=== PATIENT | female | born 1930 | race African-American/Black ===

== ENCOUNTER 2016-06-23 18:43 | Inpatient (IN) | payer MEDICARE, MEDICAID ==
[~2016-06-23] VITALS: Ht 170.2 cm; Wt 52.3 kg
--- NOTE | 2016-06-23 18:57 | ED.ADGEN ---
Past History Past Medical History: Dementia, Depression Adult General Chief Complaint Chief Complaint ".. I don't know why they sent me... I did tell them I was depressed...".. " I am tired of people stealing my stuff and just generally tired of living...'" I am just tired of being sick all the time..." HPI HPI Patient is a 67 year old female who presents with above hx and complaints of depression, suicidal ideation, delusions or stealing from her and chronically il. Pt. a resident of [facility] since 2016. Pt. Primary is Dr. Castillo, and Dr. Thurman Psychiatrist. Pt. reportedly has been having depression thoughts for the past 4-6 weeks with some thoughts of suicide. Patient denies currently a plan or method. However nursing states patient attempted suicide by wrapping O2 tubing around her neck and putting electrical cord in her mouth. Patient has multiple health problems including chronic diastolic heart failure, gait disorder, dysphagia, generalized deconditioning, dementia, TIAs and CVAs, anemia, adrenal neoplasm, personality disorder, hyper insomnia, probably neuropathy, hypertension, pulmonary hypertension, cardiomyopathy, cardiac dysrhythmia, hypercapnia and hypoxia, osteoarthritis, polymyalgia rheumatica, osteoporosis, adenoid delusions , COPD, and depression. Pt. sent to ED for further eval. before admit to [facility] unit. Review of Systems Review of Systems Pt. has no complaints other than depression thoughts Constitutional: Denies fever or chills [] Eyes: Denies change in visual acuity, redness, or eye pain [] HENT: Denies nasal congestion or sore throat [] Respiratory: Denies cough or shortness of breath [] Cardiovascular: No additional information not addressed in HPI [] GI: Denies abdominal pain, nausea, vomiting, bloody stools or diarrhea [] : Denies dysuria or hematuria [] Musculoskeletal: Denies back pain or joint pain [] Integument: Denies rash or skin lesions [] Neurologic: Denies headache, focal weakness or sensory changes [] Endocrine: Denies polyuria or polydipsia [] Family History Family History Non-contributory Current Medications Current Medications Current Medications Medications (Trade) Dose Ordered Sig/Ion Start Time Stop Time Status Last Admin Dose Admin Ondansetron HCl (Zofran) 4 mg PRN Q4HRS PRN 06/23/16 20:30 06/24/16 20:29 See Nursing for home meds Allergies Allergies See Nursing Physical Exam Physical Exam Constitutional: , no acute distress, chronically ill in appearance. [] HENT: Normocephalic, atraumatic, bilateral external ears normal, oropharynx moist, no oral exudates, nose normal. [] Eyes: , EOMI, conjunctiva injected Lt, no discharge. Arcus Neck: Normal range of motion, no tenderness, supple, no stridor. [] Cardiovascular:Heart rate irregular rhythm, no murmur , PMI to lt. PVC per monitor Lungs & Thorax: Bilateral breath sounds clear to auscultation [] Abdomen: Bowel sounds normal, soft, no tenderness, no masses, no pulsatile masses. [] Skin: Warm, dry, no erythema, no rash. [] Back: No tenderness, no CVA tenderness. [] Extremities: No tenderness, no cyanosis, no clubbing, ROM intact, no edema. [] Neurologic: Alert and oriented X 3, normal motor function, normal sensory function, no focal deficits noted. [] Psychologic: Affect normal, judgement normal, mood normal. [] Current Patient Data Vital Signs Vital Signs Date Time Temp Pulse Resp B/P Pulse Ox O2 Delivery O2 Flow Rate FiO2 06/23/16 19:00 98.8 85 18 100 Nasal Cannula 3 Lab Results Laboratory Tests Test 06/23/16 19:00 06/23/16 19:05 06/23/16 19:13 Urine Collection Type Unknown Urine Color Straw Urine Clarity Clear Urine pH 7.0 Urine Specific [place] 1.010 Urine Protein 100 mg/dl (NEG-TRACE) Urine Glucose (UA) Negmg/dL (NEG) Urine Ketones (Stick) Negmg/dL (NEG) Urine Blood Neg (NEG) Urine Nitrite Neg (NEG) Urine Bilirubin Neg (NEG) Urine Urobilinogen Dipstick 0.2mg/dL (0.2 mg/dL) Urine Leukocyte Esterase Neg (NEG) Urine RBC Occ/HPF (0-2) Urine WBC 1-4/HPF (0-4) Urine Squamous Epithelial Cells Few/LPF Urine Bacteria 0/HPF (0-FEW) Urine Opiates Screen Neg (NEG) Urine Methadone Screen Neg (NEG) Urine Barbiturates Neg (NEG) Urine Phencyclidine Screen Neg (NEG) Urine Amphetamine/Methamphetamine Neg (NEG) Urine Benzodiazepines Screen Neg (NEG) Urine Cocaine Screen Neg (NEG) Urine Cannabinoids Screen Neg (NEG) Urine Ethyl Alcohol Neg (NEG) White Blood Count 5.7x10^3/uL (4.0-11.0) Red Blood Count 3.19x10^6/uL (3.50-5.40) L Hemoglobin 10.0g/dL (12.0-15.5) L Hematocrit 30.0% (36.0-47.0) L Mean Corpuscular Volume 94fL (79-100) Mean Corpuscular Hemoglobin 32pg (25-35) Mean Corpuscular Hemoglobin Concent 33g/dL (31-37) Red Cell Distribution Width 14.8% (11.5-14.5) H Platelet Count 201x10^3/uL (140-400) Neutrophils (%) (Auto) 81% (31-73) H Lymphocytes (%) (Auto) 12% (24-48) L Monocytes (%) (Auto) 7% (0-9) Eosinophils (%) (Auto) 0% (0-3) Basophils (%) (Auto) 0% (0-3) Neutrophils # (Auto) 4.6x10^3uL (1.8-7.7) Lymphocytes # (Auto) 0.7x10^3/uL (1.0-4.8) L Monocytes # (Auto) 0.4x10^3/uL (0.0-1.1) Eosinophils # (Auto) 0.0x10^3/uL (0.0-0.7) Basophils # (Auto) 0.0x10^3/uL (0.0-0.2) Erythrocyte Sedimentation Rate 8 (0-25) Prothrombin Time 11.1SEC (9.4-11.4) Prothrombin Time INR 1.1 (0.9-1.1) PTT 25SEC (23-33) Sodium Level 144mmol/L (136-145) Potassium Level 3.7mmol/L (3.5-5.1) Chloride Level 104mmol/L (98-107) Carbon Dioxide Level 33mmol/L (21-32) H Anion Gap 7 (6-14) Blood Urea Nitrogen 7mg/dL (7-20) Creatinine 0.8mg/dL (0.6-1.0) Estimated GFR (Cockcroft-Gault) 68.3 Glucose Level 126mg/dL (70-99) H Calcium Level 9.1mg/dL (8.5-10.1) Magnesium Level 2.0mg/dL (1.8-2.4) Total Bilirubin 0.5mg/dL (0.2-1.0) Direct Bilirubin 0.1mg/dL (0.0-0.2) Aspartate Amino Transferase (AST) 14U/L (15-37) L Alanine Aminotransferase (ALT) 18U/L (14-59) Alkaline Phosphatase 50U/L (46-116) Creatine Kinase 72U/L (26-192) Creatine Kinase MB (Mass) 1.0ng/mL (0.0-3.6) Creatine Kinase MB Relative Index 1.4% (0-4) Troponin I Quantitative 0.187ng/mL (0-0.055) H C-Reactive Protein < 0.5mg/L (0-3.3) IG-Ejr-T-Type Natriuretic Peptide 1996pg/mL (0-449) H Total Protein 7.1g/dL (6.4-8.2) Albumin 3.7g/dL (3.4-5.0) Lipase 74U/L (73-393) O2 Saturation Pending Arterial Blood pH 7.43 (7.35-7.45) Arterial Blood pCO2 at Patient Temp 43mmHg (35-46) Arterial Blood pO2 at Patient Temp 141mmHg (65-108) H Arterial Blood HCO3 28mmol/L (21-28) Arterial Blood Base Excess 3mmol/L (-3-3) FiO2 98 EKG EKG [] Radiology/Procedures Radiology/Procedures Interpretation chest x-ray shows chronic COPD changes. Cardiomegaly. Belt buckle and zipper. My interpretation of CT head shows no shift, mass, edema , bleed, or fracture. Does have significant atrophy and white matter disease changes. Course & Med Decision Making Course & Med Decision Making Pertinent Labs and Imaging studies reviewed. (See chart for details). Discussed presentation, testing and tx. plan with Dr. Watts med. consult. . Will admit to Tele. until medical clearance for [facility] - under Dr. Stevens. [] Final Impression Final Impression 1. Hx. Depression[] 2. Mental status change 3. Suicidal ideation 4. Paranoid delusions 5. Anemia 6. COPD oxygen dependent 7. Elevated troponin and BNP 8. History of chronic CHF diastolic dysfunction 9. Diabetes 10. Multiple chronic medical disorders Problems: Dragon Disclaimer Dragon Disclaimer This electronic medical record was generated, in whole or in part, using a voice recognition dictation system. KANCHAN MAO MD Jun 23, 2016 18:57
[2016-06-23 19:36] LABS: BASO % 0 % (0-3); EOS % 0 % (0-3); LYMPH # 0.7 x10^3/uL (1.0-4.8); LYMPH % 12 % (24-48); MEAN CORPUSCULAR HEMOGLOBIN 32 pg (25-35); MEAN CORPUSCULAR HGB CONC 33 g/dL (31-37); MEAN CORPUSCULAR VOLUME 94 fL (79-100); MONO # 0.4 x10^3/uL (0.0-1.1); MONO % 7 % (0-9); NEUT # 4.6 x10^3uL (1.8-7.7); NEUT % 81 % (31-73); PLATELET COUNT 201 x10^3/uL (140-400); RED BLOOD COUNT 3.19 x10^6/uL (3.50-5.40); RED CELL DISTRIBUTION WIDTH 14.8 % (11.5-14.5); WHITE BLOOD COUNT 5.7 x10^3/uL (4.0-11.0)
[2016-06-23 19:45] LABS: AMPHETAMINE/METHAMPHETAMINE NEG (NEG); BARBITURATES NEG (NEG); BENZODIAZEPINES NEG (NEG); CANNABINOIDS NEG (NEG); COCAINE NEG (NEG); METHADONE NEG (NEG); OPIATES NEG (NEG); PHENCYCLIDINE NEG (NEG)
--- NOTE | 2016-06-23 19:50 | RAD ---
INDICATION: Altered mental status. COMPARISON: None TECHNIQUE: Axial, noncontrast CT images obtained through the head. One or more of the following individualized dose reduction techniques were utilized for this examination: 1. Automated exposure control; 2. Adjustment of the mA and/or kV according to patient size; 3. Use of iterative reconstruction technique. FINDINGS: No acute intracranial process is identified, specifically no acute blood products, midline shift, mass effect or extra-axial fluid collections. Ventricles and sulci appear appropriate for patient's age. Basilar cisterns are maintained. Diffuse periventricular and subcortical white matter low attenuation is present, nonspecific although likely sequelae of chronic microvascular ischemia. Intracranial vascular calcifications are present. The visualized paranasal sinuses are clear. Mastoid air cells are clear. No calvarial fracture is present. Overlying scalp is intact. IMPRESSION: No acute intracranial process. Electronically signed by: Kemi Falk (Jun 23, 2016 19:47:56)
[2016-06-23 19:53] LABS: PH ABG 7.43 (7.35-7.45)
[2016-06-23 19:54] LABS: BASE EXCESS ABG 3 mmol/L (-3-3); HCO3 ABG 28 mmol/L (21-28); PCO2 ABG 43 mmHg (35-46); PO2 ABG 141 mmHg (65-108)
[2016-06-23 19:55] LABS: ALBUMIN 3.7 g/dL (3.4-5.0); ALK PHOS 50 U/L (46-116); ALT (SGPT) 18 U/L (14-59); ANION GAP 7 (6-14); AST (SGOT) 14 U/L (15-37); BLOOD UREA NITROGEN 7 mg/dL (7-20); C REACTIVE PROTEIN < 0.5 mg/L (0-3.3); CALCIUM 9.1 mg/dL (8.5-10.1); CARBON DIOXIDE 33 mmol/L (21-32); CHLORIDE 104 mmol/L (98-107); CREATINE KINASE 72 U/L (26-192); CREATININE 0.8 mg/dL (0.6-1.0); DIRECT BILIRUBIN 0.1 mg/dL (0.0-0.2); GFR 68.3; GLUCOSE 126 mg/dL (70-99); LIPASE 74 U/L (73-393); POTASSIUM 3.7 mmol/L (3.5-5.1); SODIUM 144 mmol/L (136-145); TOTAL BILIRUBIN 0.5 mg/dL (0.2-1.0); TOTAL PROTEIN 7.1 g/dL (6.4-8.2)
[2016-06-23 20:18] LABS: BILIRUBIN,URINE NEG (NEG); CLARITY,URINE CLEAR; COLOR,URINE STRAW; GLUCOSE,URINE NEG (NEG); NITRITE,URINE NEG (NEG); RBC,URINE OCC /HPF (0-2); UROBILINOGEN,URINE 0.2 mg/dL (0.2 mg/dL)
[2016-06-23 20:19] LABS: BACTERIA,URINE 0 /HPF (0-FEW); SQUAMOUS EPITHELIAL CELL,UR FEW /LPF
[2016-06-23] MEDS ORDERED: ONDANSETRON PF 4 MG/2 ML VIAL. IV PRN (20:30)
[2016-06-23 20:59] LABS: SEDIMENTATION RATE 8 (0-25)
[2016-06-23] MEDS ORDERED: FUROSEMIDE 40 MG TABLET PO ONE (21:00)
[2016-06-23] MEDS: IPRATRPIUM/ALBUTEROL 0.5/2.5MG 3 ML NEBU. NEB SCH (21:24)
[2016-06-23 22:25] VITALS: BP 169/79
--- NOTE | 2016-06-23 22:31 | ACF ---
Admission Criteria Forms MENTAL STATUS CHANGE Clinical Indications for Inpatient Care (Place 'X' for any and all applicable criteria): Ongoing inpatient care may be needed for ANY ONE of the following(1)(2)(3)(5)(6) : [ ]I. Suspected serious etiology (eg, medical disorder, [employer] event) of mental status change [X]II. Danger to self or others not manageable at lower level of care [ ]III. Grave disability (eg, inability to perform self care necessary at lower level of care) [ ]IV. Agitation or inappropriate behavior interfering with care for primary condition (eg, attempting to discontinue lines or drains prematurely, unable to cooperate with respiratory care) [ ]V. Delirium [A] [D][E] as described by ANY ONE of the following(26): [ ]a) Delirium due to alcohol or sedative [F] withdrawal [ ]b) Delirium of uncertain etiology that has not responded to appropriate empiric treatment [ ]c) Delirium that prevents performance of a life-sustaining function (eg, feeding or hydrating oneself) [ ]. General contraindications and/or Inappropriate clinical situations for Observational Care in patients with Mental Status Change, when ANY ONE of the following is required: [ ]a) Prediction of prolongation of LOS based on ANY ONE of the following may be considered as a contraindication for observational care 2, 3, 4, 5, 6, 7, 8, 9, 10, 11 [ ]i) Age > 65 yrs. [ ]ii) Patient arriving by ambulance [ ]iii) Patient with high acuity [ ]iv) Patient requiring vital sign monitoring [ ]v) Patient on IV medication [ ]b) Systolic blood pressures 180mmHg 3,12 [ ]c) Patient with altered mental status including delirium and other alteration of consciousness, (3) [ ]d) Patient whose discharge disposition will be to a nursing home home or rehabilitation home should not be managed in Emergency Department Observation Unit. CMS rule requires 3 days hospital stay before such placement.3,13 [ ]e) Patient with failure to thrive due to broad array of etiologies 3,16,17 [ ]f) Inability to ambulate 3,14 Extended stay beyond goal length of stay for the primary condition may be needed until ALL of the following are present(3)(5): [ ]a) Underlying medical etiology of mental status change is absent, or has been established and adequately treated [ ]b) Danger to self or others is absent or manageable at lower level of care. [ ]c) Behavior crisis management, including physical or chemical restraints, is not required or available at lower level of car [ ]d) Substance or alcohol withdrawal is absent or manageable at lower level of care. [ ]e) Behavioral symptoms (eg, agitation, somnolence, inappropriate behavior) are absent, or are manageable at lower level of care. The original [facility] content created by [facility] has been revised. The portions of the content which have been revised are identified through the use of italic text or in bold, and [facility] has neither reviewed nor approved the modified material. All other unmodified content is copyright [facility]. Please see references footnoted in the original [facility] edition 2016 Admission Criteria Met?: Yes MALAIKA SANTACRUZ Jun 23, 2016 22:31
[2016-06-23 23:26] VITALS: BP 152/75
[2016-06-24] MEDS ORDERED: ACET325T9 PO (01:31)
[2016-06-24] MEDS ORDERED: HYDR25SU18 RC (01:31)
[2016-06-24] MEDS ORDERED: ASPI325T11 PO (01:35)
[2016-06-24] MEDS ORDERED: [UNRECOGNIZED DRUG - CODE] MM (01:35)
[2016-06-24] MEDS ORDERED: TROL35.4 TP (01:45)
[2016-06-24] MEDS ORDERED: CHOL10003 PO (01:45)
[2016-06-24] MEDS ORDERED: LEVO250T25 PO (01:50)
[2016-06-24] MEDS ORDERED: IPRA3AMP NEB (01:50)
[2016-06-24] MEDS ORDERED: GLUC1TAB33 PO (01:50)
[2016-06-24] MEDS ORDERED: MAG360OR24 PO (01:50)
[2016-06-24] MEDS ORDERED: LORA10TA3 PO (01:57)
[2016-06-24] MEDS ORDERED: HYDR25CA PO (01:57)
[2016-06-24] MEDS ORDERED: PHEN1SUP75 RC (01:57)
[2016-06-24] MEDS ORDERED: ROFL500T PO (01:57)
[2016-06-24] MEDS ORDERED: PRED20TA PO (01:57)
[2016-06-24] MEDS ORDERED: CALC300T5 PO (01:57)
[2016-06-24 03:17] VITALS: BP_SYST 168; BP_SYST 92; BP_DIAS 54; BP_DIAS 78
--- NOTE | 2016-06-24 04:42 | EKG ---
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
[2016-06-24 06:17] VITALS: BP 161/92
--- NOTE | 2016-06-24 08:05 | RAD ---
Portable chest, 06/23/2016: History: Dyspnea, altered mental status No previous radiographs are available at this time for comparison purposes. The heart is mildly enlarged. There is calcific plaquing and tortuosity of the thoracic aorta. Right basilar pleural/parenchymal opacities are probably due to scarring. There are a few other scattered parenchymal scars. No definite pulmonary consolidation or pleural fluid is evident. Degenerative changes are present in the spine. IMPRESSION: 1. Mild cardiomegaly and aortic atherosclerosis. 2. Mild right basilar pleural/parenchymal opacity, most likely representing scarring.
[2016-06-24 08:23] LABS: BASO % 0 % (0-3); EOS # 0.1 x10^3/uL (0.0-0.7); EOS % 1 % (0-3); HEMATOCRIT 31.2 % (36.0-47.0); HEMOGLOBIN 10.3 g/dL (12.0-15.5); LYMPH # 2.1 x10^3/uL (1.0-4.8); LYMPH % 32 % (24-48); MEAN CORPUSCULAR HEMOGLOBIN 31 pg (25-35); MEAN CORPUSCULAR HGB CONC 33 g/dL (31-37); MEAN CORPUSCULAR VOLUME 93 fL (79-100); MONO # 0.8 x10^3/uL (0.0-1.1); MONO % 12 % (0-9); NEUT # 3.6 x10^3uL (1.8-7.7); NEUT % 55 % (31-73); PLATELET COUNT 205 x10^3/uL (140-400); RED BLOOD COUNT 3.35 x10^6/uL (3.50-5.40); WHITE BLOOD COUNT 6.5 x10^3/uL (4.0-11.0)
[2016-06-24 08:42] LABS: ALBUMIN 3.5 g/dL (3.4-5.0); CREATININE 0.8 mg/dL (0.6-1.0); GFR 82.7; TOTAL BILIRUBIN 0.6 mg/dL (0.2-1.0); TOTAL PROTEIN 6.9 g/dL (6.4-8.2)
[2016-06-24 08:47] LABS: POTASSIUM 2.9 mmol/L (3.5-5.1)
[2016-06-24 09:00] VITALS: BP 144/99
[2016-06-24] MEDS ORDERED: ASPIRIN 325 MG TABLET PO SCH (09:00)
[2016-06-24] MEDS ORDERED: 0.9 % SODIUM CHLORIDE 150ML 150 ML ONE ×2 (09:08→11:55)
[2016-06-24] MEDS: POTASSIUM CHLORIDE 20MEQ 100 ML IV SCH ×2 (09:15→11:52)
[2016-06-24] MEDS: IPRATRPIUM/ALBUTEROL 0.5/2.5MG 3 ML NEBU. NEB SCH ×4 (09:31→21:22)
--- NOTE | 2016-06-24 09:46 | PDOC2 ---
CONSULT Date of Admission DATE: 06/24/16 TIME: 09:45 Reason for Consult: elevated troponin Problem List Problems Medical Problems: (1) Suicidal thoughts Status: Acute History of Present Illness Ms Ji is an 85 year old female resident of a [place] who was brought to the hospital for suicidal ideation. She was reportedly found with her oxygen tubing wrapped around her neck. She denies this. She was noted in the ED to have an elevation in her troponin so consult was called. She reports occasional chest tightness with dyspnea that occurs when she is cleaning her room at the [place]. She reports it is better sometimes with rest, other times resolves with breathing treatments. She denies any congestive symptoms, palpitations, lightheadedness or syncope. Past Medical History hypertension, hyperlipidemia, thyroid disease, PUD, acid reflux, chronic diastolic heart failure, gait disorder, dysphagia, generalized deconditioning, dementia, TIAs and CVAs, anemia, adrenal neoplasm, personality disorder, hyper insomnia, probably neuropathy, pulmonary hypertension, cardiomyopathy, cardiac dysrhythmia, hypercapnia and hypoxia, osteoarthritis, polymyalgia rheumatica, osteoporosis, paranoid delusions, COPD, and depression. She denies any prior AK or coronary disease. Family History non contributory due to age Social History resident of a long term, non smoker, no significant ETOH, no illicit drugs Current Medications Current Medications Furosemide (Lasix) 40 mg 1X ONCE PO Last administered on 06/23/16 21:24; Start 06/23/16 at 21:00; Stop 06/23/16 at 21:01; Status DC Ondansetron HCl (Zofran) 4 mg PRN Q4HRS PRN IV NAUSEA/VOMITING; Start 06/23/16 at 20:30; Stop 06/24/16 at 20:29 Aspirin (Genaro Aspirin) 325 mg DAILY PO Last administered on 06/24/16 09:15; Start 06/24/16 at 09:00 Albuterol/ Ipratropium 3 ml 3 ml [id number] NEB Last administered on 06/24/16 09: 31; Start 06/23/16 at 21:00 Potassium Chloride 100 ml @ 50 mls/hr Q2H IV Last administered on 06/24/16 09 :15; Start 06/24/16 at 09:00; Stop 06/24/16 at 12:59 Sodium Chloride (Iv Normal Saline 150ml) 150 ml @ As Directed STK-MED ONCE .ROUTE Last administered on 06/24/16t 09:15; Start 06/24/16 at 09:08; Stop 01/31 at 09:09; Status DC Aspirin (Aspirin Enteric Coated) 325 mg DAILY PO ; Start 06/25/16 at 09:00; Status UNV Active Scripts Active Reported Vistaril (Hydroxyzine Pamoate) 25 Mg Capsule 25 Mg PO Q6HRS PRN Tums (Calcium Carbonate) 300 Mg Tab.chew 500 Mg PO Q2HR Daliresp (Roflumilast) 500 Mcg Tablet 500 Mcg PO DAILY Preparation H Suppository (Phenylephrine Hcl/[place] Butter) 1 Each Supp.rect 1 Each RC Q6HRS Prednisone 20 Mg Tablet 20 Mg PO DAILY Loratadine 10 Mg Tablet 10 Mg PO DAILY Levaquin (Levofloxacin) 250 Mg Tablet 250 Mg PO DAILY Glucosamine Chondroitin Tab (Gluc Bennett/Chondro Bennett A/Vit C/Mn) 1 Each Tablet 1 Each PO BID PRN Alum-Mag Hydroxide-Simeth Liq (Mag Hydrox/Al Hydrox/Simeth) 360 Ml Oral.susp 30 Ml PO Q6HRS PRN Duoneb 0.5-3(2.5) Mg/3 Ml (Albuterol/Ipratropium) 3 Ml Ampul.neb 3 Ml NEB Q4HRS PRN Vitamin D3 (Cholecalciferol (Vitamin D3)) 1,000 Unit Tablet 2,000 Unit PO DAILY Aspercreme 10% Cream (Trolamine Salicylate/Aloe Vera) 35.4 Gm Cream..g. 35.4 Gm TP Q12HR PRN Vencedor-15 (Benzocaine) 15 Mg Lozenge 15 Mg MM Q2HR PRN Aspirin Ec (Aspirin) 325 Mg Tablet.dr 325 Mg PO DAILY Anusol-Hc (Hydrocortisone Acetate) 25 Mg Supp.rect 25 Mg RC Q8HRS PRN Tylenol (Acetaminophen) 325 Mg Tablet 650 Mg PO Q4HRS PRN Allergies: Coded Allergies: diazepam (Verified Allergy, Intermediate, 06/24/16) lidocaine (Verified Allergy, Intermediate, 06/24/16) propoxyphene (Verified Allergy, Intermediate, 06/24/16) Review of System as per HPI, she denies additional symptoms General: Alert, Cooperative, No acute distress HEENT: Atraumatic, EOMI, Mucous membr. moist/pink Lungs: Other (bibasilar crackles) Heart: Normal S1, Normal S2, Other (+ systolic murmur) Extremities: No cyanosis, Normal pulses Neuro: Normal speech, Strength at 5/5 X4 ext Psych/Mental Status: Mood NL VITALS Vital Signs Date Time Temp Pulse Resp B/P Pulse Ox O2 Delivery O2 Flow Rate FiO2 06/24/16 09:32 100 Nasal Cannula 3.0 06/24/16 09:00 87 22 144/99 06/24/16 06:17 98.7 Labs Laboratory Tests Test 06/23/16 19:00 06/23/16 19:05 06/23/16 19:13 06/24/16 01:30 Urine Collection Type Unknown Urine Color Straw Urine Clarity Clear Urine pH 7.0 Urine Specific [place] 1.010 Urine Protein 100 mg/dl (NEG-TRACE) Urine Glucose (UA) Negmg/dL (NEG) Urine Ketones (Stick) Negmg/dL (NEG) Urine Blood Neg (NEG) Urine Nitrite Neg (NEG) Urine Bilirubin Neg (NEG) Urine Urobilinogen Dipstick 0.2mg/dL (0.2 mg/dL) Urine Leukocyte Esterase Neg (NEG) Urine RBC Occ/HPF (0-2) Urine WBC 1-4/HPF (0-4) Urine Squamous Epithelial Cells Few/LPF Urine Bacteria 0/HPF (0-FEW) Urine Opiates Screen Neg (NEG) Urine Methadone Screen Neg (NEG) Urine Barbiturates Neg (NEG) Urine Phencyclidine Screen Neg (NEG) Urine Amphetamine/Methamphetamine Neg (NEG) Urine Benzodiazepines Screen Neg (NEG) Urine Cocaine Screen Neg (NEG) Urine Cannabinoids Screen Neg (NEG) Urine Ethyl Alcohol Neg (NEG) White Blood Count 5.7x10^3/uL (4.0-11.0) Red Blood Count 3.19x10^6/uL (3.50-5.40) Hemoglobin 10.0g/dL (12.0-15.5) Hematocrit 30.0% (36.0-47.0) Mean Corpuscular Volume 94fL (79-100) Mean Corpuscular Hemoglobin 32pg (25-35) Mean Corpuscular Hemoglobin Concent 33g/dL (31-37) Red Cell Distribution Width 14.8% (11.5-14.5) Platelet Count 201x10^3/uL (140-400) Neutrophils (%) (Auto) 81% (31-73) Lymphocytes (%) (Auto) 12% (24-48) Monocytes (%) (Auto) 7% (0-9) Eosinophils (%) (Auto) 0% (0-3) Basophils (%) (Auto) 0% (0-3) Neutrophils # (Auto) 4.6x10^3uL (1.8-7.7) Lymphocytes # (Auto) 0.7x10^3/uL (1.0-4.8) Monocytes # (Auto) 0.4x10^3/uL (0.0-1.1) Eosinophils # (Auto) 0.0x10^3/uL (0.0-0.7) Basophils # (Auto) 0.0x10^3/uL (0.0-0.2) Erythrocyte Sedimentation Rate 8 (0-25) Prothrombin Time 11.1SEC (9.4-11.4) Prothromb Time International Ratio 1.1 (0.9-1.1) Activated Partial Thromboplast Time 25SEC (23-33) Sodium Level 144mmol/L (136-145) Potassium Level 3.7mmol/L (3.5-5.1) Chloride Level 104mmol/L (98-107) Carbon Dioxide Level 33mmol/L (21-32) Anion Gap 7 (6-14) Blood Urea Nitrogen 7mg/dL (7-20) Creatinine 0.8mg/dL (0.6-1.0) Estimated GFR (Cockcroft-Gault) 68.3 Glucose Level 126mg/dL (70-99) Calcium Level 9.1mg/dL (8.5-10.1) Magnesium Level 2.0mg/dL (1.8-2.4) Total Bilirubin 0.5mg/dL (0.2-1.0) Direct Bilirubin 0.1mg/dL (0.0-0.2) Aspartate Amino Transf (AST/SGOT) 14U/L (15-37) Alanine Aminotransferase (ALT/SGPT) 18U/L (14-59) Alkaline Phosphatase 50U/L (46-116) Creatine Kinase 72U/L (26-192) Creatine Kinase MB (Mass) 1.0ng/mL (0.0-3.6) Creatine Kinase MB Relative Index 1.4% (0-4) Troponin I Quantitative 0.187ng/mL (0-0.055) 0.198ng/mL (0-0.055) C-Reactive Protein < 0.5mg/L (0-3.3) KV-Zef-D-Type Natriuretic Peptide 1996pg/mL (0-449) Total Protein 7.1g/dL (6.4-8.2) Albumin 3.7g/dL (3.4-5.0) Lipase 74U/L (73-393) Arterial Blood pH 7.43 (7.35-7.45) Arterial Blood pCO2 at Patient Temp 43mmHg (35-46) Arterial Blood pO2 at Patient Temp 141mmHg (65-108) Arterial Blood HCO3 28mmol/L (21-28) Arterial Blood Base Excess 3mmol/L (-3-3) FiO2 98 Test 06/24/16 07:24 06/24/16 07:28 Sodium Level 146mmol/L (136-145) Potassium Level 2.9mmol/L (3.5-5.1) Chloride Level 103mmol/L (98-107) Carbon Dioxide Level 38mmol/L (21-32) Anion Gap 5 (6-14) Blood Urea Nitrogen 7mg/dL (7-20) Creatinine 0.8mg/dL (0.6-1.0) Estimated GFR (Cockcroft-Gault) 82.7 BUN/Creatinine Ratio 9 (6-20) Glucose Level 88mg/dL (70-99) Calcium Level 9.0mg/dL (8.5-10.1) Total Bilirubin 0.6mg/dL (0.2-1.0) Aspartate Amino Transf (AST/SGOT) 12U/L (15-37) Alanine Aminotransferase (ALT/SGPT) 18U/L (14-59) Alkaline Phosphatase 45U/L (46-116) Troponin I Quantitative 0.211ng/mL (0-0.055) Total Protein 6.9g/dL (6.4-8.2) Albumin 3.5g/dL (3.4-5.0) Albumin/Globulin Ratio 1.0 (1.0-1.7) White Blood Count 6.5x10^3/uL (4.0-11.0) Red Blood Count 3.35x10^6/uL (3.50-5.40) Hemoglobin 10.3g/dL (12.0-15.5) Hematocrit 31.2% (36.0-47.0) Mean Corpuscular Volume 93fL (79-100) Mean Corpuscular Hemoglobin 31pg (25-35) Mean Corpuscular Hemoglobin Concent 33g/dL (31-37) Red Cell Distribution Width 15.0% (11.5-14.5) Platelet Count 205x10^3/uL (140-400) Neutrophils (%) (Auto) 55% (31-73) Lymphocytes (%) (Auto) 32% (24-48) Monocytes (%) (Auto) 12% (0-9) Eosinophils (%) (Auto) 1% (0-3) Basophils (%) (Auto) 0% (0-3) Neutrophils # (Auto) 3.6x10^3uL (1.8-7.7) Lymphocytes # (Auto) 2.1x10^3/uL (1.0-4.8) Monocytes # (Auto) 0.8x10^3/uL (0.0-1.1) Eosinophils # (Auto) 0.1x10^3/uL (0.0-0.7) Basophils # (Auto) 0.0x10^3/uL (0.0-0.2) Images CXR - IMPRESSION: 1. Mild cardiomegaly and aortic atherosclerosis. 2. Mild right basilar pleural/parenchymal opacity, most likely representing scarring. EKG - sinus rhythm without acute ischemic changes Assessment/Plan 1. elevated troponin consistent with NSTEMI - Will check echocardiogram and start beta carleen therapy. Recommend medical mgmt until stable from psychiatric standpoint. 2. hypertension - home meds and start beta carleen 3. chronic diastolic heart failure - no overt HF at this time 4. hypokalemia - replace. 5. SI, dementia - per PCP/Psych. Problems: LEN MACHUCA APRN Jun 24, 2016 09:46
[2016-06-24 10:00] VITALS: BP 169/94
[2016-06-24 12:25] LABS: SAT O2 ABG 98 % (92-99)
[2016-06-24] MEDS ORDERED: HYDROXYZINE PAMOATE 25 MG CAPSULE PO PRN (13:00)
[2016-06-24] MEDS ORDERED: MAG HYDROX/AL HYDROX/SIMETH 30 ML ORAL.SUSP PO PRN (13:15)
[2016-06-24] MEDS ORDERED: CALCIUM CARBONATE 500 MG TAB.CHEW PO PRN (13:15)
[2016-06-24] MEDS ORDERED: PREDNISONE 10 MG TABLET ONE (13:15)
[2016-06-24] MEDS: METOPROLOL TART IMMED RELEASE 25 MG TABLET PO SCH ×2 (13:19→20:09)
[2016-06-24] MEDS: ACETAMINOPHEN 325 MG TABLET PO PRN (13:20)
--- NOTE | 2016-06-24 14:52 | HP ---
ADMIT DATE: 06/24/2016 REASON FOR ADMISSION: This is an 85-year-old female who came from [facility] in [place], [place]. Evidently at this nursing facility where she had been since 05/20/2016, the intake states she made a second suicide attempt, wrapped oxygen tubing around her neck at one point and then she had put an electrical cord in her mouth. Also paranoid about people stealing her clothes. Onset of symptoms 2 weeks. However, the patient was being treated for pneumonia and was found to have an elevated troponin and so was admitted to the ICU for further medical care. PAST MEDICAL HISTORY: Chronic diastolic heart failure; dysphagia; weakness; dementia with behavior disturbance; history of TIAs; anemia; personality disorder, unspecified; hypersomnia; polyneuropathy; hypertensive heart disease; secondary pulmonary hypertension; cardiomyopathy; cardiac arrhythmias; polymyalgia rheumatica; arthritis; osteoporosis; and chronic respiratory failure, oxygen dependent. ALLERGIES: DIAZEPAM, LIDOCAINE, AND PROPOXYPHENE. MEDICATIONS: Reviewed. The patient recently started on a prednisone on 06/20/2016 where she was receiving 40 mg a day for 3 days and is now on 20 mg a day. She was also started on Levaquin on 06/21/2016 for pneumonia, however there is no chest wall x-ray to go back by. SOCIAL HISTORY: The patient states she worked for years. She no longer smokes. She stated she lived with her granddaughter for 6 months, then was placed in the nursing facility on 05/20/2016 because her granddaughter "wanted to travel." Prior to that, she states she lived in her home, but her home is in disrepair and needs extensive repairs and probably "isn't worth anything." REVIEW OF SYSTEMS: The patient is quite emotionally distraught at the present time. She insists that she did not try to harm herself and actually states why I put a plug in my mouth, what good would that do to put the plug in my mouth. She does not recall wrapping the oxygen tubing around her neck. She does insist that some of her clothes have been stolen. That has seen other people with her clothes on and that she has called attention to these to the staff and they moved her to a different room. She states she has labels on her clothes. She complains little bit of shortness of breath, but no chest pains in particular and does not have any other complaints except for being very upset. OBJECTIVE: VITAL SIGNS: Blood pressure is 169/94, pulse 90, respirations 22, pulse ox is 100% on 3 liters. Height is 67 inches, weight 115.31 pounds, her BMI is only 18. GENERAL: Frail appearing elderly female, in no acute distress. HEENT: Hearing is normal. Her eyes are clear. Her nose was patent. Her tongue was moist. Throat was clear. NECK: Supple, without adenopathy. LUNGS: Clear to auscultation. CARDIOVASCULAR: Regular rhythm and rate. There are occasional PVCs on the monitor. ABDOMEN: Soft, nontender. EXTREMITIES: Without edema. NEUROLOGIC: Mental status is definitely anxious. Continues to ruminate about her clothes. The patient insists she does not want to go back to the long-term and she wants to go live with her son. I had initially seen her earlier in the day, but had to leave due to a more urgent case and the patient repeatedly asked the nurses when I was coming back. LABORATORY DATA: Hemoglobin 10.3, hematocrit 31.2. Sed rate is 8. Blood gas was normal. She had a pO2 of 141. Chemistry: Potassium was 2.9. Troponin has gone from 0.187 to 0.211. Cholesterol is 217, her HDL s 79. Her TSH is 20.417. BNP 1996. IMAGING: EKG without ischemic changes. ASSESSMENT: 1. Elevated troponin consistent with non-STEMI. Cardiology ordered echocardiogram and started on beta carleen. 2. Hypertension. 3. Chronic diastolic heart failure, no evidence at the present time. 4. Severe anxiety related to her situation. 5. Suicide attempt according to the long-term. 6. Hypothyroidism. We will start replacement. 7. Hypokalemia, being replaced. 8. Hyperlipidemia. We will start a low dose of statin. XIANG PONCE DO DR: VLAD/alisa JOB#: [id number] / [id number]
[2016-06-24 15:00] VITALS: BP 175/97
[2016-06-24] MEDS: PREDNISONE 10 MG TABLET PO SCH (15:00)
--- NOTE | 2016-06-24 15:10 | EKG ---
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
--- NOTE | 2016-06-24 15:28 | CARD ---
APPROVED REPORT EXAM: Two-dimensional and M-mode echocardiogram with Doppler and color Doppler. INDICATION Elevated Troponin 2D DIMENSIONS RVDd2.7 (2.9-3.5cm)Left Atrium(2D)4.7 (1.6-4.0cm) IVSd0.9 (0.7-1.1cm)Aortic Root(2D)2.9 (2.0-3.7cm) LVDd4.6 (3.9-5.9cm)PWd1.2 (0.7-1.1cm) LVDs2.9 (2.5-4.0cm)FS (%) 36.6 % SV64.7 mlLVEF(%)65.0 (>50%) Aortic Valve AoV Peak Thiago.183.1cm/sAoV VTI26.9cm AO Peak GR.13.4mmHgAO Mean GR.7mmHg DANA (VTI)2.24hy0PO P 1/2 [id number] Mitral Valve MV E Hmevjxyp514.1cm/sMV DECEL [id number] MV A Mxnnkutj451.6cm/sE/A Ratio1.4 Tricuspid Valve TR P. Gilmgryr492nj/sRAP [id number] TR Peak Gr.76cqNpBUVI41hmHi LEFT VENTRICLE The left ventricle is normal size. There is mild concentric left ventricular hypertrophy. The left ve ntricular systolic function is normal and the ejection fraction is within normal range. The Ejection Fraction is 55-60%. There is normal LV segmental wall motion. Transmitral Doppler flow pattern is Gra de II-pseudonormal filling dynamics. RIGHT VENTRICLE The right ventricle is normal size. The right ventricular systolic function is normal. ATRIA The left atrium is moderately dilated. The right atrium is mildly dilated. The interatrial septum is intact with no evidence for an atrial septal defect or patent foramen ovale as noted on 2-D or Dopple r imaging. AORTIC VALVE The aortic valve is moderately thickened but opens well. Doppler and Color Flow revealed moderate aor tic regurgitation. There is no significant aortic valvular stenosis. MITRAL VALVE The mitral valve is calcified but opens well. There is no evidence of mitral valve prolapse. There is no mitral valve stenosis. Doppler and Color-flow revealed severe mitral regurgitation. TRICUSPID VALVE The tricuspid valve is normal in structure and function. Doppler and Color Flow revealed mild to mode rate tricuspid regurgitation. The PA pressure was estimated at 66 mmHg. There is no tricuspid valve s tenosis. PULMONIC VALVE The pulmonary valve is normal in structure and function. Doppler and Color Flow revealed mild pulmoni c valvular regurgitation. There is no pulmonic valvular stenosis. GREAT VESSELS The aortic root is normal in size. The ascending aorta is mild to moderately dilated at 3.9 cm. The I VC is dilated. PERICARDIAL EFFUSION There is a trace circumferential pericardial effusion with no hemodynamic significance. Critical Notification Critical Value: No <Conclusion> The left ventricle is normal size. The left ventricular systolic function is normal and the ejection fraction is within normal range. The Ejection Fraction is 55-60%. There is mild concentric left ventricular hypertrophy. The left atrium is moderately dilated. There is no significant aortic valvular stenosis. Doppler and Color Flow revealed moderate aortic regurgitation. Doppler and Color-flow revealed severe mitral regurgitation. Doppler and Color Flow revealed mild to moderate tricuspid regurgitation. The PA pressure was estimated at 66 mmHg. The ascending aorta is mild to moderately dilated at 3.9 cm. There is a trace circumferential pericardial effusion with no hemodynamic significance.
[2016-06-24 19:58] VITALS: BP 162/89
--- NOTE | 2016-06-24 20:41 | PDOC ---
Exam Luis Alfredo Demential Exam: Luis Alfredo Note: Please also refer to the separate dictated note~for this date of service dictated separately.~Patient seen individually. Discussed the patient with Nursing staff reviewed the chart.~Reviewed interim history and current functioning. Reviewed vital signs,~Labs/ Radiology~and current medications noted below. Continue current treatment with the changes noted in the dictated addendum note Assessment: Vital Signs: Vital Signs Date Time Temp Pulse Resp B/P Pulse Ox O2 Delivery O2 Flow Rate FiO2 06/24/16 20:09 77 162/89 06/24/16 19:58 98.4 22 100 Nasal Cannula 3.0 I&O Intake and Output 06/24/16 07:00 Intake Total 750 ml Output Total 990 ml Balance -240 ml Intake Oral 750 ml Output Urine Total 990 ml # Voids 7 Labs: Laboratory Tests Test 06/24/16 01:30 06/24/16 07:24 06/24/16 07:28 Troponin I Quantitative 0.198ng/mL (0-0.055) H 0.211ng/mL (0-0.055) H Sodium Level 146mmol/L (136-145) H Potassium Level 2.9mmol/L (3.5-5.1) *L Chloride Level 103mmol/L (98-107) Carbon Dioxide Level 38mmol/L (21-32) H Anion Gap 5 (6-14) L Blood Urea Nitrogen 7mg/dL (7-20) Creatinine 0.8mg/dL (0.6-1.0) Estimated GFR (Cockcroft-Gault) 82.7 BUN/Creatinine Ratio 9 (6-20) Glucose Level 88mg/dL (70-99) Calcium Level 9.0mg/dL (8.5-10.1) Total Bilirubin 0.6mg/dL (0.2-1.0) Aspartate Amino Transferase (AST) 12U/L (15-37) L Alanine Aminotransferase (ALT) 18U/L (14-59) Alkaline Phosphatase 45U/L (46-116) L Total Protein 6.9g/dL (6.4-8.2) Albumin 3.5g/dL (3.4-5.0) Albumin/Globulin Ratio 1.0 (1.0-1.7) White Blood Count 6.5x10^3/uL (4.0-11.0) Red Blood Count 3.35x10^6/uL (3.50-5.40) L Hemoglobin 10.3g/dL (12.0-15.5) L Hematocrit 31.2% (36.0-47.0) L Mean Corpuscular Volume 93fL (79-100) Mean Corpuscular Hemoglobin 31pg (25-35) Mean Corpuscular Hemoglobin Concent 33g/dL (31-37) Red Cell Distribution Width 15.0% (11.5-14.5) H Platelet Count 205x10^3/uL (140-400) Neutrophils (%) (Auto) 55% (31-73) Lymphocytes (%) (Auto) 32% (24-48) Monocytes (%) (Auto) 12% (0-9) H Eosinophils (%) (Auto) 1% (0-3) Basophils (%) (Auto) 0% (0-3) Neutrophils # (Auto) 3.6x10^3uL (1.8-7.7) Lymphocytes # (Auto) 2.1x10^3/uL (1.0-4.8) Monocytes # (Auto) 0.8x10^3/uL (0.0-1.1) Eosinophils # (Auto) 0.1x10^3/uL (0.0-0.7) Basophils # (Auto) 0.0x10^3/uL (0.0-0.2) Triglycerides Level 60mg/dL (0-150) Cholesterol Level 217mg/dL (0-200) H LDL Cholesterol, Calculated 126mg/dL (0-100) H VLDL Cholesterol, Calculated 12mg/dL (0-40) HDL Cholesterol 79mg/dL (40-60) H Cholesterol/HDL Ratio 2.0 Current Medications: Meds: Current Medications Furosemide (Lasix) 40 mg 1X ONCE PO Last administered on 06/23/16t 21:24; Start 06/23/16 at 21:00; Stop 06/23/16 at 21:01; Status DC Ondansetron HCl (Zofran) 4 mg PRN Q4HRS PRN IV NAUSEA/VOMITING; Start 06/23/16 at 20:30; Stop 06/24/16 at 20:29; Status DC Aspirin (Genaro Aspirin) 325 mg DAILY PO Last administered on 06/24/16 09:15; Start 06/24/16 at 09:00; Stop 06/24/16 at 09:47; Status DC Albuterol/ Ipratropium 3 ml 3 ml [id number] Last administered on 06/24/16 13: 20; Start 06/23/16 at 21:00; Stop 06/24/16 at 15:30; Status DC Potassium Chloride 100 ml @ 50 mls/hr Q2H IV Last administered on 06/24/16 11 :52; Start 06/24/16 at 09:00; Stop 06/24/16 at 12:59; Status DC Sodium Chloride (Iv Normal Saline 150ml) 150 ml @ As Directed STK-MED ONCE .ROUTE Last administered on 06/24/16 09:15; Start 06/24/16 at 09:08; Stop 01/31 at 09:09; Status DC Aspirin (Aspirin Enteric Coated) 325 mg DAILY PO ; Start 06/25/16 at 09:00 Metoprolol Tartrate 25 mg 25 mg BID PO ; Start 06/24/16 at 21:00; Stop 06/24/16 at 21:00; Status DC Sodium Chloride (Iv Normal Saline 150ml) 150 ml @ As Directed STK-MED ONCE .ROUTE Last administered on 06/24/16 11:56; Start 06/24/16 at 11:55; Stop 01/31 at 11:56; Status DC Metoprolol Tartrate (Lopressor) 25 mg BID PO Last administered on 06/24/16 20: 09; Start 06/24/16 at 12:45 Acetaminophen (Tylenol) 650 mg PRN Q6HRS PRN PO PAIN / TEMP Last administered on 06/24/16 13:20; Start 06/24/16 at 12:45 Vitamin D (Vitamin D3) 2,000 unit DAILY PO ; Start 06/25/16 at 09:00 Hydroxyzine Pamoate (Vistaril) 25 mg PRN Q6HRS PRN PO ANXIETY; Start 06/24/16 at 13:00 Prednisone (Prednisone) 10 mg DAILY PO ; Start 06/24/16 at 15:00; Stop 06/26/16 at 15:00 Calcium Carbonate/ Glycine (Tums) 500 mg PRN Q2HR PRN PO INDIGESTION; Start 01/31 at 13:15 Cetirizine HCl (Zyrtec) 10 mg DAILY PO ; Start 06/25/16 at 09:00 Al Hydroxide/Mg Hydroxide (Mylanta Plus Xs) 30 ml PRN Q6HRS PRN PO DYSPEPSIA; Start 06/24/16 at 13:15 Prednisone (Prednisone) 10 mg STK-MED ONCE .ROUTE Last administered on 13:20; Start 06/24/16 at 13:15; Stop 06/24/16 at 13:16; Status DC Albuterol/ Ipratropium (Duoneb) 3 ml RTQID NEB Last administered on 06/24/16 15:34; Start 06/24/16 at 16:00 Active Scripts Active Reported Vistaril (Hydroxyzine Pamoate) 25 Mg Capsule 25 Mg PO Q6HRS PRN Tums (Calcium Carbonate) 300 Mg Tab.chew 500 Mg PO Q2HR Daliresp (Roflumilast) 500 Mcg Tablet 500 Mcg PO DAILY Preparation H Suppository (Phenylephrine Hcl/[place] Butter) 1 Each Supp.rect 1 Each RC Q6HRS Prednisone 20 Mg Tablet 20 Mg PO DAILY Loratadine 10 Mg Tablet 10 Mg PO DAILY Levaquin (Levofloxacin) 250 Mg Tablet 250 Mg PO DAILY Glucosamine Chondroitin Tab (Gluc Bennett/Chondro Bennett A/Vit C/Mn) 1 Each Tablet 1 Each PO BID PRN Alum-Mag Hydroxide-Simeth Liq (Mag Hydrox/Al Hydrox/Simeth) 360 Ml Oral.susp 30 Ml PO Q6HRS PRN Duoneb 0.5-3(2.5) Mg/3 Ml (Albuterol/Ipratropium) 3 Ml Ampul.neb 3 Ml NEB Q4HRS PRN Vitamin D3 (Cholecalciferol (Vitamin D3)) 1,000 Unit Tablet 2,000 Unit PO DAILY Aspercreme 10% Cream (Trolamine Salicylate/Aloe Vera) 35.4 Gm Cream..g. 35.4 Gm TP Q12HR PRN Vencedor-15 (Benzocaine) 15 Mg Lozenge 15 Mg MM Q2HR PRN Aspirin Ec (Aspirin) 325 Mg Tablet.dr 325 Mg PO DAILY Anusol-Hc (Hydrocortisone Acetate) 25 Mg Supp.rect 25 Mg RC Q8HRS PRN Tylenol (Acetaminophen) 325 Mg Tablet 650 Mg PO Q4HRS PRN Diagnosis: Problems: (1) Anxiety disorder (2) Dementia in Alzheimer's disease with delusions (3) Dementia in Alzheimer's disease with depression (4) Dementia, vascular, with delusions (5) Dementia, vascular, with depression (6) Impulse control disorder (7) Major depressive disorder, recurrent episode EDWARDO DOWD MD Jun 24, 2016 20:41
[2016-06-24] MEDS ORDERED: METOPROLOL TART IMMED RELEASE 25 MG TABLET PO SCH (21:00)
[2016-06-25] MEDS: IPRATRPIUM/ALBUTEROL 0.5/2.5MG 3 ML NEBU. NEB SCH ×2 (05:21→10:00)
[2016-06-25 06:15] VITALS: BP 159/73
[2016-06-25 06:35] LABS: BASO % 0 % (0-3); EOS # 0.1 x10^3/uL (0.0-0.7); EOS % 2 % (0-3); HEMATOCRIT 31.3 % (36.0-47.0); HEMOGLOBIN 10.1 g/dL (12.0-15.5); LYMPH # 2.2 x10^3/uL (1.0-4.8); LYMPH % 35 % (24-48); MEAN CORPUSCULAR HEMOGLOBIN 31 pg (25-35); MEAN CORPUSCULAR HGB CONC 32 g/dL (31-37); MEAN CORPUSCULAR VOLUME 95 fL (79-100); MONO # 0.7 x10^3/uL (0.0-1.1); MONO % 11 % (0-9); NEUT # 3.3 x10^3uL (1.8-7.7); NEUT % 53 % (31-73); PLATELET COUNT 208 x10^3/uL (140-400); RED BLOOD COUNT 3.29 x10^6/uL (3.50-5.40); RED CELL DISTRIBUTION WIDTH 14.8 % (11.5-14.5); WHITE BLOOD COUNT 6.3 x10^3/uL (4.0-11.0)
[2016-06-25 06:52] LABS: ALBUMIN 3.2 g/dL (3.4-5.0); CALCIUM 8.8 mg/dL (8.5-10.1); CREATININE 0.8 mg/dL (0.6-1.0); GFR 82.7; POTASSIUM 3.8 mmol/L (3.5-5.1); TOTAL BILIRUBIN 0.5 mg/dL (0.2-1.0); TOTAL PROTEIN 6.3 g/dL (6.4-8.2)
[2016-06-25] MEDS ORDERED: CETIRIZINE HCL 10 MG TABLET PO SCH (09:00)
[2016-06-25] MEDS ORDERED: CHOLECALCIFEROL (VITAMIN D3) 1,000 UNIT TABLET PO SCH (09:00)
[2016-06-25] MEDS ORDERED: ROFLUMILAST 500 MCG TABLET PO SCH (09:00)
[2016-06-25] MEDS ORDERED: ASPIRIN ENTERIC COATED 325 MG TABLET.DR. PO SCH (09:00)
[2016-06-25] MEDS: ACETAMINOPHEN 325 MG TABLET PO PRN (09:20)
[2016-06-25] MEDS: PREDNISONE 10 MG TABLET PO SCH (09:21)
[2016-06-25] MEDS: METOPROLOL TART IMMED RELEASE 25 MG TABLET PO SCH (09:21)
[2016-06-25 10:33] VITALS: BP 153/70
[2016-06-25] MEDS ORDERED: METO25TA4 PO (15:10)
--- NOTE | 2016-06-25 23:18 | CONS ---
DATE OF CONSULTATION: 06/24/2016 PSYCHIATRIC CONSULTATION This is a late entry for 06/24/2016. IDENTIFYING DATA: The patient was seen individually evening of 06/24/2016. Discussed with nursing staff several times during the day and the day before since the patient was initially referred to the [facility] Unit from the [facility] in [place], [place]. She arrived in the ER was found to be medically unstable to be on the psychiatry unit then referred to the medical surgical unit was in the ICU and then transferred to room [facility] where I saw her for the consult requested by Dr. Lopez. The patient reportedly was found at the [facility] raping her oxygen, tubing around her throat, and trying to put an electrical cord in her mouth. Reportedly, the patient "stated to the nurse that I did it in order to demise." CHIEF COMPLAINT: "Yes I did that. No I do not feel like that now." HISTORY OF PRESENT ILLNESS: The patient has a history of dementia, Alzheimer's vascular type. She has been residing at the above ch[facility] for sometime and this is the second suicide attempt. As noted, she wrapped an oxygen tubing around her neck, put an electrical cord in her mouth "I am sick." Per nursing report, she has been alert, oriented x 3, paranoid, thinks others are taking her things. Symptoms have been worsening for about 2 weeks. She had been seen by Dr. Catrachita Thurman, psychiatry had failed this and referred to us for inpatient psychiatric stabilization by Dr. Kemi Castillo initially from the [facility]. She does have a history of mood swings, but no clear past history of bipolar disorder. PAST PSYCHIATRIC HISTORY: Positive for depression, progressive memory deficits. She was hospitalized 3 years ago with homicidal ideation towards her spouse. PAST MEDICAL HISTORY: Congestive heart failure, raised troponins, COPD, weakness, anemia, hypertension, polyneuropathy, cardiomyopathy, osteoarthritis, osteoporosis, pneumonia. She is a full code. CURRENT PSYCHOTROPICS: MRAD was reviewed. FAMILY HISTORY: Noncontributory. SOCIAL HISTORY: The patient states she grew up in [place] working at the [employer] on the [facility] till she was 28. 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 No alcohol or drug abuse history noted. MENTAL STATUS EXAMINATION: The patient is oriented to herself and situation. She felt the year was 1972 felt she was in [place] was unable to do serial 7s. Attention span short. Language function intact. Mood and affect depressed, but she denies active suicidal or homicidal ideation. She is somewhat paranoid. Intellect average, insight limited, judgment marginal from the history, but appropriate to standard questioning when I interviewed her. LABORATORY DATA: Reviewed. VITAL SIGNS: Noted in my initial note. IMPRESSION: Major depressive disorder, recurrent with psychotic features, possible bipolar 1 disorder, depressed with psychotic features, major neurocognitive disorder, early vascular with delusion, depression. Rest diagnoses as above. PLAN: From a psychiatric standpoint, continue current psychotropics for now. Once she is medically stable, she may need to be transferred to the [facility] Unit. I feel the patient would benefit from addition of Abilify or Risperdal at some stage for her psychotic symptoms, adjustments of her antidepressant, but I would like to differ this still she is medically stable and we may have to well do this on the [facility] Unit. Dr. Lopez, thank you for the opportunity to participate in your patient's care. We will follow with you. EDWARDO DOWD MD DR: TENISHA/alisa JOB#: [id number] / [id number]
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
--- NOTE | 2016-06-26 15:10 | DS ---
DATE OF DISCHARGE: 06/25/2016 DISCHARGE DIAGNOSES: 1. Elevated troponin consistent with non-ST segment elevation myocardial infraction. 2. Hypertension. 3. Chronic diastolic heart failure. 4. Hypokalemia. 5. Suicidal ideation with two attempts per intermediate. 6. Hyperlipidemia. 7. Chronic hypoxic respiratory failure. 8. Chronic obstructive pulmonary disease. 9. Dementia with behavior disturbance. 10. Normochromic normocytic anemia. 11. Hypokalemia, resolved. 12. Hyperlipidemia. HOSPITAL COURSE: This is an 85-year-old female who was supposed to be admitted to the Senior Behavioral Unit, however failed medical clearance to the Emergency Room and was found to have a non-STEMI. It was elected to treat medically and not do a cardiac catheterization. She was seen by Cardiology, started on a beta carleen and did very nicely without any problems. While she was hospitalized, she did have considerable anxiety regarding having to possibly return to the intermediate that she came with. She is insistent that they have taken her clothes; however, this is a pattern has been going on for years evidently accusing people of stealing her clothes. PHYSICAL EXAMINATION: VITAL SIGNS: On day of discharge, her blood pressure was 153/70, pulse 90, respirations 22, pulse ox is 99% on 3 liters, temperature is 98.8. She was already seen and a progress note dictated today. Please see physical exam from there. DISPOSITION: To the Senior Behavioral Unit. Medications were reconciled and we will follow her there as well. XIANG PONCE DO DR: VLAD/alisa JOB#: [id number] / [id number]
== END 2016-06-25 14:14 | DRG 281 ==
LOC: ER 18:43 → EDBD 18:43 → ICU 20:34 → 1 SOUTH 06-24 16:48
PROVIDERS: ADMIT Family Medicine; ATTEND Family Medicine
DX: I21.4 Non-ST elevation (NSTEMI) myocardial infarction (principal); E44.1 Mild protein-calorie malnutrition; F01.51 Vascular dementia, unspecified severity, with behavioral disturbance; F02.81 Dementia in other diseases classified elsewhere, unspecified severity, with behavioral disturbance; F33.3 Major depressive disorder, recurrent, severe with psychotic symptoms; I43 Cardiomyopathy in diseases classified elsewhere; I50.32 Chronic diastolic (congestive) heart failure; J44.0 Chronic obstructive pulmonary disease with (acute) lower respiratory infection; J96.11 Chronic respiratory failure with hypoxia; R45.851 Suicidal ideations; D49.7 Neoplasm of unspecified behavior of endocrine glands and other parts of nervous system; D64.9 Anemia, unspecified; E03.9 Hypothyroidism, unspecified; E78.5 Hyperlipidemia, unspecified; E87.6 Hypokalemia; F41.9 Anxiety disorder, unspecified; F60.9 Personality disorder, unspecified; F63.9 Impulse disorder, unspecified; G30.9 Alzheimer's disease, unspecified; G47.00 Insomnia, unspecified; R45.850 Homicidal ideations; G62.9 Polyneuropathy, unspecified; I11.0 Hypertensive heart disease with heart failure; I27.2 Other secondary pulmonary hypertension; I70.0 Atherosclerosis of aorta; K21.9 Gastro-esophageal reflux disease without esophagitis; M19.90 Unspecified osteoarthritis, unspecified site; M35.3 Polymyalgia rheumatica; M81.0 Age-related osteoporosis without current pathological fracture; R13.10 Dysphagia, unspecified; Z86.73 Personal history of transient ischemic attack (TIA), and cerebral infarction without residual deficits; Z87.11 Personal history of peptic ulcer disease; Z87.891 Personal history of nicotine dependence; Z99.81 Dependence on supplemental oxygen; Z88.6 Allergy status to analgesic agent; Z88.8 Allergy status to other drugs, medicaments and biological substances; Z79.899 Other long term (current) drug therapy; Z79.82 Long term (current) use of aspirin
CPT/HCPCS: 36415; 70450; 71010; 80048; 80053; 80061; 80076; 81001; 82553; 82805; 83690; 83735; 83880; 84443; 84484; 85027; 85045; 85610; 85651; 85730; 86140; 87641; 93005; 93306; 94250; 94640; 94760; G0481; J3480; J7512; J7620; 99285-25

== ENCOUNTER 2016-06-25 14:38 | Inpatient (IN) | payer MEDICARE, MEDICAID ==
[~2016-06-25] VITALS: Ht 170.2 cm; Wt 51.3 kg
--- NOTE | 2016-06-25 14:30 | NUR ---
Patient arrived at 1430 to unit via w/c accompanied by an aide, transferred from [address] [place] [address]. She is A&O X3, continuous O2 at 3L, denies pain at this time. Patient oriented to the unit, is admitted to [facility] for MDD with psychotic features per Dr. Stevens, will continue to monitor.
[~2016-06-25 14:38] MED LIST: ACET325T9 PO; ASPI325T11 PO; CALC300T5 PO; CHOL10003 PO; GLUC1TAB33 PO; HYDR25CA PO; HYDR25SU18 RC; IPRA3AMP NEB; LEVO250T25 PO; LORA10TA3 PO; MAG360OR24 PO; PHEN1SUP75 RC; PRED20TA PO; ROFL500T PO; TROL35.4 TP; [UNRECOGNIZED DRUG - CODE] MM
[2016-06-25] MEDS ORDERED: METHYL SALICYLATE/MENTHOL TOPICAL OINTMENT 29GM TUBE. TP PRN (14:45)
[2016-06-25] MEDS ORDERED: MAGNESIUM HYDROXIDE 2,400 MG/30 ML ORAL.SUSP. PO PRN (14:45)
[2016-06-25] MEDS ORDERED: ACETAMINOPHEN 325 MG TABLET PO PRN (15:00)
[2016-06-25] MEDS ORDERED: HYDROXYZINE PAMOATE 25 MG CAPSULE PO PRN (15:00)
[2016-06-25] MEDS ORDERED: METO25TA4 PO (15:10)
[2016-06-25 15:14] VITALS: BP 122/70
[2016-06-25] MEDS ORDERED: CALCIUM CARBONATE 500 MG TAB.CHEW PO PRN (15:30)
--- NOTE | 2016-06-25 18:16 | PDOC ---
Exam Luis Alfredo Demential Exam: Luis Alfredo Note: Please also refer to the separate dictated note~for this date of service dictated separately.~Patient seen individually. Discussed the patient with Nursing staff reviewed the chart.~Reviewed interim history and current functioning. Reviewed vital signs,~Labs/ Radiology~and current medications noted below. Continue current treatment with the changes noted in the dictated addendum note Assessment: Vital Signs: Vital Signs Date Time Temp Pulse Resp B/P Pulse Ox O2 Delivery O2 Flow Rate FiO2 06/25/16 15:14 97.3 82 20 122/70 100 Nasal Cannula 3.0 Labs: Laboratory Tests Test 06/25/16 14:45 Magnesium Level 2.1mg/dL (1.8-2.4) Current Medications: Meds: Current Medications Acetaminophen (Tylenol) 650 mg PRN Q6HRS PRN PO PAIN / TEMP; Start 06/25/16 at 14:45 Multi-Ingredient Ointment (Analgesic [place]) 1 real PRN QID PRN TP MUSCLE PAIN; Start 06/25/16 at 14:45 Al Hydroxide/Mg Hydroxide (Mylanta Plus Xs) 15 ml PRN AFTMEALHC PRN PO DYSPEPSIA; Start 06/25/16 at 14:45 Magnesium Hydroxide (Milk Of Magnesia) 2,400 mg PRN QHS PRN PO CONSTIPATION; Start 06/25/16 at 14:45 Acetaminophen (Tylenol) 650 mg PRN Q4HRS PRN PO pain, temperature; Start at 15:00; Stop 06/25/16 at 15:17; Status DC Hydroxyzine Pamoate (Vistaril) 25 mg PRN Q6HRS PRN PO ANXIETY; Start 06/25/16 at 15:00 Albuterol/ Ipratropium (Duoneb) 3 ml PRN Q4HRS PRN NEB respiratory distress; Start 06/25/16 at 15:00 Cetirizine HCl (Zyrtec) 10 mg DAILY PO ; Start 06/26/16 at 09:00 Aspirin (Aspirin Enteric Coated) 325 mg DAILY PO ; Start 06/26/16 at 09:00 Vitamin D (Vitamin D3) 2,000 unit DAILY PO ; Start 06/26/16 at 09:00 Metoprolol Tartrate (Lopressor) 25 mg BID PO ; Start 3/11/17 at 21:00 Prednisone (Prednisone) 10 mg DAILY PO ; Start 06/26/16 at 09:00 Calcium Carbonate/ Glycine (Tums) 500 mg PRN Q2HR PRN PO INDIGESTION; Start 03/03 at 15:30 Active Scripts Active Reported Metoprolol Tartrate 25 Mg Tablet 25 Mg PO BID Vistaril (Hydroxyzine Pamoate) 25 Mg Capsule 25 Mg PO Q6HRS PRN Tums (Calcium Carbonate) 300 Mg Tab.chew 500 Mg PO Q2HR Daliresp (Roflumilast) 500 Mcg Tablet 500 Mcg PO DAILY Prednisone 20 Mg Tablet 10 Mg PO DAILY Loratadine 10 Mg Tablet 10 Mg PO DAILY Duoneb 0.5-3(2.5) Mg/3 Ml (Albuterol/Ipratropium) 3 Ml Ampul.neb 3 Ml NEB Q4HRS PRN Vitamin D3 (Cholecalciferol (Vitamin D3)) 1,000 Unit Tablet 2,000 Unit PO DAILY Aspirin Ec (Aspirin) 325 Mg Tablet.dr 325 Mg PO DAILY Tylenol (Acetaminophen) 325 Mg Tablet 650 Mg PO Q4HRS PRN Diagnosis: Problems: (1) Major depressive disorder, recurrent episode (2) Impulse control disorder (3) Dementia, vascular, with depression (4) Dementia, vascular, with delusions (5) Dementia in Alzheimer's disease with depression (6) Dementia in Alzheimer's disease with delusions (7) Anxiety disorder (8) Suicidal thoughts EDWARDO DOWD MD Jun 25, 2016 18:16
--- NOTE | 2016-06-25 18:36 | NUR ---
Behavior Intervention Response and Plan: BIRP Note: Behavior: Assumed Care of patient, patient located in Day Room at shift change. Patient exhibited the following behavior Calm, Compliant, Interactive. Brief assessment on rounds of vital signs, medication needs, lab studies, and pain. Treatment plan problems . Intervention: Patient assessed and the following interventions initiated safety checks 15 Minute Checks Cognitive Assessment , Head to toe Assessment , Medications. Response: After interactions and interventions patient responded in the following manner, Calm , Attention Seeking ,Cooperative. Continue to assess behaviors and condition will continue to monitor throughout the shift as needed. 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 Continue to assess patient for changes in above assessment. Monitor for medication needs, pain, and safety concerns. Hourly rounding performed to ensure safe environment.
--- NOTE | 2016-06-25 19:21 | HP ---
ADMIT DATE: 06/25/2016 IDENTIFYING DATA: The patient is an 85-year-old black female referred to us from Room 125, [facility], [facility], by Dr. Lopez on account of his ongoing suicidal ideation, agitation, aggression. The patient was initially referred to us on the [facility] from [facility] following a second suicide attempt after the patient wrapped oxygen tubing around her neck. She had previously put an electrical cord in her mouth "I'm sick." She is oriented x 3, paranoid thinks others are stealing her things and has failed outpatient psychiatric interventions with Dr. Thurman, referred for inpatient psychiatric stabilization. Three years ago, she was hospitalized in [place], [place] with homicidal ideation towards her spouse. I have seen the patient on [facility] for psychiatric consult after she was admitted there from the ER for medical stabilization. Behaviors persisted, thus resulting in this referral. CHIEF COMPLAINT: "They're lying." The patient stated after I told her the circumstances prompting her referral, which I had previously discussed with her. HISTORY OF PRESENT ILLNESS: The patient has a history of memory deficits, mood swings, questionable bipolar disorder with episodic depression. More recently over the past 2 weeks she has been paranoid, psychotic, agitated with sleep and appetite changes and quite suicidal with marked mood swings. No active homicidal ideation. She does have some short term memory deficits. When seen in the ER, the patient had elevated troponin consistent with non-ST elevation NE. She was started on blockers, echocardiogram added and admitted for medical stabilization before being transferred to us. PAST PSYCHIATRIC HISTORY: As above. MEDICAL HISTORY: Chronic diastolic heart failure, dysphagia, weakness, history of TIAs, anemia, hypersomnia, polyneuropathy, hypertensive heart disease, pulmonary hypertension, cardiomyopathy, cardiac arrhythmia, polymyalgia rheumatica, arthritis, osteoporosis, chronic respiratory failure, oxygen dependent. ALLERGIES: DIAZEPAM, LIDOCAINE, PROPOXYPHENE. CURRENT PSYCHOTROPICS: Negative. CODE STATUS: She is a full code. FAMILY HISTORY: Noncontributory. SOCIAL HISTORY: No alcohol, drug abuse, physical, sexual or elder abuse history is noted. She is not known to be a perpetrator. REVIEW OF SYSTEMS: Ambulation impaired, in a wheelchair. No CV, , pulmonary, eye system symptoms on review. MENTAL STATUS EXAMINATION: The patient is oriented to herself and situation. Speech has some latency, coherent. Abstraction fair, computation impaired, language function intact, attention span short. Mood and affect remains somewhat labile. She is quite paranoid, suspicious. PHYSICAL EXAMINATION: VITAL SIGNS: Temperature 97.3, pulse 82, BP 122/70. IMPRESSION: Bipolar 1 disorder, mixed with psychotic features versus depressed, cognitive disorder, unspecified versus major neurocognitive disorder, Alzheimer, vascular with depression, delusion, anxiety disorder, unspecified; impulse control disorder, unspecified, non-ST elevation NE. Rest of the diagnoses as above. PLAN: Admit to the geropsychiatry unit at [facility]. I will see the patient daily individually from a psychiatric standpoint. She will follow with Dr. Lopez/Dr. Pruitt from a medical standpoint, continue current psychotropics, but given her symptoms suggestive of bipolar disorder, we will go ahead and add Depakote if initiated treatment on Seroquel 25 mg p.o. bedtime is ineffective. Make further adjustments as clinically indicated. MAN Torres DOWD MD DR: TENISHA/alisa JOB#: [id number] / [id number]
[2016-06-25] MEDS: METOPROLOL TART IMMED RELEASE 25 MG TABLET PO SCH (20:29)
[2016-06-25] MEDS: ACETAMINOPHEN 325 MG TABLET PO PRN (20:37)
[2016-06-25] MEDS ORDERED: QUEtiapine 25 MG TABLET. PO SCH (21:00)
--- NOTE | 2016-06-25 22:43 | NUR ---
Behavior Intervention Response and Plan: BIRP Note: Behavior: Assumed Care of patient, patient located in Bed at shift change. Patient exhibited the following behavior Calm, Able to Focus on Task, Withdrawn. Brief assessment on rounds of vital signs, medication needs, lab studies, and pain. Treatment plan problems :1-2 Intervention: Patient assessed and the following interventions initiated safety checks 15 Minute Checks Cognitive Assessment , Head to toe Assessment , Medications. Response: After interactions and interventions patient responded in the following manner, Calm , Able to Focus on Task ,Compliant. Continue to assess behaviors and condition will continue to monitor throughout the shift as needed. 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 Continue to assess patient for changes in above assessment. Monitor for medication needs, pain, and safety concerns. Hourly rounding performed to ensure safe environment.
[2016-06-26 05:42] VITALS: BP 168/84
[2016-06-26] MEDS: ROFLUMILAST 500 MCG TABLET PO SCH (09:00)
[2016-06-26] MEDS: ASPIRIN ENTERIC COATED 325 MG TABLET.DR. PO SCH (09:08)
[2016-06-26] MEDS: CETIRIZINE HCL 5 MG TABLET PO SCH (09:08)
[2016-06-26] MEDS: ACETAMINOPHEN 325 MG TABLET PO PRN ×2 (09:08→20:28)
[2016-06-26] MEDS: PREDNISONE 10 MG TABLET PO SCH (09:09)
[2016-06-26] MEDS: CHOLECALCIFEROL (VITAMIN D3) 1,000 UNIT TABLET PO SCH (09:09)
[2016-06-26] MEDS: METOPROLOL TART IMMED RELEASE 25 MG TABLET PO SCH ×2 (09:09→20:16)
--- NOTE | 2016-06-26 09:33 | PDOC ---
Exam Luis Alfredo Demential Exam: Luis Alfredo Note: Please also refer to the separate dictated note~for this date of service dictated separately.~Patient seen individually. Discussed the patient with Nursing staff reviewed the chart.~Reviewed interim history and current functioning. Reviewed vital signs,~Labs/ Radiology~and current medications noted below. Continue current treatment with the changes noted in the dictated addendum note Assessment: Vital Signs: Vital Signs Date Time Temp Pulse Resp B/P Pulse Ox O2 Delivery O2 Flow Rate FiO2 06/26/16 09:09 68 168/84 06/26/16 05:42 97.3 18 100 06/25/16 15:14 Nasal Cannula 3.0 I&O Intake and Output 06/26/16 07:00 Intake Total 360 ml Balance 360 ml Intake Oral 360 ml # Bowel Movements 1 Labs: Laboratory Tests Test 06/25/16 14:45 Magnesium Level 2.1mg/dL (1.8-2.4) Current Medications: Meds: Current Medications Acetaminophen (Tylenol) 650 mg PRN Q6HRS PRN PO PAIN / TEMP Last administered on 06/26/16 09:08; Start 06/25/16 at 14:45 Multi-Ingredient Ointment (Analgesic Pinon) 1 real PRN QID PRN TP MUSCLE PAIN; Start 06/25/16 at 14:45 Al Hydroxide/Mg Hydroxide (Mylanta Plus Xs) 15 ml PRN AFTMEALHC PRN PO DYSPEPSIA; Start 06/25/16 at 14:45 Magnesium Hydroxide (Milk Of Magnesia) 2,400 mg PRN QHS PRN PO CONSTIPATION; Start 06/25/16 at 14:45 Acetaminophen (Tylenol) 650 mg PRN Q4HRS PRN PO pain, temperature; Start at 15:00; Stop 06/25/16 at 15:17; Status DC Hydroxyzine Pamoate (Vistaril) 25 mg PRN Q6HRS PRN PO ANXIETY; Start 06/25/16 at 15:00 Albuterol/ Ipratropium (Duoneb) 3 ml PRN Q4HRS PRN NEB respiratory distress; Start 06/25/16 at 15:00 Cetirizine HCl (Zyrtec) 10 mg DAILY PO Last administered on 06/26/16 09:08; Start 06/26/16 at 09:00 Aspirin (Aspirin Enteric Coated) 325 mg DAILY PO Last administered on 09:08; Start 06/26/16 at 09:00 Vitamin D (Vitamin D3) 2,000 unit DAILY PO Last administered on 06/26/16 09:09 ; Start 06/26/16 at 09:00 Metoprolol Tartrate (Lopressor) 25 mg BID PO Last administered on 06/26/16 09: 09; Start 06/25/16 at 21:00 Prednisone (Prednisone) 10 mg DAILY PO Last administered on 06/26/16 09:09; Start 06/26/16 at 09:00 Calcium Carbonate/ Glycine (Tums) 500 mg PRN Q2HR PRN PO INDIGESTION; Start 03/03 at 15:30 Quetiapine Fumarate (SEROquel) 25 mg QHS PO Last administered on 06/25/16 20: 30; Start 06/25/16 at 21:00 Active Scripts Active Reported Metoprolol Tartrate 25 Mg Tablet 25 Mg PO BID Vistaril (Hydroxyzine Pamoate) 25 Mg Capsule 25 Mg PO Q6HRS PRN Tums (Calcium Carbonate) 300 Mg Tab.chew 500 Mg PO Q2HR Daliresp (Roflumilast) 500 Mcg Tablet 500 Mcg PO DAILY Prednisone 20 Mg Tablet 10 Mg PO DAILY Loratadine 10 Mg Tablet 10 Mg PO DAILY Duoneb 0.5-3(2.5) Mg/3 Ml (Albuterol/Ipratropium) 3 Ml Ampul.neb 3 Ml NEB Q4HRS PRN Vitamin D3 (Cholecalciferol (Vitamin D3)) 1,000 Unit Tablet 2,000 Unit PO DAILY Aspirin Ec (Aspirin) 325 Mg Tablet.dr 325 Mg PO DAILY Tylenol (Acetaminophen) 325 Mg Tablet 650 Mg PO Q4HRS PRN Diagnosis: Problems: (1) Suicidal thoughts (2) Anxiety disorder (3) Dementia in Alzheimer's disease with delusions (4) Dementia in Alzheimer's disease with depression (5) Dementia, vascular, with delusions (6) Dementia, vascular, with depression (7) Impulse control disorder (8) Major depressive disorder, recurrent episode EDWARDO DOWD MD Jun 26, 2016 09:33
[2016-06-26 12:25] LABS: IRON,SERUM 19 ug/dL (50-170); THYROID STIM HORMONE (TSH) 29.295 uIU/mL (0.358-3.740)
--- NOTE | 2016-06-26 13:09 | NUR ---
Behavior Intervention Response and Plan: BIRP Note: Behavior: Assumed Care of patient, patient located in Patient Room at shift change. Patient exhibited the following behavior Able to Focus on Task, Withdrawn, Cooperative. Brief assessment on rounds of vital signs, medication needs, lab studies, and pain. Treatment plan problems . Intervention: Patient assessed and the following interventions initiated safety checks 15 Minute Checks Cognitive Assessment , Head to toe Assessment , Medications. Response: After interactions and interventions patient responded in the following manner, Calm , ,Cooperative. Continue to assess behaviors and condition will continue to monitor throughout the shift as needed. 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 Continue to assess patient for changes in above assessment. Monitor for medication needs, pain, and safety concerns. Hourly rounding performed to ensure safe environment.
[2016-06-26 13:12] LABS: T3 TOTAL 44 ng/dL (71-180); THYROXINE 3.3 ug/dL (4.5-12.0)
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
[2016-06-26 16:15] VITALS: BP 157/84
[2016-06-26] MEDS: PRENATAL MULTIVITAMIN TABLET. PO SCH (16:27)
[2016-06-26 19:07] LABS: RPR REFLEX Negative (Non Reactive)
[2016-06-26] MEDS: QUEtiapine 25 MG TABLET. PO SCH (20:18)
--- NOTE | 2016-06-26 23:17 | NUR ---
Behavior Intervention Response and Plan: BIRP Note: Behavior: Assumed Care of patient, patient located in Bed at shift change. Patient exhibited the following behavior Calm, Able to Focus on Task, Drowsy. Brief assessment on rounds of vital signs, medication needs, lab studies, and pain. Treatment plan problems:1-2 Intervention: Patient assessed and the following interventions initiated safety checks 15 Minute Checks Cognitive Assessment , Head to toe Assessment , Medications. Response: After interactions and interventions patient responded in the following manner, Interactive , Able to Focus on Task ,Withdrawn. Continue to assess behaviors and condition will continue to monitor throughout the shift as needed. Pt denies any active SI. Plan: Continue to monitor Master Treatment Plan for patient's progress toward short term goals of Improved Mood, No harm To self/ others, long term care social worker goals to return to previous living setting vs placement. Continue to assess patient for changes in above assessment. Monitor for medication needs, pain, and safety concerns. Hourly rounding performed to ensure safe environment.
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
[2016-06-27] MEDS: LEVOTHYROXINE 25 MCG TABLET. PO SCH (06:04)
[2016-06-27 06:57] VITALS: BP 168/81
--- NOTE | 2016-06-27 09:00 | NUR ---
Behavior Intervention Response and Plan: BIRP Note: Behavior: Assumed Care of patient, patient located in Patient Room at shift change. Patient exhibited the following behavior Calm, Appropriate, Compliant. Brief assessment on rounds of vital signs, medication needs, lab studies, and pain. Treatment plan problems . Intervention: Patient assessed and the following interventions initiated safety checks 15 Minute Checks Head to toe Assessment , Medications , Oral Hydration. Response: After interactions and interventions patient responded in the following manner, Interactive , Calm ,Cooperative. Continue to assess behaviors and condition will continue to monitor throughout the shift as needed. Plan: Continue to monitor Master Treatment Plan for patient's progress toward short term goals of No harm To self/ others, Improved Mood, senior living goals to return to previous living setting vs placement. Continue to assess patient for changes in above assessment. Monitor for medication needs, pain, and safety concerns. Hourly rounding performed to ensure safe environment.
[2016-06-27 10:08] LABS: VITAMIN D25(OH)TOTAL 27.1 ng/mL (30.0-100.0)
[2016-06-27] MEDS: PREDNISONE 10 MG TABLET PO SCH (10:45)
[2016-06-27] MEDS: ASPIRIN ENTERIC COATED 325 MG TABLET.DR. PO SCH (10:45)
[2016-06-27] MEDS: CHOLECALCIFEROL (VITAMIN D3) 1,000 UNIT TABLET PO SCH (10:46)
[2016-06-27] MEDS: PRENATAL MULTIVITAMIN TABLET. PO SCH ×2 (10:46→16:51)
[2016-06-27] MEDS: METOPROLOL TART IMMED RELEASE 25 MG TABLET PO SCH ×2 (10:46→20:18)
[2016-06-27] MEDS: CETIRIZINE HCL 5 MG TABLET PO SCH (10:47)
[2016-06-27] MEDS: ROFLUMILAST 500 MCG TABLET PO SCH (10:47)
[2016-06-27] MEDS: MAG HYDROX/AL HYDROX/SIMETH 30 ML ORAL.SUSP PO PRN (14:26)
[2016-06-27 16:35] VITALS: BP 156/83
[2016-06-27] MEDS: QUEtiapine 25 MG TABLET. PO SCH (20:17)
[2016-06-27] MEDS: ACETAMINOPHEN 325 MG TABLET PO PRN (20:25)
--- NOTE | 2016-06-27 21:19 | PDOC ---
Exam Luis Alfredo Demential Exam: Luis Alfredo Note: Please also refer to the separate dictated note~for this date of service dictated separately.~Patient seen individually. Discussed the patient with Nursing staff reviewed the chart.~Reviewed interim history and current functioning. Reviewed vital signs,~Labs/ Radiology~and current medications noted below. Continue current treatment with the changes noted in the dictated addendum note Assessment: Vital Signs: Vital Signs Date Time Temp Pulse Resp B/P Pulse Ox O2 Delivery O2 Flow Rate FiO2 06/27/16 20:18 85 156/83 06/27/16 16:35 98.0 18 98 Nasal Cannula 3.0 I&O Intake and Output 06/27/16 07:00 Intake Total 360 ml Balance 360 ml Intake Oral 360 ml Current Medications: Meds: Current Medications Acetaminophen (Tylenol) 650 mg PRN Q6HRS PRN PO PAIN / TEMP Last administered on 06/27/16 20:25; Start 06/25/16 at 14:45 Multi-Ingredient Ointment (Analgesic [place]) 1 real PRN QID PRN TP MUSCLE PAIN; Start 06/25/16 at 14:45 Al Hydroxide/Mg Hydroxide (Mylanta Plus Xs) 15 ml PRN AFTMEALHC PRN PO DYSPEPSIA Last administered on 06/27/16 14:26; Start 06/25/16 at 14:45 Magnesium Hydroxide (Milk Of Magnesia) 2,400 mg PRN QHS PRN PO CONSTIPATION; Start 06/25/16 at 14:45 Acetaminophen (Tylenol) 650 mg PRN Q4HRS PRN PO pain, temperature; Start at 15:00; Stop 06/25/16 at 15:17; Status DC Hydroxyzine Pamoate (Vistaril) 25 mg PRN Q6HRS PRN PO ANXIETY; Start 06/25/16 at 15:00 Albuterol/ Ipratropium (Duoneb) 3 ml PRN Q4HRS PRN NEB respiratory distress; Start 06/25/16 at 15:00 Cetirizine HCl (Zyrtec) 10 mg DAILY PO Last administered on 06/27/16 10:47; Start 06/26/16 at 09:00 Aspirin (Aspirin Enteric Coated) 325 mg DAILY PO Last administered on 10:45; Start 06/26/16 at 09:00 Vitamin D (Vitamin D3) 2,000 unit DAILY PO Last administered on 06/27/16 10:46 ; Start 06/26/16 at 09:00 Metoprolol Tartrate (Lopressor) 25 mg BID PO Last administered on 06/27/16 20: 18; Start 06/25/16 at 21:00 Prednisone (Prednisone) 10 mg DAILY PO Last administered on 06/27/16 10:45; Start 06/26/16 at 09:00 Calcium Carbonate/ Glycine (Tums) 500 mg PRN Q2HR PRN PO INDIGESTION; Start 03/03 at 15:30 Quetiapine Fumarate (SEROquel) 25 mg QHS PO Last administered on 06/25/16 20: 30; Start 06/25/16 at 21:00; Stop 06/26/16 at 18:45; Status DC Prenat Multivit/ [place]/Iron/Folic Ac (Multivitamin ) 1 tab BIDACLD PO Last administered on 06/27/16 16:51; Start 06/26/16 at 16:30 Levothyroxine Sodium (Synthroid) 25 mcg DAILY07 PO Last administered on 06:04; Start 06/27/16 at 07:00 Quetiapine Fumarate (SEROquel) 37.5 mg QHS PO Last administered on 06/27/16 20 :17; Start 06/26/16 at 21:00 Active Scripts Active Reported Metoprolol Tartrate 25 Mg Tablet 25 Mg PO BID Vistaril (Hydroxyzine Pamoate) 25 Mg Capsule 25 Mg PO Q6HRS PRN Tums (Calcium Carbonate) 300 Mg Tab.chew 500 Mg PO Q2HR Daliresp (Roflumilast) 500 Mcg Tablet 500 Mcg PO DAILY Prednisone 20 Mg Tablet 10 Mg PO DAILY Loratadine 10 Mg Tablet 10 Mg PO DAILY Duoneb 0.5-3(2.5) Mg/3 Ml (Albuterol/Ipratropium) 3 Ml Ampul.neb 3 Ml NEB Q4HRS PRN Vitamin D3 (Cholecalciferol (Vitamin D3)) 1,000 Unit Tablet 2,000 Unit PO DAILY Aspirin Ec (Aspirin) 325 Mg Tablet.dr 325 Mg PO DAILY Tylenol (Acetaminophen) 325 Mg Tablet 650 Mg PO Q4HRS PRN Diagnosis: Problems: (1) Suicidal thoughts (2) Anxiety disorder (3) Dementia in Alzheimer's disease with delusions (4) Dementia in Alzheimer's disease with depression (5) Dementia, vascular, with delusions (6) Dementia, vascular, with depression (7) Impulse control disorder (8) Major depressive disorder, recurrent episode EDWARDO DOWD MD Jun 27, 2016 21:19
[2016-06-27 23:08] LABS: HEMOGLOBIN A1C 5.2 % (4.8-5.6)
--- NOTE | 2016-06-28 02:37 | NUR ---
Behavior Intervention Response and Plan: BIRP Note: Behavior: Assumed Care of patient, patient located in Patient Room at shift change. Patient exhibited the following behavior Calm, Withdrawn, Cooperative. Brief assessment on rounds of vital signs, medication needs, lab studies, and pain. Treatment plan problems 1 and 2. Intervention: Patient assessed and the following interventions initiated safety checks 15 Minute Checks Cognitive Assessment , Head to toe Assessment , Medications. Response: After interactions and interventions patient responded in the following manner, Calm , Compliant ,Cooperative. Continue to assess behaviors and condition will continue to monitor throughout the shift as needed. Plan: Continue to monitor Master Treatment Plan for patient's progress toward short term goals of Improved Mood, Medication Compliance, intermodal customer service goals to return to previous living setting vs placement. Continue to assess patient for changes in above assessment. Monitor for medication needs, pain, and safety concerns. Hourly rounding performed to ensure safe environment.
[2016-06-28 05:44] VITALS: BP 165/76
[2016-06-28] MEDS: LEVOTHYROXINE 25 MCG TABLET. PO SCH (05:55)
[2016-06-28] MEDS: METOPROLOL TART IMMED RELEASE 25 MG TABLET PO SCH ×2 (07:27→20:09)
[2016-06-28] MEDS: ASPIRIN ENTERIC COATED 325 MG TABLET.DR. PO SCH (07:36)
[2016-06-28] MEDS: ROFLUMILAST 500 MCG TABLET PO SCH (07:38)
[2016-06-28] MEDS: PRENATAL MULTIVITAMIN TABLET. PO SCH ×2 (07:38→16:34)
[2016-06-28] MEDS: CHOLECALCIFEROL (VITAMIN D3) 1,000 UNIT TABLET PO SCH (07:38)
[2016-06-28] MEDS: MAG HYDROX/AL HYDROX/SIMETH 30 ML ORAL.SUSP PO PRN (07:39)
[2016-06-28] MEDS: CETIRIZINE HCL 5 MG TABLET PO SCH (07:39)
[2016-06-28] MEDS: PREDNISONE 10 MG TABLET PO SCH (07:41)
--- NOTE | 2016-06-28 09:00 | NUR ---
Behavior Intervention Response and Plan: BIRP Note: Behavior: Assumed Care of patient, patient located in Patient Room at shift change. Patient exhibited the following behavior Appropriate, Compliant, Cooperative. Brief assessment on rounds of vital signs, medication needs, lab studies, and pain. Treatment plan problems . Intervention: Patient assessed and the following interventions initiated safety checks 15 Minute Checks Head to toe Assessment , Medications , Nutrition. Response: After interactions and interventions patient responded in the following manner, Calm , Attention Seeking ,Compliant. Continue to assess behaviors and condition will continue to monitor throughout the shift as needed. Plan: Continue to monitor Master Treatment Plan for patient's progress toward short term goals of Improved Mood, No harm To self/ others, group home goals to return to previous living setting vs placement. Continue to assess patient for changes in above assessment. Monitor for medication needs, pain, and safety concerns. Hourly rounding performed to ensure safe environment.
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
[2016-06-28 15:46] VITALS: BP 153/68
[2016-06-28] MEDS: traZODone 50 MG TABLET. PO PRN (20:08)
[2016-06-28] MEDS: ACETAMINOPHEN 325 MG TABLET PO PRN (20:08)
[2016-06-28] MEDS: QUEtiapine 25 MG TABLET. PO SCH (20:08)
--- NOTE | 2016-06-28 20:32 | PN ---
DATE: 06/26/2016 SUBJECTIVE: This note covers elements not covered in my initial note of 06/26/2016. Per nursing report, the patient is oriented x4. Denies suicidal ideation. She had a visitor nursing staff for unclear who the visitor was. REVIEW OF SYSTEMS: Ambulation impaired. No CV, , pulmonary, eye, or ENT system symptoms on review. I met with her at some length the evening of 06/27/2016. MENTAL STATUS EXAM: Reasonably oriented. Speech coherent, abstraction fair, computation impaired, and language function intact. Mood and affect showing improvement. No active suicidal or homicidal ideation. LABORATORY DATA: Reviewed. 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 PLAN: Continue Seroquel 37.5 mg at bedtime and hydroxyzine p.r.n. Consider Depakote for mood stabilizer. EDWARDO DOWD MD DR: TENISHA/alisa JOB#: [id number] / [id number]
--- NOTE | 2016-06-28 21:05 | PDOC ---
Exam Luis Alfredo Demential Exam: Luis Alfredo Note: Please also refer to the separate dictated note~for this date of service dictated separately.~Patient seen individually. Discussed the patient with Nursing staff reviewed the chart.~Reviewed interim history and current functioning. Reviewed vital signs,~Labs/ Radiology~and current medications noted below. Continue current treatment with the changes noted in the dictated addendum note Assessment: Vital Signs: Vital Signs Date Time Temp Pulse Resp B/P Pulse Ox O2 Delivery O2 Flow Rate FiO2 06/28/16 20:09 80 153/68 06/28/16 15:46 97.7 18 100 3.0 06/27/16 16:35 Nasal Cannula I&O Intake and Output 06/28/16 07:00 Intake Total 960 ml Balance 960 ml Intake Oral 960 ml Current Medications: Meds: Current Medications Acetaminophen (Tylenol) 650 mg PRN Q6HRS PRN PO PAIN / TEMP Last administered on 06/28/16 20:08; Start 06/25/16 at 14:45 Multi-Ingredient Ointment (Analgesic [place]) 1 real PRN QID PRN TP MUSCLE PAIN; Start 06/25/16 at 14:45 Al Hydroxide/Mg Hydroxide (Mylanta Plus Xs) 15 ml PRN AFTMEALHC PRN PO DYSPEPSIA Last administered on 06/28/16 07:39; Start 06/25/16 at 14:45 Magnesium Hydroxide (Milk Of Magnesia) 2,400 mg PRN QHS PRN PO CONSTIPATION; Start 06/25/16 at 14:45 Acetaminophen (Tylenol) 650 mg PRN Q4HRS PRN PO pain, temperature; Start at 15:00; Stop 06/25/16 at 15:17; Status DC Hydroxyzine Pamoate (Vistaril) 25 mg PRN Q6HRS PRN PO ANXIETY; Start 06/25/16 at 15:00 Albuterol/ Ipratropium (Duoneb) 3 ml PRN Q4HRS PRN NEB respiratory distress; Start 06/25/16 at 15:00 Cetirizine HCl (Zyrtec) 10 mg DAILY PO Last administered on 06/28/16 07:39; Start 06/26/16 at 09:00; Stop 06/28/16 at 15:45; Status DC Aspirin (Aspirin Enteric Coated) 325 mg DAILY PO Last administered on 07:36; Start 06/26/16 at 09:00 Vitamin D (Vitamin D3) 2,000 unit DAILY PO Last administered on 06/28/16 07:38 ; Start 06/26/16 at 09:00 Metoprolol Tartrate (Lopressor) 25 mg BID PO Last administered on 06/28/16 20: 09; Start 06/25/16 at 21:00 Prednisone (Prednisone) 10 mg DAILY PO Last administered on 06/28/16 07:41; Start 06/26/16 at 09:00 Calcium Carbonate/ Glycine (Tums) 500 mg PRN Q2HR PRN PO INDIGESTION; Start 03/03 at 15:30 Quetiapine Fumarate (SEROquel) 25 mg QHS PO Last administered on 06/25/16 20: 30; Start 06/25/16 at 21:00; Stop 06/26/16 at 18:45; Status DC Prenat Multivit/ [place]/Iron/Folic Ac (Multivitamin ) 1 tab BIDACLD PO Last administered on 06/28/16 16:34; Start 06/26/16 at 16:30 Levothyroxine Sodium (Synthroid) 25 mcg DAILY07 PO Last administered on 05:55; Start 06/27/16 at 07:00 Quetiapine Fumarate (SEROquel) 37.5 mg QHS PO Last administered on 06/28/16 20 :08; Start 06/26/16 at 21:00 Cetirizine HCl (Zyrtec) 10 mg DAILY PO ; Start 06/29/16 at 09:00 Trazodone HCl (Desyrel) 50 mg PRN QHS PRN PO INSOMNIA, MAY REPEAT X1 Last administered on 06/28/16 20:08; Start 06/28/16 at 18:30 Active Scripts Active Reported Metoprolol Tartrate 25 Mg Tablet 25 Mg PO BID Vistaril (Hydroxyzine Pamoate) 25 Mg Capsule 25 Mg PO Q6HRS PRN Tums (Calcium Carbonate) 300 Mg Tab.chew 500 Mg PO Q2HR Daliresp (Roflumilast) 500 Mcg Tablet 500 Mcg PO DAILY Prednisone 20 Mg Tablet 10 Mg PO DAILY Loratadine 10 Mg Tablet 10 Mg PO DAILY Duoneb 0.5-3(2.5) Mg/3 Ml (Albuterol/Ipratropium) 3 Ml Ampul.neb 3 Ml NEB Q4HRS PRN Vitamin D3 (Cholecalciferol (Vitamin D3)) 1,000 Unit Tablet 2,000 Unit PO DAILY Aspirin Ec (Aspirin) 325 Mg Tablet.dr 325 Mg PO DAILY Tylenol (Acetaminophen) 325 Mg Tablet 650 Mg PO Q4HRS PRN Diagnosis: Problems: (1) Suicidal thoughts (2) Anxiety disorder (3) Dementia in Alzheimer's disease with delusions (4) Dementia in Alzheimer's disease with depression (5) Dementia, vascular, with delusions (6) Dementia, vascular, with depression (7) Impulse control disorder (8) Major depressive disorder, recurrent episode EDWARDO DOWD MD Jun 28, 2016 21:05
--- NOTE | 2016-06-28 21:35 | NUR ---
Behavior Intervention Response and Plan: BIRP Note: Behavior: Assumed Care of patient, patient located in Patient Room at shift change. Patient exhibited the following behavior Calm, Withdrawn, Cooperative. Brief assessment on rounds of vital signs, medication needs, lab studies, and pain. Treatment plan problems 1 and 2. Intervention: Patient assessed and the following interventions initiated safety checks 15 Minute Checks Cognitive Assessment , Head to toe Assessment , Medications. Response: After interactions and interventions patient responded in the following manner, Calm , Cooperative ,Compliant. Continue to assess behaviors and condition will continue to monitor throughout the shift as needed. 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 Continue to assess patient for changes in above assessment. Monitor for medication needs, pain, and safety concerns. Hourly rounding performed to ensure safe environment.
[2016-06-29 05:50] VITALS: BP 175/75
[2016-06-29] MEDS: LEVOTHYROXINE 25 MCG TABLET. PO SCH (06:00)
[2016-06-29] MEDS: ASPIRIN ENTERIC COATED 325 MG TABLET.DR. PO SCH (08:36)
[2016-06-29] MEDS: PREDNISONE 10 MG TABLET PO SCH (08:36)
[2016-06-29] MEDS: ROFLUMILAST 500 MCG TABLET PO SCH (08:36)
[2016-06-29] MEDS: METOPROLOL TART IMMED RELEASE 25 MG TABLET PO SCH ×2 (08:36→20:00)
[2016-06-29] MEDS: CHOLECALCIFEROL (VITAMIN D3) 1,000 UNIT TABLET PO SCH (08:37)
[2016-06-29] MEDS ORDERED: CETIRIZINE HCL 10 MG TABLET PO SCH (09:00)
--- NOTE | 2016-06-29 09:00 | NUR ---
Behavior Intervention Response and Plan: BIRP Note: Behavior: Assumed Care of patient, patient located in Hallway at shift change. Patient exhibited the following behavior Interactive, Disorganized, Compliant. Brief assessment on rounds of vital signs, medication needs, lab studies, and pain. Treatment plan problems . Intervention: Patient assessed and the following interventions initiated safety checks 15 Minute Checks Head to toe Assessment , Medications , Nutrition. Response: After interactions and interventions patient responded in the following manner, Compliant , Cooperative ,Anxious. Continue to assess behaviors and condition will continue to monitor throughout the shift as needed. Plan: Continue to monitor Master Treatment Plan for patient's progress toward short term goals of Decreased Anxiety, Improved Mood, long term care pharmacist goals to return to previous living setting vs placement. Continue to assess patient for changes in above assessment. Monitor for medication needs, pain, and safety concerns. Hourly rounding performed to ensure safe environment.
--- NOTE | 2016-06-29 11:17 | NUR ---
Pt complains of anxiety rated 8/10. States, "I can't seem to settle down. I feel antsy. I need some help." Pt respirations 18 labored/accessory muscles, SaO2 94, which are within normal limits for this pt. Pt asked for something to calm her down. PRN Hydroxiyzine Pamoate 25 mg administered.
[2016-06-29] MEDS: PRENATAL MULTIVITAMIN TABLET. PO SCH ×2 (12:29→16:28)
--- NOTE | 2016-06-29 13:12 | NUR ---
SW spoke w/Pt's grand dtr regarding treatment team and questions. Grand dtr requested to be called for tx team. SW will contact [facility] and determine if they will be accepting Pt. back at [facility]. Also will need to inquire about a [place]. Level II completed.
--- NOTE | 2016-06-29 13:17 | NUR ---
SW left message for JOAQUIN Monson at [facility] ([place]) regarding accepting pt. back at [facility] and if a Level II has been completed.
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
[2016-06-29 15:39] VITALS: BP 161/67
[2016-06-29] MEDS: QUEtiapine 25 MG TABLET. PO SCH (20:00)
[2016-06-29] MEDS: traZODone 50 MG TABLET. PO PRN (20:02)
[2016-06-29] MEDS: ACETAMINOPHEN 325 MG TABLET PO PRN (20:02)
--- NOTE | 2016-06-29 21:59 | PDOC ---
Exam Luis Alfredo Demential Exam: Luis Alfredo Note: Please also refer to the separate dictated note~for this date of service dictated separately.~Patient seen individually. Discussed the patient with Nursing staff reviewed the chart.~Reviewed interim history and current functioning. Reviewed vital signs,~Labs/ Radiology~and current medications noted below. Continue current treatment with the changes noted in the dictated addendum note Assessment: Vital Signs: Vital Signs Date Time Temp Pulse Resp B/P Pulse Ox O2 Delivery O2 Flow Rate FiO2 06/29/16 20:00 83 161/67 06/29/16 15:39 97.3 22 100 Nasal Cannula 3.0 I&O Intake and Output 06/29/16 07:00 Intake Total 960 ml Balance 960 ml Intake Oral 960 ml # Bowel Movements 1 Current Medications: Meds: Current Medications Acetaminophen (Tylenol) 650 mg PRN Q6HRS PRN PO PAIN / TEMP Last administered on 06/29/16 20:02; Start 06/25/16 at 14:45 Multi-Ingredient Ointment (Analgesic [place]) 1 real PRN QID PRN TP MUSCLE PAIN; Start 06/25/16 at 14:45 Al Hydroxide/Mg Hydroxide (Mylanta Plus Xs) 15 ml PRN AFTMEALHC PRN PO DYSPEPSIA Last administered on 06/28/16 07:39; Start 06/25/16 at 14:45 Magnesium Hydroxide (Milk Of Magnesia) 2,400 mg PRN QHS PRN PO CONSTIPATION; Start 06/25/16 at 14:45 Acetaminophen (Tylenol) 650 mg PRN Q4HRS PRN PO pain, temperature; Start at 15:00; Stop 06/25/16 at 15:17; Status DC Hydroxyzine Pamoate (Vistaril) 25 mg PRN Q6HRS PRN PO ANXIETY Last administered on 06/29/16 11:17; Start 06/25/16 at 15:00; Stop 06/29/16 at 18:29 ; Status DC Albuterol/ Ipratropium (Duoneb) 3 ml PRN Q4HRS PRN NEB respiratory distress; Start 06/25/16 at 15:00 Cetirizine HCl (Zyrtec) 10 mg DAILY PO Last administered on 06/28/16 07:39; Start 06/26/16 at 09:00; Stop 06/28/16 at 15:45; Status DC Aspirin (Aspirin Enteric Coated) 325 mg DAILY PO Last administered on 08:36; Start 06/26/16 at 09:00 Vitamin D (Vitamin D3) 2,000 unit DAILY PO Last administered on 06/29/16 08:37 ; Start 06/26/16 at 09:00 Metoprolol Tartrate (Lopressor) 25 mg BID PO Last administered on 06/29/16 20: 00; Start 06/25/16 at 21:00 Prednisone (Prednisone) 10 mg DAILY PO Last administered on 06/29/16 08:36; Start 06/26/16 at 09:00 Calcium Carbonate/ Glycine (Tums) 500 mg PRN Q2HR PRN PO INDIGESTION; Start 03/03 at 15:30 Quetiapine Fumarate (SEROquel) 25 mg QHS PO Last administered on 06/25/16 20: 30; Start 06/25/16 at 21:00; Stop 06/26/16 at 18:45; Status DC Prenat Multivit/ [place]/Iron/Folic Ac (Multivitamin ) 1 tab BIDACLD PO Last administered on 06/29/16 16:28; Start 06/26/16 at 16:30 Levothyroxine Sodium (Synthroid) 25 mcg DAILY07 PO Last administered on 06:00; Start 06/27/16 at 07:00 Quetiapine Fumarate (SEROquel) 37.5 mg QHS PO Last administered on 06/29/16 20 :00; Start 06/26/16 at 21:00 Cetirizine HCl (Zyrtec) 10 mg DAILY PO Last administered on 06/29/16 08:44; Start 06/29/16 at 09:00; Stop 06/29/16 at 18:42; Status DC Trazodone HCl (Desyrel) 50 mg PRN QHS PRN PO INSOMNIA, MAY REPEAT X1 Last administered on 06/29/16 20:02; Start 06/28/16 at 18:30 Hydroxyzine Pamoate (Vistaril) 50 mg PRN Q4HRS PRN PO ANXIETY; Start 06/29/16 at 19:00 Active Scripts Active Reported Metoprolol Tartrate 25 Mg Tablet 25 Mg PO BID Vistaril (Hydroxyzine Pamoate) 25 Mg Capsule 25 Mg PO Q6HRS PRN Tums (Calcium Carbonate) 300 Mg Tab.chew 500 Mg PO Q2HR Daliresp (Roflumilast) 500 Mcg Tablet 500 Mcg PO DAILY Prednisone 20 Mg Tablet 10 Mg PO DAILY Loratadine 10 Mg Tablet 10 Mg PO DAILY Duoneb 0.5-3(2.5) Mg/3 Ml (Albuterol/Ipratropium) 3 Ml Ampul.neb 3 Ml NEB Q4HRS PRN Vitamin D3 (Cholecalciferol (Vitamin D3)) 1,000 Unit Tablet 2,000 Unit PO DAILY Aspirin Ec (Aspirin) 325 Mg Tablet.dr 325 Mg PO DAILY Tylenol (Acetaminophen) 325 Mg Tablet 650 Mg PO Q4HRS PRN Diagnosis: Problems: (1) Major depressive disorder, recurrent episode (2) Impulse control disorder (3) Dementia, vascular, with delusions (4) Dementia in Alzheimer's disease with depression (5) Dementia in Alzheimer's disease with delusions (6) Anxiety disorder (7) Dementia, vascular, with depression EDWARDO DOWD MD Jun 29, 2016 21:59
--- NOTE | 2016-06-29 22:43 | NUR ---
Behavior Intervention Response and Plan: BIRP Note: Behavior: Assumed Care of patient, patient located in Patient Room at shift change. Patient exhibited the following behavior Calm, Withdrawn, Cooperative. Brief assessment on rounds of vital signs, medication needs, lab studies, and pain. Treatment plan problems 1 and 2. Intervention: Patient assessed and the following interventions initiated safety checks 15 Minute Checks Cognitive Assessment , Head to toe Assessment , Medications. Response: After interactions and interventions patient responded in the following manner, Calm , Compliant ,Cooperative. Continue to assess behaviors and condition will continue to monitor throughout the shift as needed. 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 Continue to assess patient for changes in above assessment. Monitor for medication needs, pain, and safety concerns. Hourly rounding performed to ensure safe environment.
--- NOTE | 2016-06-29 23:01 | PN ---
DATE: 06/28/2016 This late entry for 06/28/2016 covers elements not covered in my initial note of 06/29/2015. Per nursing report, the patient has been fairly cooperative on the unit, not agitated, aggressive. Denies overt suicidal ideation, I met with her at some length in her room. REVIEW OF SYSTEMS: Ambulation impaired. She was lying in bed. She is well oriented. No CV, , pulmonary, eye system symptoms on review. Some shortness of breath on O2 supplements. MENTAL STATUS EXAM: Reasonably oriented. Speech coherent, abstraction fair, computation impaired, language function intact, attention span short. Mood and affect showing improvement. LABORATORY DATA: Reviewed. IMPRESSION: Major depressive disorder with psychotic features, in partial remission versus bipolar 1 disorder, mixed versus depressed with psychotic features in partial remission; anxiety disorder, unspecified; impulse control disorder, unspecified. PLAN: The patient is sleeping poorly. We will add trazodone 50 mg at bedtime p.r.n., may repeat x 1 for insomnia. Continue Seroquel 37.5 mg at bedtime, hydroxyzine p.r.n. Adjust as clinically indicated. MAN Torres DOWD MD DR: TENISHA/alisa JOB#: [id number] / [id number]
[2016-06-30 05:35] VITALS: BP 165/77
[2016-06-30] MEDS: LEVOTHYROXINE 25 MCG TABLET. PO SCH (06:05)
[2016-06-30] MEDS: CHOLECALCIFEROL (VITAMIN D3) 1,000 UNIT TABLET PO SCH (07:55)
[2016-06-30] MEDS: METOPROLOL TART IMMED RELEASE 25 MG TABLET PO SCH ×2 (07:55→20:03)
[2016-06-30] MEDS: PREDNISONE 10 MG TABLET PO SCH (07:56)
[2016-06-30] MEDS: ROFLUMILAST 500 MCG TABLET PO SCH (07:56)
[2016-06-30] MEDS: PRENATAL MULTIVITAMIN TABLET. PO SCH ×2 (07:56→12:38)
[2016-06-30] MEDS: ASPIRIN ENTERIC COATED 325 MG TABLET.DR. PO SCH (07:56)
[2016-06-30] MEDS: ESCITALOPRAM 10 MG TABLET. PO SCH (12:37)
--- NOTE | 2016-06-30 14:02 | NUR ---
pt up in wc for meals. compliant with meds. withdrawn to room .
[2016-06-30 15:33] VITALS: BP 152/70
--- NOTE | 2016-06-30 15:45 | NUR ---
RAY submitted [place] Level II for placement.
[2016-06-30] MEDS: ACETAMINOPHEN 325 MG TABLET PO PRN (19:18)
[2016-06-30] MEDS: HYDROXYZINE PAMOATE 25 MG CAPSULE PO PRN (19:21)
--- NOTE | 2016-06-30 19:25 | NUR ---
Nursing Note: Pt c/o ORO and feeling anxious, restless. PRN Tylenol administered as ordered for ORO as well as PRN Hydroxyzine administered for anxiety as ordered.
[2016-06-30] MEDS: traZODone 50 MG TABLET. PO PRN (20:03)
[2016-06-30] MEDS: risperiDONE 0.25 MG TABLET. PO SCH (20:03)
--- NOTE | 2016-06-30 21:04 | PDOC ---
Exam Luis Alfredo Demential Exam: Luis Alfredo Note: Please also refer to the separate dictated note~for this date of service dictated separately.~Patient seen individually. Discussed the patient with Nursing staff reviewed the chart.~Reviewed interim history and current functioning. Reviewed vital signs,~Labs/ Radiology~and current medications noted below. Continue current treatment with the changes noted in the dictated addendum note Assessment: Vital Signs: Vital Signs Date Time Temp Pulse Resp B/P Pulse Ox O2 Delivery O2 Flow Rate FiO2 06/30/16 20:03 77 152/70 06/30/16 15:33 97.7 16 99 3.0 06/29/16 15:39 Nasal Cannula I&O Intake and Output 06/30/16 07:00 Intake Total 1320 ml Balance 1320 ml Intake Oral 1320 ml Current Medications: Meds: Current Medications Acetaminophen (Tylenol) 650 mg PRN Q6HRS PRN PO PAIN / TEMP Last administered on 06/30/16 19:18; Start 06/25/16 at 14:45 Multi-Ingredient Ointment (Analgesic [place]) 1 real PRN QID PRN TP MUSCLE PAIN; Start 06/25/16 at 14:45 Al Hydroxide/Mg Hydroxide (Mylanta Plus Xs) 15 ml PRN AFTMEALHC PRN PO DYSPEPSIA Last administered on 06/28/16 07:39; Start 06/25/16 at 14:45 Magnesium Hydroxide (Milk Of Magnesia) 2,400 mg PRN QHS PRN PO CONSTIPATION; Start 06/25/16 at 14:45 Acetaminophen (Tylenol) 650 mg PRN Q4HRS PRN PO pain, temperature; Start at 15:00; Stop 06/25/16 at 15:17; Status DC Hydroxyzine Pamoate (Vistaril) 25 mg PRN Q6HRS PRN PO ANXIETY Last administered on 06/29/16 11:17; Start 06/25/16 at 15:00; Stop 06/29/16 at 18:29 ; Status DC Albuterol/ Ipratropium (Duoneb) 3 ml PRN Q4HRS PRN NEB respiratory distress; Start 06/25/16 at 15:00 Cetirizine HCl (Zyrtec) 10 mg DAILY PO Last administered on 06/28/16 07:39; Start 06/26/16 at 09:00; Stop 06/28/16 at 15:45; Status DC Aspirin (Aspirin Enteric Coated) 325 mg DAILY PO Last administered on 07:56; Start 06/26/16 at 09:00 Vitamin D (Vitamin D3) 2,000 unit DAILY PO Last administered on 06/30/16 07:55 ; Start 06/26/16 at 09:00 Metoprolol Tartrate (Lopressor) 25 mg BID PO Last administered on 06/30/16 20: 03; Start 06/25/16 at 21:00 Prednisone (Prednisone) 10 mg DAILY PO Last administered on 06/30/16 07:56; Start 06/26/16 at 09:00 Calcium Carbonate/ Glycine (Tums) 500 mg PRN Q2HR PRN PO INDIGESTION; Start 03/03 at 15:30 Quetiapine Fumarate (SEROquel) 25 mg QHS PO Last administered on 06/25/16 20: 30; Start 06/25/16 at 21:00; Stop 06/26/16 at 18:45; Status DC Prenat Multivit/ Clinch/Iron/Folic Ac (Multivitamin ) 1 tab BIDACLD PO Last administered on 06/30/16 12:38; Start 06/26/16 at 16:30 Levothyroxine Sodium (Synthroid) 25 mcg DAILY07 PO Last administered on 06:05; Start 06/27/16 at 07:00 Quetiapine Fumarate (SEROquel) 37.5 mg QHS PO Last administered on 06/29/16 20 :00; Start 06/26/16 at 21:00; Stop 06/30/16 at 09:49; Status DC Cetirizine HCl (Zyrtec) 10 mg DAILY PO Last administered on 06/29/16 08:44; Start 06/29/16 at 09:00; Stop 06/29/16 at 18:42; Status DC Trazodone HCl (Desyrel) 50 mg PRN QHS PRN PO INSOMNIA, MAY REPEAT X1 Last administered on 06/30/16 20:03; Start 06/28/16 at 18:30 Hydroxyzine Pamoate (Vistaril) 50 mg PRN Q4HRS PRN PO ANXIETY Last administered on 06/30/16 19:21; Start 06/29/16 at 19:00 Escitalopram Oxalate (Lexapro) 10 mg DAILY PO Last administered on 06/30/16 12 :37; Start 06/30/16 at 10:30 Risperidone (Risperdal) 0.25 mg BID PO Last administered on 06/30/16 20:03; Start 06/30/16 at 21:00 Active Scripts Active Reported Metoprolol Tartrate 25 Mg Tablet 25 Mg PO BID Vistaril (Hydroxyzine Pamoate) 25 Mg Capsule 25 Mg PO Q6HRS PRN Tums (Calcium Carbonate) 300 Mg Tab.chew 500 Mg PO Q2HR Daliresp (Roflumilast) 500 Mcg Tablet 500 Mcg PO DAILY Prednisone 20 Mg Tablet 10 Mg PO DAILY Loratadine 10 Mg Tablet 10 Mg PO DAILY Duoneb 0.5-3(2.5) Mg/3 Ml (Albuterol/Ipratropium) 3 Ml Ampul.neb 3 Ml NEB Q4HRS PRN Vitamin D3 (Cholecalciferol (Vitamin D3)) 1,000 Unit Tablet 2,000 Unit PO DAILY Aspirin Ec (Aspirin) 325 Mg Tablet.dr 325 Mg PO DAILY Tylenol (Acetaminophen) 325 Mg Tablet 650 Mg PO Q4HRS PRN Diagnosis: Problems: (1) Suicidal thoughts (2) Anxiety disorder (3) Dementia in Alzheimer's disease with delusions (4) Dementia in Alzheimer's disease with depression (5) Dementia, vascular, with delusions (6) Dementia, vascular, with depression (7) Impulse control disorder (8) Major depressive disorder, recurrent episode EDWARDO DOWD MD Jun 30, 2016 21:04
--- NOTE | 2016-06-30 22:36 | NUR ---
Behavior Intervention Response and Plan: BIRP Note: Behavior: Assumed Care of patient, patient located in Patient Room at shift change. Patient exhibited the following behavior Restless, Withdrawn, Somatic. Brief assessment on rounds of vital signs, medication needs, lab studies, and pain. Treatment plan problems 1 and 2. Intervention: Patient assessed and the following interventions initiated safety checks 15 Minute Checks Cognitive Assessment , Head to toe Assessment , Medications. Response: After interactions and interventions patient responded in the following manner, Calm , Compliant ,Cooperative. Continue to assess behaviors and condition will continue to monitor throughout the shift as needed. 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 Continue to assess patient for changes in above assessment. Monitor for medication needs, pain, and safety concerns. Hourly rounding performed to ensure safe environment.
[2016-07-01 05:57] VITALS: BP 178/67
[2016-07-01] MEDS: LEVOTHYROXINE 25 MCG TABLET. PO SCH (06:21)
[2016-07-01 07:08] LABS: BASO % 1 % (0-3); EOS # 0.1 x10^3/uL (0.0-0.7); EOS % 2 % (0-3); HEMATOCRIT 29.9 % (36.0-47.0); HEMOGLOBIN 9.7 g/dL (12.0-15.5); LYMPH # 2.6 x10^3/uL (1.0-4.8); LYMPH % 34 % (24-48); MEAN CORPUSCULAR HEMOGLOBIN 31 pg (25-35); MEAN CORPUSCULAR HGB CONC 33 g/dL (31-37); MEAN CORPUSCULAR VOLUME 94 fL (79-100); MONO # 0.7 x10^3/uL (0.0-1.1); MONO % 9 % (0-9); NEUT # 4.2 x10^3uL (1.8-7.7); NEUT % 55 % (31-73); PLATELET COUNT 249 x10^3/uL (140-400); RED BLOOD COUNT 3.17 x10^6/uL (3.50-5.40); RED CELL DISTRIBUTION WIDTH 14.5 % (11.5-14.5); WHITE BLOOD COUNT 7.6 x10^3/uL (4.0-11.0)
[2016-07-01 07:19] LABS: CALCIUM 8.6 mg/dL (8.5-10.1); CREATININE 0.8 mg/dL (0.6-1.0); GFR 82.7; POTASSIUM 3.8 mmol/L (3.5-5.1); TOTAL BILIRUBIN 0.5 mg/dL (0.2-1.0); TOTAL PROTEIN 6.1 g/dL (6.4-8.2)
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
--- NOTE | 2016-07-01 09:41 | PN ---
DATE: 06/30/2016 PSYCHIATRIC PROGRESS NOTE This is a late entry for 06/30/2016 covers elements not covered in my initial note. SUBJECTIVE: The patient was seen at length evening of 06/30/2016 and reviewed further documentation received from the [facility] in [place], [place]. Morning of 06/30/2016 she was staffed at a treatment team meeting with the entire team with her granddaughter, Katiuska attending since Katiuska is the DPOA. REVIEW OF SYSTEMS: Some shortness of breath, impaired ambulation. No CV, , pulmonary, eye system symptoms on review, still complains of anxiety. MENTAL STATUS EXAM: Reasonably oriented. Speech coherent, abstraction fair, computation impaired, language function intact, attention span short. Mood and affect anxious, intermittently labile. No active suicidal or homicidal ideation. LABORATORY DATA: Reviewed. IMPRESSION: Major depressive disorder recurrent with psychotic features, delusional disorder; anxiety disorder, unspecified. Rest unchanged. PLAN: The patient has been started on Lexapro 10 mg a day. Initially we considered increasing Seroquel, but given history from the [facility]. We will start her on Risperdal 0.25 mg twice a day. Consider changing Lexapro back to Cymbalta. Maintain hydroxyzine p.r.n., trazodone as before. Adjust further as clinically indicated. EDWARDO DOWD MD DR: TENISHA/alisa JOB#: [id number] / [id number]
[2016-07-01] MEDS: PREDNISONE 10 MG TABLET PO SCH (10:30)
[2016-07-01] MEDS: ROFLUMILAST 500 MCG TABLET PO SCH (10:30)
[2016-07-01] MEDS: CHOLECALCIFEROL (VITAMIN D3) 1,000 UNIT TABLET PO SCH (10:30)
[2016-07-01] MEDS: PRENATAL MULTIVITAMIN TABLET. PO SCH ×2 (10:30→16:58)
[2016-07-01] MEDS: ESCITALOPRAM 10 MG TABLET. PO SCH (10:30)
[2016-07-01] MEDS: risperiDONE 0.25 MG TABLET. PO SCH ×2 (10:30→19:18)
[2016-07-01] MEDS: ASPIRIN ENTERIC COATED 325 MG TABLET.DR. PO SCH (10:30)
[2016-07-01] MEDS: METOPROLOL TART IMMED RELEASE 25 MG TABLET PO SCH ×2 (10:31→19:20)
--- NOTE | 2016-07-01 13:51 | NUR ---
RAY left 2nd message for RAY Crowder at [facility] ([place]) regarding status of accepting Pt. back at [facility]. RAY submitted [place] Level II to [facility].
--- NOTE | 2016-07-01 14:06 | NUR ---
SW received call from [facility] regarding the Level II real submitted. Pt. had a Level II completed August 2015 while at [facility]. Pt. dc from [facility] 04/01 and resided w/grand dtr until 05/19/16. Since Pt. was not out of a skilled facility for longer then 60 days, the Level II is transferable. This SW does not need to submit a 2nd Level II at this time.
--- NOTE | 2016-07-01 14:40 | NUR ---
Behavior Intervention Response and Plan: BIRP Note: Behavior: Assumed Care of patient, patient located in Patient Room at shift change. Patient exhibited the following behavior Calm, Withdrawn, Restless. Brief assessment on rounds of vital signs, medication needs, lab studies, and pain. Treatment plan problems 1 and 2. Intervention: Patient assessed and the following interventions initiated safety checks 15 Minute Checks Cognitive Assessment , Head to toe Assessment , Medications. Response: After interactions and interventions patient responded in the following manner, Calm , Compliant ,Cooperative. Continue to assess behaviors and condition will continue to monitor throughout the shift as needed. 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 Continue to assess patient for changes in above assessment. Monitor for medication needs, pain, and safety concerns. Hourly rounding performed to ensure safe environment.
[2016-07-01 15:38] VITALS: BP 159/72
--- NOTE | 2016-07-01 20:25 | NUR ---
Behavior Intervention Response and Plan: BIRP Note: Behavior: Assumed Care of patient, patient located in Patient Room at shift change. Patient exhibited the following behavior Calm, Drowsy, Withdrawn. Brief assessment on rounds of vital signs, medication needs, lab studies, and pain. Treatment plan problems . Intervention: Patient assessed and the following interventions initiated safety checks 15 Minute Checks Cognitive Assessment , Head to toe Assessment , Medications. Response: After interactions and interventions patient responded in the following manner, Compliant , Cooperative ,Appropriate. Continue to assess behaviors and condition will continue to monitor throughout the shift as needed. Plan: Continue to monitor Master Treatment Plan for patient's progress toward short term goals of Decreased Agitation, Decreased Anxiety, care home goals to return to previous living setting vs placement. Continue to assess patient for changes in above assessment. Monitor for medication needs, pain, and safety concerns. Hourly rounding performed to ensure safe environment.
--- NOTE | 2016-07-01 21:08 | PDOC ---
Exam Luis Alfredo Demential Exam: Luis Alfredo Note: Please also refer to the separate dictated note~for this date of service dictated separately.~Patient seen individually. Discussed the patient with Nursing staff reviewed the chart.~Reviewed interim history and current functioning. Reviewed vital signs,~Labs/ Radiology~and current medications noted below. Continue current treatment with the changes noted in the dictated addendum note Assessment: Vital Signs: Vital Signs Date Time Temp Pulse Resp B/P Pulse Ox O2 Delivery O2 Flow Rate FiO2 07/01/16 19:20 61 159/72 07/01/16 15:38 98.0 18 100 06/30/16 15:33 3.0 06/29/16 15:39 Nasal Cannula I&O Intake and Output 07/01/16 07:00 Intake Total 840 ml Balance 840 ml Intake Oral 840 ml Labs: Laboratory Tests Test 07/01/16 06:23 White Blood Count 7.6x10^3/uL (4.0-11.0) Red Blood Count 3.17x10^6/uL (3.50-5.40) L Hemoglobin 9.7g/dL (12.0-15.5) L Hematocrit 29.9% (36.0-47.0) L Mean Corpuscular Volume 94fL (79-100) Mean Corpuscular Hemoglobin 31pg (25-35) Mean Corpuscular Hemoglobin Concent 33g/dL (31-37) Red Cell Distribution Width 14.5% (11.5-14.5) Platelet Count 249x10^3/uL (140-400) Neutrophils (%) (Auto) 55% (31-73) Lymphocytes (%) (Auto) 34% (24-48) Monocytes (%) (Auto) 9% (0-9) Eosinophils (%) (Auto) 2% (0-3) Basophils (%) (Auto) 1% (0-3) Neutrophils # (Auto) 4.2x10^3uL (1.8-7.7) Lymphocytes # (Auto) 2.6x10^3/uL (1.0-4.8) Monocytes # (Auto) 0.7x10^3/uL (0.0-1.1) Eosinophils # (Auto) 0.1x10^3/uL (0.0-0.7) Basophils # (Auto) 0.0x10^3/uL (0.0-0.2) Sodium Level 142mmol/L (136-145) Potassium Level 3.8mmol/L (3.5-5.1) Chloride Level 104mmol/L (98-107) Carbon Dioxide Level 38mmol/L (21-32) H Anion Gap 0 (6-14) L Blood Urea Nitrogen 13mg/dL (7-20) Creatinine 0.8mg/dL (0.6-1.0) Estimated GFR (Cockcroft-Gault) 82.7 BUN/Creatinine Ratio 16 (6-20) Glucose Level 89mg/dL (70-99) Calcium Level 8.6mg/dL (8.5-10.1) Total Bilirubin 0.5mg/dL (0.2-1.0) Aspartate Amino Transferase (AST) 16U/L (15-37) Alanine Aminotransferase (ALT) 19U/L (14-59) Alkaline Phosphatase 41U/L (46-116) L Total Protein 6.1g/dL (6.4-8.2) L Albumin 3.0g/dL (3.4-5.0) L Albumin/Globulin Ratio 1.0 (1.0-1.7) Current Medications: Meds: Current Medications Acetaminophen (Tylenol) 650 mg PRN Q6HRS PRN PO PAIN / TEMP Last administered on 06/30/16t 19:18; Start 06/25/16 at 14:45 Multi-Ingredient Ointment (Analgesic [place]) 1 real PRN QID PRN TP MUSCLE PAIN; Start 06/25/16 at 14:45 Al Hydroxide/Mg Hydroxide (Mylanta Plus Xs) 15 ml PRN AFTMEALHC PRN PO DYSPEPSIA Last administered on 06/28/16 07:39; Start 06/25/16 at 14:45 Magnesium Hydroxide (Milk Of Magnesia) 2,400 mg PRN QHS PRN PO CONSTIPATION; Start 06/25/16 at 14:45 Acetaminophen (Tylenol) 650 mg PRN Q4HRS PRN PO pain, temperature; Start at 15:00; Stop 06/25/16 at 15:17; Status DC Hydroxyzine Pamoate (Vistaril) 25 mg PRN Q6HRS PRN PO ANXIETY Last administered on 06/29/16 11:17; Start 06/25/16 at 15:00; Stop 06/29/16 at 18:29 ; Status DC Albuterol/ Ipratropium (Duoneb) 3 ml PRN Q4HRS PRN NEB respiratory distress; Start 06/25/16 at 15:00 Cetirizine HCl (Zyrtec) 10 mg DAILY PO Last administered on 06/28/16 07:39; Start 06/26/16 at 09:00; Stop 06/28/16 at 15:45; Status DC Aspirin (Aspirin Enteric Coated) 325 mg DAILY PO Last administered on 10:30; Start 06/26/16 at 09:00 Vitamin D (Vitamin D3) 2,000 unit DAILY PO Last administered on 07/01/16 10:30 ; Start 06/26/16 at 09:00 Metoprolol Tartrate (Lopressor) 25 mg BID PO Last administered on 07/01/16 19: 20; Start 06/25/16 at 21:00 Prednisone (Prednisone) 10 mg DAILY PO Last administered on 07/01/16 10:30; Start 06/26/16 at 09:00 Calcium Carbonate/ Glycine (Tums) 500 mg PRN Q2HR PRN PO INDIGESTION; Start 03/03 at 15:30 Quetiapine Fumarate (SEROquel) 25 mg QHS PO Last administered on 06/25/16 20: 30; Start 06/25/16 at 21:00; Stop 06/26/16 at 18:45; Status DC Prenat Multivit/ Camper Assembler/Iron/Folic Ac (Multivitamin ) 1 tab BIDACLD PO Last administered on 07/01/16 16:58; Start 06/26/16 at 16:30 Levothyroxine Sodium (Synthroid) 25 mcg DAILY07 PO Last administered on 06:21; Start 06/27/16 at 07:00 Quetiapine Fumarate (SEROquel) 37.5 mg QHS PO Last administered on 06/29/16 20 :00; Start 06/26/16 at 21:00; Stop 06/30/16 at 09:49; Status DC Cetirizine HCl (Zyrtec) 10 mg DAILY PO Last administered on 06/29/16 08:44; Start 06/29/16 at 09:00; Stop 06/29/16 at 18:42; Status DC Trazodone HCl (Desyrel) 50 mg PRN QHS PRN PO INSOMNIA, MAY REPEAT X1 Last administered on 06/30/16 20:03; Start 06/28/16 at 18:30 Hydroxyzine Pamoate (Vistaril) 50 mg PRN Q4HRS PRN PO ANXIETY Last administered on 06/30/16 19:21; Start 06/29/16 at 19:00 Escitalopram Oxalate (Lexapro) 10 mg DAILY PO Last administered on 07/01/16 10 :30; Start 06/30/16 at 10:30; Stop 07/01/16 at 18:47; Status DC Risperidone (Risperdal) 0.25 mg BID PO Last administered on 07/01/16 19:18; Start 06/30/16 at 21:00 Duloxetine HCl (Cymbalta) 30 mg DAILY PO ; Start 07/02/16 at 09:00; Stop at 12:00 Duloxetine HCl (Cymbalta) 60 mg DAILY PO ; Start 07/05/16 at 09:00 Active Scripts Active Reported Metoprolol Tartrate 25 Mg Tablet 25 Mg PO BID Vistaril (Hydroxyzine Pamoate) 25 Mg Capsule 25 Mg PO Q6HRS PRN Tums (Calcium Carbonate) 300 Mg Tab.chew 500 Mg PO Q2HR Daliresp (Roflumilast) 500 Mcg Tablet 500 Mcg PO DAILY Prednisone 20 Mg Tablet 10 Mg PO DAILY Loratadine 10 Mg Tablet 10 Mg PO DAILY Duoneb 0.5-3(2.5) Mg/3 Ml (Albuterol/Ipratropium) 3 Ml Ampul.neb 3 Ml NEB Q4HRS PRN Vitamin D3 (Cholecalciferol (Vitamin D3)) 1,000 Unit Tablet 2,000 Unit PO DAILY Aspirin Ec (Aspirin) 325 Mg Tablet.dr 325 Mg PO DAILY Tylenol (Acetaminophen) 325 Mg Tablet 650 Mg PO Q4HRS PRN Diagnosis: Problems: (1) Suicidal thoughts (2) Anxiety disorder (3) Dementia in Alzheimer's disease with delusions (4) Dementia in Alzheimer's disease with depression (5) Dementia, vascular, with delusions (6) Dementia, vascular, with depression (7) Impulse control disorder (8) Major depressive disorder, recurrent episode EDWARDO DOWD MD Jul 01, 2016 21:08
[2016-07-02 06:01] VITALS: BP 185/71
[2016-07-02] MEDS: LEVOTHYROXINE 25 MCG TABLET. PO SCH (06:21)
[2016-07-02] MEDS: risperiDONE 0.25 MG TABLET. PO SCH ×2 (08:03→19:55)
[2016-07-02] MEDS: PREDNISONE 10 MG TABLET PO SCH (08:03)
[2016-07-02] MEDS: CHOLECALCIFEROL (VITAMIN D3) 1,000 UNIT TABLET PO SCH (08:03)
[2016-07-02] MEDS: PRENATAL MULTIVITAMIN TABLET. PO SCH ×2 (08:03→17:07)
[2016-07-02] MEDS: METOPROLOL TART IMMED RELEASE 25 MG TABLET PO SCH ×2 (08:03→19:55)
[2016-07-02] MEDS: ASPIRIN ENTERIC COATED 325 MG TABLET.DR. PO SCH (08:04)
[2016-07-02] MEDS: DULOXETINE HCL 30 MG CAPSULE.DR. PO SCH (08:04)
[2016-07-02] MEDS: ROFLUMILAST 500 MCG TABLET PO SCH (08:04)
--- NOTE | 2016-07-02 09:48 | PDOC ---
Exam Luis Alfredo Demential Exam: Luis Alfredo Note: Please also refer to the separate dictated note~for this date of service dictated separately.~Patient seen individually. Discussed the patient with Nursing staff reviewed the chart.~Reviewed interim history and current functioning. Reviewed vital signs,~Labs/ Radiology~and current medications noted below. Continue current treatment with the changes noted in the dictated addendum note Assessment: Vital Signs: Vital Signs Date Time Temp Pulse Resp B/P Pulse Ox O2 Delivery O2 Flow Rate FiO2 07/02/16 08:03 66 185/71 07/02/16 06:01 96.7 18 93 06/30/16 15:33 3.0 06/29/16 15:39 Nasal Cannula I&O Intake and Output 07/02/16 07:00 Intake Total 1200 ml Balance 1200 ml Intake Oral 1200 ml Current Medications: Meds: Current Medications Acetaminophen (Tylenol) 650 mg PRN Q6HRS PRN PO PAIN / TEMP Last administered on 06/30/16 19:18; Start 06/25/16 at 14:45 Multi-Ingredient Ointment (Analgesic [employer]) 1 real PRN QID PRN TP MUSCLE PAIN; Start 06/25/16 at 14:45 Al Hydroxide/Mg Hydroxide (Mylanta Plus Xs) 15 ml PRN AFTMEALHC PRN PO DYSPEPSIA Last administered on 06/28/16 07:39; Start 06/25/16 at 14:45 Magnesium Hydroxide (Milk Of Magnesia) 2,400 mg PRN QHS PRN PO CONSTIPATION; Start 06/25/16 at 14:45 Acetaminophen (Tylenol) 650 mg PRN Q4HRS PRN PO pain, temperature; Start at 15:00; Stop 06/25/16 at 15:17; Status DC Hydroxyzine Pamoate (Vistaril) 25 mg PRN Q6HRS PRN PO ANXIETY Last administered on 06/29/16 11:17; Start 06/25/16 at 15:00; Stop 06/29/16 at 18:29 ; Status DC Albuterol/ Ipratropium (Duoneb) 3 ml PRN Q4HRS PRN NEB respiratory distress; Start 06/25/16 at 15:00 Cetirizine HCl (Zyrtec) 10 mg DAILY PO Last administered on 06/28/16 07:39; Start 06/26/16 at 09:00; Stop 06/28/16 at 15:45; Status DC Aspirin (Aspirin Enteric Coated) 325 mg DAILY PO Last administered on 08:04; Start 06/26/16 at 09:00 Vitamin D (Vitamin D3) 2,000 unit DAILY PO Last administered on 07/02/16 08:03 ; Start 06/26/16 at 09:00 Metoprolol Tartrate (Lopressor) 25 mg BID PO Last administered on 07/02/16 08: 03; Start 06/25/16 at 21:00 Prednisone (Prednisone) 10 mg DAILY PO Last administered on 07/02/16 08:03; Start 06/26/16 at 09:00 Calcium Carbonate/ Glycine (Tums) 500 mg PRN Q2HR PRN PO INDIGESTION; Start 03/03 at 15:30 Quetiapine Fumarate (SEROquel) 25 mg QHS PO Last administered on 06/25/16 20: 30; Start 06/25/16 at 21:00; Stop 06/26/16 at 18:45; Status DC Prenat Multivit/ [place]/Iron/Folic Ac (Multivitamin ) 1 tab BIDACLD PO Last administered on 07/02/16 08:03; Start 06/26/16 at 16:30 Levothyroxine Sodium (Synthroid) 25 mcg DAILY07 PO Last administered on 06:21; Start 06/27/16 at 07:00 Quetiapine Fumarate (SEROquel) 37.5 mg QHS PO Last administered on 06/29/16 20 :00; Start 06/26/16 at 21:00; Stop 06/30/16 at 09:49; Status DC Cetirizine HCl (Zyrtec) 10 mg DAILY PO Last administered on 06/29/16 08:44; Start 06/29/16 at 09:00; Stop 06/29/16 at 18:42; Status DC Trazodone HCl (Desyrel) 50 mg PRN QHS PRN PO INSOMNIA, MAY REPEAT X1 Last administered on 06/30/16 20:03; Start 06/28/16 at 18:30 Hydroxyzine Pamoate (Vistaril) 50 mg PRN Q4HRS PRN PO ANXIETY Last administered on 06/30/16 19:21; Start 06/29/16 at 19:00 Escitalopram Oxalate (Lexapro) 10 mg DAILY PO Last administered on 07/01/16 10 :30; Start 06/30/16 at 10:30; Stop 07/01/16 at 18:47; Status DC Risperidone (Risperdal) 0.25 mg BID PO Last administered on 07/02/16 08:03; Start 06/30/16 at 21:00 Duloxetine HCl (Cymbalta) 30 mg DAILY PO Last administered on 07/02/16 08:04; Start 07/02/16 at 09:00; Stop 07/04/16 at 12:00 Duloxetine HCl (Cymbalta) 60 mg DAILY PO ; Start 07/05/16 at 09:00 Active Scripts Active Reported Metoprolol Tartrate 25 Mg Tablet 25 Mg PO BID Vistaril (Hydroxyzine Pamoate) 25 Mg Capsule 25 Mg PO Q6HRS PRN Tums (Calcium Carbonate) 300 Mg Tab.chew 500 Mg PO Q2HR Daliresp (Roflumilast) 500 Mcg Tablet 500 Mcg PO DAILY Prednisone 20 Mg Tablet 10 Mg PO DAILY Loratadine 10 Mg Tablet 10 Mg PO DAILY Duoneb 0.5-3(2.5) Mg/3 Ml (Albuterol/Ipratropium) 3 Ml Ampul.neb 3 Ml NEB Q4HRS PRN Vitamin D3 (Cholecalciferol (Vitamin D3)) 1,000 Unit Tablet 2,000 Unit PO DAILY Aspirin Ec (Aspirin) 325 Mg Tablet.dr 325 Mg PO DAILY Tylenol (Acetaminophen) 325 Mg Tablet 650 Mg PO Q4HRS PRN Diagnosis: Problems: (1) Suicidal thoughts (2) Anxiety disorder (3) Dementia in Alzheimer's disease with delusions (4) Dementia in Alzheimer's disease with depression (5) Dementia, vascular, with delusions (6) Dementia, vascular, with depression (7) Impulse control disorder (8) Major depressive disorder, recurrent episode EDWARDO DOWD MD Jul 02, 2016 09:48
--- NOTE | 2016-07-02 10:28 | NUR ---
Behavior Intervention Response and Plan: BIRP Note: Behavior: Assumed Care of patient, patient located in Dining Room at shift change. Patient exhibited the following behavior withdrawn, Calm, Compliant. Brief assessment on rounds of vital signs, medication needs, lab studies, and pain. Treatment plan problems . Intervention: Patient assessed and the following interventions initiated safety checks 15 Minute Checks Cognitive Assessment , Head to toe Assessment , Medications. Response: After interactions and interventions patient responded in the following manner, Compliant , Compliant ,quiet. Continue to assess behaviors and condition will continue to monitor throughout the shift as needed. 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 Continue to assess patient for changes in above assessment. Monitor for medication needs, pain, and safety concerns. Hourly rounding performed to ensure safe environment.
--- NOTE | 2016-07-02 10:29 | NUR ---
Behavior Intervention Response and Plan: BIRP Note: Behavior: Assumed Care of patient, patient located in Patient Room at shift change. Patient exhibited the following behavior Calm, Withdrawn, Cooperative. Brief assessment on rounds of vital signs, medication needs, lab studies, and pain. Treatment plan problems 1 and 2. Intervention: Patient assessed and the following interventions initiated safety checks 15 Minute Checks Cognitive Assessment , Head to toe Assessment , Medications. Response: After interactions and interventions patient responded in the following manner, Calm , Compliant ,Cooperative. Continue to assess behaviors and condition will continue to monitor throughout the shift as needed. 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 Continue to assess patient for changes in above assessment. Monitor for medication needs, pain, and safety concerns. Hourly rounding performed to ensure safe environment.
--- NOTE | 2016-07-02 15:22 | NUR ---
pt up for meals. tends to stay in room. compliant with meds. spoke with dtr on phone in afternoon. stated staff wouldn't give her her glasses and pt stated staff head butted her in eye at facility during a shower. c/o dtr that it was hurting. will offer Tylenol.
[2016-07-02 16:08] VITALS: BP 149/63
[2016-07-02] MEDS: ACETAMINOPHEN 325 MG TABLET PO PRN (20:02)
--- NOTE | 2016-07-02 22:35 | NUR ---
Behavior Intervention Response and Plan: BIRP Note: Behavior: Assumed Care of patient, patient located in Bed at shift change. Patient exhibited the following behavior Calm, Withdrawn, Cooperative. Brief assessment on rounds of vital signs, medication needs, lab studies, and pain. Treatment plan problems:1-2 Intervention: Patient assessed and the following interventions initiated safety checks 15 Minute Checks Head to toe Assessment , Cognitive Assessment , Medications. Response: After interactions and interventions patient responded in the following manner, Compliant , Drowsy ,Cooperative. Continue to assess behaviors and condition will continue to monitor throughout the shift as needed. Plan: Continue to monitor Master Treatment Plan for patient's progress toward short term goals of No harm To self/ others, Decreased Anxiety, intermediate goals to return to previous living setting vs placement. Continue to assess patient for changes in above assessment. Monitor for medication needs, pain, and safety concerns. Hourly rounding performed to ensure safe environment.
--- NOTE | 2016-07-03 01:23 | PN ---
DATE: 07/01/2016 This is a late entry for 07/01/2016 and covers elements not covered in my initial note. I have reviewed records from the [facility] in [place], [place]. The patient was stabilized on Cymbalta and Risperdal. On the unit, she has been withdrawn, was out for meals, right back to her room, after that slept 6-1/2 hours. REVIEW OF SYSTEMS: Shortness of breath, on O2 supplements; impaired ambulation. No CV, , eye, ENT system symptoms on review. MENTAL STATUS EXAM: Oriented, reasonably well. Speech is coherent, has some latency. Abstraction fair, computation impaired, language function intact. Mood and affect showing improvement. LABORATORY DATA: Reviewed. IMPRESSION: Unchanged from initial note. Major depressive disorder, recurrent, severe, with psychotic features. PLAN: Change Lexapro to Cymbalta 30 mg a day, increasing to 60 mg a day. Continue Risperdal and rest of psychotropics. Adjust as indicated. EDWARDO DOWD MD DR: TENISHA/alisa JOB#: [id number] / [id number]
--- NOTE | 2016-07-03 01:40 | PN ---
DATE: 07/02/2016 This note covers elements not covered in my initial note of 07/02/2016. Per nursing report, the patient has been isolative, withdrawn, compliant with her medications. REVIEW OF SYSTEMS: Shortness of breath, met with her in her room, impaired ambulation, in her wheelchair. No CV, , GI, eye, ENT system symptoms on review. MENTAL STATUS EXAM: Reasonably oriented. Speech coherent, abstraction fair, computation impaired, language function intact. Attention span short. IMPRESSION: Unchanged. PLAN: Continue current psychotropics. Adjust as indicated. Maintain Cymbalta, Risperdal may need to increase Risperdal further. MAN Torres DOWD MD DR: TENISHA/alisa JOB#: [id number] / [id number]
[2016-07-03] MEDS: LEVOTHYROXINE 25 MCG TABLET. PO SCH (05:35)
[2016-07-03 06:27] VITALS: BP 148/82
[2016-07-03] MEDS: PRENATAL MULTIVITAMIN TABLET. PO SCH ×2 (07:37→17:01)
[2016-07-03] MEDS: CHOLECALCIFEROL (VITAMIN D3) 1,000 UNIT TABLET PO SCH (07:37)
[2016-07-03] MEDS: ASPIRIN ENTERIC COATED 325 MG TABLET.DR. PO SCH (07:37)
[2016-07-03] MEDS: METOPROLOL TART IMMED RELEASE 25 MG TABLET PO SCH ×2 (07:37→20:29)
[2016-07-03] MEDS: DULOXETINE HCL 30 MG CAPSULE.DR. PO SCH (07:37)
[2016-07-03] MEDS: PREDNISONE 10 MG TABLET PO SCH (07:37)
[2016-07-03] MEDS: risperiDONE 0.25 MG TABLET. PO SCH ×2 (07:37→20:28)
[2016-07-03] MEDS: ROFLUMILAST 500 MCG TABLET PO SCH (07:38)
--- NOTE | 2016-07-03 10:04 | NUR ---
Behavior Intervention Response and Plan: BIRP Note: Behavior: Assumed Care of patient, patient located in Dining Room at shift change. Patient exhibited the following behavior withdrawn, Calm, Compliant. Brief assessment on rounds of vital signs, medication needs, lab studies, and pain. Treatment plan problems . Intervention: Patient assessed and the following interventions initiated safety checks 15 Minute Checks Cognitive Assessment , Head to toe Assessment , Medications. Response: After interactions and interventions patient responded in the following manner, Compliant , Compliant ,quiet. Continue to assess behaviors and condition will continue to monitor throughout the shift as needed. 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 Continue to assess patient for changes in above assessment. Monitor for medication needs, pain, and safety concerns. Hourly rounding performed to ensure safe environment.
[2016-07-03 16:34] VITALS: BP 160/77
--- NOTE | 2016-07-03 16:55 | NUR ---
pt up for meals. stays in room between meals. compliant with meds and cares.
[2016-07-03] MEDS: ACETAMINOPHEN 325 MG TABLET PO SCH (20:28)
--- NOTE | 2016-07-03 21:02 | PDOC ---
Exam Luis Alfredo Demential Exam: Luis Alfredo Note: Please also refer to the separate dictated note~for this date of service dictated separately.~Patient seen individually. Discussed the patient with Nursing staff reviewed the chart.~Reviewed interim history and current functioning. Reviewed vital signs,~Labs/ Radiology~and current medications noted below. Continue current treatment with the changes noted in the dictated addendum note Assessment: Vital Signs: Vital Signs Date Time Temp Pulse Resp B/P Pulse Ox O2 Delivery O2 Flow Rate FiO2 07/03/16 20:29 68 160/77 07/03/16 16:34 98.7 100 07/03/16 06:27 16 Nasal Cannula 2.0 I&O Intake and Output 07/03/16 07:00 Intake Total 840 ml Balance 840 ml Intake Oral 840 ml Current Medications: Meds: Current Medications Acetaminophen (Tylenol) 650 mg PRN Q6HRS PRN PO PAIN / TEMP Last administered on 07/02/16 20:02; Start 06/25/16 at 14:45 Multi-Ingredient Ointment (Analgesic [place]) 1 real PRN QID PRN TP MUSCLE PAIN; Start 06/25/16 at 14:45 Al Hydroxide/Mg Hydroxide (Mylanta Plus Xs) 15 ml PRN AFTMEALHC PRN PO DYSPEPSIA Last administered on 06/28/16 07:39; Start 06/25/16 at 14:45 Magnesium Hydroxide (Milk Of Magnesia) 2,400 mg PRN QHS PRN PO CONSTIPATION; Start 06/25/16 at 14:45 Acetaminophen (Tylenol) 650 mg PRN Q4HRS PRN PO pain, temperature; Start at 15:00; Stop 06/25/16 at 15:17; Status DC Hydroxyzine Pamoate (Vistaril) 25 mg PRN Q6HRS PRN PO ANXIETY Last administered on 06/29/16 11:17; Start 06/25/16 at 15:00; Stop 06/29/16 at 18:29 ; Status DC Albuterol/ Ipratropium (Duoneb) 3 ml PRN Q4HRS PRN NEB respiratory distress; Start 06/25/16 at 15:00 Cetirizine HCl (Zyrtec) 10 mg DAILY PO Last administered on 06/28/16 07:39; Start 06/26/16 at 09:00; Stop 06/28/16 at 15:45; Status DC Aspirin (Aspirin Enteric Coated) 325 mg DAILY PO Last administered on 07:37; Start 06/26/16 at 09:00 Vitamin D (Vitamin D3) 2,000 unit DAILY PO Last administered on 07/03/16 07:37 ; Start 06/26/16 at 09:00 Metoprolol Tartrate (Lopressor) 25 mg BID PO Last administered on 07/03/16 20: 29; Start 06/25/16 at 21:00 Prednisone (Prednisone) 10 mg DAILY PO Last administered on 07/03/16 07:37; Start 06/26/16 at 09:00 Calcium Carbonate/ Glycine (Tums) 500 mg PRN Q2HR PRN PO INDIGESTION; Start 03/03 at 15:30 Quetiapine Fumarate (SEROquel) 25 mg QHS PO Last administered on 06/25/16 20: 30; Start 06/25/16 at 21:00; Stop 06/26/16 at 18:45; Status DC Prenat Multivit/ [place]/Iron/Folic Ac (Multivitamin ) 1 tab BIDACLD PO Last administered on 07/03/16 17:01; Start 06/26/16 at 16:30 Levothyroxine Sodium (Synthroid) 25 mcg DAILY07 PO Last administered on 05:35; Start 06/27/16 at 07:00 Quetiapine Fumarate (SEROquel) 37.5 mg QHS PO Last administered on 06/29/16 20 :00; Start 06/26/16 at 21:00; Stop 06/30/16 at 09:49; Status DC Cetirizine HCl (Zyrtec) 10 mg DAILY PO Last administered on 06/29/16 08:44; Start 06/29/16 at 09:00; Stop 06/29/16 at 18:42; Status DC Trazodone HCl (Desyrel) 50 mg PRN QHS PRN PO INSOMNIA, MAY REPEAT X1 Last administered on 06/30/16 20:03; Start 06/28/16 at 18:30 Hydroxyzine Pamoate (Vistaril) 50 mg PRN Q4HRS PRN PO ANXIETY Last administered on 06/30/16 19:21; Start 06/29/16 at 19:00 Escitalopram Oxalate (Lexapro) 10 mg DAILY PO Last administered on 07/01/16 10 :30; Start 06/30/16 at 10:30; Stop 07/01/16 at 18:47; Status DC Risperidone (Risperdal) 0.25 mg BID PO Last administered on 07/03/16 20:28; Start 06/30/16 at 21:00 Duloxetine HCl (Cymbalta) 30 mg DAILY PO Last administered on 07/03/16 07:37; Start 07/02/16 at 09:00; Stop 07/04/16 at 12:00 Duloxetine HCl (Cymbalta) 60 mg DAILY PO ; Start 07/05/16 at 09:00 Acetaminophen (Tylenol) 650 mg BID PO Last administered on 07/03/16 20:28; Start 07/03/16 at 21:00 Active Scripts Active Reported Metoprolol Tartrate 25 Mg Tablet 25 Mg PO BID Vistaril (Hydroxyzine Pamoate) 25 Mg Capsule 25 Mg PO Q6HRS PRN Tums (Calcium Carbonate) 300 Mg Tab.chew 500 Mg PO Q2HR Daliresp (Roflumilast) 500 Mcg Tablet 500 Mcg PO DAILY Prednisone 20 Mg Tablet 10 Mg PO DAILY Loratadine 10 Mg Tablet 10 Mg PO DAILY Duoneb 0.5-3(2.5) Mg/3 Ml (Albuterol/Ipratropium) 3 Ml Ampul.neb 3 Ml NEB Q4HRS PRN Vitamin D3 (Cholecalciferol (Vitamin D3)) 1,000 Unit Tablet 2,000 Unit PO DAILY Aspirin Ec (Aspirin) 325 Mg Tablet.dr 325 Mg PO DAILY Tylenol (Acetaminophen) 325 Mg Tablet 650 Mg PO Q4HRS PRN Diagnosis: Problems: (1) Suicidal thoughts (2) Anxiety disorder (3) Dementia in Alzheimer's disease with delusions (4) Dementia in Alzheimer's disease with depression (5) Dementia, vascular, with delusions (6) Dementia, vascular, with depression (7) Impulse control disorder (8) Major depressive disorder, recurrent episode EDWARDO DOWD MD Jul 03, 2016 21:02
--- NOTE | 2016-07-03 22:59 | NUR ---
Behavior Intervention Response and Plan: BIRP Note: Behavior: Assumed Care of patient, patient located in Bed at shift change. Patient exhibited the following behavior Calm, Able to Focus on Task, Cooperative. Brief assessment on rounds of vital signs, medication needs, lab studies, and pain. Treatment plan problems:1-2 Intervention: Patient assessed and the following interventions initiated safety checks 15 Minute Checks Cognitive Assessment , Head to toe Assessment , Medications. Response: After interactions and interventions patient responded in the following manner, Able to Focus on Task , Withdrawn ,Compliant. Continue to assess behaviors and condition will continue to monitor throughout the shift as needed. 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 Continue to assess patient for changes in above assessment. Monitor for medication needs, pain, and safety concerns. Hourly rounding performed to ensure safe environment.
[2016-07-04] MEDS: LEVOTHYROXINE 25 MCG TABLET. PO SCH (05:29)
[2016-07-04 05:47] VITALS: BP 174/85
[2016-07-04] MEDS: METOPROLOL TART IMMED RELEASE 25 MG TABLET PO SCH ×2 (08:01→19:45)
[2016-07-04] MEDS: risperiDONE 0.25 MG TABLET. PO SCH ×2 (08:01→19:45)
[2016-07-04] MEDS: ACETAMINOPHEN 325 MG TABLET PO SCH ×2 (08:01→19:44)
[2016-07-04] MEDS: ASPIRIN ENTERIC COATED 325 MG TABLET.DR. PO SCH (08:01)
[2016-07-04] MEDS: PRENATAL MULTIVITAMIN TABLET. PO SCH ×2 (08:01→17:24)
[2016-07-04] MEDS: CHOLECALCIFEROL (VITAMIN D3) 1,000 UNIT TABLET PO SCH (08:02)
[2016-07-04] MEDS: ROFLUMILAST 500 MCG TABLET PO SCH (08:02)
[2016-07-04] MEDS: PREDNISONE 10 MG TABLET PO SCH (08:02)
[2016-07-04] MEDS: DULOXETINE HCL 30 MG CAPSULE.DR. PO SCH (08:02)
[2016-07-04 16:53] VITALS: BP 184/85
--- NOTE | 2016-07-04 16:57 | NUR ---
pt up in chair for meals. withdrawn to room. compliant with meds and cares.
--- NOTE | 2016-07-04 19:12 | PDOC ---
Exam Luis Alfredo Demential Exam: Luis Alfredo Note: Please also refer to the separate dictated note~for this date of service dictated separately.~Patient seen individually. Discussed the patient with Nursing staff reviewed the chart.~Reviewed interim history and current functioning. Reviewed vital signs,~Labs/ Radiology~and current medications noted below. Continue current treatment with the changes noted in the dictated addendum note Assessment: Vital Signs: Vital Signs Date Time Temp Pulse Resp B/P Pulse Ox O2 Delivery O2 Flow Rate FiO2 07/04/16 16:53 98.0 80 20 184/85 95 07/04/16 05:47 2.0 07/03/16 06:27 Nasal Cannula I&O Intake and Output 07/04/16 07:00 Intake Total 1440 ml Balance 1440 ml Intake Oral 1440 ml Current Medications: Meds: Current Medications Acetaminophen (Tylenol) 650 mg PRN Q6HRS PRN PO PAIN / TEMP Last administered on 07/02/16 20:02; Start 06/25/16 at 14:45 Multi-Ingredient Ointment (Analgesic [place]) 1 real PRN QID PRN TP MUSCLE PAIN; Start 06/25/16 at 14:45 Al Hydroxide/Mg Hydroxide (Mylanta Plus Xs) 15 ml PRN AFTMEALHC PRN PO DYSPEPSIA Last administered on 06/28/16 07:39; Start 06/25/16 at 14:45 Magnesium Hydroxide (Milk Of Magnesia) 2,400 mg PRN QHS PRN PO CONSTIPATION; Start 06/25/16 at 14:45 Acetaminophen (Tylenol) 650 mg PRN Q4HRS PRN PO pain, temperature; Start at 15:00; Stop 06/25/16 at 15:17; Status DC Hydroxyzine Pamoate (Vistaril) 25 mg PRN Q6HRS PRN PO ANXIETY Last administered on 06/29/16 11:17; Start 06/25/16 at 15:00; Stop 06/29/16 at 18:29 ; Status DC Albuterol/ Ipratropium (Duoneb) 3 ml PRN Q4HRS PRN NEB respiratory distress; Start 06/25/16 at 15:00 Cetirizine HCl (Zyrtec) 10 mg DAILY PO Last administered on 06/28/16 07:39; Start 06/26/16 at 09:00; Stop 06/28/16 at 15:45; Status DC Aspirin (Aspirin Enteric Coated) 325 mg DAILY PO Last administered on 08:01; Start 06/26/16 at 09:00 Vitamin D (Vitamin D3) 2,000 unit DAILY PO Last administered on 07/04/16 08:02 ; Start 06/26/16 at 09:00 Metoprolol Tartrate (Lopressor) 25 mg BID PO Last administered on 07/04/16 08: 01; Start 06/25/16 at 21:00 Prednisone (Prednisone) 10 mg DAILY PO Last administered on 07/04/16 08:02; Start 06/26/16 at 09:00 Calcium Carbonate/ Glycine (Tums) 500 mg PRN Q2HR PRN PO INDIGESTION; Start 03/03 at 15:30 Quetiapine Fumarate (SEROquel) 25 mg QHS PO Last administered on 06/25/16 20: 30; Start 06/25/16 at 21:00; Stop 06/26/16 at 18:45; Status DC Prenat Multivit/ [place]/Iron/Folic Ac (Multivitamin ) 1 tab BIDACLD PO Last administered on 07/04/16 17:24; Start 06/26/16 at 16:30 Levothyroxine Sodium (Synthroid) 25 mcg DAILY07 PO Last administered on 05:29; Start 06/27/16 at 07:00 Quetiapine Fumarate (SEROquel) 37.5 mg QHS PO Last administered on 06/29/16 20 :00; Start 06/26/16 at 21:00; Stop 06/30/16 at 09:49; Status DC Cetirizine HCl (Zyrtec) 10 mg DAILY PO Last administered on 06/29/16 08:44; Start 06/29/16 at 09:00; Stop 06/29/16 at 18:42; Status DC Trazodone HCl (Desyrel) 50 mg PRN QHS PRN PO INSOMNIA, MAY REPEAT X1 Last administered on 06/30/16 20:03; Start 06/28/16 at 18:30 Hydroxyzine Pamoate (Vistaril) 50 mg PRN Q4HRS PRN PO ANXIETY Last administered on 06/30/16 19:21; Start 06/29/16 at 19:00 Escitalopram Oxalate (Lexapro) 10 mg DAILY PO Last administered on 07/01/16 10 :30; Start 06/30/16 at 10:30; Stop 07/01/16 at 18:47; Status DC Risperidone (Risperdal) 0.25 mg BID PO Last administered on 07/04/16 08:01; Start 06/30/16 at 21:00 Duloxetine HCl (Cymbalta) 30 mg DAILY PO Last administered on 07/04/16 08:02; Start 07/02/16 at 09:00; Stop 07/04/16 at 12:00; Status DC Duloxetine HCl (Cymbalta) 60 mg DAILY PO ; Start 07/05/16 at 09:00 Acetaminophen (Tylenol) 650 mg BID PO Last administered on 07/04/16 08:01; Start 07/03/16 at 21:00 Active Scripts Active Reported Metoprolol Tartrate 25 Mg Tablet 25 Mg PO BID Vistaril (Hydroxyzine Pamoate) 25 Mg Capsule 25 Mg PO Q6HRS PRN Tums (Calcium Carbonate) 300 Mg Tab.chew 500 Mg PO Q2HR Daliresp (Roflumilast) 500 Mcg Tablet 500 Mcg PO DAILY Prednisone 20 Mg Tablet 10 Mg PO DAILY Loratadine 10 Mg Tablet 10 Mg PO DAILY Duoneb 0.5-3(2.5) Mg/3 Ml (Albuterol/Ipratropium) 3 Ml Ampul.neb 3 Ml NEB Q4HRS PRN Vitamin D3 (Cholecalciferol (Vitamin D3)) 1,000 Unit Tablet 2,000 Unit PO DAILY Aspirin Ec (Aspirin) 325 Mg Tablet.dr 325 Mg PO DAILY Tylenol (Acetaminophen) 325 Mg Tablet 650 Mg PO Q4HRS PRN Diagnosis: Problems: (1) Anxiety disorder (2) Suicidal thoughts (3) Dementia in Alzheimer's disease with delusions (4) Dementia in Alzheimer's disease with depression (5) Dementia, vascular, with delusions (6) Dementia, vascular, with depression (7) Impulse control disorder (8) Major depressive disorder, recurrent episode EDWARDO DOWD MD Jul 04, 2016 19:11
--- NOTE | 2016-07-04 21:34 | PN ---
DATE: 07/03/2016 This late entry for 07/03/2016 covers elements not covered in my initial note of 07/03/2016. SUBJECTIVE: I met with the patient at some length in her room. Per nursing report, the patient has been fairly cooperative, little withdrawn, depressed, but denies suicidal or homicidal ideation. REVIEW OF SYSTEMS: Ambulation impaired, in her wheelchair, shortness of breath on O2 supplements. No CV, , eye, ENT system symptoms on review. MENTAL STATUS EXAM: Reasonably oriented. Speech is coherent, abstraction fair, computation impaired, language function intact, attention span short. Mood and affect still somewhat dysphoric, less paranoid. No active suicidal ideation. LABORATORY DATA: Reviewed. IMPRESSION: Major depressive disorder with psychotic features in partial remission. Rule out bipolar 1, mixed with psychotic features. Anxiety disorder, unspecified; impulse control disorder, unspecified. PLAN: Continue hydroxyzine p.r.n., trazodone 50 at bedtime p.r.n., august repeat x 1, Cymbalta increased to 60 mg a day. Maintain Risperdal 0.25 mg b.i.d. Adjust further as clinically indicated. MAN Torres DODW MD DR: TENISHA/alisa JOB#: [id number] / [id number]
--- NOTE | 2016-07-04 21:44 | NUR ---
Behavior Intervention Response and Plan: BIRP Note: Behavior: Assumed Care of patient, patient located in Patient Room at shift change. Patient exhibited the following behavior Calm, Withdrawn, Drowsy. Brief assessment on rounds of vital signs, medication needs, lab studies, and pain. Treatment plan problems 1 and 2. Intervention: Patient assessed and the following interventions initiated safety checks 15 Minute Checks Cognitive Assessment , Head to toe Assessment , Medications. Response: After interactions and interventions patient responded in the following manner, Calm , Cooperative ,Compliant. Continue to assess behaviors and condition will continue to monitor throughout the shift as needed. Plan: Continue to monitor Master Treatment Plan for patient's progress toward short term goals of No harm To self/ others, Improved Mood, senior living goals to return to previous living setting vs placement. Continue to assess patient for changes in above assessment. Monitor for medication needs, pain, and safety concerns. Hourly rounding performed to ensure safe environment.
[2016-07-05] MEDS: LEVOTHYROXINE 25 MCG TABLET. PO SCH (06:04)
[2016-07-05 06:08] VITALS: BP 180/88
[2016-07-05] MEDS: risperiDONE 0.25 MG TABLET. PO SCH ×2 (08:43→19:51)
[2016-07-05] MEDS: METOPROLOL TART IMMED RELEASE 25 MG TABLET PO SCH ×2 (08:43→19:51)
[2016-07-05] MEDS: CHOLECALCIFEROL (VITAMIN D3) 1,000 UNIT TABLET PO SCH (08:43)
[2016-07-05] MEDS: ASPIRIN ENTERIC COATED 325 MG TABLET.DR. PO SCH (08:43)
[2016-07-05] MEDS: ACETAMINOPHEN 325 MG TABLET PO SCH ×2 (08:43→19:51)
[2016-07-05] MEDS: PREDNISONE 10 MG TABLET PO SCH (08:43)
[2016-07-05] MEDS: ROFLUMILAST 500 MCG TABLET PO SCH (08:44)
[2016-07-05] MEDS: DULOXETINE HCL 60 MG CAPSULE.DR. PO SCH (08:45)
--- NOTE | 2016-07-05 10:00 | NUR ---
Behavior Intervention Response and Plan: BIRP Note: Behavior: Assumed Care of patient, patient located in Hallway at shift change. Patient exhibited the following behavior Calm, Compliant, Cooperative. Brief assessment on rounds of vital signs, medication needs, lab studies, and pain. Treatment plan problems:1-2 Intervention: Patient assessed and the following interventions initiated safety checks 15 Minute Checks Cognitive Assessment , Head to toe Assessment , Medications. Response: After interactions and interventions patient responded in the following manner, Able to Focus on Task , Withdrawn ,Compliant. Continue to assess behaviors and condition will continue to monitor throughout the shift as needed. 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 Continue to assess patient for changes in above assessment. Monitor for medication needs, pain, and safety concerns. Hourly rounding performed to ensure safe environment.
[2016-07-05] MEDS: IPRATRPIUM/ALBUTEROL 0.5/2.5MG 3 ML NEBU. NEB PRN (10:33)
--- NOTE | 2016-07-05 11:46 | NUR ---
RAY finally received a return phone call from [facility] ([place]) w/Administration and RAY Crowder. Facility stated they will not be able to accept PT. back at [facility] due to not being able to "meet Pt's needs". RAY stated the responsibility of new placement falls on [facility] and SW would be happy to send out referral information to any/all places per [facility]'s request. RAY stated Pt. likely ready for DC at end of this week or beginning of next week and if new placement is not secured, Pt. would need to return to [facility]. RAY also inquired about having this discussion w/Pt's grand dtr as previously, they had not talked w/her about new placement. Adm. stated they had a brief conversation w/her yesterday and would continue that conversation as they look for new placement.
[2016-07-05] MEDS: PRENATAL MULTIVITAMIN TABLET. PO SCH ×2 (11:51→16:24)
--- NOTE | 2016-07-05 14:00 | NUR ---
THERAPEUTIC RECREATION GROUP NOTE TITLE :Dance and sing along with Rayne ACTIVITY : Music GOAL : Increase socialization, elevate mood, stimulate memory DURATION : 60 minutes RESPONSE : Late arrival, moderate participation. Pt. missed the first couple songs. She did not want to follow along with anastacia sheet but she tapped her foot along with the music.
--- NOTE | 2016-07-05 15:00 | NUR ---
THERAPEUTIC RECREATION GROUP NOTE TITLE :Balloon/Noodle Games ACTIVITY : Activities and Games GOAL : Maintain or improve mental and physical functioning. Increase socialization. Decrease stress. DURATION : 60 Minutes RESPONSE : Full participation. Pt. was quiet but smiled often.
[2016-07-05 15:45] VITALS: BP 168/81
[2016-07-05] MEDS: traZODone 50 MG TABLET. PO PRN (19:51)
--- NOTE | 2016-07-05 23:13 | NUR ---
Behavior Intervention Response and Plan: BIRP Note: Behavior: Assumed Care of patient, patient located in Patient Room at shift change. Patient exhibited the following behavior Withdrawn, Somatic, Sleeping. Brief assessment on rounds of vital signs, medication needs, lab studies, and pain. Treatment plan problems 1 and 2. Intervention: Patient assessed and the following interventions initiated safety checks 15 Minute Checks Cognitive Assessment , Head to toe Assessment , Medications. Response: After interactions and interventions patient responded in the following manner, Calm , Compliant ,Cooperative. Continue to assess behaviors and condition will continue to monitor throughout the shift as needed. 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 Continue to assess patient for changes in above assessment. Monitor for medication needs, pain, and safety concerns. Hourly rounding performed to ensure safe environment.
[2016-07-06] MEDS: LEVOTHYROXINE 25 MCG TABLET. PO SCH (05:37)
[2016-07-06 05:52] VITALS: BP 167/78
[2016-07-06] MEDS: ROFLUMILAST 500 MCG TABLET PO SCH (09:00)
[2016-07-06] MEDS: CHOLECALCIFEROL (VITAMIN D3) 1,000 UNIT TABLET PO SCH (09:00)
[2016-07-06] MEDS: ASPIRIN ENTERIC COATED 325 MG TABLET.DR. PO SCH (09:00)
[2016-07-06] MEDS: METOPROLOL TART IMMED RELEASE 25 MG TABLET PO SCH ×2 (09:01→19:44)
[2016-07-06] MEDS: PREDNISONE 10 MG TABLET PO SCH (09:01)
[2016-07-06] MEDS: ACETAMINOPHEN 325 MG TABLET PO SCH ×2 (09:01→19:44)
[2016-07-06] MEDS: risperiDONE 0.25 MG TABLET. PO SCH ×2 (09:01→19:44)
[2016-07-06] MEDS: DULOXETINE HCL 60 MG CAPSULE.DR. PO SCH (09:01)
[2016-07-06] MEDS: IPRATRPIUM/ALBUTEROL 0.5/2.5MG 3 ML NEBU. NEB PRN (09:32)
--- NOTE | 2016-07-06 12:08 | NUR ---
Behavior Intervention Response and Plan: BIRP Note: Behavior: Assumed Care of patient, patient located in Patient Room at shift change. Patient exhibited the following behavior Calm, Withdrawn, Anxious. Brief assessment on rounds of vital signs, medication needs, lab studies, and pain. Treatment plan problems . Intervention: Patient assessed and the following interventions initiated safety checks 15 Minute Checks Cognitive Assessment , Head to toe Assessment , Medications. Response: After interactions and interventions patient responded in the following manner, Disorganized , Withdrawn ,Cooperative. Continue to assess behaviors and condition will continue to monitor throughout the shift as needed. Plan: Continue to monitor Master Treatment Plan for patient's progress toward short term goals of Decreased Anxiety, Improved Mood, [facility] goals to return to previous living setting vs placement. Continue to assess patient for changes in above assessment. Monitor for medication needs, pain, and safety concerns. Hourly rounding performed to ensure safe environment.
[2016-07-06] MEDS: PRENATAL MULTIVITAMIN TABLET. PO SCH ×2 (12:22→17:21)
[2016-07-06 16:09] VITALS: BP 166/75
[2016-07-06] MEDS: traZODone 50 MG TABLET. PO PRN (19:45)
--- NOTE | 2016-07-06 21:06 | PDOC ---
Exam Luis Alfredo Demential Exam: Luis Alfredo Note: Please also refer to the separate dictated note~for this date of service dictated separately.~Patient seen individually. Discussed the patient with Nursing staff reviewed the chart.~Reviewed interim history and current functioning. Reviewed vital signs,~Labs/ Radiology~and current medications noted below. Continue current treatment with the changes noted in the dictated addendum note Assessment: Vital Signs: Vital Signs Date Time Temp Pulse Resp B/P Pulse Ox O2 Delivery O2 Flow Rate FiO2 07/06/16 19:44 81 166/75 07/06/16 16:09 98.1 17 97 07/06/16 09:32 Nasal Cannula 3.0 I&O Intake and Output 07/06/16 07:00 Intake Total 1320 ml Balance 1320 ml Intake Oral 1320 ml Current Medications: Meds: Current Medications Acetaminophen (Tylenol) 650 mg PRN Q6HRS PRN PO PAIN / TEMP Last administered on 07/02/16 20:02; Start 06/25/16 at 14:45 Multi-Ingredient Ointment (Analgesic [place]) 1 real PRN QID PRN TP MUSCLE PAIN; Start 06/25/16 at 14:45 Al Hydroxide/Mg Hydroxide (Mylanta Plus Xs) 15 ml PRN AFTMEALHC PRN PO DYSPEPSIA Last administered on 06/28/16 07:39; Start 06/25/16 at 14:45 Magnesium Hydroxide (Milk Of Magnesia) 2,400 mg PRN QHS PRN PO CONSTIPATION; Start 06/25/16 at 14:45 Acetaminophen (Tylenol) 650 mg PRN Q4HRS PRN PO pain, temperature; Start at 15:00; Stop 06/25/16 at 15:17; Status DC Hydroxyzine Pamoate (Vistaril) 25 mg PRN Q6HRS PRN PO ANXIETY Last administered on 06/29/16 11:17; Start 06/25/16 at 15:00; Stop 06/29/16 at 18:29 ; Status DC Albuterol/ Ipratropium (Duoneb) 3 ml PRN Q4HRS PRN NEB respiratory distress Last administered on 07/06/16 09:32; Start 06/25/16 at 15:00 Cetirizine HCl (Zyrtec) 10 mg DAILY PO Last administered on 06/28/16 07:39; Start 06/26/16 at 09:00; Stop 06/28/16 at 15:45; Status DC Aspirin (Aspirin Enteric Coated) 325 mg DAILY PO Last administered on 09:00; Start 06/26/16 at 09:00 Vitamin D (Vitamin D3) 2,000 unit DAILY PO Last administered on 07/06/16 09:00 ; Start 06/26/16 at 09:00 Metoprolol Tartrate (Lopressor) 25 mg BID PO Last administered on 07/06/16 19: 44; Start 06/25/16 at 21:00 Prednisone (Prednisone) 10 mg DAILY PO Last administered on 07/06/16 09:01; Start 06/26/16 at 09:00 Calcium Carbonate/ Glycine (Tums) 500 mg PRN Q2HR PRN PO INDIGESTION; Start 03/03 at 15:30 Quetiapine Fumarate (SEROquel) 25 mg QHS PO Last administered on 06/25/16 20: 30; Start 06/25/16 at 21:00; Stop 06/26/16 at 18:45; Status DC Prenat Multivit/ [place]/Iron/Folic Ac (Multivitamin ) 1 tab BIDACLD PO Last administered on 07/06/16 17:21; Start 06/26/16 at 16:30 Levothyroxine Sodium (Synthroid) 25 mcg DAILY07 PO Last administered on 05:37; Start 06/27/16 at 07:00 Quetiapine Fumarate (SEROquel) 37.5 mg QHS PO Last administered on 06/29/16 20 :00; Start 06/26/16 at 21:00; Stop 06/30/16 at 09:49; Status DC Cetirizine HCl (Zyrtec) 10 mg DAILY PO Last administered on 06/29/16 08:44; Start 06/29/16 at 09:00; Stop 06/29/16 at 18:42; Status DC Trazodone HCl (Desyrel) 50 mg PRN QHS PRN PO INSOMNIA, MAY REPEAT X1 Last administered on 07/06/16 19:45; Start 06/28/16 at 18:30 Hydroxyzine Pamoate (Vistaril) 50 mg PRN Q4HRS PRN PO ANXIETY Last administered on 06/30/16 19:21; Start 06/29/16 at 19:00 Escitalopram Oxalate (Lexapro) 10 mg DAILY PO Last administered on 07/01/16 10 :30; Start 06/30/16 at 10:30; Stop 07/01/16 at 18:47; Status DC Risperidone (Risperdal) 0.25 mg BID PO Last administered on 07/06/16 19:44; Start 06/30/16 at 21:00 Duloxetine HCl (Cymbalta) 30 mg DAILY PO Last administered on 07/04/16 08:02; Start 07/02/16 at 09:00; Stop 07/04/16 at 12:00; Status DC Duloxetine HCl (Cymbalta) 60 mg DAILY PO Last administered on 07/06/16 09:01; Start 07/05/16 at 09:00 Acetaminophen (Tylenol) 650 mg BID PO Last administered on 07/06/16 19:44; Start 07/03/16 at 21:00 Active Scripts Active Reported Metoprolol Tartrate 25 Mg Tablet 25 Mg PO BID Vistaril (Hydroxyzine Pamoate) 25 Mg Capsule 25 Mg PO Q6HRS PRN Tums (Calcium Carbonate) 300 Mg Tab.chew 500 Mg PO Q2HR Daliresp (Roflumilast) 500 Mcg Tablet 500 Mcg PO DAILY Prednisone 20 Mg Tablet 10 Mg PO DAILY Loratadine 10 Mg Tablet 10 Mg PO DAILY Duoneb 0.5-3(2.5) Mg/3 Ml (Albuterol/Ipratropium) 3 Ml Ampul.neb 3 Ml NEB Q4HRS PRN Vitamin D3 (Cholecalciferol (Vitamin D3)) 1,000 Unit Tablet 2,000 Unit PO DAILY Aspirin Ec (Aspirin) 325 Mg Tablet.dr 325 Mg PO DAILY Tylenol (Acetaminophen) 325 Mg Tablet 650 Mg PO Q4HRS PRN Diagnosis: Problems: (1) Suicidal thoughts (2) Anxiety disorder (3) Dementia in Alzheimer's disease with delusions (4) Dementia in Alzheimer's disease with depression (5) Dementia, vascular, with delusions (6) Dementia, vascular, with depression (7) Impulse control disorder (8) Major depressive disorder, recurrent episode EDWARDO DOWD MD Jul 06, 2016 21:06
--- NOTE | 2016-07-06 22:23 | NUR ---
Behavior Intervention Response and Plan: BIRP Note: Behavior: Assumed Care of patient, patient located in Patient Room at shift change. Patient exhibited the following behavior Calm, Withdrawn, Sleeping. Brief assessment on rounds of vital signs, medication needs, lab studies, and pain. Treatment plan problems 1 and 2. Intervention: Patient assessed and the following interventions initiated safety checks 15 Minute Checks Cognitive Assessment , Head to toe Assessment , Medications. Response: After interactions and interventions patient responded in the following manner, Calm , Compliant ,Cooperative. Continue to assess behaviors and condition will continue to monitor throughout the shift as needed. 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 Continue to assess patient for changes in above assessment. Monitor for medication needs, pain, and safety concerns. Hourly rounding performed to ensure safe environment.
--- NOTE | 2016-07-07 00:42 | PN ---
DATE: 07/04/2016 This late entry for 07/04/2016 covers elements not covered in my initial note. SUBJECTIVE: Per nursing report, the patient has been a little more cheerful. As I met with her, she complains of some headaches and some shortness of breath. REVIEW OF SYSTEMS: Impaired ambulation, but no CV, , GI, ENT system symptoms on review. MENTAL STATUS EXAM: Reasonably oriented. Speech has some latency, coherent. Abstraction fair, computation impaired, language function intact. Mood and affect showing improvement. She appears less paranoid and delusional. LABORATORY DATA: Reviewed. IMPRESSION: Major depressive disorder with psychotic features in partial remission; anxiety disorder, unspecified. Rest diagnosis unchanged from initial note. PLAN: Continue psychotropics mentioned in initial note, increase Cymbalta to 60 mg a day on 07/05/2016. Continue Risperdal at current dosage. MAN Torres DOWD MD DR: TENISHA/alisa JOB#: [id number] / [id number]
--- NOTE | 2016-07-07 00:57 | PN ---
DATE: 07/05/2016 This is a late entry for 07/05/2016 and covers elements not covered in my initial note. SUBJECTIVE: The patient is still withdrawn, but no suicidal ideation noted. I met with her in her room. REVIEW OF SYSTEMS: Still has some shortness of breath, remains on O2 supplement. Still complains of headaches, but states it is "better." No CV, , GI, eye, ENT system symptoms on review. MENTAL STATUS EXAM: Reasonably oriented. Speech is coherent, has some latency. Abstraction fair, computation impaired, language function intact. Mood and affect showing some improvement, less delusional. LABORATORY DATA: Reviewed. IMPRESSION: Major depressive disorder with psychotic features, in partial remission. Rest of diagnoses unchanged. PLAN: Increase Cymbalta to 60 mg a day. Maintain Risperdal 0.25 mg b.i.d. Continue rest of the psychotropics, adjust as clinically indicated. MAN Torres DOWD MD DR: TENISHA/alisa JOB#: [id number] / [id number]
[2016-07-07 06:11] VITALS: BP 165/76
[2016-07-07] MEDS: LEVOTHYROXINE 25 MCG TABLET. PO SCH (06:16)
[2016-07-07] MEDS: ASPIRIN ENTERIC COATED 325 MG TABLET.DR. PO SCH (09:00)
[2016-07-07] MEDS: CHOLECALCIFEROL (VITAMIN D3) 1,000 UNIT TABLET PO SCH (09:01)
[2016-07-07] MEDS: DULOXETINE HCL 60 MG CAPSULE.DR. PO SCH (09:01)
[2016-07-07] MEDS: risperiDONE 0.25 MG TABLET. PO SCH ×2 (09:01→19:56)
[2016-07-07] MEDS: ACETAMINOPHEN 325 MG TABLET PO SCH ×2 (09:01→19:55)
[2016-07-07] MEDS: PREDNISONE 10 MG TABLET PO SCH (09:02)
[2016-07-07] MEDS: METOPROLOL TART IMMED RELEASE 25 MG TABLET PO SCH ×2 (09:02→19:55)
[2016-07-07] MEDS: ROFLUMILAST 500 MCG TABLET PO SCH (09:03)
[2016-07-07] MEDS: PRENATAL MULTIVITAMIN TABLET. PO SCH ×2 (11:17→16:16)
--- NOTE | 2016-07-07 11:42 | NUR ---
Behavior Intervention Response and Plan: BIRP Note: Behavior: Assumed Care of patient, patient located in Patient Room at shift change. Patient exhibited the following behavior Compliant, Calm, Cooperative. Brief assessment on rounds of vital signs, medication needs, lab studies, and pain. Treatment plan problems . Intervention: Patient assessed and the following interventions initiated safety checks 15 Minute Checks Head to toe Assessment , Cognitive Assessment , Nutrition. Response: After interactions and interventions patient responded in the following manner, Calm , Withdrawn ,Drowsy. Continue to assess behaviors and condition will continue to monitor throughout the shift as needed. 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 Continue to assess patient for changes in above assessment. Monitor for medication needs, pain, and safety concerns. Hourly rounding performed to ensure safe environment.
[2016-07-07 16:05] VITALS: BP 163/76
--- NOTE | 2016-07-07 20:52 | PDOC ---
Exam Luis Alfredo Demential Exam: Luis Alfredo Note: Please also refer to the separate dictated note~for this date of service dictated separately.~Patient seen individually. Discussed the patient with Nursing staff reviewed the chart.~Reviewed interim history and current functioning. Reviewed vital signs,~Labs/ Radiology~and current medications noted below. Continue current treatment with the changes noted in the dictated addendum note Assessment: Vital Signs: Vital Signs Date Time Temp Pulse Resp B/P Pulse Ox O2 Delivery O2 Flow Rate FiO2 07/07/16 19:55 80 163/76 07/07/16 16:05 97.0 16 100 2.0 07/06/16 09:32 Nasal Cannula I&O Intake and Output 07/07/16 07:00 Intake Total 840 ml Balance 840 ml Intake Oral 840 ml # Bowel Movements 1 Current Medications: Meds: Current Medications Acetaminophen (Tylenol) 650 mg PRN Q6HRS PRN PO PAIN / TEMP Last administered on 07/02/16 20:02; Start 06/25/16 at 14:45 Multi-Ingredient Ointment (Analgesic [place]) 1 real PRN QID PRN TP MUSCLE PAIN; Start 06/25/16 at 14:45 Al Hydroxide/Mg Hydroxide (Mylanta Plus Xs) 15 ml PRN AFTMEALHC PRN PO DYSPEPSIA Last administered on 06/28/16 07:39; Start 06/25/16 at 14:45 Magnesium Hydroxide (Milk Of Magnesia) 2,400 mg PRN QHS PRN PO CONSTIPATION; Start 06/25/16 at 14:45 Acetaminophen (Tylenol) 650 mg PRN Q4HRS PRN PO pain, temperature; Start at 15:00; Stop 06/25/16 at 15:17; Status DC Hydroxyzine Pamoate (Vistaril) 25 mg PRN Q6HRS PRN PO ANXIETY Last administered on 06/29/16 11:17; Start 06/25/16 at 15:00; Stop 06/29/16 at 18:29 ; Status DC Albuterol/ Ipratropium (Duoneb) 3 ml PRN Q4HRS PRN NEB respiratory distress Last administered on 07/06/16 09:32; Start 06/25/16 at 15:00 Cetirizine HCl (Zyrtec) 10 mg DAILY PO Last administered on 06/28/16 07:39; Start 06/26/16 at 09:00; Stop 06/28/16 at 15:45; Status DC Aspirin (Aspirin Enteric Coated) 325 mg DAILY PO Last administered on 09:00; Start 06/26/16 at 09:00 Vitamin D (Vitamin D3) 2,000 unit DAILY PO Last administered on 07/07/16 09:01 ; Start 06/26/16 at 09:00 Metoprolol Tartrate (Lopressor) 25 mg BID PO Last administered on 07/07/16 19: 55; Start 06/25/16 at 21:00 Prednisone (Prednisone) 10 mg DAILY PO Last administered on 07/07/16 09:02; Start 06/26/16 at 09:00 Calcium Carbonate/ Glycine (Tums) 500 mg PRN Q2HR PRN PO INDIGESTION; Start 03/03 at 15:30 Quetiapine Fumarate (SEROquel) 25 mg QHS PO Last administered on 06/25/16 20: 30; Start 06/25/16 at 21:00; Stop 06/26/16 at 18:45; Status DC Prenat Multivit/ [place]/Iron/Folic Ac (Multivitamin ) 1 tab BIDACLD PO Last administered on 07/07/16 16:16; Start 06/26/16 at 16:30 Levothyroxine Sodium (Synthroid) 25 mcg DAILY07 PO Last administered on 06:16; Start 06/27/16 at 07:00 Quetiapine Fumarate (SEROquel) 37.5 mg QHS PO Last administered on 06/29/16 20 :00; Start 06/26/16 at 21:00; Stop 06/30/16 at 09:49; Status DC Cetirizine HCl (Zyrtec) 10 mg DAILY PO Last administered on 06/29/16 08:44; Start 06/29/16 at 09:00; Stop 06/29/16 at 18:42; Status DC Trazodone HCl (Desyrel) 50 mg PRN QHS PRN PO INSOMNIA, MAY REPEAT X1 Last administered on 07/06/16 19:45; Start 06/28/16 at 18:30 Hydroxyzine Pamoate (Vistaril) 50 mg PRN Q4HRS PRN PO ANXIETY Last administered on 06/30/16 19:21; Start 06/29/16 at 19:00 Escitalopram Oxalate (Lexapro) 10 mg DAILY PO Last administered on 07/01/16 10 :30; Start 06/30/16 at 10:30; Stop 07/01/16 at 18:47; Status DC Risperidone (Risperdal) 0.25 mg BID PO Last administered on 07/07/16 19:56; Start 06/30/16 at 21:00 Duloxetine HCl (Cymbalta) 30 mg DAILY PO Last administered on 07/04/16 08:02; Start 07/02/16 at 09:00; Stop 07/04/16 at 12:00; Status DC Duloxetine HCl (Cymbalta) 60 mg DAILY PO Last administered on 07/07/16 09:01; Start 07/05/16 at 09:00 Acetaminophen (Tylenol) 650 mg BID PO Last administered on 07/07/16 19:55; Start 07/03/16 at 21:00 Active Scripts Active Reported Metoprolol Tartrate 25 Mg Tablet 25 Mg PO BID Vistaril (Hydroxyzine Pamoate) 25 Mg Capsule 25 Mg PO Q6HRS PRN Tums (Calcium Carbonate) 300 Mg Tab.chew 500 Mg PO Q2HR Daliresp (Roflumilast) 500 Mcg Tablet 500 Mcg PO DAILY Prednisone 20 Mg Tablet 10 Mg PO DAILY Loratadine 10 Mg Tablet 10 Mg PO DAILY Duoneb 0.5-3(2.5) Mg/3 Ml (Albuterol/Ipratropium) 3 Ml Ampul.neb 3 Ml NEB Q4HRS PRN Vitamin D3 (Cholecalciferol (Vitamin D3)) 1,000 Unit Tablet 2,000 Unit PO DAILY Aspirin Ec (Aspirin) 325 Mg Tablet.dr 325 Mg PO DAILY Tylenol (Acetaminophen) 325 Mg Tablet 650 Mg PO Q4HRS PRN Diagnosis: Problems: (1) Suicidal thoughts (2) Anxiety disorder (3) Dementia in Alzheimer's disease with delusions (4) Dementia in Alzheimer's disease with depression (5) Dementia, vascular, with delusions (6) Dementia, vascular, with depression (7) Impulse control disorder (8) Major depressive disorder, recurrent episode EDWARDO DOWD MD Jul 07, 2016 20:52
--- NOTE | 2016-07-07 23:31 | NUR ---
Behavior Intervention Response and Plan: BIRP Note: Behavior: Assumed Care of patient, patient located in Patient Room at shift change. Patient exhibited the following behavior Drowsy, Sleeping, Calm. Brief assessment on rounds of vital signs, medication needs, lab studies, and pain. Treatment plan problems suicidal Ideation and fall risk. Intervention: Patient assessed and the following interventions initiated safety checks 15 Minute Checks Cognitive Assessment , Medications , Oral Hydration. Response: After interactions and interventions patient responded in the following manner, Calm , Drowsy ,Compliant. Continue to assess behaviors and condition will continue to monitor throughout the shift as needed. Plan: Continue to monitor Master Treatment Plan for patient's progress toward short term goals of No harm To self/ others, Improved Mood, jail goals to return to previous living setting vs placement. Continue to assess patient for changes in above assessment. Monitor for medication needs, pain, and safety concerns. Hourly rounding performed to ensure safe environment.
[2016-07-08] MEDS: LEVOTHYROXINE 25 MCG TABLET. PO SCH (06:07)
[2016-07-08 06:24] VITALS: BP 156/71
[2016-07-08] MEDS: ROFLUMILAST 500 MCG TABLET PO SCH (07:52)
[2016-07-08] MEDS: DULOXETINE HCL 60 MG CAPSULE.DR. PO SCH (07:52)
[2016-07-08] MEDS: ACETAMINOPHEN 325 MG TABLET PO SCH ×2 (07:52→19:32)
[2016-07-08] MEDS: METOPROLOL TART IMMED RELEASE 25 MG TABLET PO SCH ×2 (07:53→19:31)
[2016-07-08] MEDS: CHOLECALCIFEROL (VITAMIN D3) 1,000 UNIT TABLET PO SCH (07:54)
[2016-07-08] MEDS: PREDNISONE 10 MG TABLET PO SCH (07:54)
[2016-07-08] MEDS: ASPIRIN ENTERIC COATED 325 MG TABLET.DR. PO SCH (07:54)
[2016-07-08] MEDS: risperiDONE 0.25 MG TABLET. PO SCH ×2 (07:54→19:32)
[2016-07-08] MEDS: IPRATRPIUM/ALBUTEROL 0.5/2.5MG 3 ML NEBU. NEB PRN (09:51)
--- NOTE | 2016-07-08 09:58 | NUR ---
Behavior Intervention Response and Plan: BIRP Note: Behavior: Assumed Care of patient, patient located in Hallway at shift change. Patient exhibited the following behavior Calm, Appropriate, Cooperative. Brief assessment on rounds of vital signs, medication needs, lab studies, and pain. Treatment plan problems . Intervention: Patient assessed and the following interventions initiated safety checks 15 Minute Checks Head to toe Assessment , Cognitive Assessment , Medications. Response: After interactions and interventions patient responded in the following manner, Calm , Cooperative ,Able to Focus on Task. Continue to assess behaviors and condition will continue to monitor throughout the shift as needed. Plan: Continue to monitor Master Treatment Plan for patient's progress toward short term goals of Improved Mood, Improved Mood, snf goals to return to previous living setting vs placement. Continue to assess patient for changes in above assessment. Monitor for medication needs, pain, and safety concerns. Hourly rounding performed to ensure safe environment.
[2016-07-08] MEDS: PRENATAL MULTIVITAMIN TABLET. PO SCH ×2 (10:34→16:02)
--- NOTE | 2016-07-08 10:43 | PN ---
DATE: 07/06/2016 PSYCHIATRIC PROGRESS NOTE This is a late entry 07/06/2016, covers elements not covered in my initial note. SUBJECTIVE: Overall, the patient has been calm, compliant, somewhat withdrawn at times, but no suicidal or homicidal ideation noted. REVIEW OF SYSTEMS: Ambulation impaired, in her wheelchair, shortness of breath, remains on O2 supplements. No CV, , eye, ENT system symptoms on review. Complains of some intermittent headaches, but this are better. MENTAL STATUS EXAM: Oriented, reasonably speech is coherent, abstraction fair, computation impaired, language function intact, attention span short. Mood and affect showing improvement. LABORATORY DATA: Reviewed. IMPRESSION: Major depressive disorder with psychotic features in partial remission. Rest diagnoses unchanged. PLAN: Continue psychotropics mentioned in my initial note including Cymbalta, Risperdal. Adjust as clinically indicated. MAN Torres DOWD MD DR: TENISHA/alisa JOB#: [id number] / [id number]
--- NOTE | 2016-07-08 10:48 | PN ---
DATE: 07/07/2016 SUBJECTIVE: This is a late entry 07/07/2016, covers elements not covered in my initial note. The patient was staffed at a treatment team meeting with the entire team morning of 07/07/2016 and then I met with her individually. She has been calmer and cooperative. Denies suicidal ideation sleeping about 7-8 hours. Appetite 80% or so. REVIEW OF SYSTEMS: Ambulation impaired, in her wheelchair. Some shortness of breath, on O2 supplements. She is in her wheelchair and O2 supply was not in place. I asked the nursing staff and they placed it back. No CV, , GI, eye, or ENT system symptoms on review. Some mild headaches at times, but these are also better. MENTAL STATUS EXAM: Reasonably oriented. Speech is coherent, abstraction fair, computation impaired, and language function intact. Mood and affect showing improvement. LABORATORY DATA: Reviewed. IMPRESSION: Major depressive disorder with psychotic features in partial remission. Rest unchanged. PLAN: Continue current psychotropics. Adjust further as clinically indicated. EDWARDO DOWD MD DR: TENISHA/alisa JOB#: [id number] / [id number]
--- NOTE | 2016-07-08 14:00 | NUR ---
RAY [place] message [place] at 11:30. RAY attempted to contact [facility]'s [facility] [employer] to plan for dc at 2:00 and was told both were either busy or out of the building. RAY explained the need to speak for someone regarding dc plans and was requested to leave call back information. RAY will follow up on Monday.
[2016-07-08 15:57] VITALS: BP 148/64
--- NOTE | 2016-07-08 20:51 | PDOC ---
Exam Luis Alfredo Demential Exam: Luis Alfredo Note: Please also refer to the separate dictated note~for this date of service dictated separately.~Patient seen individually. Discussed the patient with Nursing staff reviewed the chart.~Reviewed interim history and current functioning. Reviewed vital signs,~Labs/ Radiology~and current medications noted below. Continue current treatment with the changes noted in the dictated addendum note Assessment: Vital Signs: Vital Signs Date Time Temp Pulse Resp B/P Pulse Ox O2 Delivery O2 Flow Rate FiO2 07/08/16 19:31 82 148/64 07/08/16 15:57 97.5 18 94 3.0 07/08/16 09:51 Nasal Cannula I&O Intake and Output 07/08/16 07:00 Intake Total 1370 ml Balance 1370 ml Intake Oral 1370 ml # Voids 2 Current Medications: Meds: Current Medications Acetaminophen (Tylenol) 650 mg PRN Q6HRS PRN PO PAIN / TEMP Last administered on 07/02/16 20:02; Start 06/25/16 at 14:45 Multi-Ingredient Ointment (Analgesic [place]) 1 real PRN QID PRN TP MUSCLE PAIN; Start 06/25/16 at 14:45 Al Hydroxide/Mg Hydroxide (Mylanta Plus Xs) 15 ml PRN AFTMEALHC PRN PO DYSPEPSIA Last administered on 06/28/16 07:39; Start 06/25/16 at 14:45 Magnesium Hydroxide (Milk Of Magnesia) 2,400 mg PRN QHS PRN PO CONSTIPATION; Start 06/25/16 at 14:45 Acetaminophen (Tylenol) 650 mg PRN Q4HRS PRN PO pain, temperature; Start at 15:00; Stop 06/25/16 at 15:17; Status DC Hydroxyzine Pamoate (Vistaril) 25 mg PRN Q6HRS PRN PO ANXIETY Last administered on 06/29/16 11:17; Start 06/25/16 at 15:00; Stop 06/29/16 at 18:29 ; Status DC Albuterol/ Ipratropium (Duoneb) 3 ml PRN Q4HRS PRN NEB respiratory distress Last administered on 07/08/16 09:51; Start 06/25/16 at 15:00 Cetirizine HCl (Zyrtec) 10 mg DAILY PO Last administered on 06/28/16 07:39; Start 06/26/16 at 09:00; Stop 06/28/16 at 15:45; Status DC Aspirin (Aspirin Enteric Coated) 325 mg DAILY PO Last administered on 07:54; Start 06/26/16 at 09:00 Vitamin D (Vitamin D3) 2,000 unit DAILY PO Last administered on 07/08/16 07:54 ; Start 06/26/16 at 09:00 Metoprolol Tartrate (Lopressor) 25 mg BID PO Last administered on 07/08/16 19: 31; Start 06/25/16 at 21:00 Prednisone (Prednisone) 10 mg DAILY PO Last administered on 07/08/16 07:54; Start 06/26/16 at 09:00 Calcium Carbonate/ Glycine (Tums) 500 mg PRN Q2HR PRN PO INDIGESTION; Start 03/03 at 15:30 Quetiapine Fumarate (SEROquel) 25 mg QHS PO Last administered on 06/25/16 20: 30; Start 06/25/16 at 21:00; Stop 06/26/16 at 18:45; Status DC Prenat Multivit/ Juvenile [employer]/Iron/Folic Ac (Multivitamin ) 1 tab BIDACLD PO Last administered on 07/08/16 16:02; Start 06/26/16 at 16:30 Levothyroxine Sodium (Synthroid) 25 mcg DAILY07 PO Last administered on 06:07; Start 06/27/16 at 07:00 Quetiapine Fumarate (SEROquel) 37.5 mg QHS PO Last administered on 06/29/16 20 :00; Start 06/26/16 at 21:00; Stop 06/30/16 at 09:49; Status DC Cetirizine HCl (Zyrtec) 10 mg DAILY PO Last administered on 06/29/16 08:44; Start 06/29/16 at 09:00; Stop 06/29/16 at 18:42; Status DC Trazodone HCl (Desyrel) 50 mg PRN QHS PRN PO INSOMNIA, MAY REPEAT X1 Last administered on 07/06/16 19:45; Start 06/28/16 at 18:30 Hydroxyzine Pamoate (Vistaril) 50 mg PRN Q4HRS PRN PO ANXIETY Last administered on 06/30/16 19:21; Start 06/29/16 at 19:00 Escitalopram Oxalate (Lexapro) 10 mg DAILY PO Last administered on 07/01/16 10 :30; Start 06/30/16 at 10:30; Stop 07/01/16 at 18:47; Status DC Risperidone (Risperdal) 0.25 mg BID PO Last administered on 07/08/16 19:32; Start 06/30/16 at 21:00 Duloxetine HCl (Cymbalta) 30 mg DAILY PO Last administered on 07/04/16 08:02; Start 07/02/16 at 09:00; Stop 07/04/16 at 12:00; Status DC Duloxetine HCl (Cymbalta) 60 mg DAILY PO Last administered on 07/08/16 07:52; Start 07/05/16 at 09:00 Acetaminophen (Tylenol) 650 mg BID PO Last administered on 07/08/16 19:32; Start 07/03/16 at 21:00 Active Scripts Active Reported Metoprolol Tartrate 25 Mg Tablet 25 Mg PO BID Vistaril (Hydroxyzine Pamoate) 25 Mg Capsule 25 Mg PO Q6HRS PRN Tums (Calcium Carbonate) 300 Mg Tab.chew 500 Mg PO Q2HR Daliresp (Roflumilast) 500 Mcg Tablet 500 Mcg PO DAILY Prednisone 20 Mg Tablet 10 Mg PO DAILY Loratadine 10 Mg Tablet 10 Mg PO DAILY Duoneb 0.5-3(2.5) Mg/3 Ml (Albuterol/Ipratropium) 3 Ml Ampul.neb 3 Ml NEB Q4HRS PRN Vitamin D3 (Cholecalciferol (Vitamin D3)) 1,000 Unit Tablet 2,000 Unit PO DAILY Aspirin Ec (Aspirin) 325 Mg Tablet.dr 325 Mg PO DAILY Tylenol (Acetaminophen) 325 Mg Tablet 650 Mg PO Q4HRS PRN Diagnosis: Problems: (1) Suicidal thoughts (2) Anxiety disorder (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
--- NOTE | 2016-07-09 00:14 | NUR ---
Behavior Intervention Response and Plan: BIRP Note: Behavior: Assumed Care of patient, patient located in Patient Room at shift change. Patient exhibited the following behavior Calm, Compliant, Drowsy. Brief assessment on rounds of vital signs, medication needs, lab studies, and pain. Treatment plan problems suicidal Ideation and fall risk. Intervention: Patient assessed and the following interventions initiated safety checks 15 Minute Checks Cognitive Assessment , Medications , Oral Hydration. Response: After interactions and interventions patient responded in the following manner, Calm , Withdrawn ,Drowsy. Continue to assess behaviors and condition will continue to monitor throughout the shift as needed. Plan: Continue to monitor Master Treatment Plan for patient's progress toward short term goals of No harm To self/ others, Improved Mood, halfway goals to return to previous living setting vs placement. Continue to assess patient for changes in above assessment. Monitor for medication needs, pain, and safety concerns. Hourly rounding performed to ensure safe environment.
[2016-07-09 06:08] VITALS: BP 168/77
[2016-07-09] MEDS: LEVOTHYROXINE 25 MCG TABLET. PO SCH (06:15)
[2016-07-09] MEDS: ROFLUMILAST 500 MCG TABLET PO SCH (07:59)
[2016-07-09] MEDS: DULOXETINE HCL 60 MG CAPSULE.DR. PO SCH (08:00)
[2016-07-09] MEDS: PREDNISONE 10 MG TABLET PO SCH (08:00)
[2016-07-09] MEDS: ASPIRIN ENTERIC COATED 325 MG TABLET.DR. PO SCH (08:00)
[2016-07-09] MEDS: METOPROLOL TART IMMED RELEASE 25 MG TABLET PO SCH ×2 (08:00→20:09)
[2016-07-09] MEDS: PRENATAL MULTIVITAMIN TABLET. PO SCH ×2 (08:00→16:50)
[2016-07-09] MEDS: risperiDONE 0.25 MG TABLET. PO SCH ×2 (08:00→20:09)
[2016-07-09] MEDS: CHOLECALCIFEROL (VITAMIN D3) 1,000 UNIT TABLET PO SCH (08:00)
[2016-07-09] MEDS: ACETAMINOPHEN 325 MG TABLET PO SCH ×2 (08:00→20:08)
--- NOTE | 2016-07-09 11:21 | NUR ---
Behavior Intervention Response and Plan: BIRP Note: Behavior: Assumed Care of patient, patient located in Dining Room at shift change. Patient exhibited the following behavior withdrawn, Calm, Compliant. Brief assessment on rounds of vital signs, medication needs, lab studies, and pain. Treatment plan problems . Intervention: Patient assessed and the following interventions initiated safety checks 15 Minute Checks Cognitive Assessment , Head to toe Assessment , Medications. Response: After interactions and interventions patient responded in the following manner, Compliant , Compliant ,quiet. Continue to assess behaviors and condition will continue to monitor throughout the shift as needed. 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 Continue to assess patient for changes in above assessment. Monitor for medication needs, pain, and safety concerns. Hourly rounding performed to ensure safe environment.
[2016-07-09 16:15] VITALS: BP 154/80
--- NOTE | 2016-07-09 16:29 | NUR ---
pt up in wc for meals. compliant with meds. withdrawn to room.
--- NOTE | 2016-07-09 22:32 | PDOC ---
Exam Luis Alfredo Demential Exam: Luis Alfredo Note: Please also refer to the separate dictated note~for this date of service dictated separately.~Patient seen individually. Discussed the patient with Nursing staff reviewed the chart.~Reviewed interim history and current functioning. Reviewed vital signs,~Labs/ Radiology~and current medications noted below. Continue current treatment with the changes noted in the dictated addendum note Assessment: Vital Signs: Vital Signs Date Time Temp Pulse Resp B/P Pulse Ox O2 Delivery O2 Flow Rate FiO2 07/09/16 20:09 77 154/80 07/09/16 16:15 98.8 16 99 07/09/16 06:08 2.0 07/08/16 09:51 Nasal Cannula I&O Intake and Output 07/09/16 07:00 Intake Total 1200 ml Balance 1200 ml Intake Oral 1200 ml Current Medications: Meds: Current Medications Acetaminophen (Tylenol) 650 mg PRN Q6HRS PRN PO PAIN / TEMP Last administered on 07/02/16 20:02; Start 06/25/16 at 14:45 Multi-Ingredient Ointment (Analgesic [place]) 1 real PRN QID PRN TP MUSCLE PAIN; Start 06/25/16 at 14:45 Al Hydroxide/Mg Hydroxide (Mylanta Plus Xs) 15 ml PRN AFTMEALHC PRN PO DYSPEPSIA Last administered on 06/28/16 07:39; Start 06/25/16 at 14:45 Magnesium Hydroxide (Milk Of Magnesia) 2,400 mg PRN QHS PRN PO CONSTIPATION; Start 06/25/16 at 14:45 Acetaminophen (Tylenol) 650 mg PRN Q4HRS PRN PO pain, temperature; Start at 15:00; Stop 06/25/16 at 15:17; Status DC Hydroxyzine Pamoate (Vistaril) 25 mg PRN Q6HRS PRN PO ANXIETY Last administered on 06/29/16 11:17; Start 06/25/16 at 15:00; Stop 06/29/16 at 18:29 ; Status DC Albuterol/ Ipratropium (Duoneb) 3 ml PRN Q4HRS PRN NEB respiratory distress Last administered on 07/08/16 09:51; Start 06/25/16 at 15:00 Cetirizine HCl (Zyrtec) 10 mg DAILY PO Last administered on 06/28/16 07:39; Start 06/26/16 at 09:00; Stop 06/28/16 at 15:45; Status DC Aspirin (Aspirin Enteric Coated) 325 mg DAILY PO Last administered on 08:00; Start 06/26/16 at 09:00 Vitamin D (Vitamin D3) 2,000 unit DAILY PO Last administered on 07/09/16 08:00 ; Start 06/26/16 at 09:00 Metoprolol Tartrate (Lopressor) 25 mg BID PO Last administered on 07/09/16 20: 09; Start 06/25/16 at 21:00 Prednisone (Prednisone) 10 mg DAILY PO Last administered on 07/09/16 08:00; Start 06/26/16 at 09:00 Calcium Carbonate/ Glycine (Tums) 500 mg PRN Q2HR PRN PO INDIGESTION; Start 03/03 at 15:30 Quetiapine Fumarate (SEROquel) 25 mg QHS PO Last administered on 06/25/16 20: 30; Start 06/25/16 at 21:00; Stop 06/26/16 at 18:45; Status DC Prenat Multivit/ [place]/Iron/Folic Ac (Multivitamin ) 1 tab BIDACLD PO Last administered on 07/09/16 16:50; Start 06/26/16 at 16:30 Levothyroxine Sodium (Synthroid) 25 mcg DAILY07 PO Last administered on 06:15; Start 06/27/16 at 07:00 Quetiapine Fumarate (SEROquel) 37.5 mg QHS PO Last administered on 06/29/16 20 :00; Start 06/26/16 at 21:00; Stop 06/30/16 at 09:49; Status DC Cetirizine HCl (Zyrtec) 10 mg DAILY PO Last administered on 06/29/16 08:44; Start 06/29/16 at 09:00; Stop 06/29/16 at 18:42; Status DC Trazodone HCl (Desyrel) 50 mg PRN QHS PRN PO INSOMNIA, MAY REPEAT X1 Last administered on 07/06/16 19:45; Start 06/28/16 at 18:30 Hydroxyzine Pamoate (Vistaril) 50 mg PRN Q4HRS PRN PO ANXIETY Last administered on 06/30/16 19:21; Start 06/29/16 at 19:00 Escitalopram Oxalate (Lexapro) 10 mg DAILY PO Last administered on 07/01/16 10 :30; Start 06/30/16 at 10:30; Stop 07/01/16 at 18:47; Status DC Risperidone (Risperdal) 0.25 mg BID PO Last administered on 07/09/16 20:09; Start 06/30/16 at 21:00 Duloxetine HCl (Cymbalta) 30 mg DAILY PO Last administered on 07/04/16 08:02; Start 07/02/16 at 09:00; Stop 07/04/16 at 12:00; Status DC Duloxetine HCl (Cymbalta) 60 mg DAILY PO Last administered on 07/09/16 08:00; Start 07/05/16 at 09:00 Acetaminophen (Tylenol) 650 mg BID PO Last administered on 07/09/16 20:08; Start 07/03/16 at 21:00 Active Scripts Active Reported Metoprolol Tartrate 25 Mg Tablet 25 Mg PO BID Vistaril (Hydroxyzine Pamoate) 25 Mg Capsule 25 Mg PO Q6HRS PRN Tums (Calcium Carbonate) 300 Mg Tab.chew 500 Mg PO Q2HR Daliresp (Roflumilast) 500 Mcg Tablet 500 Mcg PO DAILY Prednisone 20 Mg Tablet 10 Mg PO DAILY Loratadine 10 Mg Tablet 10 Mg PO DAILY Duoneb 0.5-3(2.5) Mg/3 Ml (Albuterol/Ipratropium) 3 Ml Ampul.neb 3 Ml NEB Q4HRS PRN Vitamin D3 (Cholecalciferol (Vitamin D3)) 1,000 Unit Tablet 2,000 Unit PO DAILY Aspirin Ec (Aspirin) 325 Mg Tablet.dr 325 Mg PO DAILY Tylenol (Acetaminophen) 325 Mg Tablet 650 Mg PO Q4HRS PRN Diagnosis: Problems: (1) Suicidal thoughts (2) Anxiety disorder (3) Dementia in Alzheimer's disease with delusions (4) Dementia in Alzheimer's disease with depression (5) Dementia, vascular, with delusions (6) Dementia, vascular, with depression (7) Impulse control disorder (8) Major depressive disorder, recurrent episode EDWARDO DOWD MD 25, 2017 22:32
[2016-07-10] MEDS: IPRATRPIUM/ALBUTEROL 0.5/2.5MG 3 ML NEBU. NEB PRN (05:12)
[2016-07-10] MEDS: LEVOTHYROXINE 25 MCG TABLET. PO SCH (05:54)
[2016-07-10 05:58] VITALS: BP 210/108
[2016-07-10] MEDS: DULOXETINE HCL 60 MG CAPSULE.DR. PO SCH (07:44)
[2016-07-10] MEDS: METOPROLOL TART IMMED RELEASE 25 MG TABLET PO SCH ×2 (07:44→19:44)
[2016-07-10] MEDS: ASPIRIN ENTERIC COATED 325 MG TABLET.DR. PO SCH (07:44)
[2016-07-10] MEDS: CHOLECALCIFEROL (VITAMIN D3) 1,000 UNIT TABLET PO SCH (07:44)
[2016-07-10] MEDS: PREDNISONE 10 MG TABLET PO SCH (07:44)
[2016-07-10] MEDS: risperiDONE 0.25 MG TABLET. PO SCH ×2 (07:44→19:45)
[2016-07-10] MEDS: ROFLUMILAST 500 MCG TABLET PO SCH (07:45)
[2016-07-10] MEDS: ACETAMINOPHEN 325 MG TABLET PO SCH ×2 (07:45→19:45)
[2016-07-10 08:12] LABS: BASO % 0 % (0-3); EOS # 0.1 x10^3/uL (0.0-0.7); EOS % 1 % (0-3); HEMATOCRIT 27.8 % (36.0-47.0); HEMOGLOBIN 9.2 g/dL (12.0-15.5); LYMPH # 1.5 x10^3/uL (1.0-4.8); LYMPH % 15 % (24-48); MEAN CORPUSCULAR HEMOGLOBIN 31 pg (25-35); MEAN CORPUSCULAR HGB CONC 33 g/dL (31-37); MEAN CORPUSCULAR VOLUME 95 fL (79-100); MONO # 0.9 x10^3/uL (0.0-1.1); MONO % 9 % (0-9); NEUT # 7.7 x10^3uL (1.8-7.7); NEUT % 75 % (31-73); PLATELET COUNT 168 x10^3/uL (140-400); RED BLOOD COUNT 2.93 x10^6/uL (3.50-5.40); RED CELL DISTRIBUTION WIDTH 16.5 % (11.5-14.5); WHITE BLOOD COUNT 10.2 x10^3/uL (4.0-11.0)
[2016-07-10 08:30] LABS: CALCIUM 8.6 mg/dL (8.5-10.1); CREATININE 0.8 mg/dL (0.6-1.0); GFR 82.7; POTASSIUM 3.6 mmol/L (3.5-5.1); TOTAL BILIRUBIN 0.6 mg/dL (0.2-1.0); TOTAL PROTEIN 6.1 g/dL (6.4-8.2)
--- NOTE | 2016-07-10 09:12 | NUR ---
Behavior Intervention Response and Plan: BIRP Note: Behavior: Assumed Care of patient, patient located in Dining Room at shift change. Patient exhibited the following behavior withdrawn, Calm, Compliant. Brief assessment on rounds of vital signs, medication needs, lab studies, and pain. Treatment plan problems . Intervention: Patient assessed and the following interventions initiated safety checks 15 Minute Checks Cognitive Assessment , Head to toe Assessment , Medications. Response: After interactions and interventions patient responded in the following manner, Compliant , Compliant ,quiet. Continue to assess behaviors and condition will continue to monitor throughout the shift as needed. 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 Continue to assess patient for changes in above assessment. Monitor for medication needs, pain, and safety concerns. Hourly rounding performed to ensure safe environment.
[2016-07-10 10:19] VITALS: BP 167/70
--- NOTE | 2016-07-10 10:58 | PN ---
DATE: 07/08/2016 SUBJECTIVE: This is a late entry 07/08/2016, covers elements not covered in my initial note. Overall, the patient has been fairly cooperative. Denies suicidal ideation. Still gets depressed at times, but better than before. REVIEW OF SYSTEMS: Shortness of breath on O2 supplement. Impaired ambulation, in a wheelchair. No CV, , GI, eye, or ENT system symptoms on review. MENTAL STATUS EXAM: Reasonably oriented. Speech coherent, abstraction fair, and computation impaired. Mood and affect are improved. IMPRESSION: Unchanged from initial note. 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 Rest of diagnoses unchanged. PLAN: Continue psychotropics mentioned in the initial note. Adjust as indicated clinically. MAN Torres DOWD MD DR: TENISHA/alisa JOB#: [id number] / [id number]
--- NOTE | 2016-07-10 11:05 | PN ---
DATE: 07/09/2016 SUBJECTIVE: This is a late entry 07/09/2016, covers elements not covered in my initial note Overall, the patient is being coperative. REVIEW OF SYSTEMS: Impaired, ambulation in her wheelchair, shortness of breath on O2 supplement. No CV, , GI, eye, or ENT system symptoms on review. MENTAL STATUS EXAM: Reasonably oriented. Speech coherent. We talked at length about discharge on Monday. No suicidal or homicidal ideation. Mood and affect are improved. No overt psychotic symptoms. LABORATORY DATA: Reviewed. IMPRESSION: Unchanged from initial note. PLAN: Continue psychotropics mentioned in my initial note. MAN Torres DOWD MD DR: TENISHA/alisa JOB#: [id number] / [id number]
[2016-07-10] MEDS: PRENATAL MULTIVITAMIN TABLET. PO SCH ×2 (11:30→16:17)
[2016-07-10] MEDS ORDERED: ACET325T21 PO (13:43)
[2016-07-10] MEDS ORDERED: DULO60CA44 PO (13:44)
[2016-07-10] MEDS ORDERED: LEVO25TA4 PO (13:45)
[2016-07-10] MEDS ORDERED: MULT-47 PO (13:49)
[2016-07-10] MEDS ORDERED: RISP0.2519 PO (13:50)
[2016-07-10] MEDS ORDERED: TRAZ50TA15 PO (13:51)
--- NOTE | 2016-07-10 15:26 | NUR ---
pt up for meals. compliant with meds and cares. withdrawn to room most times.
[2016-07-10 15:51] VITALS: BP 167/79
--- NOTE | 2016-07-10 20:51 | PDOC ---
Exam Luis Alfredo Demential Exam: Luis Alfredo Note: Please also refer to the separate dictated note~for this date of service dictated separately.~Patient seen individually. Discussed the patient with Nursing staff reviewed the chart.~Reviewed interim history and current functioning. Reviewed vital signs,~Labs/ Radiology~and current medications noted below. Continue current treatment with the changes noted in the dictated addendum note Assessment: Vital Signs: Vital Signs Date Time Temp Pulse Resp B/P Pulse Ox O2 Delivery O2 Flow Rate FiO2 07/10/16 19:44 86 167/79 07/10/16 15:51 98.3 20 100 3.0 07/10/16 05:15 Nasal Cannula I&O Intake and Output 07/10/16 07:00 Intake Total 1080 ml Balance 1080 ml Intake Oral 1080 ml Labs: Laboratory Tests Test 07/10/16 07:04 White Blood Count 10.2x10^3/uL (4.0-11.0) Red Blood Count 2.93x10^6/uL (3.50-5.40) L Hemoglobin 9.2g/dL (12.0-15.5) L Hematocrit 27.8% (36.0-47.0) L Mean Corpuscular Volume 95fL (79-100) Mean Corpuscular Hemoglobin 31pg (25-35) Mean Corpuscular Hemoglobin Concent 33g/dL (31-37) Red Cell Distribution Width 16.5% (11.5-14.5) H Platelet Count 168x10^3/uL (140-400) Neutrophils (%) (Auto) 75% (31-73) H Lymphocytes (%) (Auto) 15% (24-48) L Monocytes (%) (Auto) 9% (0-9) Eosinophils (%) (Auto) 1% (0-3) Basophils (%) (Auto) 0% (0-3) Neutrophils # (Auto) 7.7x10^3uL (1.8-7.7) Lymphocytes # (Auto) 1.5x10^3/uL (1.0-4.8) Monocytes # (Auto) 0.9x10^3/uL (0.0-1.1) Eosinophils # (Auto) 0.1x10^3/uL (0.0-0.7) Basophils # (Auto) 0.0x10^3/uL (0.0-0.2) Sodium Level 142mmol/L (136-145) Potassium Level 3.6mmol/L (3.5-5.1) Chloride Level 103mmol/L (98-107) Carbon Dioxide Level 35mmol/L (21-32) H Anion Gap 4 (6-14) L Blood Urea Nitrogen 13mg/dL (7-20) Creatinine 0.8mg/dL (0.6-1.0) Estimated GFR (Cockcroft-Gault) 82.7 BUN/Creatinine Ratio 16 (6-20) Glucose Level 101mg/dL (70-99) H Calcium Level 8.6mg/dL (8.5-10.1) Total Bilirubin 0.6mg/dL (0.2-1.0) Aspartate Amino Transferase (AST) 26U/L (15-37) Alanine Aminotransferase (ALT) 38U/L (14-59) Alkaline Phosphatase 53U/L (46-116) Total Protein 6.1g/dL (6.4-8.2) L Albumin 3.0g/dL (3.4-5.0) L Albumin/Globulin Ratio 1.0 (1.0-1.7) Current Medications: Meds: Current Medications Acetaminophen (Tylenol) 650 mg PRN Q6HRS PRN PO PAIN / TEMP Last administered on 07/02/16 20:02; Start 06/25/16 at 14:45 Multi-Ingredient Ointment (Analgesic [place]) 1 real PRN QID PRN TP MUSCLE PAIN; Start 06/25/16 at 14:45 Al Hydroxide/Mg Hydroxide (Mylanta Plus Xs) 15 ml PRN AFTMEALHC PRN PO DYSPEPSIA Last administered on 06/28/16 07:39; Start 06/25/16 at 14:45 Magnesium Hydroxide (Milk Of Magnesia) 2,400 mg PRN QHS PRN PO CONSTIPATION; Start 06/25/16 at 14:45 Acetaminophen (Tylenol) 650 mg PRN Q4HRS PRN PO pain, temperature; Start at 15:00; Stop 06/25/16 at 15:17; Status DC Hydroxyzine Pamoate (Vistaril) 25 mg PRN Q6HRS PRN PO ANXIETY Last administered on 06/29/16 11:17; Start 06/25/16 at 15:00; Stop 06/29/16 at 18:29 ; Status DC Albuterol/ Ipratropium (Duoneb) 3 ml PRN Q4HRS PRN NEB respiratory distress Last administered on 07/10/16 05:12; Start 06/25/16 at 15:00 Cetirizine HCl (Zyrtec) 10 mg DAILY PO Last administered on 06/28/16 07:39; Start 06/26/16 at 09:00; Stop 06/28/16 at 15:45; Status DC Aspirin (Aspirin Enteric Coated) 325 mg DAILY PO Last administered on 07:44; Start 06/26/16 at 09:00 Vitamin D (Vitamin D3) 2,000 unit DAILY PO Last administered on 07/10/16 07:44 ; Start 06/26/16 at 09:00 Metoprolol Tartrate (Lopressor) 25 mg BID PO Last administered on 07/10/16 19: 44; Start 06/25/16 at 21:00 Prednisone (Prednisone) 10 mg DAILY PO Last administered on 07/10/16 07:44; Start 06/26/16 at 09:00 Calcium Carbonate/ Glycine (Tums) 500 mg PRN Q2HR PRN PO INDIGESTION; Start 03/03 at 15:30 Quetiapine Fumarate (SEROquel) 25 mg QHS PO Last administered on 06/25/16 20: 30; Start 06/25/16 at 21:00; Stop 06/26/16 at 18:45; Status DC Prenat Multivit/ [place]/Iron/Folic Ac (Multivitamin ) 1 tab BIDACLD PO Last administered on 07/10/16 16:17; Start 06/26/16 at 16:30 Levothyroxine Sodium (Synthroid) 25 mcg DAILY07 PO Last administered on 05:54; Start 06/27/16 at 07:00 Quetiapine Fumarate (SEROquel) 37.5 mg QHS PO Last administered on 06/29/16 20 :00; Start 06/26/16 at 21:00; Stop 06/30/16 at 09:49; Status DC Cetirizine HCl (Zyrtec) 10 mg DAILY PO Last administered on 06/29/16 08:44; Start 06/29/16 at 09:00; Stop 06/29/16 at 18:42; Status DC Trazodone HCl (Desyrel) 50 mg PRN QHS PRN PO INSOMNIA, MAY REPEAT X1 Last administered on 07/06/16 19:45; Start 06/28/16 at 18:30 Hydroxyzine Pamoate (Vistaril) 50 mg PRN Q4HRS PRN PO ANXIETY Last administered on 06/30/16 19:21; Start 06/29/16 at 19:00 Escitalopram Oxalate (Lexapro) 10 mg DAILY PO Last administered on 07/01/16 10 :30; Start 06/30/16 at 10:30; Stop 07/01/16 at 18:47; Status DC Risperidone (Risperdal) 0.25 mg BID PO Last administered on 07/10/16 19:45; Start 06/30/16 at 21:00 Duloxetine HCl (Cymbalta) 30 mg DAILY PO Last administered on 07/04/16 08:02; Start 07/02/16 at 09:00; Stop 07/04/16 at 12:00; Status DC Duloxetine HCl (Cymbalta) 60 mg DAILY PO Last administered on 07/10/16 07:44; Start 07/05/16 at 09:00 Acetaminophen (Tylenol) 650 mg BID PO Last administered on 07/10/16 19:45; Start 07/03/16 at 21:00 Active Scripts Active Reported Trazodone Hcl 50 Mg Tablet 50 Mg PO PRN QHS PRN Risperdal (Risperidone) 0.25 Mg Tablet 0.25 Mg PO BID Multiple Vitamins For Women (Multivit With Calcium,Iron,Min) 1 Each Tablet 1 Each PO DAILY Levothyroxine Sodium 25 Mcg Tablet 25 Mcg PO DAILYAC Duloxetine Hcl 60 Mg Capsule.dr 60 Mg PO DAILY Acetaminophen 325 Mg Tablet 650 Mg PO BID Metoprolol Tartrate 25 Mg Tablet 25 Mg PO BID Vistaril (Hydroxyzine Pamoate) 25 Mg Capsule 25 Mg PO Q6HRS PRN Tums (Calcium Carbonate) 300 Mg Tab.chew 500 Mg PO Q2HR Daliresp (Roflumilast) 500 Mcg Tablet 500 Mcg PO DAILY Prednisone 20 Mg Tablet 10 Mg PO DAILY Loratadine 10 Mg Tablet 10 Mg PO DAILY Duoneb 0.5-3(2.5) Mg/3 Ml (Albuterol/Ipratropium) 3 Ml Ampul.neb 3 Ml NEB Q4HRS PRN Vitamin D3 (Cholecalciferol (Vitamin D3)) 1,000 Unit Tablet 2,000 Unit PO DAILY Aspirin Ec (Aspirin) 325 Mg Tablet.dr 325 Mg PO DAILY Tylenol (Acetaminophen) 325 Mg Tablet 650 Mg PO Q4HRS PRN Diagnosis: Problems: (1) Suicidal thoughts (2) Anxiety disorder (3) Dementia in Alzheimer's disease with delusions (4) Dementia in Alzheimer's disease with depression (5) Dementia, vascular, with delusions (6) Dementia, vascular, with depression (7) Impulse control disorder (8) Major depressive disorder, recurrent episode EDWARDO DOWD MD Jul 10, 2016 20:51
--- NOTE | 2016-07-10 23:59 | NUR ---
Behavior Intervention Response and Plan: BIRP Note: Behavior: Assumed Care of patient, patient located in Bathroom at shift change. Patient exhibited the following behavior Calm, Interactive, Cooperative, soa in bathroom asking for extension tubing for her oxygen visibly short of air and grunting. Rt here to give her a treatment. Brief assessment on rounds of vital signs, medication needs, lab studies, and pain. Treatment plan problems 1-2. Intervention: Patient assessed and the following interventions initiated safety checks 15 Minute Checks Cognitive Assessment , Head to toe Assessment , Medications. Response: After interactions and interventions patient responded in the following manner, Calm , Cooperative ,Compliant feeling better after treatment less SOA. Continue to assess behaviors and condition will continue to monitor throughout the shift as needed. Plan: Continue to monitor Master Treatment Plan for patient's progress toward short term goals of Decreased Anxiety, Improved Mood, snf goals to return to previous living setting vs placement. Continue to assess patient for changes in above assessment. Monitor for medication needs, pain, and safety concerns. Hourly rounding performed to ensure safe environment.
[2016-07-11] MEDS: LEVOTHYROXINE 25 MCG TABLET. PO SCH (05:45)
[2016-07-11 06:12] VITALS: BP 169/85
[2016-07-11] MEDS: DULOXETINE HCL 60 MG CAPSULE.DR. PO SCH (07:57)
[2016-07-11] MEDS: ASPIRIN ENTERIC COATED 325 MG TABLET.DR. PO SCH (07:57)
[2016-07-11] MEDS: risperiDONE 0.25 MG TABLET. PO SCH ×2 (07:57→19:59)
[2016-07-11] MEDS: CHOLECALCIFEROL (VITAMIN D3) 1,000 UNIT TABLET PO SCH (07:57)
[2016-07-11] MEDS: ACETAMINOPHEN 325 MG TABLET PO SCH ×2 (07:57→19:59)
[2016-07-11] MEDS: PREDNISONE 10 MG TABLET PO SCH (07:58)
[2016-07-11] MEDS: ROFLUMILAST 500 MCG TABLET PO SCH (08:00)
[2016-07-11] MEDS: METOPROLOL TART IMMED RELEASE 25 MG TABLET PO SCH ×2 (08:00→19:59)
[2016-07-11] MEDS: PRENATAL MULTIVITAMIN TABLET. PO SCH ×2 (08:00→16:06)
--- NOTE | 2016-07-11 08:56 | NUR ---
RAY faxed updated clinicals to [facility], requesting dc time. RAY received a message from [employer] [facility] in Admissions on Monday regarding dc. RAY called this am and left message.
--- NOTE | 2016-07-11 10:57 | NUR ---
RAY left messages for RAY Crowder and Alvaro, Administration at [facility] ([place]) regarding dc times.
--- NOTE | 2016-07-11 14:09 | NUR ---
SW again attempted contact wHéctor, Administration and Rene, Ted at [facility] regarding a pickle sorter time.
--- NOTE | 2016-07-11 14:22 | NUR ---
Behavior Intervention Response and Plan: BIRP Note: Behavior: Assumed Care of patient, patient located in Dining Room at shift change. Patient exhibited the following behavior Calm, Compliant, Cooperative. Brief assessment on rounds of vital signs, medication needs, lab studies, and pain. Treatment plan problems . Intervention: Patient assessed and the following interventions initiated safety checks 15 Minute Checks Cognitive Assessment , Head to toe Assessment , Medications. Response: After interactions and interventions patient responded in the following manner, Calm , Compliant ,Cooperative. Continue to assess behaviors and condition will continue to monitor throughout the shift as needed. 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 Continue to assess patient for changes in above assessment. Monitor for medication needs, pain, and safety concerns. Hourly rounding performed to ensure safe environment.
--- NOTE | 2016-07-11 15:42 | NUR ---
Rene from [facility] ([place]) came to facility to speak w/this SW regarding dc plans for Pt. Rene stated [facility] is now requesting all Nursing notes to also be sent for review. RAY shared the frustration w/organizing the dc plans as RAY has called multiple people multiple times today and still is not able to finalize dc plans. Rene stated their corporate has been involved, although he has reminded them this Pt. is their resident and will need to return. Rene took a copy of the nursing notes and RAY faxed to facility for review. Roger stated a nurse from the facility will be out in the AM for eval, although again, this RAY reminded they will be taking resident back on Monday or further inquiries will need to take place to ensure PT. rights are being followed.
[2016-07-11 16:09] VITALS: BP 165/88
--- NOTE | 2016-07-11 20:51 | PDOC ---
Exam Luis Alfredo Demential Exam: Luis Alfredo Note: Please also refer to the separate dictated note~for this date of service dictated separately.~Patient seen individually. Discussed the patient with Nursing staff reviewed the chart.~Reviewed interim history and current functioning. Reviewed vital signs,~Labs/ Radiology~and current medications noted below. Continue current treatment with the changes noted in the dictated addendum note Assessment: Vital Signs: Vital Signs Date Time Temp Pulse Resp B/P Pulse Ox O2 Delivery O2 Flow Rate FiO2 07/11/16 19:59 88 165/88 07/11/16 16:09 97.3 16 100 07/11/16 06:12 3.0 07/10/16 05:15 Nasal Cannula I&O Intake and Output 07/11/16 07:00 Intake Total 1680 ml Balance 1680 ml Intake Oral 1680 ml Current Medications: Meds: Current Medications Acetaminophen (Tylenol) 650 mg PRN Q6HRS PRN PO PAIN / TEMP Last administered on 07/02/16 20:02; Start 06/25/16 at 14:45 Multi-Ingredient Ointment (Analgesic [place]) 1 real PRN QID PRN TP MUSCLE PAIN; Start 06/25/16 at 14:45 Al Hydroxide/Mg Hydroxide (Mylanta Plus Xs) 15 ml PRN AFTMEALHC PRN PO DYSPEPSIA Last administered on 06/28/16 07:39; Start 06/25/16 at 14:45 Magnesium Hydroxide (Milk Of Magnesia) 2,400 mg PRN QHS PRN PO CONSTIPATION; Start 06/25/16 at 14:45 Acetaminophen (Tylenol) 650 mg PRN Q4HRS PRN PO pain, temperature; Start at 15:00; Stop 06/25/16 at 15:17; Status DC Hydroxyzine Pamoate (Vistaril) 25 mg PRN Q6HRS PRN PO ANXIETY Last administered on 06/29/16 11:17; Start 06/25/16 at 15:00; Stop 06/29/16 at 18:29 ; Status DC Albuterol/ Ipratropium (Duoneb) 3 ml PRN Q4HRS PRN NEB respiratory distress Last administered on 07/10/16 05:12; Start 06/25/16 at 15:00 Cetirizine HCl (Zyrtec) 10 mg DAILY PO Last administered on 06/28/16 07:39; Start 06/26/16 at 09:00; Stop 06/28/16 at 15:45; Status DC Aspirin (Aspirin Enteric Coated) 325 mg DAILY PO Last administered on 07:57; Start 06/26/16 at 09:00 Vitamin D (Vitamin D3) 2,000 unit DAILY PO Last administered on 07/11/16 07:57 ; Start 06/26/16 at 09:00 Metoprolol Tartrate (Lopressor) 25 mg BID PO Last administered on 07/11/16 19: 59; Start 06/25/16 at 21:00 Prednisone (Prednisone) 10 mg DAILY PO Last administered on 07/11/16 07:58; Start 06/26/16 at 09:00 Calcium Carbonate/ Glycine (Tums) 500 mg PRN Q2HR PRN PO INDIGESTION; Start 03/03 at 15:30 Quetiapine Fumarate (SEROquel) 25 mg QHS PO Last administered on 06/25/16 20: 30; Start 06/25/16 at 21:00; Stop 06/26/16 at 18:45; Status DC Prenat Multivit/ [place]/Iron/Folic Ac (Multivitamin ) 1 tab BIDACLD PO Last administered on 07/11/16 16:06; Start 06/26/16 at 16:30 Levothyroxine Sodium (Synthroid) 25 mcg DAILY07 PO Last administered on 05:45; Start 06/27/16 at 07:00 Quetiapine Fumarate (SEROquel) 37.5 mg QHS PO Last administered on 06/29/16 20 :00; Start 06/26/16 at 21:00; Stop 06/30/16 at 09:49; Status DC Cetirizine HCl (Zyrtec) 10 mg DAILY PO Last administered on 06/29/16 08:44; Start 06/29/16 at 09:00; Stop 06/29/16 at 18:42; Status DC Trazodone HCl (Desyrel) 50 mg PRN QHS PRN PO INSOMNIA, MAY REPEAT X1 Last administered on 07/06/16 19:45; Start 06/28/16 at 18:30 Hydroxyzine Pamoate (Vistaril) 50 mg PRN Q4HRS PRN PO ANXIETY Last administered on 06/30/16 19:21; Start 06/29/16 at 19:00 Escitalopram Oxalate (Lexapro) 10 mg DAILY PO Last administered on 07/01/16 10 :30; Start 06/30/16 at 10:30; Stop 07/01/16 at 18:47; Status DC Risperidone (Risperdal) 0.25 mg BID PO Last administered on 07/11/16 19:59; Start 06/30/16 at 21:00 Duloxetine HCl (Cymbalta) 30 mg DAILY PO Last administered on 07/04/16 08:02; Start 07/02/16 at 09:00; Stop 07/04/16 at 12:00; Status DC Duloxetine HCl (Cymbalta) 60 mg DAILY PO Last administered on 07/11/16 07:57; Start 07/05/16 at 09:00 Acetaminophen (Tylenol) 650 mg BID PO Last administered on 07/11/16 19:59; Start 07/03/16 at 21:00 Active Scripts Active Reported Trazodone Hcl 50 Mg Tablet 50 Mg PO PRN QHS PRN Risperdal (Risperidone) 0.25 Mg Tablet 0.25 Mg PO BID Multiple Vitamins For Women (Multivit With Calcium,Iron,Min) 1 Each Tablet 1 Each PO DAILY Levothyroxine Sodium 25 Mcg Tablet 25 Mcg PO DAILYAC Duloxetine Hcl 60 Mg Capsule.dr 60 Mg PO DAILY Acetaminophen 325 Mg Tablet 650 Mg PO BID Metoprolol Tartrate 25 Mg Tablet 25 Mg PO BID Vistaril (Hydroxyzine Pamoate) 25 Mg Capsule 25 Mg PO Q6HRS PRN Tums (Calcium Carbonate) 300 Mg Tab.chew 500 Mg PO Q2HR Daliresp (Roflumilast) 500 Mcg Tablet 500 Mcg PO DAILY Prednisone 20 Mg Tablet 10 Mg PO DAILY Loratadine 10 Mg Tablet 10 Mg PO DAILY Duoneb 0.5-3(2.5) Mg/3 Ml (Albuterol/Ipratropium) 3 Ml Ampul.neb 3 Ml NEB Q4HRS PRN Vitamin D3 (Cholecalciferol (Vitamin D3)) 1,000 Unit Tablet 2,000 Unit PO DAILY Aspirin Ec (Aspirin) 325 Mg Tablet.dr 325 Mg PO DAILY Tylenol (Acetaminophen) 325 Mg Tablet 650 Mg PO Q4HRS PRN Diagnosis: Problems: (1) Suicidal thoughts (2) Anxiety disorder (3) Dementia in Alzheimer's disease with delusions (4) Dementia in Alzheimer's disease with depression (5) Dementia, vascular, with delusions (6) Dementia, vascular, with depression (7) Impulse control disorder (8) Major depressive disorder, recurrent episode EDWARDO DOWD MD Jul 11, 2016 20:51
--- NOTE | 2016-07-11 21:34 | NUR ---
Behavior Intervention Response and Plan: BIRP Note: Behavior: Assumed Care of patient, patient located in Patient Room at shift change. Patient exhibited the following behavior Calm, Withdrawn, Able to Focus on Task. Brief assessment on rounds of vital signs, medication needs, lab studies, and pain. Treatment plan problems . Intervention: Patient assessed and the following interventions initiated safety checks 15 Minute Checks Cognitive Assessment , Head to toe Assessment , Medications. Response: After interactions and interventions patient responded in the following manner, Appropriate , Compliant ,Cooperative. Continue to assess behaviors and condition will continue to monitor throughout the shift as needed. Plan: Continue to monitor Master Treatment Plan for patient's progress toward short term goals of Improved Mood, Decreased Anxiety, cadastral surveyor goals to return to previous living setting vs placement. Continue to assess patient for changes in above assessment. Monitor for medication needs, pain, and safety concerns. Hourly rounding performed to ensure safe environment.
--- NOTE | 2016-07-11 22:31 | PN ---
DATE: 07/10/2016 This late entry 07/10/2016 covers elements not covered in my initial note. SUBJECTIVE: Per nursing report, the patient had a good day. She states she had a panic attack previous night. O2 sats were low. Once these were stabilized, she did well. REVIEW OF SYSTEMS: Shortness of breath, impaired ambulation, in a wheelchair. No CV, , GI, eye, ENT system symptoms on review. MENTAL STATUS EXAM: Reasonably oriented. Speech coherent, abstraction fair, computation impaired, language function intact. Mood and affect is improved. As I met with her individually, we discussed discharge plans for 07/11/2016. 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 Rest unchanged. PLAN: Continue current psychotropics mentioned in my initial note. MAN Torres DOWD MD DR: TENISHA/alisa JOB#: [id number] / [id number]
[2016-07-11] MEDS: IPRATRPIUM/ALBUTEROL 0.5/2.5MG 3 ML NEBU. NEB PRN (23:19)
[2016-07-12] MEDS: LEVOTHYROXINE 25 MCG TABLET. PO SCH (05:47)
[2016-07-12 06:15] VITALS: BP 173/88
--- NOTE | 2016-07-12 09:30 | NUR ---
Rene and Nurse (Roberta?) arrive on unit to screen pt and speak w/Nursing staff regarding Pt's progress. SW assisted in locating RN and Aides to provide information for facility. RAY was told they would be able to accept Pt. back as PT. has vocalized no intent on harming self and has been verified w/nursing/aides and clinical notes. RAY was told someone would contact this RAY w/a flower buncher or picker time for today.
[2016-07-12] MEDS: ACETAMINOPHEN 325 MG TABLET PO SCH ×2 (09:45→21:10)
[2016-07-12] MEDS: ASPIRIN ENTERIC COATED 325 MG TABLET.DR. PO SCH (09:45)
[2016-07-12] MEDS: CHOLECALCIFEROL (VITAMIN D3) 1,000 UNIT TABLET PO SCH (09:45)
[2016-07-12] MEDS: risperiDONE 0.25 MG TABLET. PO SCH ×2 (09:46→21:10)
[2016-07-12] MEDS: METOPROLOL TART IMMED RELEASE 25 MG TABLET PO SCH ×2 (09:46→21:10)
[2016-07-12] MEDS: DULOXETINE HCL 60 MG CAPSULE.DR. PO SCH (09:46)
[2016-07-12] MEDS: ROFLUMILAST 500 MCG TABLET PO SCH (09:46)
[2016-07-12] MEDS: PRENATAL MULTIVITAMIN TABLET. PO SCH ×2 (09:46→16:38)
[2016-07-12] MEDS: PREDNISONE 10 MG TABLET PO SCH (09:46)
--- NOTE | 2016-07-12 11:04 | NUR ---
Behavior Intervention Response and Plan: BIRP Note: Behavior: Assumed Care of patient, patient located in Patient Room at shift change. Patient exhibited the following behavior Calm, Compliant, Withdrawn. Brief assessment on rounds of vital signs, medication needs, lab studies, and pain. Treatment plan problems . Intervention: Patient assessed and the following interventions initiated safety checks 15 Minute Checks Cognitive Assessment , Head to toe Assessment , Medications. Response: After interactions and interventions patient responded in the following manner, Calm , Compliant ,Cooperative. Continue to assess behaviors and condition will continue to monitor throughout the shift as needed. Plan: Continue to monitor Master Treatment Plan for patient's progress toward short term goals of Decreased Anxiety, No harm To self/ others, usp goals to return to previous living setting vs placement. Continue to assess patient for changes in above assessment. Monitor for medication needs, pain, and safety concerns. Hourly rounding performed to ensure safe environment.
[2016-07-12] MEDS: IPRATRPIUM/ALBUTEROL 0.5/2.5MG 3 ML NEBU. NEB PRN (11:45)
--- NOTE | 2016-07-12 12:30 | NUR ---
RAY contacted Nithya LARIOS) regarding a picked edge sewing machine operator time for Pt. as a phone call has not been made to this SW since the screening at 9am. RAY left message for Rene.
--- NOTE | 2016-07-12 13:15 | NUR ---
RAY contacted Nithya LARIOS) regarding a crop picker time for Pt. as a phone call has not been made to this SW since the screening at 9am. RAY left message for Italo. RAY then called back and asked to speak to RAY Crowder. Message was left for RAY.
--- NOTE | 2016-07-12 14:00 | NUR ---
THERAPEUTIC RECREATION GROUP NOTE TITLE :Dance and sing along with Rayne ACTIVITY : Music GOAL : Increase socialization, elevate mood, stimulate memory DURATION : 60 minutes RESPONSE : No participation. Pt. stayed in her bed.
--- NOTE | 2016-07-12 14:15 | NUR ---
RAY contacted Nithya (ANDREZ) regarding a vegetable picker time for Pt. as a phone call has not been made to this SW since the screening at 9am. SW left message for Rene. Leanne, [place] at [place], assured this she would contact Rene via cell phone to return a call to this .
--- NOTE | 2016-07-12 15:10 | NUR ---
RAY called Nithya (ANDREZ) and asked to speak to any live person that could assist RAY in DC planning. Leanne, call center receptionist, was able to obtain Giorgi, Commercial Baker Helper on the phone. RAY was told they would not be able to accept Pt. back at this time.
--- NOTE | 2016-07-12 15:37 | NUR ---
RAY finally received a return phone call from Giorgi, Scientific Research Manager at [facility] ([place]) regarding dc plans for PT. Giorgi stated they would not be able to take Pt. back due to "not being able to meet her needs". RAY inquired to the specific needs they could not meet and was told they could not provide the same 15 minute checks as Pt. receives in this facility. RAY clarified the 15 minute checks are Hospital/State guidelines and this facility is not recommending [facility] to follow suit. Giorgi again stated they would be happy to continue to work with the family in finding new placement, but they would not be able to accept PT. back. RAY clarified the Pt. was their responsibility, and they were obligated to accept Pt. back and then can continue to look for new placement, but Pt. could not reside at this facility while the looked for new placement since Pt. was ready for DC on 07/11/16. RAY stated [facility] did not follow proper Medicare/Medicaid guidelines in providing the family/Pt. w/a 30 day notice nor could they discharge to a hospital. Giorgi again told they would not be able to take Pt. back. RAY stated [place] [employer] would be contacted. Giorgi said ok. RAY contacted [facility] for the [place], [place] area at [phone] to report the situation for further guidance. Christy advised this SW to proceed w/contacting the [place] [employer] of Abuse and Neglect hotline at [phone]. RAY reported [facility] ([place]) for not following proper procedure w/accepting Pt. back or providing appropriate 30 day dc notice. RAY should receive a follow up phone call from the investigator vice. Report given to Angela. Vigil, Broach Setter. notified of ongoing situation w/[facility] and new status of placement needed for PT. SW notified PT's DPOA/Granddtr and will begin looking for new placement.
[2016-07-12 15:51] VITALS: BP 162/81
--- NOTE | 2016-07-12 20:11 | NUR ---
Behavior Intervention Response and Plan: BIRP Note: Behavior: Assumed Care of patient, patient located in Patient Room at shift change. Patient exhibited the following behavior Calm, Drowsy, Able to Focus on Task. Brief assessment on rounds of vital signs, medication needs, lab studies, and pain. Treatment plan problems . Intervention: Patient assessed and the following interventions initiated safety checks 15 Minute Checks Cognitive Assessment , Head to toe Assessment , Medications. Response: After interactions and interventions patient responded in the following manner, Calm , Motor Retardation ,Compliant. Continue to assess behaviors and condition will continue to monitor throughout the shift as needed. Plan: Continue to monitor Master Treatment Plan for patient's progress toward short term goals of Improved Mood, No harm To self/ others, usp goals to return to previous living setting vs placement. Continue to assess patient for changes in above assessment. Monitor for medication needs, pain, and safety concerns. Hourly rounding performed to ensure safe environment.
--- NOTE | 2016-07-12 21:04 | PDOC ---
Exam Luis Alfredo Demential Exam: Luis Alfredo Note: Please also refer to the separate dictated note~for this date of service dictated separately.~Patient seen individually. Discussed the patient with Nursing staff reviewed the chart.~Reviewed interim history and current functioning. Reviewed vital signs,~Labs/ Radiology~and current medications noted below. Continue current treatment with the changes noted in the dictated addendum note Assessment: Vital Signs: Vital Signs Date Time Temp Pulse Resp B/P Pulse Ox O2 Delivery O2 Flow Rate FiO2 07/12/16 15:51 98.7 78 20 162/81 99 3.0 07/12/16 11:45 Nasal Cannula I&O Intake and Output 07/12/16 07:00 Intake Total 1320 ml Balance 1320 ml Intake Oral 1320 ml Current Medications: Meds: Current Medications Acetaminophen (Tylenol) 650 mg PRN Q6HRS PRN PO PAIN / TEMP Last administered on 07/02/16 20:02; Start 06/25/16 at 14:45 Multi-Ingredient Ointment (Analgesic [place]) 1 real PRN QID PRN TP MUSCLE PAIN; Start 06/25/16 at 14:45 Al Hydroxide/Mg Hydroxide (Mylanta Plus Xs) 15 ml PRN AFTMEALHC PRN PO DYSPEPSIA Last administered on 06/28/16 07:39; Start 06/25/16 at 14:45 Magnesium Hydroxide (Milk Of Magnesia) 2,400 mg PRN QHS PRN PO CONSTIPATION; Start 06/25/16 at 14:45 Acetaminophen (Tylenol) 650 mg PRN Q4HRS PRN PO pain, temperature; Start at 15:00; Stop 06/25/16 at 15:17; Status DC Hydroxyzine Pamoate (Vistaril) 25 mg PRN Q6HRS PRN PO ANXIETY Last administered on 06/29/16 11:17; Start 06/25/16 at 15:00; Stop 06/29/16 at 18:29 ; Status DC Albuterol/ Ipratropium (Duoneb) 3 ml PRN Q4HRS PRN NEB respiratory distress Last administered on 07/12/16 11:45; Start 06/25/16 at 15:00 Cetirizine HCl (Zyrtec) 10 mg DAILY PO Last administered on 06/28/16 07:39; Start 06/26/16 at 09:00; Stop 06/28/16 at 15:45; Status DC Aspirin (Aspirin Enteric Coated) 325 mg DAILY PO Last administered on 09:45; Start 06/26/16 at 09:00 Vitamin D (Vitamin D3) 2,000 unit DAILY PO Last administered on 07/12/16 09:45 ; Start 06/26/16 at 09:00 Metoprolol Tartrate (Lopressor) 25 mg BID PO Last administered on 07/12/16 09: 46; Start 06/25/16 at 21:00 Prednisone (Prednisone) 10 mg DAILY PO Last administered on 07/12/16 09:46; Start 06/26/16 at 09:00 Calcium Carbonate/ Glycine (Tums) 500 mg PRN Q2HR PRN PO INDIGESTION; Start 03/03 at 15:30 Quetiapine Fumarate (SEROquel) 25 mg QHS PO Last administered on 06/25/16 20: 30; Start 06/25/16 at 21:00; Stop 06/26/16 at 18:45; Status DC Prenat Multivit/ [place]/Iron/Folic Ac (Multivitamin ) 1 tab BIDACLD PO Last administered on 07/12/16 16:38; Start 06/26/16 at 16:30 Levothyroxine Sodium (Synthroid) 25 mcg DAILY07 PO Last administered on 05:47; Start 06/27/16 at 07:00 Quetiapine Fumarate (SEROquel) 37.5 mg QHS PO Last administered on 06/29/16 20 :00; Start 06/26/16 at 21:00; Stop 06/30/16 at 09:49; Status DC Cetirizine HCl (Zyrtec) 10 mg DAILY PO Last administered on 06/29/16 08:44; Start 06/29/16 at 09:00; Stop 06/29/16 at 18:42; Status DC Trazodone HCl (Desyrel) 50 mg PRN QHS PRN PO INSOMNIA, MAY REPEAT X1 Last administered on 07/06/16 19:45; Start 06/28/16 at 18:30 Hydroxyzine Pamoate (Vistaril) 50 mg PRN Q4HRS PRN PO ANXIETY Last administered on 06/30/16 19:21; Start 06/29/16 at 19:00 Escitalopram Oxalate (Lexapro) 10 mg DAILY PO Last administered on 07/01/16 10 :30; Start 06/30/16 at 10:30; Stop 07/01/16 at 18:47; Status DC Risperidone (Risperdal) 0.25 mg BID PO Last administered on 07/12/16 09:46; Start 06/30/16 at 21:00 Duloxetine HCl (Cymbalta) 30 mg DAILY PO Last administered on 07/04/16 08:02; Start 07/02/16 at 09:00; Stop 07/04/16 at 12:00; Status DC Duloxetine HCl (Cymbalta) 60 mg DAILY PO Last administered on 07/12/16 09:46; Start 07/05/16 at 09:00 Acetaminophen (Tylenol) 650 mg BID PO Last administered on 07/12/16 09:45; Start 07/03/16 at 21:00 Active Scripts Active Reported Trazodone Hcl 50 Mg Tablet 50 Mg PO PRN QHS PRN Risperdal (Risperidone) 0.25 Mg Tablet 0.25 Mg PO BID Multiple Vitamins For Women (Multivit With Calcium,Iron,Min) 1 Each Tablet 1 Each PO DAILY Levothyroxine Sodium 25 Mcg Tablet 25 Mcg PO DAILYAC Duloxetine Hcl 60 Mg Capsule.dr 60 Mg PO DAILY Acetaminophen 325 Mg Tablet 650 Mg PO BID Metoprolol Tartrate 25 Mg Tablet 25 Mg PO BID Vistaril (Hydroxyzine Pamoate) 25 Mg Capsule 25 Mg PO Q6HRS PRN Tums (Calcium Carbonate) 300 Mg Tab.chew 500 Mg PO Q2HR Daliresp (Roflumilast) 500 Mcg Tablet 500 Mcg PO DAILY Prednisone 20 Mg Tablet 10 Mg PO DAILY Loratadine 10 Mg Tablet 10 Mg PO DAILY Duoneb 0.5-3(2.5) Mg/3 Ml (Albuterol/Ipratropium) 3 Ml Ampul.neb 3 Ml NEB Q4HRS PRN Vitamin D3 (Cholecalciferol (Vitamin D3)) 1,000 Unit Tablet 2,000 Unit PO DAILY Aspirin Ec (Aspirin) 325 Mg Tablet.dr 325 Mg PO DAILY Tylenol (Acetaminophen) 325 Mg Tablet 650 Mg PO Q4HRS PRN Diagnosis: Problems: (1) Suicidal thoughts (2) Anxiety disorder (3) Dementia in Alzheimer's disease with delusions (4) Dementia in Alzheimer's disease with depression (5) Dementia, vascular, with delusions (6) Dementia, vascular, with depression (7) Impulse control disorder (8) Major depressive disorder, recurrent episode EDWARDO DOWD MD Jul 12, 2016 21:04
--- NOTE | 2016-07-12 21:42 | PN ---
DATE: 07/11/2016 PSYCHIATRIC PROGRESS NOTE This is a late entry for 07/11/2016, covers elements not covered in my initial note. SUBJECTIVE: Plan was for the patient to transition to a long term on 07/11/2016, but no transportation could be arranged and she will be leaving on 07/12/2016. REVIEW OF SYSTEMS: No CV, , eye, ENT system symptoms on review. She remains on oxygen supplement slightly short of breath, impaired ambulation in her wheelchair; otherwise, doing well per nursing report. MENTAL STATUS EXAM: Oriented reasonably. Speech coherent, abstraction fair, computation impaired, language function intact. Mood and affect is stable. No suicidal or homicidal ideation. LABORATORY DATA: Reviewed. IMPRESSION: Unchanged from initial note. PLAN: Continue current psychotropics mentioned in my initial note. MAN Torres DOWD MD DR: TENISHA/alisa JOB#: [id number] / [id number]
[2016-07-13] MEDS: LEVOTHYROXINE 25 MCG TABLET. PO SCH (05:37)
[2016-07-13 06:12] VITALS: BP 179/93
[2016-07-13] MEDS: ASPIRIN ENTERIC COATED 325 MG TABLET.DR. PO SCH (08:58)
[2016-07-13] MEDS: CHOLECALCIFEROL (VITAMIN D3) 1,000 UNIT TABLET PO SCH (08:59)
[2016-07-13] MEDS: DULOXETINE HCL 60 MG CAPSULE.DR. PO SCH (08:59)
[2016-07-13] MEDS: risperiDONE 0.25 MG TABLET. PO SCH ×2 (08:59→20:03)
[2016-07-13] MEDS: PREDNISONE 10 MG TABLET PO SCH (08:59)
[2016-07-13] MEDS: IPRATRPIUM/ALBUTEROL 0.5/2.5MG 3 ML NEBU. NEB PRN (08:59)
[2016-07-13] MEDS: ACETAMINOPHEN 325 MG TABLET PO SCH ×2 (08:59→20:04)
[2016-07-13] MEDS: ROFLUMILAST 500 MCG TABLET PO SCH (08:59)
[2016-07-13] MEDS: METOPROLOL TART IMMED RELEASE 25 MG TABLET PO SCH ×2 (08:59→20:03)
--- NOTE | 2016-07-13 09:15 | NUR ---
Pt c/o shortness of breath, SPO2 94% 3L via n/c, pulse 88. Course crackles auscultated over bilat upper lungs, pt grunting on expiration (hx of COPD). PRN duoneb breathing treatment given, pt reports it helped, will continue to monitor.
--- NOTE | 2016-07-13 09:52 | NUR ---
SW had call from Gabriela Cook with department of aging at [phone] regarding pt. Gabriela states the facility will be given a fine if they refuse to take person back. Gabriela states she will follow up with a letter regarding the outcome.
--- NOTE | 2016-07-13 10:45 | NUR ---
Behavior Intervention Response and Plan: BIRP Note: Behavior: Assumed Care of patient, patient located in Patient Room at shift change. Patient exhibited the following behavior Restless, Compliant, Cooperative. Brief assessment on rounds of vital signs, medication needs, lab studies, and pain. Treatment plan problems . Intervention: Patient assessed and the following interventions initiated safety checks 15 Minute Checks Cognitive Assessment , Head to toe Assessment , Medications. Response: After interactions and interventions patient responded in the following manner, Calm , Compliant ,Cooperative. Continue to assess behaviors and condition will continue to monitor throughout the shift as needed. Plan: Continue to monitor Master Treatment Plan for patient's progress toward short term goals of Decreased Anxiety, Improved Mood, senior care goals to return to previous living setting vs placement. Continue to assess patient for changes in above assessment. Monitor for medication needs, pain, and safety concerns. Hourly rounding performed to ensure safe environment.
--- NOTE | 2016-07-13 10:45 | NUR ---
THERAPEUTIC RECREATION GROUP NOTE TITLE :[place] ACTIVITY : Activities and Games GOAL : Maintain and improve mental and physical functioning, increase socialization and moral DURATION : 45 Minutes RESPONSE : No participation. Pt. asleep in her room.
[2016-07-13] MEDS: PRENATAL MULTIVITAMIN TABLET. PO SCH ×2 (11:39→16:19)
--- NOTE | 2016-07-13 15:15 | NUR ---
THERAPEUTIC RECREATION GROUP NOTE TITLE :[place] ACTIVITY : Activities and Games GOAL : Maintain and improve mental and physical functioning, increase socialization and moral DURATION : 60 Minutes RESPONSE : No participation. Pt. stayed in her own room.
[2016-07-13 16:12] VITALS: BP 110/66
--- NOTE | 2016-07-13 17:53 | NUR ---
Patient's granddaughter called this evening wanting to know how pt's discharge went. Nurse explained to granddaughter her nursing facility has notified [facility] they will not be able to "meet this patient's needs" and will not be taking her back. Granddaughter was surprised to hear this and stated no one from the [facility] let her know. Nurse recommended granddaughter call in the AM to speak with SW for further details.
--- NOTE | 2016-07-14 00:41 | PN ---
DATE: 07/12/2016 PSYCHIATRIC PROGRESS NOTE This is a late entry for 07/12/2016 covers elements not covered in my initial note. SUBJECTIVE: Per nursing report, the patient has been fairly appropriate on the unit. senior living would not accept for discharge and new placement will have to be secured. REVIEW OF SYSTEMS: Shortness of breath on O2 supplement. Impaired ambulation in her wheelchair. No CV, , pulmonary, eye system symptoms on review other than above. MENTAL STATUS EXAM: Reasonably oriented. Speech coherent, abstraction fair, computation impaired, language function intact, attention span short. Mood and affect appears stable. No suicidal or homicidal ideation. LABORATORY DATA: Reviewed. IMPRESSION: Unchanged from initial note. PLAN: Continue psychotropics mentioned in my initial note. Adjust as indicated. MAN Torres DOWD MD DR: TENISHA/alisa JOB#: [id number] / [id number]
[2016-07-14] MEDS: IPRATRPIUM/ALBUTEROL 0.5/2.5MG 3 ML NEBU. NEB PRN (04:09)
--- NOTE | 2016-07-14 04:10 | NUR ---
Exacerbation of SOB, called RT for PRN breathing treatment but advised not immediately available. Gave PRN duoneb treatment as ordered. Pt O2 sats 98-100 but using accessory muscles to breathe. Vitals WNL for pt except BP elevated to 210/108. Increased O2 delivery to 3L. Pt stated she always does better on 3L and that is what her doctor usually wants, she calmed down after treatment and breathing easier. Resting comfortably in bed.
[2016-07-14] MEDS: LEVOTHYROXINE 25 MCG TABLET. PO SCH (05:23)
[2016-07-14 06:12] VITALS: BP 180/100
[2016-07-14] MEDS: risperiDONE 0.25 MG TABLET. PO SCH ×2 (08:24→19:40)
[2016-07-14] MEDS: ACETAMINOPHEN 325 MG TABLET PO SCH ×2 (08:24→19:41)
[2016-07-14] MEDS: PREDNISONE 10 MG TABLET PO SCH (08:24)
[2016-07-14] MEDS: METOPROLOL TART IMMED RELEASE 25 MG TABLET PO SCH ×2 (08:24→19:40)
[2016-07-14] MEDS: ASPIRIN ENTERIC COATED 325 MG TABLET.DR. PO SCH (08:24)
[2016-07-14] MEDS: DULOXETINE HCL 60 MG CAPSULE.DR. PO SCH (08:24)
[2016-07-14] MEDS: CHOLECALCIFEROL (VITAMIN D3) 1,000 UNIT TABLET PO SCH (08:25)
[2016-07-14] MEDS: ROFLUMILAST 500 MCG TABLET PO SCH (09:00)
[2016-07-14] MEDS: PRENATAL MULTIVITAMIN TABLET. PO SCH ×2 (11:30→16:30)
--- NOTE | 2016-07-14 14:57 | NUR ---
Case Management Note Referral documents faxed to [facility] [phone] for potential admission also to [facility] at [phone]. Will continue to follow for continued stay and discharge planning needs.
--- NOTE | 2016-07-14 15:00 | NUR ---
Behavior Intervention Response and Plan: BIRP Note: Behavior: Assumed Care of patient, patient located in Patient Room at shift change. Patient exhibited the following behavior Calm, Withdrawn, Disorganized. Brief assessment on rounds of vital signs, medication needs, lab studies, and pain. Treatment plan problems . Intervention: Patient assessed and the following interventions initiated safety checks 15 Minute Checks Personal Alarm in place , Call elliott in reach , Personal Alarm in place. Response: After interactions and interventions patient responded in the following manner, Withdrawn , Disorganized ,Calm. Continue to assess behaviors and condition will continue to monitor throughout the shift as needed. 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 Continue to assess patient for changes in above assessment. Monitor for medication needs, pain, and safety concerns. Hourly rounding performed to ensure safe environment.
[2016-07-14 16:19] VITALS: BP 157/92
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
[2016-07-14] MEDS: HYDROXYZINE PAMOATE 25 MG CAPSULE PO PRN (18:34)
--- NOTE | 2016-07-14 19:40 | NUR ---
Behavior Intervention Response and Plan: BIRP Note: Behavior: Assumed Care of patient, patient located in Hallway at shift change. Patient exhibited the following behavior Calm, Compliant, Cooperative. Brief assessment on rounds of vital signs, medication needs, lab studies, and pain. Treatment plan problems . Intervention: Patient assessed and the following interventions initiated safety checks 15 Minute Checks Cognitive Assessment , Head to toe Assessment , Medications. Response: After interactions and interventions patient responded in the following manner, Calm , Compliant ,Cooperative. Continue to assess behaviors and condition will continue to monitor throughout the shift as needed. 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 Continue to assess patient for changes in above assessment. Monitor for medication needs, pain, and safety concerns. Hourly rounding performed to ensure safe environment.
[2016-07-15 05:45] VITALS: BP 185/98
[2016-07-15] MEDS: LEVOTHYROXINE 25 MCG TABLET. PO SCH (06:02)
[2016-07-15 06:16] VITALS: BP 200/108
[2016-07-15] MEDS: METOPROLOL TART IMMED RELEASE 25 MG TABLET PO SCH (06:16)
[2016-07-15] MEDS ORDERED: MAG30ORA PO (06:36)
[2016-07-15] MEDS ORDERED: METH29OI TP (06:37)
[2016-07-15] MEDS ORDERED: MAGN400O4 PO (06:37)
[2016-07-15 06:41] LABS: BGAS PH 7.43 (7.35-7.45)
--- NOTE | 2016-07-15 06:43 | NUR ---
Nursing Note: Second Nurse called to assist primary Nurse. 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 Crash cart obtained, Rapid Response called, Chief Science Officer and HULL SORTER in to assist. This Nurse placed call to Dr. Pruitt, Informed of Current unresponsive episode, BP and administration of 0900 Metoprolol 25 mg, Order received for EKD, ABG and CT head without contrast STAT, transfer to [facility]. Orders written and faxed to Admission at this time.
--- NOTE | 2016-07-15 06:48 | NUR ---
Discharge Note [facility] Patient is not currently a tobacco user. Follow up Appointment made: Date and Time instructions and Social Work Discharge planning sheet sent to next level of care: [facility] Unit contact Number for 24 hour support [phone] Discharge Packet Sent, and discusssed with patient and caregiver that includes Copies from the record of current medications with indications and frequencies, history and physical, Psychiatric Eval with reason and justification for admission, Lab values, Radiology results , follow up instructions for continuation of care, and Social Work discharge planning form: Discharge Packet Faxed to Provider/Next Level of Care: Discharge Packet Faxed with discharge Order and Discharge diagnosis sent to: [facility] Discharge Packet Discussed with: [facility] Discharge instruction sheet was included in the packet and sent with the patient upon discharge. Any Pending lab results can be obtained by calling [phone] Discharge Summary will be sent to next care provider when available. This includes the reason for admission, DC diagnosis, and next level of care recommendations.
--- NOTE | 2016-07-15 07:07 | EKG ---
[address] [address] Test Date: 2016-07-15 Test Time: 05:18:57 Pat Name: ANCELMO MACHADO Department: Room: [address] [place] [address] Gender: F Legislative Director: : 1930 Requested By: DOMINIK SUN Order Number: [id number] Reading MD: Measurements Intervals [place] Rate: 82 P: 90 DC: 148 QRS: -45 QRSD: 70 T: 34 QT: 378 QTc: 445 Interpretive Statements SINUS RHYTHM ABNORMAL LEFT AXIS DEVIATION QRS(T) CONTOUR ABNORMALITY CONSISTENT WITH ANTEROSEPTAL INFARCT AGE UNDETERMINED RI6.01 Unconfirmed report No previous ECG available for comparison
--- NOTE | 2016-07-15 07:41 | RAD ---
Indication incoherent. Unresponsive. Noncontrast images of the head were obtained. The study is compromised by motion. Note is made of a previous examination 06/23/2016. An acute calvarial finding is not seen. The visualized paranasal sinuses are grossly unremarkable. A polyp or retention cyst is noted in the left maxillary sinus. No subdural or epidural hematoma is seen. A mass or midline shift is not apparent. Chronic changes are noted similar to the previous exam. A definite acute finding or significant change is not seen. IMPRESSION: Significantly limited study secondary to motion. Chronic changes are seen. A gross change relative to the previous study is not seen PQRS Compliance Statement: One or more of the following individualized dose reduction techniques were utilized for this examination: 1. Automated exposure control 2. Adjustment of the mA and/or kV according to patient size 3. Use of iterative reconstruction technique
--- NOTE | 2016-07-16 01:44 | PN ---
DATE: 07/14/2016 PSYCHIATRIC PROGRESS NOTE This is a late entry for 07/14/2016. SUBJECTIVE: The patient was seen on rounds the evening of 07/14/2016. Discussed with staff, reviewed the chart. According to nursing staff, she gets a little anxious, has had difficulty with her roommate. Received Atarax, which helped. I processed this with her at length individually. REVIEW OF SYSTEMS: Shortness of breath, impaired ambulation. No CV, , pulmonary, eye system symptoms on review other than the shortness of breath. MENTAL STATUS EXAM: Reasonably oriented. Speech is coherent, has some latency. Abstraction fair, computation impaired, language function intact. Mood and affect, despite the above is improved. LABORATORY DATA: Reviewed. IMPRESSION: Major depressive disorder with psychotic features in partial remission. Rest diagnosis unchanged. PLAN: Continue psychotropics mentioned in my initial note including Cymbalta 60 mg a day, Risperdal 0.25 mg b.i.d. Alternate assisted placement being arranged by social service staff. EDWARDO DOWD MD DR: TENISHA/alisa JOB#: [id number] / [id number]
--- NOTE | 2016-07-16 01:54 | PN ---
DATE: 07/13/2016 This is a late entry for 07/13/2016, covers elements not covered in my initial note. SUBJECTIVE: The patient has not been accepted back at the facility she came from and social service staff finding appropriate placement. She was staffed at a treatment team meeting with the entire team reviewed her history, diagnosis, discharge, aftercare plans and she was also seen individually. REVIEW OF SYSTEMS: Shortness of breath, impaired ambulation in her wheelchair. No CV, , GI, eye, ENT system symptoms on review. MENTAL STATUS EXAM: Oriented reasonably. Speech is coherent, abstraction fair, computation impaired, language function intact. Mood and affect is improved. No active suicidal or homicidal ideation. IMPRESSION: Major depressive disorder with psychotic features. Rest unchanged. PLAN: Continue current psychotropics. Adjust as clinically indicated. MAN Torres DOWD MD DR: TNEISHA/alisa JOB#: [id number] / [id number]
[2016-07-16] MEDS ORDERED: LEVO75TA5 PO (19:21)
[2016-07-16] MEDS ORDERED: HYDR-2867 PO (19:21)
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
== END 2016-07-15 06:51 | disposition short-term general hospital (02) | DRG 56 ==
LOC: GEROPSY 14:38
PROVIDERS: ADMIT Psychiatry & Neurology Psychiatry; ATTEND Psychiatry & Neurology Psychiatry
DX: G30.9 Alzheimer's disease, unspecified (principal); I21.4 Non-ST elevation (NSTEMI) myocardial infarction; F01.51 Vascular dementia, unspecified severity, with behavioral disturbance; F31.64 Bipolar disorder, current episode mixed, severe, with psychotic features; I42.9 Cardiomyopathy, unspecified; I50.32 Chronic diastolic (congestive) heart failure; J96.10 Chronic respiratory failure, unspecified whether with hypoxia or hypercapnia; R45.851 Suicidal ideations; F02.81 Dementia in other diseases classified elsewhere, unspecified severity, with behavioral disturbance; I16.9 Hypertensive crisis, unspecified; F41.0 Panic disorder [episodic paroxysmal anxiety]; F63.9 Impulse disorder, unspecified; I11.0 Hypertensive heart disease with heart failure; I27.2 Other secondary pulmonary hypertension; G47.10 Hypersomnia, unspecified; G62.9 Polyneuropathy, unspecified; M19.90 Unspecified osteoarthritis, unspecified site; J44.9 Chronic obstructive pulmonary disease, unspecified; M81.0 Age-related osteoporosis without current pathological fracture; Z86.73 Personal history of transient ischemic attack (TIA), and cerebral infarction without residual deficits; Z99.81 Dependence on supplemental oxygen; Z88.8 Allergy status to other drugs, medicaments and biological substances; Z88.5 Allergy status to narcotic agent
CPT/HCPCS: 36415; 70450; 80053; 80061; 82306; 82607; 82803; 82947; 83036; 83540; 83550; 83735; 84436; 84443; 84480; 85027; 86592; 86593; 93005; 94640; 94760; J7512; J7620; Q0177

== ENCOUNTER 2016-07-15 07:10 | Inpatient (IN) | payer MEDICARE, MEDICAID ==
[2016-07-15] VITALS (7 sets, daily range): BP systolic 158–200; BP diastolic 83–105
[~2016-07-15 07:10] MED LIST changes: +ACET325T21 PO; +DULO60CA44 PO; +LEVO25TA4 PO; +MAG30ORA PO; +MAGN400O4 PO; +METH29OI TP; +METO25TA4 PO; +MULT-47 PO; +RISP0.2519 PO; +TRAZ50TA15 PO
[2016-07-15] MEDS ORDERED: IPRATRPIUM/ALBUTEROL 0.5/2.5MG 3 ML NEBU. NEB PRN (10:15)
[2016-07-15] MEDS ORDERED: ACETAMINOPHEN 325 MG TABLET PO PRN (10:15)
[2016-07-15] MEDS ORDERED: MAGNESIUM HYDROXIDE 2,400 MG/30 ML ORAL.SUSP. PO PRN (10:15)
[2016-07-15] MEDS ORDERED: METHYL SALICYLATE/MENTHOL TOPICAL OINTMENT 29GM TUBE. TP PRN (10:15)
[2016-07-15] MEDS ORDERED: HYDROXYZINE PAMOATE 25 MG CAPSULE PO PRN (10:15)
[2016-07-15] MEDS ORDERED: traZODone 50 MG TABLET. PO PRN (10:15)
[2016-07-15] MEDS ORDERED: CALCIUM CARBONATE 500 MG TAB.CHEW PO PRN (10:45)
[2016-07-15] MEDS ORDERED: MAG HYDROX/AL HYDROX/SIMETH 30 ML ORAL.SUSP PO PRN (10:45)
[2016-07-15] MEDS: ROFLUMILAST 500 MCG TABLET PO SCH (11:08)
[2016-07-15] MEDS: ASPIRIN ENTERIC COATED 325 MG TABLET.DR. PO SCH (11:08)
[2016-07-15] MEDS: DULOXETINE HCL 60 MG CAPSULE.DR. PO SCH (11:08)
[2016-07-15] MEDS: risperiDONE 0.25 MG TABLET. PO SCH ×2 (11:08→20:53)
[2016-07-15] MEDS: PREDNISONE 10 MG TABLET PO SCH (11:08)
[2016-07-15] MEDS: CHOLECALCIFEROL (VITAMIN D3) 1,000 UNIT TABLET PO SCH (11:08)
[2016-07-15] MEDS: MULTIVITAMIN with MINERAL TABLET. PO SCH (11:08)
[2016-07-15 17:26] LABS: CALCIUM 9.1 mg/dL (8.5-10.1); CREATININE 0.8 mg/dL (0.6-1.0); GFR 82.7; POTASSIUM 4.1 mmol/L (3.5-5.1)
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
[2016-07-15] MEDS: ACETAMINOPHEN 325 MG TABLET PO SCH (20:53)
[2016-07-15] MEDS: METOPROLOL TART IMMED RELEASE 25 MG TABLET PO SCH (20:53)
--- NOTE | 2016-07-15 23:58 | ACF ---
Admission Criteria Forms PSYCHIATRIC DISORDERS Clinical Indications for Inpatient Care (Place 'X' for any and all applicable criteria): Ongoing inpatient care may be needed for ANY ONE of the following(1)(2)(3)(4)(6) (7)(8): [X]I. Danger to self or others not manageable at lower level of care. [ ]II. Grave disability (eg, inability to perform self care necessary at lower level of care) [ ]III. Agitation or inappropriate behavior interfering with care for primary condition (eg, attempting to discontinue lines or drains prematurely, unable to cooperate with respiratory care) [ ]IV. Severe disability or disorder indicated by ALL of the following: [ ]a) Severe behavioral health disorder-related symptoms or condition indicated by ANY ONE of the following: [ ]i) Severe problem with cognition, memory, judgment, or impulse control [ ]ii) Severe clinical manifestations (eg, hallucinations, delusions, other acute psychotic symptoms, nikos, extreme agitation or anxiety) [ ]b) Patient management at lower level of care is not feasible until acute intervention or modification is initiated. Extended stay beyond goal length of stay for the primary condition may be indicated when ANY ONE of the following is present: (1)(2)(3)(4): [ ]a) Patient is a danger to self or others and not manageable at lower level of care. [ ]b) Behavior crisis management, including physical or chemical restraints, is required and is not available at a lower level of care. [ ]c) Behavioral symptoms (e.g., agitation, somnolence, inappropriate behavior) are present, and are not manageable at a lower level of care. [ ]d) Patient cannot understand follow-up treatment and crisis plan. [ ]e) Provider and supports are not sufficiently available at lower level of care. [ ]f) Patient cannot participate (e.g., verify absence of plan for harm) and is in needed of monitoring. The original [facility] [employer] content created by [employer] has been revised. The portions of the content which have been revised are identified through the use of italic text or in bold, and [facility] has neither reviewed nor approved the modified material. All other unmodified content is copyright [facility] [employer]. Please see references footnoted in the original [facility] edition 2016 Admission Criteria Met?: Yes MALAIKA SANTACRUZ Jul 15, 2016 23:58
[2016-07-16 05:31] VITALS: BP 171/84
[2016-07-16] MEDS ORDERED: LEVOTHYROXINE 25 MCG TABLET. PO SCH (06:00)
[2016-07-16 06:36] LABS: BASO % 1 % (0-3); EOS # 0.1 x10^3/uL (0.0-0.7); EOS % 2 % (0-3); HEMATOCRIT 26.2 % (36.0-47.0); HEMOGLOBIN 8.6 g/dL (12.0-15.5); LYMPH # 1.8 x10^3/uL (1.0-4.8); LYMPH % 20 % (24-48); MEAN CORPUSCULAR HEMOGLOBIN 32 pg (25-35); MEAN CORPUSCULAR HGB CONC 33 g/dL (31-37); MEAN CORPUSCULAR VOLUME 96 fL (79-100); MONO # 0.8 x10^3/uL (0.0-1.1); MONO % 8 % (0-9); NEUT # 6.3 x10^3uL (1.8-7.7); NEUT % 70 % (31-73); PLATELET COUNT 197 x10^3/uL (140-400); RED BLOOD COUNT 2.72 x10^6/uL (3.50-5.40); RED CELL DISTRIBUTION WIDTH 18.3 % (11.5-14.5)
[2016-07-16 06:49] LABS: ALBUMIN 2.9 g/dL (3.4-5.0); ALBUMIN/GLOBULIN RATIO 0.9 (1.0-1.7); CALCIUM 8.7 mg/dL (8.5-10.1); CREATININE 0.7 mg/dL (0.6-1.0); GFR 96.5; POTASSIUM 3.9 mmol/L (3.5-5.1); TOTAL BILIRUBIN 0.6 mg/dL (0.2-1.0)
[2016-07-16 07:40] LABS: SEDIMENTATION RATE 10 (0-25)
[2016-07-16] MEDS ORDERED: MULTIVITAMIN with MINERAL TABLET. PO SCH (09:00)
[2016-07-16] MEDS: CHOLECALCIFEROL (VITAMIN D3) 1,000 UNIT TABLET PO SCH (09:18)
[2016-07-16] MEDS: DULOXETINE HCL 60 MG CAPSULE.DR. PO SCH (09:18)
[2016-07-16] MEDS: ASPIRIN ENTERIC COATED 325 MG TABLET.DR. PO SCH (09:18)
[2016-07-16] MEDS: PREDNISONE 10 MG TABLET PO SCH (09:18)
[2016-07-16] MEDS: MULTIVITAMIN with MINERAL TABLET. PO SCH (09:18)
[2016-07-16] MEDS: risperiDONE 0.25 MG TABLET. PO SCH (09:18)
[2016-07-16] MEDS: ROFLUMILAST 500 MCG TABLET PO SCH (09:19)
[2016-07-16] MEDS: METOPROLOL TART IMMED RELEASE 25 MG TABLET PO SCH (09:19)
[2016-07-16] MEDS: ACETAMINOPHEN 325 MG TABLET PO SCH (09:19)
[2016-07-16 11:09] VITALS: BP 164/80
[2016-07-16 15:25] VITALS: BP 172/82
[2016-07-16] MEDS ORDERED: LEVO75TA5 PO (19:21)
[2016-07-16] MEDS ORDERED: HYDR-2867 PO (19:21)
[2016-07-16] MEDS ORDERED: HYDRALAZINE 10 MG TABLET PO SCH (21:00)
--- NOTE | 2016-07-16 22:52 | PN ---
DATE: 07/16/2016 SUBJECTIVE: The patient is resting, slightly propped up in bed, in no apparent distress. She is awake, alert, responding appropriately. Nursing staff did not voice any concern except that her blood pressure continued to be suboptimally controlled. Her TSH continues to be high. PHYSICAL EXAMINATION: GENERAL: When I examined her, she was resting slightly propped up in bed, in no apparent respiratory distress, somewhat pale, but no jaundice, cyanosis or thyromegaly. No jugular venous distention. No lower limb edema. VITAL SIGNS: Her heart rate was 86, blood pressure 172/82, temperature was 98.5, respiratory rate was 24, and oxygen saturation was 99% on 3 liters of oxygen. The rest of clinical examination is unremarkable and has not really changed. LABORATORY DATA: Showed a white cell count of 9000, hemoglobin 8.6, hematocrit 26.2, MCV 96, and platelet count of 197,000. Her chemistry showed a serum sodium of 143, potassium 3.9, chloride 104, bicarbonate 37, anion gap of 2, BUN 14, creatinine 0.7, estimated GFR was 96 mL per minute. Her glucose was 94. Calcium was 8.7. Total bilirubin, AST, ALT, alkaline phosphatase were normal. Total protein was 6 g/dL, albumin was 2.9 g/dL. TSH was high at 28.37. Her free T4 was low. ASSESSMENT: 1. Altered mental status, resolved. The patient now is more awake, alert, responding appropriately. 2. Dementia with behavioral disturbance. The patient did not display any behavioral disturbance while here. 3. Chronic obstructive pulmonary disease. Her blood gases showed that she has compensated chronic respiratory failure. 4. Anemia is normochromic normocytic. 5. Hypertensive heart disease with chronic diastolic heart failure. The patient is clinically well compensated. 6. Hypertension, not yet optimally controlled, so I started her on hydralazine 10 mg 3 times a day. She is already on metoprolol 25 mg twice a day. 7. She has also hypothyroidism and she is both clinically and biochemically euthyroid, so I increased her Synthroid to 75 mcg once a day. As far as disposition is concerned, there is dispute whether she needs to go back to her intermediate facility or [facility] who are awaiting the decision by the Dr. Stevens and his team whether she needs to ____. DOMINIK SUN MD DR: Zari JOB#: [id number] / [id number]
[2016-07-17] MEDS ORDERED: LEVOTHYROXINE 75 MCG TABLET PO SCH (07:00)
== END 2016-07-16 18:41 | DRG 281 ==
LOC: 1 SOUTH 07:10
PROVIDERS: ADMIT Internal Medicine; ATTEND Internal Medicine
DX: I11.0 Hypertensive heart disease with heart failure (principal); I21.4 Non-ST elevation (NSTEMI) myocardial infarction; F03.91 Unspecified dementia, unspecified severity, with behavioral disturbance; J96.10 Chronic respiratory failure, unspecified whether with hypoxia or hypercapnia; R41.82 Altered mental status, unspecified; I42.9 Cardiomyopathy, unspecified; I50.32 Chronic diastolic (congestive) heart failure; D64.9 Anemia, unspecified; E03.9 Hypothyroidism, unspecified; I27.2 Other secondary pulmonary hypertension; J44.9 Chronic obstructive pulmonary disease, unspecified; F60.9 Personality disorder, unspecified; G47.10 Hypersomnia, unspecified; R13.10 Dysphagia, unspecified; M35.3 Polymyalgia rheumatica; Z79.899 Other long term (current) drug therapy; Z86.73 Personal history of transient ischemic attack (TIA), and cerebral infarction without residual deficits; Z99.81 Dependence on supplemental oxygen
CPT/HCPCS: 36415; 80048; 80053; 80061; 84443; 85027; 85651; J7512

== ENCOUNTER 2016-07-16 18:45 | Inpatient (IN) | payer MEDICARE, MEDICAID ==
[~2016-07-16] VITALS: Ht 170.2 cm; Wt 46.9 kg
[2016-07-16] MEDS ORDERED: LEVO75TA5 PO (19:21)
[2016-07-16] MEDS ORDERED: HYDR-2867 PO (19:21)
[2016-07-16] MEDS ORDERED: MAGNESIUM HYDROXIDE 2,400 MG/30 ML ORAL.SUSP. PO PRN (19:30)
[2016-07-16] MEDS ORDERED: METHYL SALICYLATE/MENTHOL TOPICAL OINTMENT 29GM TUBE. TP PRN (19:30)
[2016-07-16] MEDS ORDERED: traZODone 50 MG TABLET. PO PRN (19:30)
[2016-07-16] MEDS ORDERED: ACETAMINOPHEN 325 MG TABLET PO PRN (19:30)
[2016-07-16] MEDS ORDERED: HYDROXYZINE PAMOATE 25 MG CAPSULE PO PRN (19:30)
[2016-07-16] MEDS ORDERED: CALCIUM CARBONATE 500 MG TAB.CHEW PO PRN (19:45)
[2016-07-16] MEDS ORDERED: MAG HYDROX/AL HYDROX/SIMETH 30 ML ORAL.SUSP PO PRN (19:45)
[2016-07-16 20:32] VITALS: BP 189/92
[2016-07-16] MEDS: METOPROLOL TART IMMED RELEASE 25 MG TABLET PO SCH (20:53)
[2016-07-16] MEDS: risperiDONE 0.25 MG TABLET. PO SCH (20:53)
[2016-07-16] MEDS: ACETAMINOPHEN 325 MG TABLET PO SCH (20:53)
[2016-07-16] MEDS: HYDRALAZINE 10 MG TABLET PO SCH (20:54)
--- NOTE | 2016-07-16 22:06 | PDOC ---
Exam Luis Alfredo Demential Exam: Luis Alfredo Note: Please also refer to the separate dictated note~for this date of service dictated separately.~Patient seen individually. Discussed the patient with Nursing staff reviewed the chart.~Reviewed interim history and current functioning. Reviewed vital signs,~Labs/ Radiology~and current medications noted below. Continue current treatment with the changes noted in the dictated addendum note Assessment: Vital Signs: Vital Signs Date Time Temp Pulse Resp B/P Pulse Ox O2 Delivery O2 Flow Rate FiO2 07/16/16 20:54 82 189/92 07/16/16 20:32 97.7 20 100 Nasal Cannula 3.0 Current Medications: Meds: Current Medications Duloxetine HCl (Cymbalta) 60 mg DAILY PO ; Start 07/17/16 at 09:00 Hydroxyzine Pamoate (Vistaril) 50 mg PRN Q4HRS PRN PO ANXIETY; Start 07/16/16 at 19:30 Risperidone (Risperdal) 0.25 mg BID PO Last administered on 07/16/16 20:53; Start 07/16/16 at 21:00 Trazodone HCl (Desyrel) 50 mg PRN QHS PRN PO INSOMNIA, MAY REPEAT X1; Start 07/16/16 at 19:30 Acetaminophen (Tylenol) 650 mg BID PO Last administered on 07/16/16 20:53; Start 07/16/16 at 21:00 Acetaminophen (Tylenol) 650 mg PRN Q6HRS PRN PO pain, temperature; Start at 19:30 Aspirin (Aspirin Enteric Coated) 325 mg DAILY PO ; Start 07/17/16 at 09:00 Vitamin D (Vitamin D3) 2,000 unit DAILY PO ; Start 07/17/16 at 09:00 Hydralazine HCl (Apresoline) 10 mg TID PO Last administered on 07/16/16 20:54; Start 07/16/16 at 21:00 Albuterol Sulfate (Ventolin) 2.5 mg PRN Q4HRS PRN NEB SHORTNESS OF BREATH; Start 07/16/16 at 19:30 Levothyroxine Sodium (Synthroid) 75 mcg DAILY06 PO ; Start 07/17/16 at 06:00 Magnesium Hydroxide (Milk Of Magnesia) 2,400 mg PRN QHS PRN PO CONSTIPATION; Start 07/16/16 at 19:30 Multi-Ingredient Ointment (Analgesic [place]) 1 mart PRN QID PRN TP MUSCLE PAIN; Start 07/16/16 at 19:30 Metoprolol Tartrate (Lopressor) 25 mg BID PO Last administered on 07/16/16t 20: 53; Start 07/16/16 at 21:00 Prednisone (Prednisone) 10 mg DAILY PO ; Start 07/17/16 at 09:00 Calcium Carbonate/ Glycine (Tums) 500 mg PRN Q2HR PRN PO INDIGESTION; Start 07/16/16 at 19:45 Al Hydroxide/Mg Hydroxide (Mylanta Plus Xs) 30 ml PRN AFTMEALHC PRN PO DYSPEPSIA; Start 07/16/16 at 19:45 Multivitamins/ Calcium (Thera-M Plus) 1 tab DAILY PO ; Start 07/17/16 at 09:00 Active Scripts Active Reported Levothyroxine Sodium 75 Mcg Tablet 75 Mcg PO DAILY06 Hydralazine Hcl 10 Mg Tablet 10 Mg PO TID Analgesic [place] (Methyl Salicylate/Menthol) 29 Gm Oint...g. 1 Mart TP PRN QID PRN Milk Of Magnesia (Magnesium Hydroxide) 400 Mg/5 Ml Oral.susp 2,400 Mg PO PRN QHS PRN Mag-Al Plus Suspension (Mag Hydrox/Al Hydrox/Simeth) 30 Ml Oral.susp 15 Ml PO PRN AFTMEALHC PRN Trazodone Hcl 50 Mg Tablet 50 Mg PO PRN QHS PRN Risperdal (Risperidone) 0.25 Mg Tablet 0.25 Mg PO BID Multiple Vitamins For Women (Multivit With Calcium,Iron,Min) 1 Each Tablet 1 Tab PO DAILY Duloxetine Hcl 60 Mg Capsule.dr 60 Mg PO DAILY Acetaminophen 325 Mg Tablet 650 Mg PO BID Metoprolol Tartrate 25 Mg Tablet 25 Mg PO BID Vistaril (Hydroxyzine Pamoate) 25 Mg Capsule 50 Mg PO PRN Q4HRS PRN max dose: 200mg/24hrs Tums (Calcium Carbonate) 300 Mg Tab.chew 500 Mg PO PRN Q2HR PRN Daliresp (Roflumilast) 500 Mcg Tablet 500 Mcg PO DAILY Prednisone 20 Mg Tablet 10 Mg PO DAILY Duoneb 0.5-3(2.5) Mg/3 Ml (Albuterol/Ipratropium) 3 Ml Ampul.neb 3 Ml NEB Q4HRS PRN Vitamin D3 (Cholecalciferol (Vitamin D3)) 1,000 Unit Tablet 2,000 Unit PO DAILY Aspirin Ec (Aspirin) 325 Mg Tablet.dr 325 Mg PO DAILY Tylenol (Acetaminophen) 325 Mg Tablet 650 Mg PO Q6HRS PRN Diagnosis: Problems: (1) Suicidal thoughts (2) Anxiety disorder (3) Dementia in Alzheimer's disease with delusions (4) Dementia in Alzheimer's disease with depression (5) Dementia, vascular, with delusions (6) Dementia, vascular, with depression (7) Impulse control disorder (8) Major depressive disorder, recurrent episode EDWARDO DOWD MD Jul 16, 2016 22:06
[2016-07-17] MEDS: LEVOTHYROXINE 75 MCG TABLET PO SCH (06:23)
[2016-07-17 06:26] VITALS: BP 189/91
[2016-07-17] MEDS: HYDRALAZINE 10 MG TABLET PO SCH ×3 (09:07→20:07)
[2016-07-17] MEDS: METOPROLOL TART IMMED RELEASE 25 MG TABLET PO SCH ×2 (09:07→20:06)
[2016-07-17] MEDS: ACETAMINOPHEN 325 MG TABLET PO SCH ×2 (09:08→20:06)
[2016-07-17] MEDS: risperiDONE 0.25 MG TABLET. PO SCH ×2 (09:08→20:06)
[2016-07-17] MEDS: PREDNISONE 10 MG TABLET PO SCH (09:11)
[2016-07-17] MEDS: ROFLUMILAST 500 MCG TABLET PO SCH (09:11)
[2016-07-17] MEDS: ASPIRIN ENTERIC COATED 325 MG TABLET.DR. PO SCH (09:11)
[2016-07-17] MEDS: DULOXETINE HCL 60 MG CAPSULE.DR. PO SCH (09:11)
[2016-07-17] MEDS: MULTIVITAMIN with MINERAL TABLET. PO SCH (09:12)
[2016-07-17] MEDS: CHOLECALCIFEROL (VITAMIN D3) 1,000 UNIT TABLET PO SCH (09:12)
[2016-07-17 10:01] LABS: BASO % 1 % (0-3); EOS # 0.1 x10^3/uL (0.0-0.7); EOS % 1 % (0-3); HEMATOCRIT 27.2 % (36.0-47.0); HEMOGLOBIN 8.9 g/dL (12.0-15.5); LYMPH # 0.9 x10^3/uL (1.0-4.8); LYMPH % 10 % (24-48); MEAN CORPUSCULAR HEMOGLOBIN 32 pg (25-35); MEAN CORPUSCULAR HGB CONC 33 g/dL (31-37); MEAN CORPUSCULAR VOLUME 97 fL (79-100); MONO # 0.4 x10^3/uL (0.0-1.1); MONO % 4 % (0-9); NEUT # 7.4 x10^3uL (1.8-7.7); NEUT % 84 % (31-73); PLATELET COUNT 202 x10^3/uL (140-400); WHITE BLOOD COUNT 8.8 x10^3/uL (4.0-11.0)
[2016-07-17 10:14] LABS: ALBUMIN 3.2 g/dL (3.4-5.0); CALCIUM 8.9 mg/dL (8.5-10.1); CREATININE 0.8 mg/dL (0.6-1.0); GFR 82.7; POTASSIUM 3.7 mmol/L (3.5-5.1); TOTAL BILIRUBIN 1.1 mg/dL (0.2-1.0); TOTAL PROTEIN 6.5 g/dL (6.4-8.2)
[2016-07-17 10:53] VITALS: BP 168/83
[2016-07-17 14:34] VITALS: BP 168/83
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
[2016-07-17 15:52] VITALS: BP 158/85
--- NOTE | 2016-07-17 20:48 | PDOC ---
Exam Luis Alfredo Demential Exam: Luis Alfredo Note: Please also refer to the separate dictated note~for this date of service dictated separately.~Patient seen individually. Discussed the patient with Nursing staff reviewed the chart.~Reviewed interim history and current functioning. Reviewed vital signs,~Labs/ Radiology~and current medications noted below. Continue current treatment with the changes noted in the dictated addendum note Assessment: Vital Signs: Vital Signs Date Time Temp Pulse Resp B/P Pulse Ox O2 Delivery O2 Flow Rate FiO2 07/17/16 20:07 64 158/85 07/17/16 15:52 97.0 19 97 07/17/16 06:26 Nasal Cannula 3.0 I&O Intake and Output 07/17/16 07:00 Intake Total 120 ml Balance 120 ml Intake Oral 120 ml Labs: Laboratory Tests Test 07/17/16 09:42 White Blood Count 8.8x10^3/uL (4.0-11.0) Red Blood Count 2.80x10^6/uL (3.50-5.40) L Hemoglobin 8.9g/dL (12.0-15.5) L Hematocrit 27.2% (36.0-47.0) L Mean Corpuscular Volume 97fL (79-100) Mean Corpuscular Hemoglobin 32pg (25-35) Mean Corpuscular Hemoglobin Concent 33g/dL (31-37) Red Cell Distribution Width 19.0% (11.5-14.5) H Platelet Count 202x10^3/uL (140-400) Neutrophils (%) (Auto) 84% (31-73) H Lymphocytes (%) (Auto) 10% (24-48) L Monocytes (%) (Auto) 4% (0-9) Eosinophils (%) (Auto) 1% (0-3) Basophils (%) (Auto) 1% (0-3) Neutrophils # (Auto) 7.4x10^3uL (1.8-7.7) Lymphocytes # (Auto) 0.9x10^3/uL (1.0-4.8) L Monocytes # (Auto) 0.4x10^3/uL (0.0-1.1) Eosinophils # (Auto) 0.1x10^3/uL (0.0-0.7) Basophils # (Auto) 0.0x10^3/uL (0.0-0.2) Sodium Level 143mmol/L (136-145) Potassium Level 3.7mmol/L (3.5-5.1) Chloride Level 100mmol/L (98-107) Carbon Dioxide Level 38mmol/L (21-32) H Anion Gap 5 (6-14) L Blood Urea Nitrogen 13mg/dL (7-20) Creatinine 0.8mg/dL (0.6-1.0) Estimated GFR (Cockcroft-Gault) 82.7 BUN/Creatinine Ratio 16 (6-20) Glucose Level 179mg/dL (70-99) H Calcium Level 8.9mg/dL (8.5-10.1) Magnesium Level 2.0mg/dL (1.8-2.4) Total Bilirubin 1.1mg/dL (0.2-1.0) H Aspartate Amino Transferase (AST) 42U/L (15-37) H Alanine Aminotransferase (ALT) 73U/L (14-59) H Alkaline Phosphatase 88U/L (46-116) Total Protein 6.5g/dL (6.4-8.2) Albumin 3.2g/dL (3.4-5.0) L Albumin/Globulin Ratio 1.0 (1.0-1.7) Current Medications: Meds: Current Medications Duloxetine HCl (Cymbalta) 60 mg DAILY PO Last administered on 07/17/16 09:11; Start 07/17/16 at 09:00 Hydroxyzine Pamoate (Vistaril) 50 mg PRN Q4HRS PRN PO ANXIETY; Start 07/16/16 at 19:30 Risperidone (Risperdal) 0.25 mg BID PO Last administered on 07/17/16 20:06; Start 07/16/16 at 21:00 Trazodone HCl (Desyrel) 50 mg PRN QHS PRN PO INSOMNIA, MAY REPEAT X1; Start 07/16/16 at 19:30 Acetaminophen (Tylenol) 650 mg BID PO Last administered on 07/17/16 20:06; Start 07/16/16 at 21:00 Acetaminophen (Tylenol) 650 mg PRN Q6HRS PRN PO pain, temperature; Start at 19:30 Aspirin (Aspirin Enteric Coated) 325 mg DAILY PO Last administered on 07/17/16 09:11; Start 07/17/16 at 09:00 Vitamin D (Vitamin D3) 2,000 unit DAILY PO Last administered on 07/17/16 09:12 ; Start 07/17/16 at 09:00 Hydralazine HCl (Apresoline) 10 mg TID PO Last administered on 07/17/16 20:07; Start 07/16/16 at 21:00 Albuterol Sulfate (Ventolin) 2.5 mg PRN Q4HRS PRN NEB SHORTNESS OF BREATH; Start 07/16/16 at 19:30 Levothyroxine Sodium (Synthroid) 75 mcg DAILY06 PO Last administered on 06:23; Start 07/17/16 at 06:00 Magnesium Hydroxide (Milk Of Magnesia) 2,400 mg PRN QHS PRN PO CONSTIPATION; Start 07/16/16 at 19:30 Multi-Ingredient Ointment (Analgesic [place]) 1 mart PRN QID PRN TP MUSCLE PAIN; Start 07/16/16 at 19:30 Metoprolol Tartrate (Lopressor) 25 mg BID PO Last administered on 07/17/16 20: 06; Start 07/16/16 at 21:00 Prednisone (Prednisone) 10 mg DAILY PO Last administered on 07/17/16 09:11; Start 07/17/16 at 09:00 Calcium Carbonate/ Glycine (Tums) 500 mg PRN Q2HR PRN PO INDIGESTION; Start 07/16/16 at 19:45 Al Hydroxide/Mg Hydroxide (Mylanta Plus Xs) 30 ml PRN AFTMEALHC PRN PO DYSPEPSIA; Start 07/16/16 at 19:45 Multivitamins/ Calcium (Thera-M Plus) 1 tab DAILY PO Last administered on 09:12; Start 07/17/16 at 09:00 Active Scripts Active Reported Levothyroxine Sodium 75 Mcg Tablet 75 Mcg PO DAILY06 Hydralazine Hcl 10 Mg Tablet 10 Mg PO TID Analgesic [place] (Methyl Salicylate/Menthol) 29 Gm Oint...g. 1 Mart TP PRN QID PRN Milk Of Magnesia (Magnesium Hydroxide) 400 Mg/5 Ml Oral.susp 2,400 Mg PO PRN QHS PRN Mag-Al Plus Suspension (Mag Hydrox/Al Hydrox/Simeth) 30 Ml Oral.susp 15 Ml PO PRN AFTMEALHC PRN Trazodone Hcl 50 Mg Tablet 50 Mg PO PRN QHS PRN Risperdal (Risperidone) 0.25 Mg Tablet 0.25 Mg PO BID Multiple Vitamins For Women (Multivit With Calcium,Iron,Min) 1 Each Tablet 1 Tab PO DAILY Duloxetine Hcl 60 Mg Capsule.dr 60 Mg PO DAILY Acetaminophen 325 Mg Tablet 650 Mg PO BID Metoprolol Tartrate 25 Mg Tablet 25 Mg PO BID Vistaril (Hydroxyzine Pamoate) 25 Mg Capsule 50 Mg PO PRN Q4HRS PRN max dose: 200mg/24hrs Tums (Calcium Carbonate) 300 Mg Tab.chew 500 Mg PO PRN Q2HR PRN Daliresp (Roflumilast) 500 Mcg Tablet 500 Mcg PO DAILY Prednisone 20 Mg Tablet 10 Mg PO DAILY Duoneb 0.5-3(2.5) Mg/3 Ml (Albuterol/Ipratropium) 3 Ml Ampul.neb 3 Ml NEB Q4HRS PRN Vitamin D3 (Cholecalciferol (Vitamin D3)) 1,000 Unit Tablet 2,000 Unit PO DAILY Aspirin Ec (Aspirin) 325 Mg Tablet.dr 325 Mg PO DAILY Tylenol (Acetaminophen) 325 Mg Tablet 650 Mg PO Q6HRS PRN Diagnosis: Problems: (1) Suicidal thoughts (2) Anxiety disorder (3) Dementia in Alzheimer's disease with delusions (4) Dementia in Alzheimer's disease with depression (5) Dementia, vascular, with delusions (6) Dementia, vascular, with depression (7) Impulse control disorder (8) Major depressive disorder, recurrent episode EDWARDO DOWD MD Jul 17, 2016 20:48
[2016-07-18] MEDS: LEVOTHYROXINE 75 MCG TABLET PO SCH (05:50)
[2016-07-18 06:48] VITALS: BP 181/99
[2016-07-18] MEDS: ACETAMINOPHEN 325 MG TABLET PO SCH ×2 (10:22→20:47)
[2016-07-18] MEDS: risperiDONE 0.25 MG TABLET. PO SCH ×2 (10:22→20:47)
[2016-07-18] MEDS: DULOXETINE HCL 60 MG CAPSULE.DR. PO SCH (10:22)
[2016-07-18] MEDS: PREDNISONE 10 MG TABLET PO SCH (10:22)
[2016-07-18] MEDS: METOPROLOL TART IMMED RELEASE 25 MG TABLET PO SCH ×2 (10:23→20:47)
[2016-07-18] MEDS: MULTIVITAMIN with MINERAL TABLET. PO SCH (10:23)
[2016-07-18] MEDS: HYDRALAZINE 10 MG TABLET PO SCH ×3 (10:23→20:47)
[2016-07-18] MEDS: CHOLECALCIFEROL (VITAMIN D3) 1,000 UNIT TABLET PO SCH (10:23)
[2016-07-18] MEDS: ASPIRIN ENTERIC COATED 325 MG TABLET.DR. PO SCH (10:24)
[2016-07-18] MEDS: ROFLUMILAST 500 MCG TABLET PO SCH (10:26)
[2016-07-18] MEDS: ALBUTEROL SULFATE 2.5 MG/0.5 ML NEBU. NEB PRN (11:09)
[2016-07-18 14:36] VITALS: BP 160/82
[2016-07-18 16:54] VITALS: BP 158/73
--- NOTE | 2016-07-18 21:14 | PDOC ---
Exam Luis Alfredo Demential Exam: Luis Alfredo Note: Please also refer to the separate dictated note~for this date of service dictated separately.~Patient seen individually. Discussed the patient with Nursing staff reviewed the chart.~Reviewed interim history and current functioning. Reviewed vital signs,~Labs/ Radiology~and current medications noted below. Continue current treatment with the changes noted in the dictated addendum note Assessment: Vital Signs: Vital Signs Date Time Temp Pulse Resp B/P Pulse Ox O2 Delivery O2 Flow Rate FiO2 07/18/16 20:47 80 158/73 07/18/16 16:54 97.4 22 100 3.0 07/18/16 11:09 Nasal Cannula I&O Intake and Output 07/18/16 07:00 Intake Total 1080 ml Balance 1080 ml Intake Oral 1080 ml Current Medications: Meds: Current Medications Duloxetine HCl (Cymbalta) 60 mg DAILY PO Last administered on 07/18/16 10:22; Start 07/17/16 at 09:00 Hydroxyzine Pamoate (Vistaril) 50 mg PRN Q4HRS PRN PO ANXIETY; Start 07/16/16 at 19:30 Risperidone (Risperdal) 0.25 mg BID PO Last administered on 07/18/16 20:47; Start 07/16/16 at 21:00 Trazodone HCl (Desyrel) 50 mg PRN QHS PRN PO INSOMNIA, MAY REPEAT X1; Start 07/16/16 at 19:30 Acetaminophen (Tylenol) 650 mg BID PO Last administered on 07/18/16 20:47; Start 07/16/16 at 21:00 Acetaminophen (Tylenol) 650 mg PRN Q6HRS PRN PO pain, temperature; Start at 19:30 Aspirin (Aspirin Enteric Coated) 325 mg DAILY PO Last administered on 07/18/16 10:24; Start 07/17/16 at 09:00 Vitamin D (Vitamin D3) 2,000 unit DAILY PO Last administered on 07/18/16 10:23 ; Start 07/17/16 at 09:00 Hydralazine HCl (Apresoline) 10 mg TID PO Last administered on 07/18/16 20:47; Start 07/16/16 at 21:00 Albuterol Sulfate (Ventolin) 2.5 mg PRN Q4HRS PRN NEB SHORTNESS OF BREATH Last administered on 07/18/16 11:09; Start 07/16/16 at 19:30 Levothyroxine Sodium (Synthroid) 75 mcg DAILY06 PO Last administered on 05:50; Start 07/17/16 at 06:00 Magnesium Hydroxide (Milk Of Magnesia) 2,400 mg PRN QHS PRN PO CONSTIPATION; Start 07/16/16 at 19:30 Multi-Ingredient Ointment (Analgesic [place]) 1 mart PRN QID PRN TP MUSCLE PAIN; Start 07/16/16 at 19:30 Metoprolol Tartrate (Lopressor) 25 mg BID PO Last administered on 07/18/16 20: 47; Start 07/16/16 at 21:00 Prednisone (Prednisone) 10 mg DAILY PO Last administered on 07/18/16 10:22; Start 07/17/16 at 09:00 Calcium Carbonate/ Glycine (Tums) 500 mg PRN Q2HR PRN PO INDIGESTION; Start 07/16/16 at 19:45 Al Hydroxide/Mg Hydroxide (Mylanta Plus Xs) 30 ml PRN AFTMEALHC PRN PO DYSPEPSIA; Start 07/16/16 at 19:45 Multivitamins/ Calcium (Thera-M Plus) 1 tab DAILY PO Last administered on 10:23; Start 07/17/16 at 09:00 Active Scripts Active Reported Levothyroxine Sodium 75 Mcg Tablet 75 Mcg PO DAILY06 Hydralazine Hcl 10 Mg Tablet 10 Mg PO TID Analgesic [place] (Methyl Salicylate/Menthol) 29 Gm Oint...g. 1 Mart TP PRN QID PRN Milk Of Magnesia (Magnesium Hydroxide) 400 Mg/5 Ml Oral.susp 2,400 Mg PO PRN QHS PRN Mag-Al Plus Suspension (Mag Hydrox/Al Hydrox/Simeth) 30 Ml Oral.susp 15 Ml PO PRN AFTMEALHC PRN Trazodone Hcl 50 Mg Tablet 50 Mg PO PRN QHS PRN Risperdal (Risperidone) 0.25 Mg Tablet 0.25 Mg PO BID Multiple Vitamins For Women (Multivit With Calcium,Iron,Min) 1 Each Tablet 1 Tab PO DAILY Duloxetine Hcl 60 Mg Capsule.dr 60 Mg PO DAILY Acetaminophen 325 Mg Tablet 650 Mg PO BID Metoprolol Tartrate 25 Mg Tablet 25 Mg PO BID Vistaril (Hydroxyzine Pamoate) 25 Mg Capsule 50 Mg PO PRN Q4HRS PRN max dose: 200mg/24hrs Tums (Calcium Carbonate) 300 Mg Tab.chew 500 Mg PO PRN Q2HR PRN Daliresp (Roflumilast) 500 Mcg Tablet 500 Mcg PO DAILY Prednisone 20 Mg Tablet 10 Mg PO DAILY Duoneb 0.5-3(2.5) Mg/3 Ml (Albuterol/Ipratropium) 3 Ml Ampul.neb 3 Ml NEB Q4HRS PRN Vitamin D3 (Cholecalciferol (Vitamin D3)) 1,000 Unit Tablet 2,000 Unit PO DAILY Aspirin Ec (Aspirin) 325 Mg Tablet.dr 325 Mg PO DAILY Tylenol (Acetaminophen) 325 Mg Tablet 650 Mg PO Q6HRS PRN Diagnosis: Problems: (1) Suicidal thoughts (2) Anxiety disorder (3) Dementia in Alzheimer's disease with delusions (4) Dementia in Alzheimer's disease with depression (5) Dementia, vascular, with delusions (6) Dementia, vascular, with depression (7) Impulse control disorder (8) Major depressive disorder, recurrent episode EDWARDO DOWD MD Jul 18, 2016 21:14
--- NOTE | 2016-07-19 00:08 | PN ---
DATE: 07/17/2016 Covers elements not covered in my initial note. SUBJECTIVE: Overall, the patient has been cooperative on the unit, not aggressive, no psychotic symptoms, suicidal or homicidal ideation noted. REVIEW OF SYSTEMS: Shortness of breath on O2 supplements, impaired ambulation, but she was making her bed ready for bedtime as I met with her in her room. MENTAL STATUS EXAM: Reasonably oriented. Speech coherent, abstraction fair, computation impaired, language function intact. Mood and affect shows improvement. LABORATORY DATA: Reviewed. IMPRESSION: Major depressive disorder with psychotic features, bipolar 1, depressed with psychotic features in partial remission, rest unchanged. PLAN: Continue current psychotropics, Risperdal 0.25 b.i.d., Cymbalta 60 mg a day, trazodone p.r.n., hydroxyzine p.r.n. Adjust as clinically indicated. MAN Torres DOWD MD DR: TENISHA/alisa JOB#: [id number] / [id number]
[2016-07-19] MEDS: LEVOTHYROXINE 75 MCG TABLET PO SCH (05:35)
[2016-07-19 06:00] VITALS: BP 160/90
[2016-07-19] MEDS: ROFLUMILAST 500 MCG TABLET PO SCH (08:44)
[2016-07-19] MEDS: DULOXETINE HCL 60 MG CAPSULE.DR. PO SCH (08:44)
[2016-07-19] MEDS: MULTIVITAMIN with MINERAL TABLET. PO SCH (08:44)
[2016-07-19] MEDS: ACETAMINOPHEN 325 MG TABLET PO SCH ×2 (08:44→19:18)
[2016-07-19] MEDS: ASPIRIN ENTERIC COATED 325 MG TABLET.DR. PO SCH (08:45)
[2016-07-19] MEDS: PREDNISONE 10 MG TABLET PO SCH (08:45)
[2016-07-19] MEDS: CHOLECALCIFEROL (VITAMIN D3) 1,000 UNIT TABLET PO SCH (08:45)
[2016-07-19] MEDS: METOPROLOL TART IMMED RELEASE 25 MG TABLET PO SCH ×2 (08:45→19:18)
[2016-07-19] MEDS: risperiDONE 0.25 MG TABLET. PO SCH ×2 (08:45→19:18)
[2016-07-19] MEDS: HYDRALAZINE 10 MG TABLET PO SCH ×3 (08:45→19:19)
--- NOTE | 2016-07-19 11:12 | RAD ---
Abdomen radiograph History: Abdominal pain. Comparison: None. Findings: AP supine abdomen radiograph. Bowel gas pattern is nonspecific, without evidence of obstruction. Moderate colonic stool is present. Dextroconvex degenerative scoliosis of the lumbar spine is seen. Impression: Nonspecific bowel gas pattern.
[2016-07-19 14:32] VITALS: BP 184/93
[2016-07-19 16:23] VITALS: BP 150/78
[2016-07-19] MEDS ORDERED: SENNOSIDES 8.6 MG TABLET PO PRN (18:45)
--- NOTE | 2016-07-19 21:11 | PDOC ---
Exam Luis Alfredo Demential Exam: Luis Alfredo Note: Please also refer to the separate dictated note~for this date of service dictated separately.~Patient seen individually. Discussed the patient with Nursing staff reviewed the chart.~Reviewed interim history and current functioning. Reviewed vital signs,~Labs/ Radiology~and current medications noted below. Continue current treatment with the changes noted in the dictated addendum note Assessment: Vital Signs: Vital Signs Date Time Temp Pulse Resp B/P Pulse Ox O2 Delivery O2 Flow Rate FiO2 07/19/16 19:19 78 150/78 07/19/16 16:23 98.1 18 100 07/19/16 14:32 Nasal Cannula 3.0 I&O Intake and Output 07/19/16 07:00 Intake Total 1040 ml Balance 1040 ml Intake Oral 1040 ml # Voids 1 Current Medications: Meds: Current Medications Duloxetine HCl (Cymbalta) 60 mg DAILY PO Last administered on 07/19/16 08:44; Start 07/17/16 at 09:00 Hydroxyzine Pamoate (Vistaril) 50 mg PRN Q4HRS PRN PO ANXIETY; Start 07/16/16 at 19:30 Risperidone (Risperdal) 0.25 mg BID PO Last administered on 07/19/16 19:18; Start 07/16/16 at 21:00 Trazodone HCl (Desyrel) 50 mg PRN QHS PRN PO INSOMNIA, MAY REPEAT X1; Start 07/16/16 at 19:30 Acetaminophen (Tylenol) 650 mg BID PO Last administered on 07/19/16 19:18; Start 07/16/16 at 21:00 Acetaminophen (Tylenol) 650 mg PRN Q6HRS PRN PO pain, temperature; Start at 19:30 Aspirin (Aspirin Enteric Coated) 325 mg DAILY PO Last administered on 07/19/16 08:45; Start 07/17/16 at 09:00 Vitamin D (Vitamin D3) 2,000 unit DAILY PO Last administered on 07/19/16 08:45 ; Start 07/17/16 at 09:00 Hydralazine HCl (Apresoline) 10 mg TID PO Last administered on 07/19/16 19:19; Start 07/16/16 at 21:00 Albuterol Sulfate (Ventolin) 2.5 mg PRN Q4HRS PRN NEB SHORTNESS OF BREATH Last administered on 07/18/16 11:09; Start 07/16/16 at 19:30 Levothyroxine Sodium (Synthroid) 75 mcg DAILY06 PO Last administered on 05:35; Start 07/17/16 at 06:00 Magnesium Hydroxide (Milk Of Magnesia) 2,400 mg PRN QHS PRN PO CONSTIPATION; Start 07/16/16 at 19:30 Multi-Ingredient Ointment (Analgesic [place]) 1 mart PRN QID PRN TP MUSCLE PAIN; Start 07/16/16 at 19:30 Metoprolol Tartrate (Lopressor) 25 mg BID PO Last administered on 07/19/16 19: 18; Start 07/16/16 at 21:00 Prednisone (Prednisone) 10 mg DAILY PO Last administered on 07/19/16 08:45; Start 07/17/16 at 09:00 Calcium Carbonate/ Glycine (Tums) 500 mg PRN Q2HR PRN PO INDIGESTION Last administered on 07/19/16 08:48; Start 07/16/16 at 19:45 Al Hydroxide/Mg Hydroxide (Mylanta Plus Xs) 30 ml PRN AFTMEALHC PRN PO DYSPEPSIA Last administered on 07/19/16 12:28; Start 07/16/16 at 19:45 Multivitamins/ Calcium (Thera-M Plus) 1 tab DAILY PO Last administered on 08:44; Start 07/17/16 at 09:00 Sennosides (Senna) 8.6 mg PRN BID PRN PO CONSTIPATION; Start 07/19/16 at 18:45 Docusate Calcium (Surfak) 240 mg DAILY PO ; Start 07/20/16 at 09:00 Active Scripts Active Reported Levothyroxine Sodium 75 Mcg Tablet 75 Mcg PO DAILY06 Hydralazine Hcl 10 Mg Tablet 10 Mg PO TID Analgesic [place] (Methyl Salicylate/Menthol) 29 Gm Oint...g. 1 Mart TP PRN QID PRN Milk Of Magnesia (Magnesium Hydroxide) 400 Mg/5 Ml Oral.susp 2,400 Mg PO PRN QHS PRN Mag-Al Plus Suspension (Mag Hydrox/Al Hydrox/Simeth) 30 Ml Oral.susp 15 Ml PO PRN AFTMEALHC PRN Trazodone Hcl 50 Mg Tablet 50 Mg PO PRN QHS PRN Risperdal (Risperidone) 0.25 Mg Tablet 0.25 Mg PO BID Multiple Vitamins For Women (Multivit With Calcium,Iron,Min) 1 Each Tablet 1 Tab PO DAILY Duloxetine Hcl 60 Mg Capsule.dr 60 Mg PO DAILY Acetaminophen 325 Mg Tablet 650 Mg PO BID Metoprolol Tartrate 25 Mg Tablet 25 Mg PO BID Vistaril (Hydroxyzine Pamoate) 25 Mg Capsule 50 Mg PO PRN Q4HRS PRN max dose: 200mg/24hrs Tums (Calcium Carbonate) 300 Mg Tab.chew 500 Mg PO PRN Q2HR PRN Daliresp (Roflumilast) 500 Mcg Tablet 500 Mcg PO DAILY Prednisone 20 Mg Tablet 10 Mg PO DAILY Duoneb 0.5-3(2.5) Mg/3 Ml (Albuterol/Ipratropium) 3 Ml Ampul.neb 3 Ml NEB Q4HRS PRN Vitamin D3 (Cholecalciferol (Vitamin D3)) 1,000 Unit Tablet 2,000 Unit PO DAILY Aspirin Ec (Aspirin) 325 Mg Tablet.dr 325 Mg PO DAILY Tylenol (Acetaminophen) 325 Mg Tablet 650 Mg PO Q6HRS PRN Diagnosis: Problems: (1) Suicidal thoughts (2) Anxiety disorder (3) Dementia in Alzheimer's disease with delusions (4) Dementia in Alzheimer's disease with depression (5) Dementia, vascular, with delusions (6) Dementia, vascular, with depression (7) Impulse control disorder (8) Major depressive disorder, recurrent episode EDWARDO DOWD MD Jul 19, 2016 21:11
--- NOTE | 2016-07-20 03:31 | PN ---
DATE: 07/18/2016 This is a late entry for 07/18/2016 and covers elements not covered in my initial note. Per nursing report, the patient has been fairly cooperative, compliant with her meal, gets back to her room in between mealtimes times, isolative at times. No CV, , pulmonary, eye system symptoms on review. She has some shortness of breath, on O2 supplement. Ambulation impaired, in a wheelchair. MENTAL STATUS EXAM: Reasonably oriented. Speech coherent, abstraction fair, computation impaired, language function intact. Mood and affect despite the above is improved. LABORATORY DATA: Reviewed. IMPRESSION: Unchanged from initial note. PLAN: Continue current psychotropics. Adjust as clinically indicated. EDWARDO DOWD MD DR: TENISHA/alisa JOB#: [id number] / [id number]
[2016-07-20 05:27] VITALS: BP 155/87
[2016-07-20] MEDS: LEVOTHYROXINE 75 MCG TABLET PO SCH (05:41)
[2016-07-20] MEDS: DULOXETINE HCL 60 MG CAPSULE.DR. PO SCH (09:56)
[2016-07-20] MEDS: PREDNISONE 10 MG TABLET PO SCH (09:56)
[2016-07-20] MEDS: ACETAMINOPHEN 325 MG TABLET PO SCH ×2 (09:57→20:24)
[2016-07-20] MEDS: ASPIRIN ENTERIC COATED 325 MG TABLET.DR. PO SCH (09:57)
[2016-07-20] MEDS: ROFLUMILAST 500 MCG TABLET PO SCH (09:57)
[2016-07-20] MEDS: CHOLECALCIFEROL (VITAMIN D3) 1,000 UNIT TABLET PO SCH (09:57)
[2016-07-20] MEDS: HYDRALAZINE 10 MG TABLET PO SCH ×3 (09:57→20:24)
[2016-07-20] MEDS: MULTIVITAMIN with MINERAL TABLET. PO SCH (09:57)
[2016-07-20] MEDS: METOPROLOL TART IMMED RELEASE 25 MG TABLET PO SCH ×2 (09:57→20:24)
[2016-07-20] MEDS: risperiDONE 0.25 MG TABLET. PO SCH ×2 (09:58→20:24)
[2016-07-20] MEDS: DOCUSATE CALCIUM 240 MG CAPSULE PO SCH (09:59)
[2016-07-20 12:59] VITALS: BP 147/71
[2016-07-20 16:31] VITALS: BP 149/68
--- NOTE | 2016-07-20 21:13 | PDOC ---
Exam Luis Alfredo Demential Exam: Luis Alfredo Note: Please also refer to the separate dictated note~for this date of service dictated separately.~Patient seen individually. Discussed the patient with Nursing staff reviewed the chart.~Reviewed interim history and current functioning. Reviewed vital signs,~Labs/ Radiology~and current medications noted below. Continue current treatment with the changes noted in the dictated addendum note Assessment: Vital Signs: Vital Signs Date Time Temp Pulse Resp B/P Pulse Ox O2 Delivery O2 Flow Rate FiO2 07/20/16 20:24 87 149/68 07/20/16 16:31 98.6 20 98 07/20/16 05:27 3.0 07/19/16 14:32 Nasal Cannula I&O Intake and Output 07/20/16 07:00 Intake Total 940 ml Balance 940 ml Intake Oral 940 ml # Voids 2 # Bowel Movements 2 Current Medications: Meds: Current Medications Duloxetine HCl (Cymbalta) 60 mg DAILY PO Last administered on 07/20/16 09:56; Start 07/17/16 at 09:00 Hydroxyzine Pamoate (Vistaril) 50 mg PRN Q4HRS PRN PO ANXIETY; Start 07/16/16 at 19:30 Risperidone (Risperdal) 0.25 mg BID PO Last administered on 07/20/16 20:24; Start 07/16/16 at 21:00 Trazodone HCl (Desyrel) 50 mg PRN QHS PRN PO INSOMNIA, MAY REPEAT X1; Start 07/16/16 at 19:30 Acetaminophen (Tylenol) 650 mg BID PO Last administered on 07/20/16 20:24; Start 07/16/16 at 21:00 Acetaminophen (Tylenol) 650 mg PRN Q6HRS PRN PO pain, temperature; Start at 19:30 Aspirin (Aspirin Enteric Coated) 325 mg DAILY PO Last administered on 07/20/16 09:57; Start 07/17/16 at 09:00 Vitamin D (Vitamin D3) 2,000 unit DAILY PO Last administered on 07/20/16 09:57 ; Start 07/17/16 at 09:00 Hydralazine HCl (Apresoline) 10 mg TID PO Last administered on 07/20/16 20:24; Start 07/16/16 at 21:00 Albuterol Sulfate (Ventolin) 2.5 mg PRN Q4HRS PRN NEB SHORTNESS OF BREATH Last administered on 07/18/16 11:09; Start 07/16/16 at 19:30 Levothyroxine Sodium (Synthroid) 75 mcg DAILY06 PO Last administered on 05:41; Start 07/17/16 at 06:00 Magnesium Hydroxide (Milk Of Magnesia) 2,400 mg PRN QHS PRN PO CONSTIPATION; Start 07/16/16 at 19:30 Multi-Ingredient Ointment (Analgesic [place]) 1 mart PRN QID PRN TP MUSCLE PAIN; Start 07/16/16 at 19:30 Metoprolol Tartrate (Lopressor) 25 mg BID PO Last administered on 07/20/16 20: 24; Start 07/16/16 at 21:00 Prednisone (Prednisone) 10 mg DAILY PO Last administered on 07/20/16 09:56; Start 07/17/16 at 09:00 Calcium Carbonate/ Glycine (Tums) 500 mg PRN Q2HR PRN PO INDIGESTION Last administered on 07/19/16 08:48; Start 07/16/16 at 19:45 Al Hydroxide/Mg Hydroxide (Mylanta Plus Xs) 30 ml PRN AFTMEALHC PRN PO DYSPEPSIA Last administered on 07/19/16 12:28; Start 07/16/16 at 19:45 Multivitamins/ Calcium (Thera-M Plus) 1 tab DAILY PO Last administered on 09:57; Start 07/17/16 at 09:00 Sennosides (Senna) 8.6 mg PRN BID PRN PO CONSTIPATION; Start 07/19/16 at 18:45 Docusate Calcium (Surfak) 240 mg DAILY PO Last administered on 07/20/16 09:59; Start 07/20/16 at 09:00 Active Scripts Active Reported Levothyroxine Sodium 75 Mcg Tablet 75 Mcg PO DAILY06 Hydralazine Hcl 10 Mg Tablet 10 Mg PO TID Analgesic [place] (Methyl Salicylate/Menthol) 29 Gm Oint...g. 1 Mart TP PRN QID PRN Milk Of Magnesia (Magnesium Hydroxide) 400 Mg/5 Ml Oral.susp 2,400 Mg PO PRN QHS PRN Mag-Al Plus Suspension (Mag Hydrox/Al Hydrox/Simeth) 30 Ml Oral.susp 15 Ml PO PRN AFTMEALHC PRN Trazodone Hcl 50 Mg Tablet 50 Mg PO PRN QHS PRN Risperdal (Risperidone) 0.25 Mg Tablet 0.25 Mg PO BID Multiple Vitamins For Women (Multivit With Calcium,Iron,Min) 1 Each Tablet 1 Tab PO DAILY Duloxetine Hcl 60 Mg Capsule.dr 60 Mg PO DAILY Acetaminophen 325 Mg Tablet 650 Mg PO BID Metoprolol Tartrate 25 Mg Tablet 25 Mg PO BID Vistaril (Hydroxyzine Pamoate) 25 Mg Capsule 50 Mg PO PRN Q4HRS PRN max dose: 200mg/24hrs Tums (Calcium Carbonate) 300 Mg Tab.chew 500 Mg PO PRN Q2HR PRN Daliresp (Roflumilast) 500 Mcg Tablet 500 Mcg PO DAILY Prednisone 20 Mg Tablet 10 Mg PO DAILY Duoneb 0.5-3(2.5) Mg/3 Ml (Albuterol/Ipratropium) 3 Ml Ampul.neb 3 Ml NEB Q4HRS PRN Vitamin D3 (Cholecalciferol (Vitamin D3)) 1,000 Unit Tablet 2,000 Unit PO DAILY Aspirin Ec (Aspirin) 325 Mg Tablet.dr 325 Mg PO DAILY Tylenol (Acetaminophen) 325 Mg Tablet 650 Mg PO Q6HRS PRN Diagnosis: Problems: (1) Suicidal thoughts (2) Anxiety disorder (3) Dementia in Alzheimer's disease with delusions (4) Dementia in Alzheimer's disease with depression (5) Dementia, vascular, with delusions (6) Dementia, vascular, with depression (7) Impulse control disorder (8) Major depressive disorder, recurrent episode EDWARDO DOWD MD Jul 20, 2016 21:13
--- NOTE | 2016-07-21 00:24 | PN ---
DATE: 07/19/2016 This late entry for 07/19/2016 covers elements not covered in my initial note. SUBJECTIVE: I met with the patient at length in her room. She had some GI pain, was constipated. KUB confirmed the constipation. She is being treated symptomatically. We will add Senna, Surfak and milk of magnesia. REVIEW OF SYSTEMS: Positive for constipation, shortness of breath, on O2 supplements, impaired ambulation in her wheelchair. No CV, , eye system symptoms on review. MENTAL STATUS EXAM: Reasonably oriented. Speech coherent, talked at length about discharge plans. No suicidal or homicidal ideation. No clear psychotic symptoms. Attention span short. Mood and affect is improved. LABORATORY DATA: Reviewed. IMPRESSION: Unchanged from ____ initial note, major depressive disorder with psychotic features in partial remission; anxiety disorder, unspecified; impulse control disorder, unspecified. PLAN: Maintain Cymbalta 60 mg a day, Risperdal 0.25 mg b.i.d., trazodone p.r.n., hydroxyzine p.r.n. EDWARDO DOWD MD DR: TENISHA/alisa JOB#: [id number] / [id number]
[2016-07-21 05:11] VITALS: BP 176/89
[2016-07-21] MEDS: LEVOTHYROXINE 75 MCG TABLET PO SCH (05:40)
[2016-07-21] MEDS: DOCUSATE CALCIUM 240 MG CAPSULE PO SCH (08:58)
[2016-07-21] MEDS: ASPIRIN ENTERIC COATED 325 MG TABLET.DR. PO SCH (08:58)
[2016-07-21] MEDS: risperiDONE 0.25 MG TABLET. PO SCH ×2 (08:58→19:27)
[2016-07-21] MEDS: MULTIVITAMIN with MINERAL TABLET. PO SCH (08:59)
[2016-07-21] MEDS: HYDRALAZINE 10 MG TABLET PO SCH ×3 (08:59→19:27)
[2016-07-21] MEDS: ACETAMINOPHEN 325 MG TABLET PO SCH ×2 (08:59→19:27)
[2016-07-21] MEDS: CHOLECALCIFEROL (VITAMIN D3) 1,000 UNIT TABLET PO SCH (08:59)
[2016-07-21] MEDS: METOPROLOL TART IMMED RELEASE 25 MG TABLET PO SCH ×2 (09:00→19:27)
[2016-07-21] MEDS: PREDNISONE 10 MG TABLET PO SCH (09:01)
[2016-07-21] MEDS: DULOXETINE HCL 60 MG CAPSULE.DR. PO SCH (09:01)
[2016-07-21] MEDS: ROFLUMILAST 500 MCG TABLET PO SCH (09:01)
[2016-07-21] MEDS: ALBUTEROL SULFATE 2.5 MG/0.5 ML NEBU. NEB PRN (10:57)
[2016-07-21 13:50] VITALS: BP 178/84
[2016-07-21 15:51] VITALS: BP 152/75
[2016-07-21] MEDS ORDERED: BISACODYL 10 MG SUPP.RECT PR PRN (18:45)
[2016-07-21] MEDS: IPRATRPIUM/ALBUTEROL 0.5/2.5MG 3 ML NEBU. NEB SCH (20:00)
--- NOTE | 2016-07-21 21:25 | PDOC ---
Exam Luis Alfredo Demential Exam: Luis Alfredo Note: Please also refer to the separate dictated note~for this date of service dictated separately.~Patient seen individually. Discussed the patient with Nursing staff reviewed the chart.~Reviewed interim history and current functioning. Reviewed vital signs,~Labs/ Radiology~and current medications noted below. Continue current treatment with the changes noted in the dictated addendum note Assessment: Vital Signs: Vital Signs Date Time Temp Pulse Resp B/P Pulse Ox O2 Delivery O2 Flow Rate FiO2 07/21/16 19:27 95 152/75 07/21/16 15:51 97.5 20 97 3.0 07/21/16 11:00 Nasal Cannula I&O Intake and Output 07/21/16 07:00 Intake Total 1060 ml Balance 1060 ml Intake Oral 1060 ml Current Medications: Meds: Current Medications Duloxetine HCl (Cymbalta) 60 mg DAILY PO Last administered on 07/21/16 09:01; Start 07/17/16 at 09:00 Hydroxyzine Pamoate (Vistaril) 50 mg PRN Q4HRS PRN PO ANXIETY; Start 07/16/16 at 19:30 Risperidone (Risperdal) 0.25 mg BID PO Last administered on 07/21/16 19:27; Start 07/16/16 at 21:00 Trazodone HCl (Desyrel) 50 mg PRN QHS PRN PO INSOMNIA, MAY REPEAT X1; Start 07/16/16 at 19:30 Acetaminophen (Tylenol) 650 mg BID PO Last administered on 07/21/16 19:27; Start 07/16/16 at 21:00 Acetaminophen (Tylenol) 650 mg PRN Q6HRS PRN PO pain, temperature; Start at 19:30 Aspirin (Aspirin Enteric Coated) 325 mg DAILY PO Last administered on 07/21/16 08:58; Start 07/17/16 at 09:00 Vitamin D (Vitamin D3) 2,000 unit DAILY PO Last administered on 07/21/16 08:59 ; Start 07/17/16 at 09:00 Hydralazine HCl (Apresoline) 10 mg TID PO Last administered on 07/21/16 19:27; Start 07/16/16 at 21:00 Albuterol Sulfate (Ventolin) 2.5 mg PRN Q4HRS PRN NEB SHORTNESS OF BREATH Last administered on 07/21/16 10:57; Start 07/16/16 at 19:30 Levothyroxine Sodium (Synthroid) 75 mcg DAILY06 PO Last administered on 05:40; Start 07/17/16 at 06:00 Magnesium Hydroxide (Milk Of Magnesia) 2,400 mg PRN QHS PRN PO CONSTIPATION Last administered on 07/21/16 16:44; Start 07/16/16 at 19:30 Multi-Ingredient Ointment (Analgesic [place]) 1 mart PRN QID PRN TP MUSCLE PAIN; Start 07/16/16 at 19:30 Metoprolol Tartrate (Lopressor) 25 mg BID PO Last administered on 07/21/16 19: 27; Start 07/16/16 at 21:00 Prednisone (Prednisone) 10 mg DAILY PO Last administered on 07/21/16 09:01; Start 07/17/16 at 09:00 Calcium Carbonate/ Glycine (Tums) 500 mg PRN Q2HR PRN PO INDIGESTION Last administered on 07/19/16 08:48; Start 07/16/16 at 19:45 Al Hydroxide/Mg Hydroxide (Mylanta Plus Xs) 30 ml PRN AFTMEALHC PRN PO DYSPEPSIA Last administered on 07/19/16 12:28; Start 07/16/16 at 19:45 Multivitamins/ Calcium (Thera-M Plus) 1 tab DAILY PO Last administered on 08:59; Start 07/17/16 at 09:00 Sennosides (Senna) 8.6 mg PRN BID PRN PO CONSTIPATION; Start 07/19/16 at 18:45 Docusate Calcium (Surfak) 240 mg DAILY PO Last administered on 07/21/16 08:58; Start 07/20/16 at 09:00 Albuterol/ Ipratropium (Duoneb) 3 ml RTBID NEB ; Start 07/21/16 at 20:00 Bisacodyl (Dulcolax Supp) 10 mg PRN DAILY PRN [place] CONSTIPATION; Start 07/21/16 at 18:45 Active Scripts Active Reported Levothyroxine Sodium 75 Mcg Tablet 75 Mcg PO DAILY06 Hydralazine Hcl 10 Mg Tablet 10 Mg PO TID Analgesic [place] (Methyl Salicylate/Menthol) 29 Gm Oint...g. 1 Mart TP PRN QID PRN Milk Of Magnesia (Magnesium Hydroxide) 400 Mg/5 Ml Oral.susp 2,400 Mg PO PRN QHS PRN Mag-Al Plus Suspension (Mag Hydrox/Al Hydrox/Simeth) 30 Ml Oral.susp 15 Ml PO PRN AFTMEALHC PRN Trazodone Hcl 50 Mg Tablet 50 Mg PO PRN QHS PRN Risperdal (Risperidone) 0.25 Mg Tablet 0.25 Mg PO BID Multiple Vitamins For Women (Multivit With Calcium,Iron,Min) 1 Each Tablet 1 Tab PO DAILY Duloxetine Hcl 60 Mg Capsule.dr 60 Mg PO DAILY Acetaminophen 325 Mg Tablet 650 Mg PO BID Metoprolol Tartrate 25 Mg Tablet 25 Mg PO BID Vistaril (Hydroxyzine Pamoate) 25 Mg Capsule 50 Mg PO PRN Q4HRS PRN max dose: 200mg/24hrs Tums (Calcium Carbonate) 300 Mg Tab.chew 500 Mg PO PRN Q2HR PRN Daliresp (Roflumilast) 500 Mcg Tablet 500 Mcg PO DAILY Prednisone 20 Mg Tablet 10 Mg PO DAILY Duoneb 0.5-3(2.5) Mg/3 Ml (Albuterol/Ipratropium) 3 Ml Ampul.neb 3 Ml NEB Q4HRS PRN Vitamin D3 (Cholecalciferol (Vitamin D3)) 1,000 Unit Tablet 2,000 Unit PO DAILY Aspirin Ec (Aspirin) 325 Mg Tablet.dr 325 Mg PO DAILY Tylenol (Acetaminophen) 325 Mg Tablet 650 Mg PO Q6HRS PRN Diagnosis: Problems: (1) Suicidal thoughts (2) Anxiety disorder (3) Dementia in Alzheimer's disease with delusions (4) Dementia in Alzheimer's disease with depression (5) Dementia, vascular, with delusions (6) Dementia, vascular, with depression (7) Impulse control disorder (8) Major depressive disorder, recurrent episode EDWARDO DOWD MD Jul 21, 2016 21:25
[2016-07-22] MEDS: LEVOTHYROXINE 75 MCG TABLET PO SCH (05:24)
[2016-07-22 06:02] VITALS: BP 149/81
[2016-07-22] MEDS: METOPROLOL TART IMMED RELEASE 25 MG TABLET PO SCH ×2 (08:53→19:19)
[2016-07-22] MEDS: DOCUSATE CALCIUM 240 MG CAPSULE PO SCH (08:53)
[2016-07-22] MEDS: ROFLUMILAST 500 MCG TABLET PO SCH (08:53)
[2016-07-22] MEDS: PREDNISONE 10 MG TABLET PO SCH (08:53)
[2016-07-22] MEDS: DULOXETINE HCL 60 MG CAPSULE.DR. PO SCH (08:53)
[2016-07-22] MEDS: HYDRALAZINE 10 MG TABLET PO SCH ×3 (08:54→19:18)
[2016-07-22] MEDS: risperiDONE 0.25 MG TABLET. PO SCH ×2 (08:54→19:19)
[2016-07-22] MEDS: CHOLECALCIFEROL (VITAMIN D3) 1,000 UNIT TABLET PO SCH (08:54)
[2016-07-22] MEDS: ASPIRIN ENTERIC COATED 325 MG TABLET.DR. PO SCH (08:54)
[2016-07-22] MEDS: MULTIVITAMIN with MINERAL TABLET. PO SCH (08:55)
[2016-07-22] MEDS: ACETAMINOPHEN 325 MG TABLET PO SCH ×2 (08:55→19:20)
[2016-07-22] MEDS: IPRATRPIUM/ALBUTEROL 0.5/2.5MG 3 ML NEBU. NEB SCH ×2 (11:15→21:15)
[2016-07-22] MEDS ORDERED: POLYETHYLENE GLYCOL 3350 17 GM PACKET. PO ONE (11:45)
[2016-07-22 16:22] VITALS: BP 113/71
--- NOTE | 2016-07-22 21:18 | PDOC ---
Exam Luis Alfredo Demential Exam: Luis Alfredo Note: Please also refer to the separate dictated note~for this date of service dictated separately.~Patient seen individually. Discussed the patient with Nursing staff reviewed the chart.~Reviewed interim history and current functioning. Reviewed vital signs,~Labs/ Radiology~and current medications noted below. Continue current treatment with the changes noted in the dictated addendum note Assessment: Vital Signs: Vital Signs Date Time Temp Pulse Resp B/P Pulse Ox O2 Delivery O2 Flow Rate FiO2 07/22/16 19:19 64 113/71 07/22/16 16:22 98.9 22 98 Nasal Cannula 3.0 I&O Intake and Output 07/22/16 07:00 Intake Total 1180 ml Balance 1180 ml Intake Oral 1180 ml # Voids 1 # Bowel Movements 1 Current Medications: Meds: Current Medications Duloxetine HCl (Cymbalta) 60 mg DAILY PO Last administered on 07/22/16 08:53; Start 07/17/16 at 09:00 Hydroxyzine Pamoate (Vistaril) 50 mg PRN Q4HRS PRN PO ANXIETY Last administered on 07/22/16 15:39; Start 07/16/16 at 19:30 Risperidone (Risperdal) 0.25 mg BID PO Last administered on 07/22/16 19:19; Start 07/16/16 at 21:00 Trazodone HCl (Desyrel) 50 mg PRN QHS PRN PO INSOMNIA, MAY REPEAT X1; Start 07/16/16 at 19:30 Acetaminophen (Tylenol) 650 mg BID PO Last administered on 07/22/16 19:20; Start 07/16/16 at 21:00 Acetaminophen (Tylenol) 650 mg PRN Q6HRS PRN PO pain, temperature; Start at 19:30 Aspirin (Aspirin Enteric Coated) 325 mg DAILY PO Last administered on 07/22/16 08:54; Start 07/17/16 at 09:00 Vitamin D (Vitamin D3) 2,000 unit DAILY PO Last administered on 07/22/16 08:54 ; Start 07/17/16 at 09:00 Hydralazine HCl (Apresoline) 10 mg TID PO Last administered on 07/22/16 19:18; Start 07/16/16 at 21:00 Albuterol Sulfate (Ventolin) 2.5 mg PRN Q4HRS PRN NEB SHORTNESS OF BREATH Last administered on 07/21/16 10:57; Start 07/16/16 at 19:30 Levothyroxine Sodium (Synthroid) 75 mcg DAILY06 PO Last administered on 05:24; Start 07/17/16 at 06:00 Magnesium Hydroxide (Milk Of Magnesia) 2,400 mg PRN QHS PRN PO CONSTIPATION Last administered on 07/21/16 16:44; Start 07/16/16 at 19:30 Multi-Ingredient Ointment (Analgesic [place]) 1 mart PRN QID PRN TP MUSCLE PAIN; Start 07/16/16 at 19:30 Metoprolol Tartrate (Lopressor) 25 mg BID PO Last administered on 07/22/16 19: 19; Start 07/16/16 at 21:00 Prednisone (Prednisone) 10 mg DAILY PO Last administered on 07/22/16 08:53; Start 07/17/16 at 09:00 Calcium Carbonate/ Glycine (Tums) 500 mg PRN Q2HR PRN PO INDIGESTION Last administered on 07/19/16 08:48; Start 07/16/16 at 19:45 Al Hydroxide/Mg Hydroxide (Mylanta Plus Xs) 30 ml PRN AFTMEALHC PRN PO DYSPEPSIA Last administered on 07/19/16 12:28; Start 07/16/16 at 19:45 Multivitamins/ Calcium (Thera-M Plus) 1 tab DAILY PO Last administered on 08:55; Start 07/17/16 at 09:00 Sennosides (Senna) 8.6 mg PRN BID PRN PO CONSTIPATION; Start 07/19/16 at 18:45 Docusate Calcium (Surfak) 240 mg DAILY PO Last administered on 07/22/16 08:53; Start 07/20/16 at 09:00 Albuterol/ Ipratropium (Duoneb) 3 ml RTBID NEB Last administered on 07/22/16 11 :15; Start 07/21/16 at 20:00 Bisacodyl (Dulcolax Supp) 10 mg PRN DAILY PRN [place] CONSTIPATION; Start 07/21/16 at 18:45 Polyethylene Glycol (miraLAX) 17 gm 1X ONCE PO Last administered on 07/22/16t 11:31; Start 07/22/16 at 11:45; Stop 07/22/16 at 11:46; Status DC Active Scripts Active Reported Levothyroxine Sodium 75 Mcg Tablet 75 Mcg PO DAILY06 Hydralazine Hcl 10 Mg Tablet 10 Mg PO TID Analgesic [place] (Methyl Salicylate/Menthol) 29 Gm Oint...g. 1 Mart TP PRN QID PRN Milk Of Magnesia (Magnesium Hydroxide) 400 Mg/5 Ml Oral.susp 2,400 Mg PO PRN QHS PRN Mag-Al Plus Suspension (Mag Hydrox/Al Hydrox/Simeth) 30 Ml Oral.susp 15 Ml PO PRN AFTMEALHC PRN Trazodone Hcl 50 Mg Tablet 50 Mg PO PRN QHS PRN Risperdal (Risperidone) 0.25 Mg Tablet 0.25 Mg PO BID Multiple Vitamins For Women (Multivit With Calcium,Iron,Min) 1 Each Tablet 1 Tab PO DAILY Duloxetine Hcl 60 Mg Capsule.dr 60 Mg PO DAILY Acetaminophen 325 Mg Tablet 650 Mg PO BID Metoprolol Tartrate 25 Mg Tablet 25 Mg PO BID Vistaril (Hydroxyzine Pamoate) 25 Mg Capsule 50 Mg PO PRN Q4HRS PRN max dose: 200mg/24hrs Tums (Calcium Carbonate) 300 Mg Tab.chew 500 Mg PO PRN Q2HR PRN Daliresp (Roflumilast) 500 Mcg Tablet 500 Mcg PO DAILY Prednisone 20 Mg Tablet 10 Mg PO DAILY Duoneb 0.5-3(2.5) Mg/3 Ml (Albuterol/Ipratropium) 3 Ml Ampul.neb 3 Ml NEB Q4HRS PRN Vitamin D3 (Cholecalciferol (Vitamin D3)) 1,000 Unit Tablet 2,000 Unit PO DAILY Aspirin Ec (Aspirin) 325 Mg Tablet.dr 325 Mg PO DAILY Tylenol (Acetaminophen) 325 Mg Tablet 650 Mg PO Q6HRS PRN Diagnosis: Problems: (1) Suicidal thoughts (2) Anxiety disorder (3) Dementia in Alzheimer's disease with delusions (4) Dementia in Alzheimer's disease with depression (5) Dementia, vascular, with delusions (6) Dementia, vascular, with depression (7) Impulse control disorder (8) Major depressive disorder, recurrent episode EDWARDO DOWD MD Jul 22, 2016 21:18
--- NOTE | 2016-07-23 02:47 | PN ---
DATE: 07/20/2016 PSYCHIATRIC PROGRESS NOTE This is a late entry of 07/20/2016 and covers elements not covered in my initial note. SUBJECTIVE: The patient was staffed at a treatment team meeting there with the entire team morning of 07/20/2016 seen individually evening of 07/20/2016. She is overall doing better. Denies active psychotic symptoms, suicidal or homicidal ideation. REVIEW OF SYSTEMS: Ambulation impaired in her wheelchair. No CV, , pulmonary, eye, ENT system symptoms on review. MENTAL STATUS EXAM: Reasonably oriented. Speech coherent, abstraction fair, computation impaired, language function intact. Mood and affect is improved. IMPRESSION: Unchanged from initial note. Major depressive disorder with psychotic features in partial remission. PLAN: Continue current psychotropics mentioned in my initial note. Adjust further as clinically indicated. MAN Torres DOWD MD DR: TENISHA/alisa JOB#: [id number] / [id number]
--- NOTE | 2016-07-23 02:48 | PN ---
DATE: 07/21/2016 PSYCHIATRIC PROGRESS NOTE This is a late entry of 07/21/2016 covers elements not covered in my initial note. SUBJECTIVE: Per nursing report, the patient has been somewhat anxious, gets a little worse when she is due for her breathing treatments. She has had some constipation, but is being treated symptomatically, milk of mag, prune juice. REVIEW OF SYSTEMS: Ambulation impaired with her wheelchair chronic constipation. No CV, , Pulmonary, eye system symptoms on review. MENTAL STATUS EXAM: Reasonably oriented. Speech coherent, abstraction fair, computation impaired, language function intact. Mood and affect improved. No suicidal or homicidal ideation. LABORATORY DATA: Reviewed. IMPRESSION: Major depressive disorder with psychotic features in partial remission. Rest unchanged. PLAN: Continue current psychotropics mentioned in my initial note. Discussed with social service staff placement is being arranged. MAN Torres DOWD MD DR: TENISHA/alisa JOB#: [id number] / [id number]
[2016-07-23] MEDS: LEVOTHYROXINE 75 MCG TABLET PO SCH (05:28)
[2016-07-23 05:49] VITALS: BP 163/94
[2016-07-23] MEDS ORDERED: SENN8.6T99 PO (13:20)
[2016-07-23] MEDS ORDERED: BISA10SU2 RC (13:20)
[2016-07-23] MEDS ORDERED: DOCU240C30 PO (13:22)
--- NOTE | 2016-07-23 19:26 | PN ---
DATE: 07/23/2016 Transfer/Progress Note REASON FOR TRANSFER: Unresponsive and hypoxic. SUBJECTIVE: This is an 85-year-old female ____ was found unresponsive in her room on the Senior Behavioral Unit. A rapid response was called. Subsequent blood gases revealed a pO2 of 36 and she had symptoms similar to stroke. She had stroke-like symptoms like unresponsiveness, weakness and unable to respond and so she was transferred down to the Emergency Room. OBJECTIVE: VITAL SIGNS: Blood pressure 163/94, pulse 75, respirations 18 and temperature was 98. Her pulse ox was around 91 on 3 L, unclear whether she had been off oxygen for a while. GENERAL: The patient at the time of transfer was unresponsive. Her eyes were rolled back in her head. Pupils were equal, round and reactive to light, mid-sized pupils. HEENT: Her nose was patent. Her throat was clear. NECK: Supple. LUNGS: Clear with some crackles in the left base. CARDIOVASCULAR: Irregular rhythm and rate. ABDOMEN: Soft, nontender. EXTREMITIES: Without edema. NEUROLOGIC: Completely flaccid, unresponsive to blood sticks, IV sticks and movement. Again, the blood gas shows a pO2 of 36 and a pCO2 of 58. The patient was rapidly transferred to the ICU with acute hypoxic hypercarbic respiratory failure. For further information, please see information on the admission in the ICU. XIANG PONCE DO DR: VLAD/alisa JOB#: [id number] / [id number]
--- NOTE | 2016-07-24 17:29 | DS ---
DATE OF DISCHARGE: 07/23/2016 REASON FOR ADMISSION: Please refer to the admission history for details. Briefly, the patient is an 85-year-old female who had initially brought to us from the [facility] on account of increased paranoia, agitation, depression, suicidal threats and gestures within the context of her past history of marked psychosis and depression following which she had murdered her [facility]. Given these concerns, she was initially admitted, treated from a psychiatric standpoint and became overly sedated at one point during that stay and was transferred to [address] [place] [address] and now returns back to us for further inpatient treatment. SIGNIFICANT FINDINGS AND CLINICAL COURSE: Following admission, the patient was seen daily individually by myself, followed medically per Dr. Lopez/Dr. Pruitt. She had marked constipation evident on KUB and symptomatically and was treated for this. Further adjustments were made in her psychotropics and from a psychiatric standpoint, she seemed to be doing better on a combination of Cymbalta 60 mg a day, Risperdal 0.25 mg twice a day, trazodone at bedtime p.r.n. and hydroxyzine p.r.n. She did receive hydroxyzine and was somewhat overly sedated and on 07/23, it appeared additionally her oxygen tubing might have been kinked. Arterial blood gases were low. She was extremely somnolent, even though O2 sats were reasonable. She was transferred to [address] [place] [address] for medical stabilization. Prior to discharge on 07/23, she was quite sedated. MENTAL STATUS EXAM: Impaired ambulation, otherwise, reasonably oriented. Mood and affect prior to the change had been much improved with no psychotic symptoms. No suicidal or homicidal ideation. LABORATORY DATA: Reviewed. FINAL DIAGNOSES: Major depressive disorder with psychotic features in partial remission, somnolence; anxiety disorder, unspecified; impulse control disorder, unspecified. Rest diagnoses unchanged from admission. DISCHARGE MEDICATIONS: Hydroxyzine was discontinued. She is maintained on the rest of the psychotropics and we will reassess whether she returns back to us when she is medically stable on [address] [place] [address]/ICU. Time for discharge and management greater than 30 minutes. I had been called by the nursing staff late at night and neurosurgical physician assistant on the patient as well prior to her discharge. MAN Torres DOWD MD DR: Mireya JOB#: [id number] / [id number]
--- NOTE | 2016-07-24 18:51 | PN ---
DATE: 07/22/2016 PSYCHIATRIC PROGRESS NOTE This is late entry of 07/22/2016, covers elements not covered in my initial note. SUBJECTIVE: Per nursing report, the patient has overall done better, gets quite anxious at times, especially surrounding her breathing. REVIEW OF SYSTEMS: Ambulation impaired in her wheelchair, there is some difficulty with breathing, remains on oxygen supplements. No CV, , eye, ENT system symptoms on review. MENTAL STATUS EXAMINATION: Reasonably oriented. Speech coherent, abstraction fair, computation impaired, language function intact. Mood and affect, anxious, at times depressed. LABORATORY DATA: Reviewed. IMPRESSION: Unchanged from initial note. PLAN: Continue current psychotropics, use hydroxyzine p.r.n. for anxiety. Placement awaited per social service staff. MAN Torres DOWD MD DR: TENISHA/alisa JOB#: [id number] / [id number]
== END 2016-07-23 08:50 | DRG 885 ==
LOC: GEROPSY 18:45
PROVIDERS: ADMIT Psychiatry & Neurology Psychiatry; ATTEND Psychiatry & Neurology Psychiatry
DX: F32.3 Major depressive disorder, single episode, severe with psychotic features (principal); I11.0 Hypertensive heart disease with heart failure; I50.9 Heart failure, unspecified; F63.9 Impulse disorder, unspecified; F02.80 Dementia in other diseases classified elsewhere, unspecified severity, without behavioral disturbance, psychotic disturbance, mood disturbance, and anxiety; R40.0 Somnolence; K59.00 Constipation, unspecified; F41.9 Anxiety disorder, unspecified; M19.90 Unspecified osteoarthritis, unspecified site; Z88.8 Allergy status to other drugs, medicaments and biological substances; Z88.5 Allergy status to narcotic agent; Z86.73 Personal history of transient ischemic attack (TIA), and cerebral infarction without residual deficits; Z87.01 Personal history of pneumonia (recurrent)
CPT/HCPCS: 36415; 74000; 80053; 82803; 82947; 83735; 85027; 94640; J7512; J7611; J7620; Q0177

== ENCOUNTER 2016-07-23 08:45 | Inpatient (IN) | payer MEDICARE, MEDICAID ==
[~2016-07-23] VITALS: Ht 170.2 cm; Wt 59.2 kg
[2016-07-23] VITALS (9 sets, daily range): BP systolic 132–170; BP diastolic 37–84
[~2016-07-23 08:45] MED LIST changes: +HYDR-2867 PO; +LEVO75TA5 PO
[2016-07-23 09:29] LABS: BGAS PH 7.49 (7.35-7.45)
--- NOTE | 2016-07-23 09:29 | RAD ---
Clinical indications: Unresponsive. Code stroke.. . Comparison: July 15, 2016 Technique: Noncontrast axial cross sectional scanning of the head was performed. PQRS Compliance Statement: One or more of the following individualized dose reduction techniques were utilized for this examination: 1. Automated exposure control 2. Adjustment of the mA and/or kV according to patient size 3. Use of iterative reconstruction technique Findings: No acute intracranial hemorrhage or midline shift or mass-effect or hydrocephalus or extra-axial fluid collection is seen. Again seen is moderate to severe bilateral periventricular white matter hypodensity consistent with chronic small vessel ischemic disease which is unchanged. No new focal hypodensity or new sulci effacement is seen. 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 Again seen is a mucous retention cyst of the floor of the left maxillary sinus. This is stable. No skull fracture or pneumocephalus is seen. Impression: No new intracranial abnormality is seen. Note-this critical result was called to Dr. Lopez at 9:24 AM on July 23, 2016.
--- NOTE | 2016-07-23 09:32 | RAD ---
Portable AP chest x-ray performed at 08 49 Clinical indications: Shortness of breath. Comparison: June 23, 2016. Findings: There is an increase in the interstitium bilaterally consistent with interstitial pulmonary edema. Mild blunting of the lateral costophrenic angles is seen consistent with small pleural effusions. No pneumothorax is seen. The heart size is prominent but stable. Mediastinum is unchanged. IMPRESSION: Increase in interstitial pulmonary edema. Small bilateral pleural effusions. Findings are consistent with mild CHF.
[2016-07-23 09:33] LABS: BASO # 0.1 x10^3/uL (0.0-0.2); BASO % 1 % (0-3); EOS # 0.1 x10^3/uL (0.0-0.7); EOS % 1 % (0-3); HEMATOCRIT 26.8 % (36.0-47.0); HEMOGLOBIN 9.1 g/dL (12.0-15.5); LYMPH # 1.3 x10^3/uL (1.0-4.8); LYMPH % 15 % (24-48); MEAN CORPUSCULAR HEMOGLOBIN 33 pg (25-35); MEAN CORPUSCULAR HGB CONC 34 g/dL (31-37); MEAN CORPUSCULAR VOLUME 97 fL (79-100); MONO # 0.7 x10^3/uL (0.0-1.1); MONO % 8 % (0-9); NEUT # 6.8 x10^3uL (1.8-7.7); NEUT % 76 % (31-73); PLATELET COUNT 238 x10^3/uL (140-400); RED BLOOD COUNT 2.77 x10^6/uL (3.50-5.40); RED CELL DISTRIBUTION WIDTH 18.4 % (11.5-14.5); WHITE BLOOD COUNT 8.9 x10^3/uL (4.0-11.0)
[2016-07-23 09:43] LABS: ALBUMIN 3.2 g/dL (3.4-5.0); CREATININE 0.8 mg/dL (0.6-1.0); GFR 82.7; MAGNESIUM 2.1 mg/dL (1.8-2.4); TOTAL BILIRUBIN 0.8 mg/dL (0.2-1.0); TOTAL PROTEIN 6.4 g/dL (6.4-8.2)
[2016-07-23] MEDS ORDERED: FUROSEMIDE 20 MG/2 ML VIAL IVP ONE (10:00)
[2016-07-23 10:11] LABS: BGAS PH 7.44 (7.35-7.45)
[2016-07-23] MEDS ORDERED: IOHEXOL 300 MG/ML 75 ML VIAL. IV ONE (10:45)
[2016-07-23] MEDS ORDERED: HYDROXYZINE PAMOATE 25 MG CAPSULE PO PRN (12:00)
[2016-07-23] MEDS ORDERED: MAGNESIUM HYDROXIDE 2,400 MG/30 ML ORAL.SUSP. PO PRN (12:00)
[2016-07-23] MEDS ORDERED: METHYL SALICYLATE/MENTHOL TOPICAL OINTMENT 29GM TUBE. TP PRN (12:00)
[2016-07-23] MEDS ORDERED: ENOXAPARIN ** NOTE DOSE ** SYRINGE SQ SCH (12:30)
--- NOTE | 2016-07-23 12:30 | RAD ---
Clinical indications: Patient was found unresponsive but has resolved. TIA. Hypertension. Duplex sonography of the cervical portion of both carotid arteries was performed including color flow imaging and spectral waveform analysis with flow velocity measurement and smith scale evaluation. Right side: Peak systolic flow velocity of the CCA is 53 cm/sec. Peak systolic flow velocity of the ICA is 63 cm/sec. Thus, the ICA/CCA ratio is 1.2. Peak end diastolic flow velocity of the ICA is 18 cm/sec. The peak systolic velocity of the ECA is 58 cm/sec. Left side: Peak systolic flow velocity of the CCA is 46 cm/sec. Peak systolic flow velocity of the ICA is 58 cm/sec. Thus, the ICA/CCA ratio is 1.2. Peak end diastolic flow velocity of the ICA is 16 cm/sec. Peak systolic flow velocity of the ECA is 63 cm/sec. Mild plaque formation is seen within the left CCA and the left carotid bulb and proximal ICA and ECA which is less than 50%. On the right side, mild plaque formation is seen within the CCA and carotid bulb and ICA which is less than 50%. . Antegrade vertebral flow is seen bilaterally. The measurements were made using the NASCET criteria. Impression:No significant plaque formation is identified within the cervical portion of either carotid artery.
--- NOTE | 2016-07-23 13:13 | RAD ---
CTA of the chest with and without contrast Clinical indications: Shortness of breath. Hypoxia. Elevated d-dimer. Technique: After IV infusion of [ ] cc of Omnipaque 300, helical CT scanning of the chest was performed using the CT pulmonary embolism protocol. A coronal MIP reconstruction was generated. PQRS Compliance Statement: One or more of the following individualized dose reduction techniques were utilized for this examination: 1. Automated exposure control 2. Adjustment of the mA and/or kV according to patient size 3. Use of iterative reconstruction technique Comparison: None available. Findings: No pulmonary embolism is evident. There is ectasia of the ascending aorta which measures 4.8 cm in greatest caliber. Evaluation for dissection or intimal flap cannot be made without contrast opacification of the thoracic aorta. This was a dedicated CT pulmonary arteriogram. The heart size is enlarged and no pericardial effusion is seen. Calcified atheromatous disease of the coronary arteries is seen. Moderate size right-sided pleural effusion and small left-sided pleural effusion is seen. There is associated compressive atelectasis or infiltrate of both lower lobes. Groundglass lung infiltrate is seen diffusely on the left side which could be secondary to atelectasis or pulmonary edema. This similar finding is seen to a lesser extent within the anterior segment of the right upper lobe. Emphysema is present especially within the right upper lobe. No pneumothorax is evident. The proximal bronchial tree is patent. No osteolytic process is seen. No adrenal mass is seen. IMPRESSION: No pulmonary embolism. Ectasia of the ascending aorta measuring up to 4.8 cm. Cardiomegaly. Calcified atheromatous disease of the coronary arteries. Bilateral pleural effusions right greater than left. Associated compressive atelectasis or infiltrate of both lower lobes. Bilateral groundglass lung infiltrates more prominent on the left side which could be secondary to atelectasis or pulmonary edema. Emphysema.
[2016-07-23] MEDS ORDERED: BISA10SU2 RC (13:20)
[2016-07-23] MEDS ORDERED: SENN8.6T99 PO (13:20)
[2016-07-23] MEDS ORDERED: DOCU240C30 PO (13:22)
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
[2016-07-23] MEDS: HYDRALAZINE 10 MG TABLET PO SCH ×2 (15:11→21:06)
[2016-07-23] MEDS: ACETAMINOPHEN 325 MG TABLET PO PRN (15:11)
[2016-07-23] MEDS: IPRATRPIUM/ALBUTEROL 0.5/2.5MG 3 ML NEBU. NEB PRN ×2 (17:02→22:43)
--- NOTE | 2016-07-23 17:30 | CONS ---
DATE OF CONSULTATION: 07/23/2016 REFERRING PHYSICIAN: Chelsy Lopez DO REASON FOR CONSULTATION: Acute mental status changes. HISTORY OF PRESENT ILLNESS: This is an 85-year-old right-handed -[place] Citizen female who was transferred from [facility] after she was found unresponsive. The patient was found to have oxygen saturation of mid 30s. She also had flaccid upper and lower extremities. It was thought that the patient might have a TIA or stroke. She was transferred to ICU for further evaluation. The patient has been hypertensive as well. Recent TSH was very high at 20s. Initial nonenhanced head CT scan revealed evidence of chronic small vessel disease of moderate to severe type, but did not show any acute intracranial process. Currently, the patient is awake. She denies headaches, visual disturbances, nausea, vomiting, chest pain, shortness of breath or palpitations. The patient is being on the oxygen mask at 12 liters. PAST MEDICAL HISTORY: Significant for hypothyroidism, hypertension, hyperlipidemia, GERD with peptic ulcer disease, diastolic heart failure, dysphagia, dementia, history of TIA and stroke, anemia, adrenal neoplasm, COPD, osteoporosis, osteoarthritis, cardiomyopathy and pulmonary hypertension. FAMILY HISTORY: Noncontributory. SOCIAL HISTORY: The patient is a [facility] resident. She denies smoking, alcohol drinking, or illicit drug use. CURRENT MEDICATIONS: See MRAD. ALLERGIES: DIAZEPAM, LIDOCAINE AND PROPOXYPHENE. REVIEW OF SYSTEMS: A 10-point review of systems was performed and consistent with gait disturbances, generalized weakness. PHYSICAL EXAMINATION: GENERAL: Well developed, well nourished -[place] Citizen female, not in acute distress. VITAL SIGNS: Blood pressure 158/84, respiratory rate 18, pulse is 86 and regular. HEENT: Normocephalic, atraumatic, otherwise unremarkable. NECK: Supple. Negative for carotid bruit, lymphadenopathy or thyromegaly. LUNGS: Diminished breath sounds. CARDIOVASCULAR: Regular rhythm, normal S1 and S2. ABDOMEN: Soft, bowel sounds positive. EXTREMITIES: Negative for cyanosis, clubbing or pitting edema. NEUROLOGICAL EXAM: 1. Mental Status: The patient is alert and oriented x 2. The speech is fluent. There is no language dysfunction. Memory, judgment, and abstract thinking are fair. The patient denies hallucination or delusion. 2. Cranial Nerves: Visual gavin are full. The pupils are reactive to light and accommodation. The extraocular movements are intact. There is no nystagmus. There is no facial motor or sensory deficit. Hearing appears to be intact. The palate is elevated symmetrically. Sternocleidomastoid muscles are powerful bilaterally. The patient shrugs her shoulders symmetrically and protrudes her tongue in the midline without fasciculation or atrophy. 3. Motor: No focal muscle bulk was seen. The tone is normal. The strength is 4/5 throughout. Sensory examination revealed normal pinprick, light touch, vibratory and position senses. Deep tendon reflexes were symmetric and hypoactive with absent Achilles responses. Gait not tested. DIAGNOSTIC DATA: Chest x-ray revealed increased interstitial pulmonary edema. Nonenhanced head CT scan consistent with moderate to severe chronic small vessel ischemic changes. LABORATORY DATA: CBC revealed white cells of 8900, hemoglobin 9.1, hematocrit 26.8, platelet count 238,000. Chemistry revealed sodium 143, potassium 4, chloride 103, CO2 37, BUN 13, creatinine 0.8, glucose 123. Calcium is 9. BNP is elevated at 3129, troponin level is 0.200. Coagulation revealed elevated D-dimer at 2.39. ABG at 10:00 revealed a pH of 7.4, pCO2 of 59 and pO2 of 63. It was 35 one hour ago. IMPRESSION: 1. Acute mental status changes - improved, rule out hypoxic encephalopathy versus TIA. 2. Multiple medical problems include hypertension, hyperlipidemia, GERD, osteoarthritis, congestive heart failure and elevated D-dimer. 3. Multiple psychiatric problems include depressions with psychotic features and bipolar disorder versus paranoid personality. RECOMMENDATIONS: 1. Continue with aspirin 325 mg. 2. Carotid Doppler study and chest CT scan to rule out PE. 3. Continue with current management initiated by Dr. Lopez and Dr. Stevens. M Vane HUERTA MD DR: DANIELA/alisa JOB#: [id number] / [id number]
[2016-07-23] MEDS ORDERED: SENNOSIDES 8.6 MG TABLET PO PRN (19:15)
[2016-07-23] MEDS ORDERED: BISACODYL 10 MG SUPP.RECT PR PRN (19:15)
--- NOTE | 2016-07-23 20:56 | EKG ---
[address] [address] Test Date: 2016-07-23 Test Time: 08:52:23 Pat Name: ANCELMO MACHADO Department: Room: [facility] 1 Gender: F Car Filler: HARDEEP : 1930 Requested By: XIANG PONCE Order Number: [id number] Reading MD: Measurements Intervals [place] Rate: 104 P: RI: QRS: -50 QRSD: 110 T: 52 QT: 384 QTc: 505 Interpretive Statements ATRIAL FIB./FLUTTER WITH RAPID VENTRICULAR RESPONSE VENTRICULAR PREMATURE COMPLEX(ES) ABNORMAL LEFT AXIS DEVIATION LEFT ANTERIOR FASCICULAR BLOCK QRS(T) CONTOUR ABNORMALITY CONSISTENT WITH ANTEROSEPTAL INFARCT AGE UNDETERMINED RI6.01 Unconfirmed report No previous ECG available for comparison
[2016-07-23] MEDS: risperiDONE 0.25 MG TABLET. PO SCH (21:06)
[2016-07-23] MEDS: METOPROLOL TART IMMED RELEASE 25 MG TABLET PO SCH (21:06)
[2016-07-23] MEDS: ACETAMINOPHEN 325 MG TABLET PO SCH (21:07)
[2016-07-23 22:51] LABS: CLARITY,URINE CLEAR; COLOR,URINE STRAW
[2016-07-23 22:52] LABS: BILIRUBIN,URINE NEG (NEG); GLUCOSE,URINE NEG (NEG); NITRITE,URINE NEG (NEG); UROBILINOGEN,URINE 0.2 mg/dL (0.2 mg/dL)
[2016-07-23 23:04] LABS: BACTERIA,URINE FEW /HPF (0-FEW); SQUAMOUS EPITHELIAL CELL,UR MOD /LPF
[2016-07-24 01:44] VITALS: BP 163/82
[2016-07-24 02:44] VITALS: BP 162/87
[2016-07-24 05:26] VITALS: BP 168/84
[2016-07-24] MEDS ORDERED: LEVOTHYROXINE 75 MCG TABLET PO SCH (06:00)
[2016-07-24] MEDS: LEVOTHYROXINE 112 MCG TABLET PO SCH (06:34)
[2016-07-24] MEDS: PREDNISONE 10 MG TABLET PO SCH (08:39)
[2016-07-24] MEDS: DULOXETINE HCL 60 MG CAPSULE.DR. PO SCH (08:39)
[2016-07-24] MEDS: ROFLUMILAST 500 MCG TABLET PO SCH (08:39)
[2016-07-24] MEDS: ASPIRIN ENTERIC COATED 325 MG TABLET.DR. PO SCH (08:39)
[2016-07-24] MEDS: HYDRALAZINE 10 MG TABLET PO SCH ×3 (08:40→20:05)
[2016-07-24] MEDS: ACETAMINOPHEN 325 MG TABLET PO SCH ×2 (08:40→20:05)
[2016-07-24] MEDS: METOPROLOL TART IMMED RELEASE 25 MG TABLET PO SCH (08:41)
[2016-07-24] MEDS: risperiDONE 0.25 MG TABLET. PO SCH ×2 (08:41→20:05)
[2016-07-24] MEDS: CHOLECALCIFEROL (VITAMIN D3) 1,000 UNIT TABLET PO SCH (08:41)
[2016-07-24] MEDS: DOCUSATE CALCIUM 240 MG CAPSULE PO SCH (08:50)
[2016-07-24] MEDS: IPRATRPIUM/ALBUTEROL 0.5/2.5MG 3 ML NEBU. NEB PRN (09:10)
--- NOTE | 2016-07-24 09:16 | RAD ---
Portable AP chest x-ray performed at 0901 Clinical indications: Shortness of breath. Pulmonary edema. Follow-up study. Comparison: July 23, 2016. IMPRESSION: The interstitial pulmonary edema and vascular congestion has improved on both sides. However, right lung base infiltrate or atelectasis in association with a small right-sided pleural effusion is still present and unchanged. There is an increase in left lung base infiltrate from the prior study. No significant pleural effusion is seen on the left side. No pneumothorax is seen. The heart size and mediastinum are stable.
[2016-07-24] MEDS: ENOXAPARIN 30 MG/0.3 ML DISP.SYRIN. SQ SCH (09:53)
--- NOTE | 2016-07-24 10:46 | PN ---
DATE: 07/24/2016 SUBJECTIVE: An 85-year-old female who was admitted down from the [facility] with acute hypoxemic hypercarbic respiratory failure. OTHER PROBLEMS: Include: 1. Acute on chronic diastolic heart failure. 2. Pulmonary edema. 3. Pulmonary hypertension. 4. Moderate protein malnutrition. 5. Metabolic encephalopathy, which has resolved. 6. Stroke-like symptoms, which have resolved. 7. Elevated D-dimer with negative PE. 8. Elevated troponin with a history of non-STEMI. 9. Atrial fibrillation with RVR. 10. Hypertension. 11. Suicide attempt; this is old. 12. Hyperlipidemia. 13. Normochromic normocytic anemia. 14. Hypothyroid, which has not improved from having her levothyroxine increased a month ago. The patient was not seen by Cardiology yesterday. She did receive IV Lasix. A portable chest x-ray is pending, to recheck of pulmonary edema before giving her any more Lasix. She is back to her baseline and is complaining of a slight headache today, which she states she has had for weeks. OBJECTIVE: VITAL SIGNS: Blood pressure 168/84, pulse 52, respirations 19, pulse ox is 96% on 2 liters. GENERAL: The patient is alert, eating her breakfast, not having any trouble using her arms or swallowing. Pupils were equal, round, react to light. Extraocular muscles are intact. Nose patent. Throat clear. NECK: Supple. LUNGS: Clear to auscultation. CARDIOVASCULAR: Irregular rhythm and rate. ABDOMEN: Soft, nontender. EXTREMITIES: Without edema. Chest x-ray is pending. Carotid Dopplers show mild plaque formation in the left CCA in carotid bulb. LABORATORY DATA: Hemoglobin 9.1, hematocrit 26.8. TSH was 21.319. PLAN: Increased the levothyroxine. She is to get a Tylenol for headache. Hopefully, Cardiology will see today and she must have her oxygen on and can go back upstairs either tonight or tomorrow. Again, placement at a nursing facility has been very difficult for the social workers because of the patient's past history. XIANG PONCE DO DR: VLAD/alisa JOB#: [id number] / [id number]
--- NOTE | 2016-07-24 11:11 | PDOC2 ---
CONSULT Date of Admission DATE: 07/24/16 TIME: 11:11 Reason for Consult: Congestive heart failure Referring Physician: Dr. Lopez Chief Complaint Dyspnea Source: Chart review, Patient History of Present Illness 85-year-old female who has been admitted to Senior behavioral unit at [facility] since 06/23/2016 after second suicide attempt was followed unresponsive with hypoxia and hypercarbia and hence transferred to ICU. Cardiology has been consulted for congestive heart failure. Patient was diuresed overnight and presently feels significantly better with improvement in dyspnea. She is not a very good historian but denied any chest pain, palpitations. Past Medical History Chronic diastolic heart failure Dementia Hypertension Pulmonary hypertension Polymyalgia rheumatica Osteoporosis Family History Not contributory Social History Patient was a previous smoker and denied any alcohol use Current Medications Current Medications Furosemide (Lasix) 20 mg 1X ONCE IVP Last administered on 07/23/16 13:06; Start 07/23/16 at 10:00; Stop 07/23/16 at 10:01; Status DC Iohexol (Omnipaque 300 Mg/ml) 75 ml 1X ONCE IV ; Start 07/23/16 at 10:45; Stop 07/23/16 at 10:47; Status DC Acetaminophen (Tylenol) 650 mg BID PO Last administered on 07/24/16 08:40; Start 07/23/16 at 21:00 Acetaminophen (Tylenol) 650 mg PRN Q6HRS PRN PO pain, temperature Last administered on 07/23/16 15:11; Start 07/23/16 at 12:00 Aspirin (Aspirin Enteric Coated) 325 mg DAILY PO Last administered on 07/24/16 08:39; Start 07/24/16 at 09:00 Vitamin D (Vitamin D3) 2,000 unit DAILY PO Last administered on 07/24/16 08:41 ; Start 07/24/16 at 09:00 Duloxetine HCl (Cymbalta) 60 mg DAILY PO Last administered on 07/24/16 08:39; Start 07/24/16 at 09:00 Hydralazine HCl (Apresoline) 10 mg TID PO Last administered on 07/24/16 08:40; Start 07/23/16 at 14:00 Hydroxyzine Pamoate (Vistaril) 50 mg PRN Q4HRS PRN PO ANXIETY; Start 07/23/16 at 12:00 Albuterol/ Ipratropium (Duoneb) 3 ml PRN Q4HRS PRN NEB respiratory distress Last administered on 07/24/16 09:10; Start 07/23/16 at 12:00 Levothyroxine Sodium (Synthroid) 75 mcg DAILY06 PO ; Start 07/24/16 at 06:00; Stop 07/24/16 at 06:00; Status DC Magnesium Hydroxide (Milk Of Magnesia) 2,400 mg PRN QHS PRN PO CONSTIPATION; Start 07/23/16 at 12:00 Multi-Ingredient Ointment (Analgesic Arminto) 1 mart PRN QID PRN TP MUSCLE PAIN; Start 07/23/16 at 12:00 Metoprolol Tartrate (Lopressor) 25 mg BID PO Last administered on 07/24/16 08: 41; Start 07/23/16 at 21:00 Prednisone (Prednisone) 10 mg DAILY PO Last administered on 07/24/16 08:39; Start 07/24/16 at 09:00 Risperidone (Risperdal) 0.25 mg BID PO Last administered on 07/24/16 08:41; Start 07/23/16 at 21:00 Trazodone HCl (Desyrel) 50 mg PRN QHS PRN PO INSOMNIA, MAY REPEAT X1; Start 07/23/16 at 12:00 Enoxaparin Sodium (Lovenox 60mg Syringe) 45 mg Q12HR SQ Last administered on 13:06; Start 07/23/16 at 12:30; Stop 07/23/16 at 16:53; Status DC Levothyroxine Sodium (Synthroid) 112 mcg DAILY06 PO Last administered on 06:34; Start 07/24/16 at 06:00 Enoxaparin Sodium (Lovenox) 30 mg Q24H SQ Last administered on 07/24/16 09:53; Start 07/24/16 at 10:00 Bisacodyl (Dulcolax Supp) 10 mg PRN DAILY PRN RI CONSTIPATION; Start 07/23/16 at 19:15 Docusate Calcium (Surfak) 240 mg DAILY PO ; Start 07/24/16 at 09:00 Sennosides (Senna) 8.6 mg PRN BID PRN PO CONSTIPATION; Start 07/23/16 at 19:15 Levofloxacin (Levaquin) 750 mg Q48H PO ; Start 07/24/16 at 11:30 Furosemide (Lasix) 20 mg 1X ONCE IVP ; Start 07/24/16 at 11:30; Stop 07/24/16 at 11:31 Active Scripts Active Reported Surfak (Docusate Calcium) 240 Mg Capsule 240 Mg PO DAILY Bisacodyl 10 Mg Supp.rect 10 Mg RC PRN DAILY PRN Senokot (Sennosides) 8.6 Mg Tablet 8.6 Mg PO PRN BID PRN Levothyroxine Sodium 75 Mcg Tablet 75 Mcg PO DAILY06 Hydralazine Hcl 10 Mg Tablet 10 Mg PO TID Analgesic Arminto (Methyl Salicylate/Menthol) 29 Gm Oint...g. 1 Mart TP PRN QID PRN Milk Of Magnesia (Magnesium Hydroxide) 400 Mg/5 Ml Oral.susp 2,400 Mg PO PRN QHS PRN Mag-Al Plus Suspension (Mag Hydrox/Al Hydrox/Simeth) 30 Ml Oral.susp 15 Ml PO PRN AFTMEALHC PRN Trazodone Hcl 50 Mg Tablet 50 Mg PO PRN QHS PRN Risperdal (Risperidone) 0.25 Mg Tablet 0.25 Mg PO BID Multiple Vitamins For Women (Multivit With Calcium,Iron,Min) 1 Each Tablet 1 Tab PO DAILY Duloxetine Hcl 60 Mg Capsule.dr 60 Mg PO DAILY Acetaminophen 325 Mg Tablet 650 Mg PO BID Metoprolol Tartrate 25 Mg Tablet 25 Mg PO BID Tums (Calcium Carbonate) 300 Mg Tab.chew 500 Mg PO PRN Q2HR PRN Daliresp (Roflumilast) 500 Mcg Tablet 500 Mcg PO DAILY Prednisone 20 Mg Tablet 10 Mg PO DAILY Duoneb 0.5-3(2.5) Mg/3 Ml (Albuterol/Ipratropium) 3 Ml Ampul.neb 3 Ml NEB Q4HRS PRN Vitamin D3 (Cholecalciferol (Vitamin D3)) 1,000 Unit Tablet 2,000 Unit PO DAILY Aspirin Ec (Aspirin) 325 Mg Tablet.dr 325 Mg PO DAILY Tylenol (Acetaminophen) 325 Mg Tablet 650 Mg PO Q6HRS PRN Allergies: Coded Allergies: diazepam (Verified Allergy, Intermediate, 06/24/16) lidocaine (Verified Allergy, Intermediate, 06/24/16) propoxyphene (Verified Allergy, Intermediate, 06/24/16) Review of System Unable to obtain since patient is a poor historian General: Alert, No acute distress HEENT: Atraumatic Lungs: Other (bilateral basal crepitations) Heart: Regular rate Abdomen: Soft Extremities: No edema VITALS Vital Signs Date Time Temp Pulse Resp B/P Pulse Ox O2 Delivery O2 Flow Rate FiO2 07/24/16 09:11 97 Nasal Cannula 3.5 07/24/16 08:41 89 168/84 07/24/16 07:00 98.7 07/24/16 05:26 19 Labs Laboratory Tests Test 07/23/16 08:38 07/23/16 09:10 07/23/16 09:30 07/23/16 10:00 White Blood Count 8.9x10^3/uL (4.0-11.0) Red Blood Count 2.77x10^6/uL (3.50-5.40) Hemoglobin 9.1g/dL (12.0-15.5) Hematocrit 26.8% (36.0-47.0) Mean Corpuscular Volume 97fL (79-100) Mean Corpuscular Hemoglobin 33pg (25-35) Mean Corpuscular Hemoglobin Concent 34g/dL (31-37) Red Cell Distribution Width 18.4% (11.5-14.5) Platelet Count 238x10^3/uL (140-400) Neutrophils (%) (Auto) 76% (31-73) Lymphocytes (%) (Auto) 15% (24-48) Monocytes (%) (Auto) 8% (0-9) Eosinophils (%) (Auto) 1% (0-3) Basophils (%) (Auto) 1% (0-3) Neutrophils # (Auto) 6.8x10^3uL (1.8-7.7) Lymphocytes # (Auto) 1.3x10^3/uL (1.0-4.8) Monocytes # (Auto) 0.7x10^3/uL (0.0-1.1) Eosinophils # (Auto) 0.1x10^3/uL (0.0-0.7) Basophils # (Auto) 0.1x10^3/uL (0.0-0.2) Sodium Level 143mmol/L (136-145) Potassium Level 4.0mmol/L (3.5-5.1) Chloride Level 103mmol/L (98-107) Carbon Dioxide Level 37mmol/L (21-32) Anion Gap 3 (6-14) Blood Urea Nitrogen 13mg/dL (7-20) Creatinine 0.8mg/dL (0.6-1.0) Estimated GFR (Cockcroft-Gault) 82.7 BUN/Creatinine Ratio 16 (6-20) Glucose Level 123mg/dL (70-99) Calcium Level 9.0mg/dL (8.5-10.1) Magnesium Level 2.1mg/dL (1.8-2.4) Total Bilirubin 0.8mg/dL (0.2-1.0) Aspartate Amino Transf (AST/SGOT) 32U/L (15-37) Alanine Aminotransferase (ALT/SGPT) 59U/L (14-59) Alkaline Phosphatase 67U/L (46-116) Troponin I Quantitative 0.200ng/mL (0-0.055) JO-Ace-Y-Type Natriuretic Peptide 3129pg/mL (0-449) Total Protein 6.4g/dL (6.4-8.2) Albumin 3.2g/dL (3.4-5.0) Albumin/Globulin Ratio 1.0 (1.0-1.7) Thyroid Stimulating Hormone (TSH) 21.319uIU/mL (0.358-3.740) Blood Gas pH 7.49 (7.35-7.45) 7.44 (7.35-7.45) Blood Gas PCO2 48mmHg (35-45) 59mmHg (35-45) Blood Gas PO2 35mmHg (71-100) 63mmHg (71-100) Blood Gas HCO3 37mmol/L (22-26) 40mmol/L (22-26) Arterial Bld O2 Saturation (Calc) 72% (92-99) 92% (92-99) FiO2 28% 40% Prothrombin Time 10.9SEC (9.4-11.4) Prothromb Time International Ratio 1.1 (0.9-1.1) D-Dimer (Netta) 2.39mg/L (0.00-0.50) Test 07/23/16 22:40 Urine Collection Type Unknown Urine Color Straw Urine Clarity Clear Urine pH 6.0 Urine Specific [place] 1.010 Urine Protein >100 mg/dl (NEG-TRACE) Urine Glucose (UA) Negmg/dL (NEG) Urine Ketones (Stick) Negmg/dL (NEG) Urine Blood Trace (NEG) Urine Nitrite Neg (NEG) Urine Bilirubin Neg (NEG) Urine Urobilinogen Dipstick 0.2mg/dL (0.2 mg/dL) Urine Leukocyte Esterase Neg (NEG) Urine RBC 3-5/HPF (0-2) Urine WBC 5-10/HPF (0-4) Urine Squamous Epithelial Cells Mod/LPF Urine Bacteria Few/HPF (0-FEW) Assessment/Plan 1. Acute on chronic diastolic heart failure: Better compensated with diuresis. Recent 2-D echo from June 2016 showed normal left ventricle systolic function, moderate aortic insufficiency and severe mitral regurgitation. CT scan of the chest did not show any acute pulmonary embolism. EKG was read as atrial fibrillation but patient actually was in sinus rhythm but premature atrial complexes. Telemetry did not show any episodes of atrial fibrillation. Continue current medications. 2. Hypertension: Blood pressure slightly elevated. Increase metoprolol to 50 mg twice a day. 3. Hypothyroidism: On levothyroxine 4. s/p suicide attempt: Treatment per primary team Thank you for your consultation Problems: ANTONIETTA FUENTES MD Jul 24, 2016 11:11
[2016-07-24 11:27] LABS: BASO % 0 % (0-3); EOS # 0.1 x10^3/uL (0.0-0.7); EOS % 1 % (0-3); HEMATOCRIT 26.8 % (36.0-47.0); HEMOGLOBIN 8.8 g/dL (12.0-15.5); LYMPH # 0.6 x10^3/uL (1.0-4.8); LYMPH % 8 % (24-48); MEAN CORPUSCULAR HEMOGLOBIN 32 pg (25-35); MEAN CORPUSCULAR HGB CONC 33 g/dL (31-37); MEAN CORPUSCULAR VOLUME 97 fL (79-100); MONO # 0.5 x10^3/uL (0.0-1.1); MONO % 7 % (0-9); NEUT % 84 % (31-73); PLATELET COUNT 228 x10^3/uL (140-400); RED BLOOD COUNT 2.76 x10^6/uL (3.50-5.40); RED CELL DISTRIBUTION WIDTH 18.6 % (11.5-14.5); WHITE BLOOD COUNT 7.1 x10^3/uL (4.0-11.0)
[2016-07-24] MEDS ORDERED: FUROSEMIDE 20 MG/2 ML VIAL IVP ONE (11:30)
[2016-07-24 11:36] LABS: ALBUMIN 3.1 g/dL (3.4-5.0); CREATININE 0.9 mg/dL (0.6-1.0); GFR 72.2; MAGNESIUM 2.2 mg/dL (1.8-2.4); POTASSIUM 3.5 mmol/L (3.5-5.1); TOTAL BILIRUBIN 0.9 mg/dL (0.2-1.0); TOTAL PROTEIN 6.3 g/dL (6.4-8.2)
[2016-07-24] MEDS: LEVOFLOXACIN 750 MG TABLET PO SCH (11:56)
[2016-07-24 12:00] VITALS: BP 156/82
[2016-07-24] MEDS ORDERED: POTASSIUM CHLORIDE 20 MEQ TABLET.ER. PO ONE (12:45)
[2016-07-24] MEDS ORDERED: HYDROXYZINE HCL 25 MG TABLET PO PRN (12:45)
[2016-07-24 19:47] VITALS: BP 178/92
[2016-07-24] MEDS: traZODone 50 MG TABLET. PO PRN (20:05)
[2016-07-24] MEDS: METOPROLOL TART IMMED RELEASE 50 MG TABLET PO SCH (20:06)
[2016-07-24 23:07] VITALS: BP 147/86
--- NOTE | 2016-07-25 00:21 | PN ---
DATE: SUBJECTIVE: The patient complains of recurrent panic attacks and anxiety. She also complains of intermittent global headaches. She denies chest pain, shortness of breath or palpitation, dysarthria, dysphagia, nausea, or vomiting or visual disturbances. OBJECTIVE: GENERAL: Well developed, well nourished -[place] female, not in acute distress. VITAL SIGNS: Blood pressure 156/82, respiratory rate 24, pulse is 96 and regular, temperature is 99.6, oxygen saturation is 97% on 4 liters ____. GENERAL: Well developed, well nourished -[place] female. HEENT: Normocephalic, atraumatic, otherwise unremarkable. NECK: Supple, negative for carotid bruit, lymphadenopathy, JVD or thyromegaly. LUNGS: Clear to A and P with diminished breath sounds throughout. CARDIOVASCULAR: Regular rhythm, normal S1 and S2. ABDOMEN: Soft. Bowel sounds positive. EXTREMITIES: Negative for cyanosis, clubbing or edema. NEUROLOGICAL EXAM: Mental Status: The patient is alert and oriented x 3. The speech is fluid. There is no language dysfunction. The patient recalls 2/3 immediately after 1 and 3 minutes. Judgment and abstract thinkings are fair. The patient denies hallucination or delusion. Cranial nerves are intact. Motor Examination: No focal muscle bulk was seen. The tone is normal. The strength is 5/5 throughout. Sensory examination revealed normal pinprick, light touch, vibratory and position senses. Deep tendon reflexes are symmetric and hypoactive without pathology responses. Gait not tested. DIAGNOSTIC DATA: Carotid Doppler study revealed no evidence of significant stenosis. Chest CT angio revealed no evidence of PE. IMPRESSION: 1. Acute mental status changes -- acute encephalopathy, probably due to hypoxia versus syncope. 2. Chronic obstructive pulmonary disease, GERD, osteoarthritis, congestive heart failure. 3. 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 4. Dementia. RECOMMENDATIONS: Continue with current medical and psychiatric care. The patient is making good progress, but slow. M Vane HUERTA MD DR: DANIELA/alisa JOB#: [id number] / [id number]
[2016-07-25] MEDS: LEVOTHYROXINE 112 MCG TABLET PO SCH (05:53)
[2016-07-25 06:21] LABS: CALCIUM 9.1 mg/dL (8.5-10.1); CREATININE 0.8 mg/dL (0.6-1.0); GFR 82.7; POTASSIUM 4.3 mmol/L (3.5-5.1)
--- NOTE | 2016-07-25 08:37 | RAD ---
CT of the head without contrast, 07/25/2016: History: CVA, stroke protocol Comparison is made to a study from 07/23/2016. There is cerebral atrophy. There are moderate patchy lucencies in the deep white matter bilaterally compatible with chronic ischemic change. These lucencies are unchanged. The ventricles are mildly enlarged on a compensatory basis. There is no shift of the midline structures. There is no evidence of acute intracranial hemorrhage or mass effect. There is an unchanged calcification along the inner table of the skull the right frontal region compatible with an osteoma or meningioma. There is mild mucosal thickening in the left frontal sinus. IMPRESSION: 1. Chronic findings as described above. 2. No acute intracranial abnormality is detected. Note: The findings were called to the patient's nurse in the ICU at 8:35 AM on 07/25/2016. PQRS Compliance Statement: One or more of the following individualized dose reduction techniques were utilized for this examination: 1. Automated exposure control 2. Adjustment of the mA and/or kV according to patient size 3. Use of iterative reconstruction technique
--- NOTE | 2016-07-25 09:03 | PDOC ---
PROGRESS NOTES Assessment 1. acute on chronic diastolic heart failure - appears euvolemic at this time. continue medical therapy. 2. accelerated hypertension - add ACEI. PRN hydralazine 3. VHD - MR/AI - medical mgmt 4. elevated trop- mild, no acute ischemic changes on EKG. Likely secondary to #1-2. Medical mgmt. Continue aspirin and metoprolol. 5. ? seizure activity - EEG pending and neuro following. 6. hypothyroid - on levothyroxine. mgmt per PCP Problems: Subjective Nursing reports episodes of possible seizure activity with hypoxia followed by 30-40 minutes of postictal state. Patient complains of fatigue, denies dyspnea or chest pain. Objective Vital Signs Date Time Temp Pulse Resp B/P Pulse Ox O2 Delivery O2 Flow Rate FiO2 07/24/16 23:07 68 18 147/86 100 Nasal Cannula 3.0 07/24/16 19:47 98.8 Intake and Output 07/25/16 07:00 Intake Total 1940 ml Output Total 2900 ml Balance -960 ml Intake Oral 1940 ml Output Urine Total 2900 ml # Bowel Movements 5 Abdomen: Normal bowel sounds, Soft Heart: Normal S1, Normal S2, Other (no gallops, + murmur) Extremities: No cyanosis, No edema General: Alert, Cooperative, No acute distress Lungs: Other (decreased bases without crackles, rhonchi or wheezing) Neuro: Normal speech Psych/Mental Status: Mood NL Review of Relevant I have reviewed the following items tita (where applicable) has been applied. Labs Laboratory Tests Test 07/23/16 09:10 07/23/16 09:30 07/23/16 10:00 07/23/16 22:40 Blood Gas pH 7.49 (7.35-7.45) 7.44 (7.35-7.45) Blood Gas PCO2 48mmHg (35-45) 59mmHg (35-45) Blood Gas PO2 35mmHg (71-100) 63mmHg (71-100) Blood Gas HCO3 37mmol/L (22-26) 40mmol/L (22-26) Arterial Bld O2 Saturation (Calc) 72% (92-99) 92% (92-99) FiO2 28% 40% Prothrombin Time 10.9SEC (9.4-11.4) Prothromb Time International Ratio 1.1 (0.9-1.1) D-Dimer (Netta) 2.39mg/L (0.00-0.50) Urine Collection Type Unknown Urine Color Straw Urine Clarity Clear Urine pH 6.0 Urine Specific [place] 1.010 Urine Protein >100 mg/dl (NEG-TRACE) Urine Glucose (UA) Negmg/dL (NEG) Urine Ketones (Stick) Negmg/dL (NEG) Urine Blood Trace (NEG) Urine Nitrite Neg (NEG) Urine Bilirubin Neg (NEG) Urine Urobilinogen Dipstick 0.2mg/dL (0.2 mg/dL) Urine Leukocyte Esterase Neg (NEG) Urine RBC 3-5/HPF (0-2) Urine WBC 5-10/HPF (0-4) Urine Squamous Epithelial Cells Mod/LPF Urine Bacteria Few/HPF (0-FEW) Test 07/24/16 11:15 07/25/16 05:34 White Blood Count 7.1x10^3/uL (4.0-11.0) Red Blood Count 2.76x10^6/uL (3.50-5.40) Hemoglobin 8.8g/dL (12.0-15.5) Hematocrit 26.8% (36.0-47.0) Mean Corpuscular Volume 97fL (79-100) Mean Corpuscular Hemoglobin 32pg (25-35) Mean Corpuscular Hemoglobin Concent 33g/dL (31-37) Red Cell Distribution Width 18.6% (11.5-14.5) Platelet Count 228x10^3/uL (140-400) Neutrophils (%) (Auto) 84% (31-73) Lymphocytes (%) (Auto) 8% (24-48) Monocytes (%) (Auto) 7% (0-9) Eosinophils (%) (Auto) 1% (0-3) Basophils (%) (Auto) 0% (0-3) Neutrophils # (Auto) 6.0x10^3uL (1.8-7.7) Lymphocytes # (Auto) 0.6x10^3/uL (1.0-4.8) Monocytes # (Auto) 0.5x10^3/uL (0.0-1.1) Eosinophils # (Auto) 0.1x10^3/uL (0.0-0.7) Basophils # (Auto) 0.0x10^3/uL (0.0-0.2) Sodium Level 141mmol/L (136-145) 145mmol/L (136-145) Potassium Level 3.5mmol/L (3.5-5.1) 4.3mmol/L (3.5-5.1) Chloride Level 101mmol/L (98-107) 100mmol/L (98-107) Carbon Dioxide Level 36mmol/L (21-32) 37mmol/L (21-32) Anion Gap 4 (6-14) 8 (6-14) Blood Urea Nitrogen 11mg/dL (7-20) 14mg/dL (7-20) Creatinine 0.9mg/dL (0.6-1.0) 0.8mg/dL (0.6-1.0) Estimated GFR (Cockcroft-Gault) 72.2 82.7 BUN/Creatinine Ratio 12 (6-20) Glucose Level 161mg/dL (70-99) 103mg/dL (70-99) Calcium Level 9.0mg/dL (8.5-10.1) 9.1mg/dL (8.5-10.1) Magnesium Level 2.2mg/dL (1.8-2.4) Total Bilirubin 0.9mg/dL (0.2-1.0) Aspartate Amino Transf (AST/SGOT) 26U/L (15-37) Alanine Aminotransferase (ALT/SGPT) 53U/L (14-59) Alkaline Phosphatase 69U/L (46-116) Total Protein 6.3g/dL (6.4-8.2) Albumin 3.1g/dL (3.4-5.0) Albumin/Globulin Ratio 1.0 (1.0-1.7) Microbiology 07/23/16 Blood Culture - Preliminary, Resulted NO GROWTH AFTER 1 DAY Medications Current Medications Furosemide (Lasix) 20 mg 1X ONCE IVP Last administered on 07/23/16t 13:06; Start 07/23/16 at 10:00; Stop 07/23/16 at 10:01; Status DC Iohexol (Omnipaque 300 Mg/ml) 75 ml 1X ONCE IV ; Start 07/23/16 at 10:45; Stop 07/23/16 at 10:47; Status DC Acetaminophen (Tylenol) 650 mg BID PO Last administered on 07/24/16 20:05; Start 07/23/16 at 21:00 Acetaminophen (Tylenol) 650 mg PRN Q6HRS PRN PO pain, temperature Last administered on 07/23/16 15:11; Start 07/23/16 at 12:00 Aspirin (Aspirin Enteric Coated) 325 mg DAILY PO Last administered on 07/24/16 08:39; Start 07/24/16 at 09:00 Vitamin D (Vitamin D3) 2,000 unit DAILY PO Last administered on 07/24/16 08:41 ; Start 07/24/16 at 09:00 Duloxetine HCl (Cymbalta) 60 mg DAILY PO Last administered on 07/24/16 08:39; Start 07/24/16 at 09:00 Hydralazine HCl (Apresoline) 10 mg TID PO Last administered on 07/24/16 20:05; Start 07/23/16 at 14:00 Hydroxyzine Pamoate (Vistaril) 50 mg PRN Q4HRS PRN PO ANXIETY; Start 07/23/16 at 12:00; Stop 07/24/16 at 12:36; Status DC Albuterol/ Ipratropium (Duoneb) 3 ml PRN Q4HRS PRN NEB respiratory distress Last administered on 07/24/16 09:10; Start 07/23/16 at 12:00 Levothyroxine Sodium (Synthroid) 75 mcg DAILY06 PO ; Start 07/24/16 at 06:00; Stop 07/24/16 at 06:00; Status DC Magnesium Hydroxide (Milk Of Magnesia) 2,400 mg PRN QHS PRN PO CONSTIPATION; Start 07/23/16 at 12:00 Multi-Ingredient Ointment (Analgesic [place]) 1 mart PRN QID PRN TP MUSCLE PAIN; Start 07/23/16 at 12:00 Metoprolol Tartrate (Lopressor) 25 mg BID PO Last administered on 07/24/16 08: 41; Start 07/23/16 at 21:00; Stop 07/24/16 at 17:58; Status DC Prednisone (Prednisone) 10 mg DAILY PO Last administered on 07/24/16 08:39; Start 07/24/16 at 09:00 Risperidone (Risperdal) 0.25 mg BID PO Last administered on 07/24/16 20:05; Start 07/23/16 at 21:00 Trazodone HCl (Desyrel) 50 mg PRN QHS PRN PO INSOMNIA, MAY REPEAT X1 Last administered on 07/24/16 20:05; Start 07/23/16 at 12:00 Enoxaparin Sodium (Lovenox 60mg Syringe) 45 mg Q12HR SQ Last administered on 13:06; Start 07/23/16 at 12:30; Stop 07/23/16 at 16:53; Status DC Levothyroxine Sodium (Synthroid) 112 mcg DAILY06 PO Last administered on 05:53; Start 07/24/16 at 06:00 Enoxaparin Sodium (Lovenox) 30 mg Q24H SQ Last administered on 07/24/16 09:53; Start 07/24/16 at 10:00 Bisacodyl (Dulcolax Supp) 10 mg PRN DAILY PRN SD CONSTIPATION; Start 07/23/16 at 19:15 Docusate Calcium (Surfak) 240 mg DAILY PO ; Start 07/24/16 at 09:00 Sennosides (Senna) 8.6 mg PRN BID PRN PO CONSTIPATION; Start 07/23/16 at 19:15 Levofloxacin (Levaquin) 750 mg Q48H PO Last administered on 07/24/16 11:56; Start 07/24/16 at 11:30 Furosemide (Lasix) 20 mg 1X ONCE IVP Last administered on 07/24/16 11:57; Start 07/24/16 at 11:30; Stop 07/24/16 at 11:31; Status DC Potassium Chloride (Klor-Con) 40 meq 1X ONCE PO Last administered on 07/24/16 13:00; Start 07/24/16 at 12:45; Stop 07/24/16 at 12:46; Status DC Hydroxyzine HCl (Atarax) 50 mg PRN Q4HRS PRN PO ANXIETY Last administered on 13:00; Start 07/24/16 at 12:45 Metoprolol Tartrate (Lopressor) 50 mg BID PO Last administered on 4/9/17at 20: 06; Start 07/24/16 at 21:00 Furosemide (Lasix) 20 mg DAILY PO ; Start 07/25/16 at 09:00 Active Scripts Active Reported Surfak (Docusate Calcium) 240 Mg Capsule 240 Mg PO DAILY Bisacodyl 10 Mg Supp.rect 10 Mg RC PRN DAILY PRN Senokot (Sennosides) 8.6 Mg Tablet 8.6 Mg PO PRN BID PRN Levothyroxine Sodium 75 Mcg Tablet 75 Mcg PO DAILY06 Hydralazine Hcl 10 Mg Tablet 10 Mg PO TID Analgesic [place] (Methyl Salicylate/Menthol) 29 Gm Oint...g. 1 Mart TP PRN QID PRN Milk Of Magnesia (Magnesium Hydroxide) 400 Mg/5 Ml Oral.susp 2,400 Mg PO PRN QHS PRN Mag-Al Plus Suspension (Mag Hydrox/Al Hydrox/Simeth) 30 Ml Oral.susp 15 Ml PO PRN AFTMEALHC PRN Trazodone Hcl 50 Mg Tablet 50 Mg PO PRN QHS PRN Risperdal (Risperidone) 0.25 Mg Tablet 0.25 Mg PO BID Multiple Vitamins For Women (Multivit With Calcium,Iron,Min) 1 Each Tablet 1 Tab PO DAILY Duloxetine Hcl 60 Mg Capsule. 60 Mg PO DAILY Acetaminophen 325 Mg Tablet 650 Mg PO BID Metoprolol Tartrate 25 Mg Tablet 25 Mg PO BID Tums (Calcium Carbonate) 300 Mg Tab.chew 500 Mg PO PRN Q2HR PRN Daliresp (Roflumilast) 500 Mcg Tablet 500 Mcg PO DAILY Prednisone 20 Mg Tablet 10 Mg PO DAILY Duoneb 0.5-3(2.5) Mg/3 Ml (Albuterol/Ipratropium) 3 Ml Ampul.neb 3 Ml NEB Q4HRS PRN Vitamin D3 (Cholecalciferol (Vitamin D3)) 1,000 Unit Tablet 2,000 Unit PO DAILY Aspirin Ec (Aspirin) 325 Mg Tablet. 325 Mg PO DAILY Tylenol (Acetaminophen) 325 Mg Tablet 650 Mg PO Q6HRS PRN Vitals/I & O Vital Sign - Last 24 Hours 07/24/16 07/24/16 07/24/16 07/24/16 09:11 12:00 12:00 14:39 Temp 99.6 Pulse 96 101 Resp 24 B/P 156/82 169/82 Pulse Ox 97 O2 Delivery Nasal Cannula Nasal Cannula Nasal Cannula O2 Flow Rate 3.5 4.0 4.0 07/24/16 07/24/16 07/24/16 07/24/16 16:00 19:47 20:00 20:05 Temp 98.8 Pulse 98 98 Resp 20 B/P 178/92 178/92 Pulse Ox 94 O2 Delivery Nasal Cannula Nasal Cannula Nasal Cannula O2 Flow Rate 4.0 3.0 4.0 07/24/16 07/24/16 20:06 23:07 Pulse 98 68 Resp 18 B/P 178/92 147/86 Pulse Ox 100 O2 Delivery Nasal Cannula O2 Flow Rate 3.0 Intake and Output 07/24/16 07/24/16 07/25/16 15:00 23:00 07:00 Intake Total 840 ml 600 ml 500 ml Output Total 2850 ml 50 ml Balance 840 ml -2250 ml 450 ml 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
[2016-07-25] MEDS: DOCUSATE CALCIUM 240 MG CAPSULE PO SCH (09:44)
[2016-07-25] MEDS: DULOXETINE HCL 60 MG CAPSULE.DR. PO SCH (09:44)
[2016-07-25] MEDS: METOPROLOL TART IMMED RELEASE 50 MG TABLET PO SCH ×2 (09:46→20:17)
[2016-07-25] MEDS: FUROSEMIDE 20 MG TABLET PO SCH (09:47)
[2016-07-25] MEDS: ASPIRIN ENTERIC COATED 325 MG TABLET.DR. PO SCH (09:47)
[2016-07-25] MEDS: HYDRALAZINE 10 MG TABLET PO SCH ×3 (09:47→20:17)
[2016-07-25] MEDS: ACETAMINOPHEN 325 MG TABLET PO SCH ×2 (09:47→20:17)
[2016-07-25] MEDS: CHOLECALCIFEROL (VITAMIN D3) 1,000 UNIT TABLET PO SCH (09:47)
[2016-07-25] MEDS: PREDNISONE 10 MG TABLET PO SCH (09:47)
[2016-07-25] MEDS: risperiDONE 0.25 MG TABLET. PO SCH ×2 (09:48→20:17)
[2016-07-25] MEDS: ROFLUMILAST 500 MCG TABLET PO SCH (09:48)
[2016-07-25] MEDS: ENOXAPARIN 30 MG/0.3 ML DISP.SYRIN. SQ SCH (09:48)
[2016-07-25] MEDS: LISINOPRIL 2.5 MG TABLET PO SCH (12:08)
[2016-07-25 19:10] VITALS: BP 132/89
[2016-07-25] MEDS: traZODone 50 MG TABLET. PO PRN (20:17)
[2016-07-25 21:05] VITALS: BP 105/77
--- NOTE | 2016-07-25 21:39 | PN ---
DATE: SUBJECTIVE: The patient had a brief episode lasted approximately 1 minute described as staring spell. She did not have any convulsions, tongue biting, bowel or bladder incontinence. She complains of intermittent frontal headaches, more prominent on the right side. She denies any new medical or neurological complaints. OBJECTIVE: GENERAL: Well-developed, well nourished -[place] female, not in acute distress. VITAL SIGNS: Blood pressure 147/86, respiratory rate 18, pulse rate 68 and regular, temperature is 98.8 and oxygen saturation is 100% on 3 liters by nasal cannula. HEENT: Normocephalic, atraumatic, otherwise unremarkable. NECK: Supple. Negative for carotid bruit, lymphadenopathy or thyromegaly. LUNGS: Clear with diminished breath sounds. CARDIOVASCULAR: Regular rate and rhythm, normal S1, S2. ABDOMEN: Soft. Bowel sounds positive. EXTREMITIES: Negative for cyanosis, clubbing or pitting edema. NEUROLOGICAL EXAM: Mental Status: The patient is alert and oriented to place and time. Speech is fluent. There is no language dysfunction. Memory, judgment, abstraction thinking are fair. The patient denies hallucination or delusion. Cranial nerves are intact. Motor examination: No focal muscle bulk was seen. The tone is normal. The strength is 4/5 throughout. Sensory examination revealed normal pinprick and light touch senses throughout. Deep tendon reflexes were symmetric and hypoactive. Gait not tested. LABORATORY DATA: CBC revealed white blood cells of 7.1, hemoglobin 8.8, hematocrit 26.8 and platelet count 228,000. Chemistry revealed sodium 145, potassium 4.6, chloride 100, CO2 of 37, BUN 14, creatinine 0.8, glucose 103 and calcium 9.1. TSH of 07/23/2016 was very high at 21.3. IMPRESSION: 1. Mental status changes -- encephalopathy, probably hypoxic. 2. Anemia, probably of iron deficiency. 3. Diastolic congestive heart failure, chronic obstructive pulmonary disease, GERD, osteoarthritis. 4. Multiple psychiatric problems include depression, anxiety, stress. 5. Mild dementia. 6. Elevated D-dimer with negative chest CT angio for pulmonary embolism. RECOMMENDATIONS: Correct the underlying hypothyroidism and anemia. Physical therapy as tolerated. M Vane HUERTA MD DR: DANIELA/alisa JOB#: [id number] / [id number]
--- NOTE | 2016-07-25 21:56 | PN ---
DATE: 07/25/2016 SUBJECTIVE: The patient is sitting comfortably in her wheelchair, in no apparent distress. On questioning her, denied any complaint. Nursing staff stated that she has episodes of what seemed to be possible seizure activity with hypoxia with a postictal state that lasted for ____ 45 minutes. This happened twice, one last Monday and one this morning. Dr. Velarde has already seen her and she has an EEG pending. She was seen in consultation also by the Cardiology team and she is currently on Lasix 20 mg once a day. Her D-dimer was high, was 2.39 mg/dL and she did have a CT scan of the chest with PE protocol, which was negative for pulmonary embolism, but it showed that the patient has cardiomegaly with calcified atheromatous disease of the coronary artery. She has bilateral pleural effusion, right greater than left, associated with compressive atelectasis and infiltrate in both lower lobes. She has also bilateral ground glass lung infiltrates, more prominent in the left side, but could be secondary to atelectasis or pulmonary edema. She has multiple CT scans of the head, all of them showed that there is chronic finding, but no acute intracranial abnormality detected. ASSESSMENT: 1. Acute on chronic diastolic congestive heart failure. The patient seems to be stable clinically. She is on 3 liters of oxygen by nasal cannula. Her vital signs are stable. Blood pressure is reasonably well controlled, accelerated hypertension, much improved this morning, questionable seizure activity. She has EEG pending. 2. Hypothyroidism, on levothyroxine. Her TSH continued to be high. 3. Bilateral lower lobe infiltrate for which she is on Levaquin at 750 mg once a day. PLAN: My plan is to follow her lab work, repeat her T3, T4, free T4 and if her blood pressure continues to be high, we can increase her hydralazine to 20 mg 3 times a day. DOMINIK SUN MD DR: FRANCOIS/alisa JOB#: [id number] / [id number]
[2016-07-25 22:05] VITALS: BP 109/56
[2016-07-25 23:10] VITALS: BP 112/70
[2016-07-26] VITALS (14 sets, daily range): BP systolic 109–153; BP diastolic 60–78
[2016-07-26] MEDS: LEVOTHYROXINE 112 MCG TABLET PO SCH (05:35)
[2016-07-26 06:07] LABS: CALCIUM 8.9 mg/dL (8.5-10.1); CREATININE 0.9 mg/dL (0.6-1.0); GFR 72.2; POTASSIUM 3.8 mmol/L (3.5-5.1)
[2016-07-26] MEDS: HYDRALAZINE 10 MG TABLET PO SCH ×3 (08:05→20:21)
[2016-07-26] MEDS: CHOLECALCIFEROL (VITAMIN D3) 1,000 UNIT TABLET PO SCH (08:05)
[2016-07-26] MEDS: FUROSEMIDE 20 MG TABLET PO SCH (08:05)
[2016-07-26] MEDS: DULOXETINE HCL 60 MG CAPSULE.DR. PO SCH (08:05)
[2016-07-26] MEDS: PREDNISONE 10 MG TABLET PO SCH (08:06)
[2016-07-26] MEDS: ACETAMINOPHEN 325 MG TABLET PO SCH ×2 (08:06→20:21)
[2016-07-26] MEDS: DOCUSATE CALCIUM 240 MG CAPSULE PO SCH (08:06)
[2016-07-26] MEDS: ASPIRIN ENTERIC COATED 325 MG TABLET.DR. PO SCH (08:06)
[2016-07-26] MEDS: ROFLUMILAST 500 MCG TABLET PO SCH (08:06)
[2016-07-26] MEDS: LISINOPRIL 2.5 MG TABLET PO SCH (08:06)
[2016-07-26] MEDS: ENOXAPARIN 30 MG/0.3 ML DISP.SYRIN. SQ SCH (08:07)
[2016-07-26] MEDS: risperiDONE 0.25 MG TABLET. PO SCH ×2 (08:07→20:19)
[2016-07-26] MEDS: METOPROLOL TART IMMED RELEASE 50 MG TABLET PO SCH ×2 (08:07→20:20)
[2016-07-26] MEDS: LEVOFLOXACIN 750 MG TABLET PO SCH (11:17)
--- NOTE | 2016-07-26 14:01 | PN ---
DATE: 07/26/2016 SUBJECTIVE: The patient is resting, slightly propped up in bed, in no apparent distress. Awake, alert. On questioning her, denied any complaint. Nursing staff did not voice any concern and stated that she had an uneventful night. Apparently, she had this episode what seems to be of seizure activity with hypoxia and postictal state that lasted for 30-45 minutes, apparently has happened twice, although none over yesterday or overnight and she is apparently scheduled for an EGD this morning. PHYSICAL EXAMINATION: GENERAL: When I examined her, she looked well and was clearly in no apparent respiratory distress, pale, no jaundice, cyanosis, or thyromegaly. No jugular venous distention. No limb edema. VITAL SIGNS: Her heart rate was 89, blood pressure was 119/68, temperature was 97.7, respiratory rate was 20 and oxygen saturation was 100% on 3 liters of oxygen by nasal cannula. HEAD, EYES, EARS, NOSE AND THROAT: Showed normocephalic, atraumatic. NECK: Supple. HEART: Showed normal first and second heart sounds with no gallop, rub or murmur. CHEST: Clear to auscultation. No crepitation or rhonchi. ABDOMEN: Distended, soft, nontender. No guarding or rigidity. No organomegaly. Hernial orifices intact. Bowel sounds normal. NEUROLOGIC: She is awake, alert, responding appropriately. All cranial nerves intact. She moves extremities without difficulty. Her intake over the last 24 hours was 1100, output was ____. LABORATORY DATA: As of this morning, her serum sodium was 143, potassium 3.8, chloride 102, bicarbonate 36, anion gap of 5, BUN 17, creatinine 0.9, estimated GFR was 72 mL per minute. Her glucose 94, calcium was 8.9. Total bilirubin, AST, ALT, alkaline phosphatase were normal. Total protein was 6.3, albumin was 3.1. Her most recent white blood count was 7100, hemoglobin 8.8, hematocrit 27, MCV 97 and platelet count 228,000. Her nasal screen for MRSA by PCR was negative. ASSESSMENT: 1. Acute on chronic diastolic congestive heart failure. The patient seems to be stable clinically. She is currently on 3 liters of oxygen by nasal cannula. 2. Accelerated hypertension, much improved now that she is on lisinopril 5 mg, metoprolol 50 mg twice a day and hydralazine 10 mg 3 times a day. 3. Questionable seizure activity for which she is scheduled for EEG. 4. Hypothyroidism, on levothyroxine. Her TSH continues to be high; however, I did order T3, T4, free T4, the results of which is still pending. 5. Bilateral lower lobe infiltrate for which she is currently on Levaquin 750 mg once a day. She is afebrile, hemodynamically stable with normal white cell count. PLAN: To continue with current plan of management, await the result of ____. The patient needs to be discharged to swing bed and/or continue looking for placement in a long term facility. DOMINIK SUN MD DR: FRANCOIS/alisa JOB#: [id number] / [id number]
[2016-07-26] MEDS: ACETAMINOPHEN 325 MG TABLET PO PRN (15:43)
[2016-07-26] MEDS: traZODone 50 MG TABLET. PO PRN (20:22)
[2016-07-27] MEDS: LEVOTHYROXINE 112 MCG TABLET PO SCH (05:35)
[2016-07-27 07:32] VITALS: BP 138/82
[2016-07-27] MEDS: DULOXETINE HCL 60 MG CAPSULE.DR. PO SCH (08:00)
[2016-07-27] MEDS: ENOXAPARIN 30 MG/0.3 ML DISP.SYRIN. SQ SCH (08:00)
[2016-07-27] MEDS: ASPIRIN ENTERIC COATED 325 MG TABLET.DR. PO SCH (08:01)
[2016-07-27] MEDS: CHOLECALCIFEROL (VITAMIN D3) 1,000 UNIT TABLET PO SCH (08:01)
[2016-07-27] MEDS: DOCUSATE CALCIUM 240 MG CAPSULE PO SCH (08:01)
[2016-07-27] MEDS: FUROSEMIDE 20 MG TABLET PO SCH (08:02)
[2016-07-27] MEDS: METOPROLOL TART IMMED RELEASE 50 MG TABLET PO SCH ×2 (08:02→19:49)
[2016-07-27] MEDS: HYDRALAZINE 10 MG TABLET PO SCH ×3 (08:02→19:49)
[2016-07-27] MEDS: ROFLUMILAST 500 MCG TABLET PO SCH (08:02)
[2016-07-27] MEDS: ACETAMINOPHEN 325 MG TABLET PO SCH ×2 (08:03→19:48)
[2016-07-27] MEDS: risperiDONE 0.25 MG TABLET. PO SCH ×2 (08:05→19:49)
[2016-07-27] MEDS: PREDNISONE 10 MG TABLET PO SCH (08:05)
[2016-07-27] MEDS ORDERED: LISINOPRIL 5 MG TABLET. PO SCH (09:00)
--- NOTE | 2016-07-27 09:23 | PN ---
DATE: 07/26/2016 SUBJECTIVE: The patient denies any new medical or neurological complaints. She did have an episode of a seizure-like activity on the day of transfer to ICU; however, she has not had any spells in the last 2 days. She denies headaches, visual disturbances, nausea, vomiting, chest pain, shortness of breath or palpitations. OBJECTIVE: GENERAL: Well-developed, well-nourished, -[place] female, not in acute distress. VITAL SIGNS: Blood pressure 153/78, respiratory rate 20, pulse 98, oxygen saturation 100% on 3 liters by nasal cannula and temperature is 97.7. HEENT: Normocephalic, atraumatic, otherwise unremarkable. NECK: Supple. Negative for carotid bruit, lymphadenopathy or thyromegaly. LUNGS: With diminished breath sound. CARDIOVASCULAR: Regular rhythm, normal S1, S2. ABDOMEN: Soft. Bowel sounds positive. EXTREMITIES: Negative for cyanosis, clubbing or pitting edema. NEUROLOGIC: The patient is alert and oriented x 3. The speech is fluent. There is no language dysfunction. The patient recalls 2/3 immediately and after 1 and 3 minutes. Judgment and abstract thinking are normal. The patient denies hallucination or delusion. Cranial nerves are grossly intact. Motor examination: No focal muscle bulk was seen. The tone is normal. The strength is 4/5 throughout. Sensory examination: Normal pinprick and light touch senses throughout. Deep tendon reflexes are symmetric and hypoactive with absent Achilles responses. Gait: The stance is steady. EEG report or electroencephalogram: This is an 18-channel EEG performed using the standard international 10-20 electrode placement system. Photic stimulation was used as an activation procedure and hyperventilation was not performed. The patient was not sleep deprived, the patient was not sedated. The EEG obtained with the patient in the awake state characterized by slowing of the posterior dominant rhythm at 6-7 cycles per second with an amplitude of 25-35 microvolts. It was bilaterally symmetric without attenuation with eye opening. The patient achieved stage I sleep characterized by further slowing of the posterior dominant rhythm and attenuation . The background was markedly contaminated with excessive movement and muscle artifacts throughout the recording. Photic stimulation produced no driving responses and hyperventilation was not performed. IMPRESSION: This is a mildly abnormal EEG due to slowing of the posterior dominant rhythm and diffuse slowing of the background activities. These findings are suggestive of a mild cerebral dysfunction. Excessive drowsiness may also be accountable for diffuse slowing. No epileptiform activities were seen. The lack of epileptiform discharge does not always rule out seizure; therefore, a clinical correlation is advised. IMPRESSION: 1. Acute mental status changes, probably due to hypoxic encephalopathy -- resolved. 2. Diastolic congestive heart failure, COPD, osteoarthritis, GERD. 3. Multiple psychiatric problems including depression, anxiety. 4. Mild dementia. 5. Negative EEG for seizure. RECOMMENDATIONS: Continue with current management initiated by Dr. Pruitt. M Vane HUERTA MD DR: DANIELA/alisa JOB#: [id number] / [id number]
[2016-07-27 11:30] VITALS: BP 145/86
[2016-07-27] MEDS ORDERED: LEVO125T5 PO (12:48)
[2016-07-27] MEDS ORDERED: LISI-338 PO (12:49)
[2016-07-27] MEDS ORDERED: METO50TA2 PO (12:49)
[2016-07-27] MEDS ORDERED: LEVO750T5 PO (12:52)
[2016-07-27 14:51] VITALS: BP 128/60
--- NOTE | 2016-07-27 19:17 | PN ---
DATE: SUBJECTIVE: The patient is resting slightly propped up in bed, in no apparent distress. She is awake, alert, responding appropriately, continued to be impulsive at times, attempt to get out of the bed, get anxious when her oxygen was not on. Other than that, she has not displayed any aggressive behavior. When I examined her, did not show any evidence of shortness of breath, orthopnea, paroxysmal nocturnal dyspnea. PHYSICAL EXAMINATION: GENERAL: When I examined her, she looked pale, but no jaundice, cyanosis, or thyromegaly. No jugular venous distension. No limb edema. VITAL SIGNS: Her heart rate was 93, blood pressure 145/86, temperature was 98, respiratory rate was 16 and oxygen saturation was 98% on 3 liters oxygen. HEAD, EYES, EARS, NOSE AND THROAT: Showed normocephalic, atraumatic. NECK: Supple. HEART: Showed normal first and second heart sounds with no gallop, rub or murmur. CHEST: Clear to auscultation. No crepitation or rhonchi. ABDOMEN: Distended, soft, nontender. No guarding or rigidity. No organomegaly. Hernial orifices intact. Bowel sounds normal. NEUROLOGIC: She is demented, but without any obvious lateralizing signs. Cranial nerves intact. She moves extremities without difficulty. She walks with a walker. Her intake was 3050, output was 550. LABORATORY DATA: Her most recent lab work showed a white cell count of 7100, hemoglobin 8.8, hematocrit 26.8, MCV 97 and platelet count 28,000. Her chemistry showed a serum sodium 143, potassium 3.8, chloride 107, bicarbonate 36, anion gap of 5, BUN 17, creatinine 0.9. Estimated GFR was 72 mL per minute. Her glucose was 94, calcium was 8.9. Her TSH was high at 21.319, however, free T4 was only 0.76, total T4 was 5 and total T3 was 49. She apparently has had an EEG, which did not reveal any epileptic activity. This is just a report from the nurse who has contacted Dr. Velarde's office. PLAN: My plan is to increase her Synthroid to 125 mcg once a day. Meanwhile, continue with all other medication. Our pillowcase sewer was attempting to discharge her home. If she was discharged today we would call all her medications to her pharmacy, otherwise we will discharge her tomorrow. DOMINIK SUN MD DR: Zari JOB#: [id number] / [id number]
[2016-07-27 19:51] VITALS: BP 126/64
[2016-07-28] MEDS ORDERED: LEVOTHYROXINE 125 MCG TABLET PO SCH (06:00)
== END 2016-07-27 22:05 | disposition home or self-care (01) | DRG 291 ==
LOC: ICU 08:45
PROVIDERS: ADMIT Family Medicine; ATTEND Family Medicine
DX: I50.33 Acute on chronic diastolic (congestive) heart failure (principal); G93.41 Metabolic encephalopathy; J96.21 Acute and chronic respiratory failure with hypoxia; J96.22 Acute and chronic respiratory failure with hypercapnia; E44.0 Moderate protein-calorie malnutrition; G93.1 Anoxic brain damage, not elsewhere classified; F03.91 Unspecified dementia, unspecified severity, with behavioral disturbance; I43 Cardiomyopathy in diseases classified elsewhere; I11.0 Hypertensive heart disease with heart failure; E03.9 Hypothyroidism, unspecified; E78.5 Hyperlipidemia, unspecified; F32.9 Major depressive disorder, single episode, unspecified; F41.0 Panic disorder [episodic paroxysmal anxiety]; F60.9 Personality disorder, unspecified; I27.2 Other secondary pulmonary hypertension; I48.91 Unspecified atrial fibrillation; M81.0 Age-related osteoporosis without current pathological fracture; R13.10 Dysphagia, unspecified; G62.9 Polyneuropathy, unspecified; I49.1 Atrial premature depolarization; I73.9 Peripheral vascular disease, unspecified; J44.9 Chronic obstructive pulmonary disease, unspecified; K21.9 Gastro-esophageal reflux disease without esophagitis; D50.9 Iron deficiency anemia, unspecified; F22 Delusional disorders; I08.0 Rheumatic disorders of both mitral and aortic valves; M19.90 Unspecified osteoarthritis, unspecified site; Z79.899 Other long term (current) drug therapy; Z86.73 Personal history of transient ischemic attack (TIA), and cerebral infarction without residual deficits; Z87.891 Personal history of nicotine dependence; Z87.11 Personal history of peptic ulcer disease; Z91.5 Personal history of self-harm; Z99.81 Dependence on supplemental oxygen; Z88.8 Allergy status to other drugs, medicaments and biological substances; Z68.20 Body mass index [BMI] 20.0-20.9, adult; I25.2 Old myocardial infarction
CPT/HCPCS: 36415; 36600; 70450; 71010; 71275; 80048; 80053; 81001; 82803; 83735; 83880; 84436; 84439; 84443; 84480; 84484; 85027; 85379; 85610; 87040; 87086; 87641; 93005; 93880; 94640; 95816; J1650; J7512; J7620